=== PATIENT | male | born 1950 | race Caucasian/White ===

== ENCOUNTER 2020-08-18 10:09 | Outpatient (REF) | payer MEDICARE, SELFPAY ==
[2020-08-18 10:51] LABS: MANUAL DIFF FLAG NO
[2020-08-18 10:59] LABS: Basophils Absolute Auto 0.1 X10*3/uL (0.0-0.2); Basophils Percent Auto 0.7 % (0-2); Eosinophils Absolute Auto 0.1 X10*3/uL (0.0-0.4); Eosinophils Percent Auto 0.8 % (0-4); Hemoglobin 15.8 g/dl (14.0-18.0); Imm Gran Abs Auto 0.02 X10*3/uL (0.00-0.03); Imm Gran Pct Auto 0.3 % (0.0-0.4); Lymphocytes Absolute Auto 1.8 X10*3/uL (1.2-4.9); Lymphocytes Percent Auto 24.9 % (20-40); Mean Corpuscular HGB Conc 34.3 g/dl (31.0-36.0); Mean Corpuscular Hemoglobin 32.1 pg (27.0-33.0); Mean Corpuscular Volume 93.5 fL (80-98); Mean Platelet Volume 11.5 fL (9.4-12.4); Monocytes Absolute Auto 0.7 X10*3/uL (0.1-1.2); Monocytes Percent Auto 9.4 % (2-11); Neutrophils Absolute Auto 4.7 X10*3/uL (2.0-8.3); Neutrophils Percent Auto 63.9 % (45-73); Platelet Count 254 X10*3/uL (160-400); Red Blood Count 4.92 X10*6/uL (4.60-5.80); Red Cell Distribution Width 11.4 % (11.0-16.0); White Blood Count 7.3 X10*3/uL (4.8-10.8)
[2020-08-18 11:15] LABS: Glucose Urine UA >=1000 MG/DL (NEG); Leukocyte Esterase Urine NEG (NEG); Nitrite Urine NEG (NEG); PH 5.5 (5.0-8.0); Specific Gravity - Urine >= 1.030 (1.005-1.025); Urine Blood TRACE (NEG); Urine Ketones 5 MG/DL (NEG); Urine Protein TRACE MG/DL (NEG-TRACE)
[2020-08-18 11:17] LABS: Appearance Urine CLEAR; Color Urine YELLOW
[2020-08-18 11:25] LABS: Alanine Aminotransferase 49 U/L (0-40); Albumin Level 4.7 g/dL (3.5-5.0); Alkaline Phosphatase 60 U/L (39-117); Anion Gap 17 (12-20); Aspartate Amino Transferase 29 U/L (5-37); Bilirubin Total 0.7 mg/dL (0.0-1.0); Blood Urea Nitrogen 21 mg/dL (9-16); Calcium 9.4 mg/dL (8.4-10.2); Carbon Dioxide 23 mmol/L (22-29); Chloride 102 mmol/L (96-108); Cholesterol 248 mg/dL; Estimated Glomerular Filt Rate 56; Glucose Fasting 250 mg/dL (60-99); HDL Cholesterol 41 mg/dL; LDL Cholesterol Calculated 136 mg/dl; Potassium 4.5 mmol/L (3.3-5.1); Sodium 137 mmol/L (135-145); Total Protein 7.8 g/dL (6.5-8.0); Triglycerides 359 mg/dL
[2020-08-18 11:26] LABS: Estimated Average Glucose 235 mg/dL; Hemoglobin A1c % 9.8 %; RBC Urine 0-2 /HPF (0); WBC Urine 0-2 /HPF (0-4)
[2020-08-18 12:12] LABS: Creatinine Urine 141.75 mg/dL; Microalbum/Creatinine Ratio Ur 154.4 ug/mg cr
[2020-08-18 12:42] LABS: Prostate Specific Antigen Scr 2.51 ng/mL (<0.05-4.0)
== END 2020-08-18 10:10 | disposition home or self-care (01) ==
LOC: HO.10HDL 10:09
PROVIDERS: Visit Provider Internal Medicine
DX: E11.9 Type 2 diabetes mellitus without complications (principal); I10 Essential (primary) hypertension; N40.0 Benign prostatic hyperplasia without lower urinary tract symptoms; E78.00 Pure hypercholesterolemia, unspecified; Z12.5 Encounter for screening for malignant neoplasm of prostate
CPT/HCPCS: 36415; 80053; 80061; 81001; 82043; 83036; 84153; 85025

== ENCOUNTER 2021-02-22 07:56 | Outpatient (REF) | payer MEDICARE, SELFPAY ==
[2021-02-22 10:17] LABS: Estimated Average Glucose 157 mg/dL; Hemoglobin A1c % 7.1 %
[2021-02-22 10:36] LABS: Creatinine Urine 53.68 mg/dL; Microalbum/Creatinine Ratio Ur 24.2 ug/mg cr
[2021-02-22 10:40] LABS: Alanine Aminotransferase 65 U/L (0-40); Albumin Level 4.4 g/dL (3.5-5.0); Alkaline Phosphatase 56 U/L (39-117); Anion Gap 16 (12-20); Aspartate Amino Transferase 41 U/L (5-37); Bilirubin Total 0.4 mg/dL (0.0-1.0); Blood Urea Nitrogen 20 mg/dL (9-16); Calcium 9.6 mg/dL (8.4-10.2); Carbon Dioxide 24 mmol/L (22-29); Chloride 107 mmol/L (96-108); Cholesterol 202 mg/dL; Estimated Glomerular Filt Rate > 60; Glucose Fasting 122 mg/dL (60-99); HDL Cholesterol 35 mg/dL; LDL Cholesterol Calculated 98 mg/dl; Potassium 5.7 mmol/L (3.3-5.1); Sodium 141 mmol/L (135-145); Total Protein 7.5 g/dL (6.5-8.0); Triglycerides 348 mg/dL
== END 2021-02-22 07:57 | disposition home or self-care (01) ==
LOC: HO.10HDL 07:56
PROVIDERS: PCP Internal Medicine; Visit Provider Internal Medicine
DX: E11.9 Type 2 diabetes mellitus without complications (principal); I10 Essential (primary) hypertension; E78.5 Hyperlipidemia, unspecified
CPT/HCPCS: 36415; 80053; 80061; 82043; 83036

== ENCOUNTER 2021-03-28 07:46 | Outpatient (REF) | payer MEDICARE, SELFPAY ==
[2021-03-28 11:24] LABS: Cholesterol 179 mg/dL; HDL Cholesterol 36 mg/dL; LDL Cholesterol Calculated 109 mg/dl; Triglycerides 174 mg/dL
== END 2021-03-28 07:47 | disposition home or self-care (01) ==
LOC: HO.10HDL 07:46
PROVIDERS: Visit Provider Internal Medicine
DX: E78.1 Pure hyperglyceridemia (principal)
CPT/HCPCS: 36415; 80061

== ENCOUNTER 2021-03-30 10:11 | Outpatient (REF) | payer MEDICARE, SELFPAY ==
--- NOTE | ~2021-03-30 | XR_ITS ---
EXAMINATION: XR CALCANEUS, RIGHT CLINICAL INFORMATION: Question spurring. COMPARISON: None TECHNIQUE: Lateral and axial views of the right calcaneus were obtained. FINDINGS: Vascular calcifications are noted here. [id number] spurring at the insertion of the plantar aponeuroses in the Achilles. Mild degeneration at the tibiotalar articulation. XR/XR calcaneus RT min 2V IMPRESSION: Moderate calcaneal spurring. Vascular calcifications are noted.
== END 2021-03-30 10:12 | disposition home or self-care (01) ==
LOC: HO.XRAY 10:11
PROVIDERS: PCP Internal Medicine; Visit Provider Internal Medicine
DX: M79.671 Pain in right foot (principal)
CPT/HCPCS: 73650

== ENCOUNTER 2021-07-13 09:12 | Outpatient (REF) | payer MEDICARE, SELFPAY ==
[2021-07-13 10:19] LABS: MANUAL DIFF FLAG NO
[2021-07-13 10:37] LABS: Basophils Percent Auto 0.5 % (0-2); Eosinophils Absolute Auto 0.2 X10*3/uL (0.0-0.4); Hematocrit 43.5 % (42.0-52.0); Hemoglobin 14.3 g/dl (14.0-18.0); Imm Gran Abs Auto 0.03 X10*3/uL (0.00-0.03); Imm Gran Pct Auto 0.4 % (0.0-0.4); Lymphocytes Absolute Auto 2.2 X10*3/uL (1.2-4.9); Lymphocytes Percent Auto 29.2 % (20-40); Mean Corpuscular HGB Conc 32.9 g/dl (31.0-36.0); Mean Corpuscular Hemoglobin 31.4 pg (27.0-33.0); Mean Corpuscular Volume 95.4 fL (80.0-98.0); Mean Platelet Volume 11.7 fL (9.4-12.4); Monocytes Absolute Auto 0.9 X10*3/uL (0.1-1.2); Monocytes Percent Auto 11.1 % (2-11); Neutrophils Absolute Auto 4.3 x10*3/uL (2.0-8.3); Neutrophils Percent Auto 56.8 % (45-73); Platelet Count 283 X10*3/uL (160-400); Red Blood Count 4.56 X10*6/uL (4.60-5.80); Red Cell Distribution Width 11.7 % (11.0-16.0); White Blood Count 7.6 X10*3/uL (4.8-10.8)
[2021-07-13 11:01] LABS: Creatinine Urine 145.78 mg/dL
[2021-07-13 11:05] LABS: Alanine Aminotransferase 28 U/L (0-40); Albumin Level 4.3 g/dL (3.5-5.0); Alkaline Phosphatase 34 U/L (39-117); Anion Gap 13 (12-20); Aspartate Amino Transferase 21 U/L (5-37); Bilirubin Total 0.8 mg/dL (0.0-1.0); Blood Urea Nitrogen 20 mg/dL (9-16); Carbon Dioxide 25 mmol/L (22-29); Chloride 106 mmol/L (96-108); Estimated Glomerular Filt Rate 47; Glucose Fasting 153 mg/dL (60-99); Potassium 5.4 mmol/L (3.3-5.1); Sodium 139 mmol/L (135-145); Total Protein 7.5 g/dL (6.5-8.0)
[2021-07-13 11:37] LABS: Estimated Average Glucose 171 mg/dL; Hemoglobin A1c % 7.6 %
== END 2021-07-13 09:13 | disposition home or self-care (01) ==
LOC: HO.10HDL 09:12
PROVIDERS: Visit Provider Internal Medicine
DX: E11.9 Type 2 diabetes mellitus without complications (principal); E78.5 Hyperlipidemia, unspecified
CPT/HCPCS: 36415; 80053; 82043; 83036; 85025

== ENCOUNTER 2021-08-07 12:00 | Outpatient (REF) | payer MEDICARE, SELFPAY | END 2021-08-07 12:01 | disposition home or self-care (01) | LOC: HO.LNP 12:00 | PROVIDERS: Visit Provider Internal Medicine | DX: Z13.89 Encounter for screening for other disorder (principal) | CPT/HCPCS: 87635 ==

== ENCOUNTER 2021-12-26 08:50 | Outpatient (REF) | payer MEDICARE, SELFPAY ==
[2021-12-26 11:20] LABS: Estimated Average Glucose 200 mg/dL; Hemoglobin A1c % 8.6 %
[2021-12-26 11:24] LABS: Anion Gap 12 (12-20); Blood Urea Nitrogen 31 mg/dL (9-16); Calcium 9.5 mg/dL (8.4-10.2); Carbon Dioxide 23 mmol/L (22-29); Chloride 103 mmol/L (96-108); Estimated Glomerular Filt Rate 41; Glucose Fasting 185 mg/dL (60-99); Potassium 4.8 mmol/L (3.3-5.1); Sodium 133 mmol/L (135-145)
== END 2021-12-26 08:51 | disposition home or self-care (01) ==
LOC: HO.10HDL 08:50
PROVIDERS: Visit Provider Internal Medicine
DX: E11.9 Type 2 diabetes mellitus without complications (principal); I10 Essential (primary) hypertension
CPT/HCPCS: 36415; 80048; 83036

== ENCOUNTER 2022-02-25 07:51 | Inpatient (IN) | payer MEDICARE, SELFPAY ==
--- NOTE | ~2022-02-25 | CT_ITS ---
EXAMINATION: CT HEAD WITHOUT CONTRAST (STROKE PROTOCOL) CLINICAL INFORMATION: Stroke protocol. COMPARISON: March 25, 2019 TECHNIQUE: Contiguous axial imaging was performed from the skull base to vertex without intravenous administration of contrast. This CT examination was performed using dose optimization techniques as appropriate, variously including the following: *Automated exposure control *Adjustment of mA and/or kV according to patient size (this includes techniques or standardized protocols for targeted exams where dose is matched to indication/reason for exam; i.e. extremities or head) *Use of iterative reconstruction technique DLP: 822 mGy-cm FINDINGS: No intracranial hemorrhage. No significant mass effect or midline structure shift. No abnormal extra-axial fluid collection.. Ventricle sulci and cisterns unremarkable. Ritter-white matter interface maintained. Visualized paranasal sinuses and mastoid air cells unremarkable. CT/CT head for stroke IMPRESSION: No acute intracranial pathology. This critical result was discussed with Dr. Whiting at 8:31 AM hours on February 25, 2022. It was ascertained that the content and urgency of the report was understood at the time of direct communication.
--- NOTE | ~2022-02-25 | XR_ITS ---
EXAMINATION: XR CHEST CLINICAL INFORMATION: Stroke COMPARISON: None TECHNIQUE: Frontal view of the chest was obtained. FINDINGS: Cardiac silhouette is normal in size. The lungs are adequately aerated. There is no lobar consolidation. No pleural effusion or pneumothorax. Degenerative changes of the spine. XR/XR chest 1V IMPRESSION: No acute pulmonary pathology.
--- NOTE | ~2022-02-25 | CT_ITS ---
EXAMINATION: CT ANGIOGRAM HEAD CT ANGIOGRAM NECK CLINICAL INFORMATION: Right-sided leg weakness. COMPARISON: CT head from 02/25/2022. TECHNIQUE: Initial noncontrast client account representative imaging of the head and neck was performed. Comparison is made with noncontrast head CT from earlier today. Test bolus sequences followed by intravenous administration 70 mL of Omnipaque 350. Helical imaging was performed in the axial plane from the aortic arch to the skull vertex. Delayed postcontrast imaging of the head was also performed. The data was processed at the soil technologist's workstation for generation of MIP sequences. Angled MIPs and volume rendered reformatted images were also generated at an offline 3D workstation. Stenoses are assessed in accordance with NASCET criteria unless otherwise indicated. This CT examination was performed using dose optimization techniques as appropriate, variously including the following: *Automated exposure control. *Adjustment of mA and/or kV according to patient size (this includes techniques or standardized protocols for targeted exams where dose is matched to indication/reason for exam; i.e. extremities or head). *Use of iterative reconstruction technique. DLP: 1589 mGy-cm FINDINGS: CT Head: There is no evidence of acute intracranial hemorrhage or edematous territorial infarction. A few foci of hypoattenuation in the periventricular and deep white matter are consistent with mild microangiopathy. Ritter-white matter differentiation is preserved. The ventricles are normal in size and configuration. No evidence for obstructive hydrocephalus. No abnormal mass effect or midline shift. No extra-axial fluid collections. No pathologic intra-axial enhancement or regional oligemia. No acute soft tissue or osseous abnormalities. Mild mucosal thickening of the paranasal sinuses. The mastoid air cells and middle ear cavities are clear. CT Neck: The thyroid gland and remaining cervical soft tissues are within normal limits. No significant abnormalities of the cervical spine. CT Upper Chest: The visualized lung apices and upper mediastinum are within normal limits. Neck CTA: Aortic Arch: Normal contour and caliber with moderate calcific atherosclerotic disease. Classic 3 vessel branching pattern of the aortic arch. Great Vessel Origins: No significant stenosis of the branch origins. Right Common Carotid Artery: No focal stenosis or occlusion. Cervical Right Internal Carotid Artery: Calcific atherosclerotic disease of the carotid bulb and proximal internal carotid artery causing less than 50% stenosis. Left Common Carotid Artery: No focal stenosis or occlusion. Cervical Left Internal Carotid Artery: Calcific atherosclerotic disease of the carotid bulb and proximal internal carotid artery causing less than 50% stenosis. Cervical Right Vertebral Artery: No focal stenosis or occlusion. Cervical Left Vertebral Artery: Dominant. Atherosclerotic disease causes mild stenosis of the origin. No additional focal stenosis or occlusion. Brain CTA: Intracranial Internal Carotid Arteries: Calcific atherosclerotic disease of the intracranial internal carotid arteries without occlusion or flow-limiting stenosis. Right Anterior Cerebral Artery: Normal A1 segment. Normal opacification of the distal JUAN segments. Left Anterior Cerebral Artery: Normal A1 segment. Normal opacification of the distal JUAN segments. Anterior Communicating Artery: Normal. Right Middle Cerebral Artery: Normal M1 segment of the MCA without focal stenosis or occlusion. Normal arborization of the distal segments. Left Middle Cerebral Artery: Normal M1 segment of the MCA without focal stenosis or occlusion. Normal arborization of the distal segments. Right Vertebral Artery: Normal V4 segment. Normal opacification of the proximal segments of the posterior inferior cerebellar artery. Left Vertebral Artery: Normal V4 segment. Normal opacification of the proximal segments of the posterior inferior cerebellar artery. Basilar Artery: Normal without focal stenosis or occlusion. Normal appearance of the proximal superior cerebellar arteries. Right Posterior Cerebral Artery: Normal P1 segment. Normal opacification of the distal SYNTHETIC PLASTERER segments. Left Posterior Cerebral Artery: Normal P1 segment. Normal opacification of the distal SYNTHETIC PLASTERER segments. Normal opacification of the superior sagittal, straight, transverse, and sigmoid sinuses. CT/CT angio head neck stroke IMPRESSION: 1. No evidence of acute intracranial hemorrhage or edematous territorial infarction. 2. CTA of the head and neck without proximal occlusion or flow-limiting stenosis. This critical result was discussed with Dr. Whiting at 09:21 on 02/25/2022 and it was ascertained that the content and urgency of the report was understood at the time of direct communication.
[2022-02-25 07:55] VITALS: BP 176/80; PULSE 107; RESP 18; TEMP 36.6; O2SAT 97; BMI 27.9
--- NOTE | 2022-02-25 08:08 | ECG_ITS ---
Test Reason : STROKE Blood Pressure : / mmHG Vent. Rate : 103 BPM Atrial Rate : 103 BPM P-R Int : 170 ms QRS Dur : 076 ms QT Int : 334 ms P-R-T Axes : 058 -35 056 degrees QTc Int : 437 ms Sinus tachycardia Left axis deviation Possible Anterior infarct , age undetermined Abnormal ECG No previous ECGs available Referred By: Gilbert Whiting Electronically Signed By:THOM RYAN
--- NOTE | 2022-02-25 08:11 | ED.NEUROSD ---
HPI - Neuro Symptoms/Deficit General Chief Complaint: Stroke Stated Complaint: Stroke? Time Seen by Provider: 02/25/22 08:07 Source: patient Mode of arrival: ambulatory Limitations: no limitations History of Present Illness HPI Narrative: 71-year-old male came in for evaluation of a right leg weakness. This is a 71-year-old male with history of diabetes, previous stroke in 2019 left him with no neurological deficit patient woke up at 02:30 in the morning feeling right-sided numbness, patient went back to bed and fell asleep woke up in the morning notice improvement of all his symptoms, patient got of the bed trying to take shower noticed that his right leg still weak because of the patient tripped and almost fell hitting his head on the wall. Patient is still complaining of right leg weakness and unable to walk steady on his right leg. Patient has no speech problem, no upper extremities weakness. Complaining of left occipital headache/pain that has been going for many months. Related Data Allergies Allergy/AdvReac Type Severity Reaction Status Date / Time No Known Allergies Allergy Verified 02/25/22 08:07 Review of Systems Review of Systems: All other systems are reviewed and are negative Constitutional: Reports as per HPI and Reports no additional constitutional complaints Eyes: Reports as per HPI and Reports no additional eye complaints Reports system reviewed and no additional complaints, except as documented Cardiovascular: Reports as per HPI and Reports no additional cardiovascular complaints Respiratory: Reports as per HPI and Reports no additional respiratory complaints Gastrointestinal: Reports as per HPI and Reports no additional gastrointestinal complaints Genitourinary: Reports no additional female genitourinary complaints Musculoskeletal: Reports no additional musculoskeletal complaints Skin/Breast: Reports system reviewed and no additional complaints, except as docu Psychiatric: Reports no additional psychiatric complaints Endocrine: Reports no additional endocrine complaints Hematologic/Lymphatic: Reports no additional hematologic/lymphatic complaints Allergic/Immunologic: Reports no additional allergic/immunologic complaints Reports system reviewed and no additional complaints, except as documented and Reports Abnormal speech present [facility] Past Medical History Medical History (Updated 02/25/22 @ 10:46 by Gilbert Whiting MD) 23-polyvalent pneumococcal polysaccharide vaccine indication of diabetes in patient 6 to 64 years of age HTN (hypertension) TIA (transient ischemic attack) Social History Social History Advance Directives: Yes Advance Directives Information Provided: Yes Advance Directives on File: No Physical Exam Vital Signs: Vital Signs: Last Vital Signs Temp 98 F 02/25/22 07:55 Pulse 106 H 02/25/22 10:25 Resp 18 02/25/22 10:25 BP 166/90 H 02/25/22 10:25 Pulse Ox 97 02/25/22 07:55 O2 Del Method 02/25/22 08:47 BMI result Body Mass Index 27.9 Vital signs have been reviewed as appeared to be correct. Blood pressure normal. Heart rate normal. Respiration rate normal. Temperature normal. Oxygen saturation normal. Appearance: Alert. Oriented X3. No acute distress. Head: Normal external exam. Normocephalic. Atraumatic. No [place] signs noted. No raccoon eyes noted Eyes: PERRLA. EOMI. Conjunctiva and sclera normal. Eyelids normal. ENT: TM's Normal. Pharynx normal. Uvula midline. Moist mucous membranes. No trismus noted. No drooling noted. No muffled voice noted. Neck: Normal inspection. Neck supple. FROM. No adenopathy. Thyroid Normal. No meningeal signs. No neck mass noted. CVS: Normal heart rate and rhythm. Heart sound normal. No murmurs noted. Pulses normal throughout. Respiratory: No respiratory distress. Painless inspiration. Breath sounds normal. No wheezes/rales/rhonchi noted. Chest nontender. No accessory muscle usage noted or decreased air movement noted. Abdomen: Soft and nontender. Bowel sounds normal in all 4 quadrants. No distention noted. No organomegaly noted. No visible injury noted. Back: No CVA tenderness. Full range of motion noted. Skin: Skin warm and dry. Normal skin color. Normal skin turgor. No rashes/lesions/lacerations noted. Extremities: No lower extremity edema. Extremities exhibit normal range of motion. Extremities nontender. Neuro: Oriented X 3. Cranial nerve exam: II-XII are grossly intact No motor deficit. No sensory deficit. Reflexes normal. Course Course Course Narrative: 71-year-old male came in for right-sided weakness started at 02:30 in the morning patient presented to ED at 730 which make the patient out of the window of thrombolysis therapy, patient however claims that most of his symptoms has improved just complaining of right lower leg pain, on exam patient have NIH score of 0 felt that the abnormal gait of the patient is related to musculoskeletal. Patient has unremarkable CT and CTA patient is not candidate for thrombolysis or mechanical thrombectomy. Will admit for further neurological consultation and evaluation. MDM - Neuro Symptoms/Deficit Medical Records Attestation: I reviewed the patient's medical records. Lab Data Attestation: I reviewed the patient's lab results. Result diagrams: 02/25/22 08:10 02/25/22 08:10 Labs: Lab Results 02/25/22 02/25/22 02/25/22 Range/Units 08:10 08:10 08:10 WBC 10.3 (4.8-10.8) X10*3/uL RBC 5.03 (4.60-5.80) X10*6/uL Hgb 15.9 (14.0-18.0) g/dl Hct 46.5 (42.0-52.0) % MCV 92.4 (80.0-98.0) fL MCH 31.6 (27.0-33.0) pg MCHC 34.2 (31.0-36.0) g/dl RDW 11.5 (11.0-16.0) % Plt Count 262 (160-400) X10*3/uL MPV 11.2 (9.4-12.4) fL Immature Gran % (Auto) 0.4 (0.0-0.4) % Neut % (Auto) 50.6 (45-73) % Lymph % (Auto) 38.4 (20-40) % [place] % (Auto) 8.6 (2-11) % Eos % (Auto) 1.5 (0-4) % Baso % (Auto) 0.5 (0-2) % Lymph # (Auto) 4.0 (1.2-4.9) X10*3/uL [place] # (Auto) 0.9 (0.1-1.2) X10*3/uL Eos # (Auto) 0.2 (0.0-0.4) X10*3/uL Baso # (Auto) 0.1 (0.0-0.2) X10*3/uL Abs Immat Gran (auto) 0.04 H (0.00-0.03) X10*3/uL Absolute Neuts (auto) 5.2 (2.0-8.3) x10*3/uL Absolute Nucleated RBC 0.000 (0.0-0.012) X10*3/uL Nucleated RBC % (auto) 0.0 (0.0-0.2) /100WBC PT (10.0-13.1) SEC Whole Blood PT (11.1-13.5) sec INR (0.9-1.1) Whole Blood INR (0.9-1.1) APTT 27.0 (26.0-36.4) SEC Sodium 137 (135-145) mmol/L Potassium 4.7 (3.3-5.1) mmol/L Chloride 103 (96-108) mmol/L Carbon Dioxide 17 L (22-29) mmol/L Anion Gap 22 H (12-20) BUN 35 H (9-16) mg/dL Creatinine 1.90 H (0.5-1.4) mg/dL Estim Creat Clear Calc 39.3 Estimated GFR 35 POC Glucose (60-115) mg/dL Random Glucose 234 H (60-115) mg/dL Calcium 9.4 (8.4-10.2) mg/dL Total Bilirubin 0.6 (0.0-1.0) mg/dL Direct Bilirubin 0.2 (0.0-0.5) mg/dL AST 24 (5-37) U/L ALT 26 (0-40) U/L Alkaline Phosphatase 45 D (39-117) U/L Total Creatine Kinase 111 (38-174) U/L Troponin I High Sens (<3.5-35.0) ng/L Total Protein 8.1 H (6.5-8.0) g/dL Albumin 4.5 (3.5-5.0) g/dL Lipase 157 H (8-78) U/L 02/25/22 02/25/22 02/25/22 Range/Units 08:10 08:10 08:10 WBC (4.8-10.8) X10*3/uL RBC (4.60-5.80) X10*6/uL Hgb (14.0-18.0) g/dl Hct (42.0-52.0) % MCV (80.0-98.0) fL MCH (27.0-33.0) pg MCHC (31.0-36.0) g/dl RDW (11.0-16.0) % Plt Count (160-400) X10*3/uL MPV (9.4-12.4) fL Immature Gran % (Auto) (0.0-0.4) % Neut % (Auto) (45-73) % Lymph % (Auto) (20-40) % [place] % (Auto) (2-11) % Eos % (Auto) (0-4) % Baso % (Auto) (0-2) % Lymph # (Auto) (1.2-4.9) X10*3/uL [place] # (Auto) (0.1-1.2) X10*3/uL Eos # (Auto) (0.0-0.4) X10*3/uL Baso # (Auto) (0.0-0.2) X10*3/uL Abs Immat Gran (auto) (0.00-0.03) X10*3/uL Absolute Neuts (auto) (2.0-8.3) x10*3/uL Absolute Nucleated RBC (0.0-0.012) X10*3/uL Nucleated RBC % (auto) (0.0-0.2) /100WBC PT 10.7 (10.0-13.1) SEC Whole Blood PT 11.8 (11.1-13.5) sec INR 0.9 (0.9-1.1) Whole Blood INR 1.0 (0.9-1.1) APTT (26.0-36.4) SEC Sodium (135-145) mmol/L Potassium (3.3-5.1) mmol/L Chloride (96-108) mmol/L Carbon Dioxide (22-29) mmol/L Anion Gap (12-20) BUN (9-16) mg/dL Creatinine (0.5-1.4) mg/dL Estim Creat Clear Calc Estimated GFR POC Glucose (60-115) mg/dL Random Glucose (60-115) mg/dL Calcium (8.4-10.2) mg/dL Total Bilirubin (0.0-1.0) mg/dL Direct Bilirubin (0.0-0.5) mg/dL AST (5-37) U/L ALT (0-40) U/L Alkaline Phosphatase (39-117) U/L Total Creatine Kinase (38-174) U/L Troponin I High Sens 4.3 (<3.5-35.0) ng/L Total Protein (6.5-8.0) g/dL Albumin (3.5-5.0) g/dL Lipase (8-78) U/L 02/25/22 Range/Units 08:11 WBC (4.8-10.8) X10*3/uL RBC (4.60-5.80) X10*6/uL Hgb (14.0-18.0) g/dl Hct (42.0-52.0) % MCV (80.0-98.0) fL MCH (27.0-33.0) pg MCHC (31.0-36.0) g/dl RDW (11.0-16.0) % Plt Count (160-400) X10*3/uL MPV (9.4-12.4) fL Immature Gran % (Auto) (0.0-0.4) % Neut % (Auto) (45-73) % Lymph % (Auto) (20-40) % [place] % (Auto) (2-11) % Eos % (Auto) (0-4) % Baso % (Auto) (0-2) % Lymph # (Auto) (1.2-4.9) X10*3/uL [place] # (Auto) (0.1-1.2) X10*3/uL Eos # (Auto) (0.0-0.4) X10*3/uL Baso # (Auto) (0.0-0.2) X10*3/uL Abs Immat Gran (auto) (0.00-0.03) X10*3/uL Absolute Neuts (auto) (2.0-8.3) x10*3/uL Absolute Nucleated RBC (0.0-0.012) X10*3/uL Nucleated RBC % (auto) (0.0-0.2) /100WBC PT (10.0-13.1) SEC Whole Blood PT (11.1-13.5) sec INR (0.9-1.1) Whole Blood INR (0.9-1.1) APTT (26.0-36.4) SEC Sodium (135-145) mmol/L Potassium (3.3-5.1) mmol/L Chloride (96-108) mmol/L Carbon Dioxide (22-29) mmol/L Anion Gap (12-20) BUN (9-16) mg/dL Creatinine (0.5-1.4) mg/dL Estim Creat Clear Calc Estimated GFR POC Glucose 220 H (60-115) mg/dL Random Glucose (60-115) mg/dL Calcium (8.4-10.2) mg/dL Total Bilirubin (0.0-1.0) mg/dL Direct Bilirubin (0.0-0.5) mg/dL AST (5-37) U/L ALT (0-40) U/L Alkaline Phosphatase (39-117) U/L Total Creatine Kinase (38-174) U/L Troponin I High Sens (<3.5-35.0) ng/L Total Protein (6.5-8.0) g/dL Albumin (3.5-5.0) g/dL Lipase (8-78) U/L Imaging Data Chest x-ray: Attestation: I personally reviewed and interpreted this imaging study as follows: Radiologist's impression: No acute pulmonary pathology. CT angiogram of head and neck: Attestation: I personally reviewed and interpreted this imaging study as follows: Radiologist's impression: 1. No evidence of acute intracranial hemorrhage or edematous territorial infarction. 2. CTA of the head and neck without proximal occlusion or flow-limiting stenosis. ? CT scan - head: Attestation: I personally reviewed and interpreted this imaging study as follows: Radiologist's impression: No acute intracranial pathology. ECG Data Attestation: I personally reviewed and interpreted this ECG as follows: Interpretation: Sinus tachycardia at 01:03 BP am, normal intervals, left axis deviation, no ST-T changes. NIH Stroke Scale Time: 08:15 Level of Consciousness: Alert Level of Consciousness Questions: Answers both questions correctly Level of Consciousness Commands: Performs both tasks correctly Best Gaze: Normal Visual: No visual loss Facial Palsy: Normal Motor Arm (Right): No drift Motor Arm (Left): No drift Motor Leg (Right): No drift (Mild right leg weakness when he stand up) Motor Leg (Left): No drift Limb Ataxia: Absent Sensory: Normal Best Language: No aphasia Dysarthia: Normal Extinction and Inattention: No abnormality Score: 0 Discharge Plan Discharge Clinical Impression: Transient cerebral ischemia Patient Disposition: Admitted As Inpatient
[2022-02-25 08:15] LABS: MANUAL DIFF FLAG NO
[2022-02-25 08:17] LABS: Basophils Absolute Auto 0.1 X10*3/uL (0.0-0.2); Basophils Percent Auto 0.5 % (0-2); Eosinophils Absolute Auto 0.2 X10*3/uL (0.0-0.4); Eosinophils Percent Auto 1.5 % (0-4); Hematocrit 46.5 % (42.0-52.0); Hemoglobin 15.9 g/dl (14.0-18.0); Imm Gran Abs Auto 0.04 X10*3/uL (0.00-0.03); Imm Gran Pct Auto 0.4 % (0.0-0.4); Lymphocytes Percent Auto 38.4 % (20-40); Mean Corpuscular HGB Conc 34.2 g/dl (31.0-36.0); Mean Corpuscular Hemoglobin 31.6 pg (27.0-33.0); Mean Corpuscular Volume 92.4 fL (80.0-98.0); Mean Platelet Volume 11.2 fL (9.4-12.4); Monocytes Absolute Auto 0.9 X10*3/uL (0.1-1.2); Monocytes Percent Auto 8.6 % (2-11); Neutrophils Absolute Auto 5.2 x10*3/uL (2.0-8.3); Neutrophils Percent Auto 50.6 % (45-73); Platelet Count 262 X10*3/uL (160-400); Red Blood Count 5.03 X10*6/uL (4.60-5.80); Red Cell Distribution Width 11.5 % (11.0-16.0); White Blood Count 10.3 X10*3/uL (4.8-10.8)
[2022-02-25 08:20] LABS: Glucose, Whole Blood 220 mg/dL (60-115)
[2022-02-25 08:35] LABS: Troponin-I High Sensitivity 4.3 ng/L (<3.5-35.0)
[2022-02-25] MEDS: iohexoL 350 MG/ML 100 ML INFUS..BTL IV (08:36)
[2022-02-25 08:43] LABS: Prothrombin Time Whole Bld POC 11.8 sec (11.1-13.5)
[2022-02-25] MEDS: 0.9 % Sodium Chloride 1,000 ML 999 ML IV (08:44)
[2022-02-25 08:47] VITALS: BP 157/68; PULSE 101; RESP 18
--- NOTE | 2022-02-25 08:50 | PC.NURSE ---
pt alert and oriented, skin pwd, respirations even and unlabored, pt reports waking up at 0230 to use the bathroom and noticed tingling allover his left side but decided to go back to bed, woke up again at 0700 and reports having a difficulty time ambulating his right leg, reports having a hard time picking up the foot, no visible facial droop, hand grasp strong and equal, no visible drift, when pt stands up his having difficulty ambulating on the right sided, having a hard time lifting the foot
[2022-02-25 08:56] LABS: INTERNATIONAL NORM RATIO 0.9 (0.9-1.1); Prothrombin Time 10.7 SEC (10.0-13.1)
[2022-02-25 08:57] LABS: Stroke Lab Use COMPLETE
[2022-02-25 08:59] LABS: Alanine Aminotransferase 26 U/L (0-40); Albumin Level 4.5 g/dL (3.5-5.0); Alkaline Phosphatase 45 U/L (39-117); Anion Gap 22 (12-20); Aspartate Amino Transferase 24 U/L (5-37); Bilirubin Direct 0.2 mg/dL (0.0-0.5); Bilirubin Total 0.6 mg/dL (0.0-1.0); Blood Urea Nitrogen 35 mg/dL (9-16); Calcium 9.4 mg/dL (8.4-10.2); Carbon Dioxide 17 mmol/L (22-29); Chloride 103 mmol/L (96-108); Creatinine Clr Calc Pharmacy 39.3; Estimated Glomerular Filt Rate 35; Glucose Random 234 mg/dL (60-115); Lipase 157 U/L (8-78); Potassium 4.7 mmol/L (3.3-5.1); Sodium 137 mmol/L (135-145); Total Protein 8.1 g/dL (6.5-8.0)
[2022-02-25 10:25] VITALS: BP 166/90; PULSE 106; RESP 18
[2022-02-25 11:12] LABS: COVID-19 Test Negative (Negative)
--- NOTE | 2022-02-25 11:37 | P.HPHOSP_ITS ---
History of Present Illness Date of Service: 02/25/22 Chief Complaint: right leg weakness 71-year-old male with history of diabetes, previous stroke in 2019 left him with no neurological deficit patient woke up at 02:30 in the morning feeling right- sided numbness, patient went back to bed and fell asleep woke up in the morning notice improvement of all his symptoms, patient got of the bed trying to take shower noticed that his right leg still weak because of the patient tripped and almost fell hitting his head on the wall. Patient is still complaining of right leg weakness and unable to walk steady on his right leg. Patient has no speech problem, no upper extremities weakness.? Complaining of left occipital headache/pain that has been going for many months. ER Course symptoms essentially resolved in the ER. CTA head and neck and head CT failed to demonstrate acute pathology. Now with minimal residual right sided weakness Review of Systems Review of Systems: denies chest pain Denies shortness of breath Denies nausea vomiting diarrhea Denies fevers chills [facility] Medical History (Updated 02/25/22 @ 11:50 by Enrique Thakur DO) 23-polyvalent pneumococcal polysaccharide vaccine indication of diabetes in patient 6 to 64 years of age HTN (hypertension) TIA (transient ischemic attack) Social History Advance Directives: Yes Advance Directives Information Provided: Yes Advance Directives on File: No Meds Allergies Allergy/AdvReac Type Severity Reaction Status Date / Time No Known Allergies Allergy Verified 02/25/22 08:07 Active Medications: Current Medications Aspirin (Aspirin 81 Mg Tab.Chew) 81 mg PO DAILY ONE Stop: 02/25/22 11:34 Atorvastatin Calcium (Atorvastatin Calcium 80 Mg Tablet) 80 mg PO DAILY ONE Stop: 02/25/22 11:34 Enoxaparin Sodium (Enoxaparin Sodium 40 Mg/0.4 Ml Syringe) 40 mg SUBCUT Q24H [facility] Pharmacy Consult (Consult Rx Perform Med Rec) 1 each MISCELLANE ONCE PRN PRN Reason: Consult order Sodium Chloride (0.9 % Sodium Chloride Flush 3 Ml Syringe) 3 ml IVFLUSH QSHIFT [facility] Physical Exam Vital Signs and Narrative: Vital Signs: Last Vital Signs Temp 98 F 02/25/22 07:55 Pulse 106 H 08/28/22 10:25 Resp 18 02/25/22 10:25 BP 166/90 H 02/25/22 10:25 Pulse Ox 97 02/25/22 07:55 O2 Del Method 02/25/22 08:47 BMI result Body Mass Index 27.9 Const: Other: no acute distress resting comfortably Resp: Other: clear to auscultation bilaterally no rales rhonchi or wheezes Cardio: Other: no S4; positive S1-S2; no S3 murmurs rubs or gallops GI: Other: soft nontender nondistended with normoactive bowel sounds Neuro: Other: cranial nerves 2-12 grossly intact as tested. Motor 5/5 on left 4-5 on right. Sensation is intact. Cognition appropriate Extrem: Other: no edema bilaterally Results Labs CBC and Chem 7: 02/25/22 08:10 02/25/22 08:10 Labs: Laboratory Results - last 24 hr 02/25/22 02/25/22 02/25/22 08:10 08:10 08:10 MCV 92.4 MCH 31.6 MCHC 34.2 RDW 11.5 Plt Count 262 MPV 11.2 Immature Gran % (Auto) 0.4 Neut % (Auto) 50.6 Lymph % (Auto) 38.4 [place] % (Auto) 8.6 Eos % (Auto) 1.5 Baso % (Auto) 0.5 Lymph # (Auto) 4.0 [place] # (Auto) 0.9 Eos # (Auto) 0.2 Baso # (Auto) 0.1 Abs Immat Gran (auto) 0.04 H Absolute Neuts (auto) 5.2 Absolute Nucleated RBC 0.000 Nucleated RBC % (auto) 0.0 PT Whole Blood PT INR Whole Blood INR APTT 27.0 Anion Gap 22 H Estim Creat Clear Calc 39.3 Estimated GFR 35 POC Glucose Random Glucose 234 H Calcium 9.4 Total Bilirubin 0.6 Direct Bilirubin 0.2 AST 24 ALT 26 Alkaline Phosphatase 45 D Total Creatine Kinase 111 Total Protein 8.1 H Albumin 4.5 Lipase 157 H COVID-19 (JAY) COVID-19 Clin Com 02/25/22 02/25/22 02/25/22 08:10 08:10 08:11 MCV MCH MCHC RDW Plt Count MPV Immature Gran % (Auto) Neut % (Auto) Lymph % (Auto) [place] % (Auto) Eos % (Auto) Baso % (Auto) Lymph # (Auto) [place] # (Auto) Eos # (Auto) Baso # (Auto) Abs Immat Gran (auto) Absolute Neuts (auto) Absolute Nucleated RBC Nucleated RBC % (auto) PT 10.7 Whole Blood PT 11.8 INR 0.9 Whole Blood INR 1.0 APTT Anion Gap Estim Creat Clear Calc Estimated GFR POC Glucose 220 H Random Glucose Calcium Total Bilirubin Direct Bilirubin AST ALT Alkaline Phosphatase Total Creatine Kinase Total Protein Albumin Lipase COVID-19 (JAY) COVID-19 Clin Com 02/25/22 10:38 MCV MCH MCHC RDW Plt Count MPV Immature Gran % (Auto) Neut % (Auto) Lymph % (Auto) [place] % (Auto) Eos % (Auto) Baso % (Auto) Lymph # (Auto) [place] # (Auto) Eos # (Auto) Baso # (Auto) Abs Immat Gran (auto) Absolute Neuts (auto) Absolute Nucleated RBC Nucleated RBC % (auto) PT Whole Blood PT INR Whole Blood INR APTT Anion Gap Estim Creat Clear Calc Estimated GFR POC Glucose Random Glucose Calcium Total Bilirubin Direct Bilirubin AST ALT Alkaline Phosphatase Total Creatine Kinase Total Protein Albumin Lipase COVID-19 (JAY) Negative COVID-19 Clin Com See Note Imaging Radiologist's Impressions: Impressions Head CT 02/25/22 08:22 IMPRESSION: No acute intracranial pathology. This critical result was discussed with Dr. Whiting at 8:31 AM hours on February 25, 2022. It was ascertained that the content and urgency of the report was understood at the time of direct communication. Head/Neck CTA 02/25/22 08:26 IMPRESSION: 1. No evidence of acute intracranial hemorrhage or edematous territorial infarction. 2. CTA of the head and neck without proximal occlusion or flow-limiting stenosis. This critical result was discussed with Dr. Whiting at 09:21 on 02/25/2022 and it was ascertained that the content and urgency of the report was understood at the time of direct communication. Chest X-Ray 02/25/22 08:38 IMPRESSION: No acute pulmonary pathology. Assessment and Plan (1) Transient cerebral ischemia: Status: Acute Plan 71-year-old male awoke this a.m. with right-sided weakness and mild facial paresthesias. Assented to ER where workup including head neck CTA and head CT all failed to demonstrate an acute infarct. Symptoms essentially resolved safe mild weakness right lower extremity. States past CVA but denies residual complaints 1.TIA - admit to telemetry - high-dose statin - MRI/Echo/Lipids in a.m. - will discuss the need for dual antiplatelet therapy with Neurology.... consult to follow 2. Hypertension - will start low-dose SANJIV-inhibitor - titrate as indicated Full code Lovenox will require at least 2 midnights going forward to complete workup for TIA and start antiplatelet therapies. This cannot be achieved in a less acute setting Quality Stroke Does the patient have a stroke diagnosis?: No VTE Prior VTE?: No VTE Risk Level:: Medical - moderate - high VTE Device Contraindication: Treatment Not Indicated VTE Drug Contraindication: N/A - Med Ordered
[2022-02-25 12:04] VITALS: BP 148/76; PULSE 103; RESP 16; O2SAT 96
[2022-02-25] MEDS: Atorvastatin Calcium 80 MG TABLET PO (12:09)
[2022-02-25] MEDS: Aspirin 81 MG TAB.CHEW PO (12:10)
[2022-02-25 12:13] VITALS: BP 144/75; PULSE 105; RESP 18
--- NOTE | 2022-02-25 13:06 | PHA.MEDREC ---
Pharmacy Consult ? Medication Reconciliation Pharmacy has completed the medication reconciliation. Spoke with patient in the ED who knew his medications. [facility]
[2022-02-25] MEDS: Enoxaparin Sodium 40 MG/0.4 ML SYRINGE SUBCUT (14:15)
[2022-02-25] MEDS: Clopidogrel Bisulfate 75 MG TABLET PO (14:15)
[2022-02-25] MEDS: 0.9 % Sodium Chloride Flush 3 ML SYRINGE IVFLUSH (17:38)
[2022-02-25] MEDS: glipiZIDE 5 MG TABLET 2.5 MG PO (17:38)
[2022-02-25 20:09] VITALS: BP 152/72; PULSE 94; RESP 18; TEMP 36.9; O2SAT 97
--- NOTE | 2022-02-25 21:04 | PC.NURSE ---
Pt is asking to go home. Stating he has waited a very long time and does not want to wait here overnight. I explained why it is preferred that he stay but he does not want to. I spoke with Dr Sparks who then came to talk with the patient. Pt stated if he can get into a bed upstairs, he will be willing to stay. We are now searching for a bed and waiting for updates.
--- NOTE | 2022-02-25 21:28 | PC.NURSE ---
per hospitalist Dr. Robertson. pt wants to leave against medical advise, provider has talked with pt and explained the risks and abelino. pt still wants to leave.
--- NOTE | 2022-02-25 21:33 | PC.NURSE ---
this rn spoke with pt as well and explained the risks and abelino of leaving vs staying. pt states he will not stay unless he has a room. checked with [facility] and no beds available.
--- NOTE | 2022-02-26 10:12 | MHC.STROKE ---
02/25/22 [place] AT 0751, C/O RIGHT ARM WEAKNESS AND NUMBNESS, CABRAL. LKW 02/24/22 2100 WHEN HE WENT TO BED, WAOKE WITH SYMTPOMS 02/25/22 AT 0230, DID NOT SEEK MEDICAL ATTENTION UNTIL 075. EXAMINED BY PROVIDER, CTH AND CTA H/N DONE , NO BLEED, NO LVO. ADMITTED TO INPATIENT. PMH CVA/TIA, DM, HTN, HLD, OBESITY. PASSED SWALLOW SCREEN PRIOR TO PO. ALL STROKE MEASURES IN PLACE. AT 2151 HE REFUSED TO STAY AND LEFT AMA.
--- NOTE | 2023-07-22 14:15 | P.DS_ITS ---
DS: Providers Provider Date of Service: 07/22/23 Date of admission: 02/25/22 11:29 Date of discharge: 02/25/22 Primary care physician: Javy Gao MD DS: Diagnosis Discharge Diagnosis (1) Transient cerebral ischemia: Status: Acute DS: Summary Hospital Course Hospital Course: 71-year-old male with history of diabetes, previous stroke in 2019 left him with no neurological deficit patient woke up at 02:30 in the morning feeling right- sided numbness, patient went back to bed and fell asleep woke up in the morning notice improvement of all his symptoms, patient got of the bed trying to take shower noticed that his right leg still weak because of the patient tripped and almost fell hitting his head on the wall. Patient is still complaining of right leg weakness and unable to walk steady on his right leg. Patient has no speech problem, no upper extremities weakness.? Complaining of left occipital headache/pain that has been going for many months. ER Course symptoms essentially resolved in the ER. CTA head and neck and head CT failed to demonstrate acute pathology. Now with minimal residual right sided weakness Hospital course Patient was seen and admitted. While still boarding in ER patient signed out AMA. Primary care notify Time Attestation Discharge coordination time: Greater than 30 minutes Quality: Safe Use of Opioids Does Pt have an Active Cancer Diagnosis on the Problem List?: No Quality: Stroke Does the patient have a stroke diagnosis?: No Physical Exam Vital Signs: Vital Signs: Last Vital Signs Temp 98.4 F 02/25/22 20:09 Pulse 94 02/25/22 20:09 Resp 18 02/25/22 20:09 BP 152/72 H 02/25/22 20:09 Pulse Ox 97 02/25/22 20:09 O2 Del Method Room Air 02/25/22 20:09 BMI result Body Mass Index 27.9 Const: Other: no acute distress resting comfortably Resp: Other: clear to auscultation bilaterally no rales rhonchi or wheezes Cardio: Other: no S4; positive S1-S2; no S3 murmurs rubs or gallops GI: Other: soft nontender nondistended with normoactive bowel sounds Neuro: Other: cranial nerves 2-12 grossly intact as tested. Motor 5/5 on left 4-5 on right. Sensation is intact. Cognition appropriate Extrem: Other: no edema bilaterally Discharge Plan Discharge Anticipated Discharge Date/Time: 02/25/22 14:14 Patient Disposition: Left Against Medical Advice Discharge Diagnosis: tia Referrals: Javy Gao MD [Primary Care Provider] - 1 Week Discharge Medications: No Action multivitamin Tablet 1 tab PO DAILY coenzyme Q10 10 mg Capsule 10 mg PO DAILY aspirin 81 mg Tablet,Delayed Release (Dr/Ec) 81 mg PO DAILY ginkgo biloba 40 mg Tablet 40 mg PO BID Rx Instructions: give with meal/snack pravastatin 20 mg tablet 1 tab PO DAILY lisinopril 5 mg tablet 1 tab PO DAILY glipizide 5 mg Tablet 2.5 mg PO BIDAC fenofibrate nanocrystallized 145 mg Tablet 145 mg PO DAILY cholecalciferol (vitamin D3) 25 mcg (1,000 unit) Tablet 25 mcg PO DAILY empagliflozin 10 mg Tablet 10 mg PO DAILY@1200 Discharge Orders: Discharge Order (Routine); Ordered 07/22/23 Ordered By: Enrique Thakur Stand Alone Forms: Patient Portal Discharge page Care Plan Goals: AMA Health Concerns: AMA Plan of Treatment: AMA Assessment: AMA Discharge Date/Time: 02/25/22 21:52
== END 2022-02-25 21:52 | disposition left against medical advice (07) | DRG 69 ==
LOC: HO.ED 10:46 → HO.EDOVER 11:53 → HO.IMC 21:51
PROVIDERS: Admitting Provider Hospitalist; Emergency Provider Emergency Medicine; PCP Internal Medicine; Visit Provider Hospitalist
DX: G45.9 Transient cerebral ischemic attack, unspecified (principal); I10 Essential (primary) hypertension; Z20.822 Contact with and (suspected) exposure to COVID-19; R20.2 Paresthesia of skin; Z86.73 Personal history of transient ischemic attack (TIA), and cerebral infarction without residual deficits; Z79.82 Long term (current) use of aspirin; Z79.84 Long term (current) use of oral hypoglycemic drugs; Z79.899 Other long term (current) drug therapy
CPT/HCPCS: 36415; 70450; 70496; 70498; 71045; 80048; 80076; 82550; 82947; 83690; 84484; 85025; 85610; 85730; 87635; 93005; 96360; 99285; J1650; Q9967

== ENCOUNTER → 2022-02-25 11:29 | Outpatient (BNV) | payer MEDICARE, SELFPAY | PROVIDERS: Admitting Provider Hospitalist; Emergency Provider Emergency Medicine; PCP Internal Medicine; Visit Provider Hospitalist | DX: G45.9 Transient cerebral ischemic attack, unspecified (principal) | CPT/HCPCS: 99238 ==

== ENCOUNTER 2022-04-02 09:18 | Outpatient (REF) | payer MEDICARE, SELFPAY ==
[2022-04-02 10:57] LABS: Estimated Average Glucose 177 mg/dL; Hemoglobin A1c % 7.8 %
[2022-04-02 11:11] LABS: Anion Gap 20 (12-20); Blood Urea Nitrogen 30 mg/dL (9-16); Carbon Dioxide 20 mmol/L (22-29); Chloride 104 mmol/L (96-108); Estimated Glomerular Filt Rate 42; Glucose Fasting 142 mg/dL (60-99); Potassium 4.5 mmol/L (3.3-5.1); Sodium 139 mmol/L (135-145)
== END 2022-04-02 09:19 | disposition home or self-care (01) ==
LOC: HO.10HDL 09:18
PROVIDERS: Visit Provider Internal Medicine
DX: E11.9 Type 2 diabetes mellitus without complications (principal); N18.9 Chronic kidney disease, unspecified
CPT/HCPCS: 36415; 80048; 83036

== ENCOUNTER → 2022-05-09 08:11 | Outpatient (BNVA) | payer MEDICARE, SELFPAY | PROVIDERS: PCP Internal Medicine; Visit Provider Orthopaedic Surgery | DX: M65.331 Trigger finger, right middle finger (principal) | CPT/HCPCS: 20550; 99202; J1100 ==

== ENCOUNTER 2022-07-10 10:10 | Outpatient (REF) | payer MEDICARE, SELFPAY ==
[2022-07-10 10:50] LABS: Estimated Average Glucose 200 mg/dL; Hemoglobin A1c % 8.6 %
[2022-07-10 11:30] LABS: Anion Gap 15 (12-20); Blood Urea Nitrogen 31 mg/dL (9-16); Calcium 9.7 mg/dL (8.4-10.2); Carbon Dioxide 20 mmol/L (22-29); Chloride 108 mmol/L (96-108); Estimated Glomerular Filt Rate 45; Glucose Random 118 mg/dL (60-115); Potassium 4.6 mmol/L (3.3-5.1); Sodium 138 mmol/L (135-145)
[2022-07-10 14:31] LABS: Creatinine Urine 72.34 mg/dL; Microalbum/Creatinine Ratio Ur 17.9 ug/mg cr
== END 2022-07-10 10:11 | disposition home or self-care (01) ==
LOC: HO.10HDL 10:10
PROVIDERS: Visit Provider Internal Medicine
DX: I12.9 Hypertensive chronic kidney disease with stage 1 through stage 4 chronic kidney disease, or unspecified chronic kidney disease (principal); E11.22 Type 2 diabetes mellitus with diabetic chronic kidney disease; N18.9 Chronic kidney disease, unspecified
CPT/HCPCS: 36415; 80048; 82043; 83036

== ENCOUNTER → 2022-10-29 10:24 | Outpatient (REF) | payer MEDICARE, SELFPAY ==
--- NOTE | 2022-10-29 10:28 | HM_ITS ---
Conclusion: 1. Patient was monitored for total period of 2 days and 22 hours 2. Baseline was normal sinus rhythm with average heart of 78 beats per minute 3. No significant pauses or bradycardia noted 4. Rare PACs noted 5. No patient reported symptoms MTDD
== END ==
LOC: HO.CARD 10:24
PROVIDERS: PCP Internal Medicine; Visit Provider Internal Medicine
DX: R00.2 Palpitations (principal)
CPT/HCPCS: 93242

== ENCOUNTER 2023-02-19 08:37 | Outpatient (REF) | payer MEDICARE, SELFPAY ==
[2023-02-19 10:57] LABS: Estimated Average Glucose 154 mg/dL
[2023-02-19 11:04] LABS: Alanine Aminotransferase 21 U/L (0-40); Albumin Level 4.4 g/dL (3.5-5.0); Alkaline Phosphatase 37 U/L (39-117); Anion Gap 14 (12-20); Aspartate Amino Transferase 25 U/L (5-37); Bilirubin Total 0.5 mg/dL (0.0-1.0); Blood Urea Nitrogen 26 mg/dL (9-16); Calcium 9.8 mg/dL (8.4-10.2); Carbon Dioxide 21 mmol/L (22-29); Chloride 109 mmol/L (96-108); Estimated Glomerular Filt Rate 49; Glucose Random 105 mg/dL (60-115); Potassium 4.2 mmol/L (3.3-5.1); Sodium 140 mmol/L (135-145); Total Protein 7.7 g/dL (6.5-8.0)
[2023-02-19 12:11] LABS: Creatinine Urine 109.99 mg/dL; Microalbum/Creatinine Ratio Ur 16.3 ug/mg cr (<30)
== END 2023-02-19 08:38 | disposition home or self-care (01) ==
LOC: HO.10HDL 08:37
PROVIDERS: Visit Provider Internal Medicine
DX: E11.22 Type 2 diabetes mellitus with diabetic chronic kidney disease (principal); I12.9 Hypertensive chronic kidney disease with stage 1 through stage 4 chronic kidney disease, or unspecified chronic kidney disease; N18.9 Chronic kidney disease, unspecified
CPT/HCPCS: 36415; 80053; 82043; 83036

== ENCOUNTER 2023-09-03 10:31 | Outpatient (REF) | payer MEDICARE, SELFPAY ==
[2023-09-03 11:19] LABS: MANUAL DIFF FLAG NO
[2023-09-03 11:22] LABS: Basophils Absolute Auto 0.1 X10*3/uL (0.0-0.2); Basophils Percent Auto 0.7 % (0-2); Eosinophils Absolute Auto 0.1 X10*3/uL (0.0-0.4); Hematocrit 46.2 % (42.0-52.0); Hemoglobin 15.5 g/dl (14.0-18.0); Imm Gran Abs Auto 0.03 X10*3/uL (0.00-0.03); Imm Gran Pct Auto 0.4 % (0.0-0.4); Lymphocytes Absolute Auto 2.3 X10*3/uL (1.2-4.9); Lymphocytes Percent Auto 28.5 % (20-40); Mean Corpuscular HGB Conc 33.5 g/dl (31.0-36.0); Mean Corpuscular Hemoglobin 31.8 pg (27.0-33.0); Mean Corpuscular Volume 94.7 fL (80.0-98.0); Mean Platelet Volume 11.5 fL (9.4-12.4); Monocytes Absolute Auto 0.8 X10*3/uL (0.1-1.2); Monocytes Percent Auto 9.5 % (2-11); Neutrophils Absolute Auto 4.9 x10*3/uL (2.0-8.3); Neutrophils Percent Auto 59.9 % (45-73); Platelet Count 251 X10*3/uL (160-400); Red Blood Count 4.88 X10*6/uL (4.60-5.80); Red Cell Distribution Width 12.2 % (11.0-16.0); White Blood Count 8.2 X10*3/uL (4.8-10.8)
[2023-09-03 11:35] LABS: Estimated Average Glucose 171 mg/dL; Hemoglobin A1c % 7.6 % (<6.0)
[2023-09-03 12:26] LABS: Anion Gap 15 (12-20); Blood Urea Nitrogen 31 mg/dL (9-16); Calcium 9.8 mg/dL (8.4-10.2); Carbon Dioxide 23 mmol/L (22-29); Chloride 106 mmol/L (96-108); Estimated Glomerular Filt Rate 44; Glucose Random 95 mg/dL (60-115); Potassium 4.5 mmol/L (3.3-5.1); Sodium 139 mmol/L (135-145)
== END 2023-09-03 10:32 | disposition home or self-care (01) ==
LOC: HO.10HDL 10:31
PROVIDERS: Visit Provider Internal Medicine
DX: I12.9 Hypertensive chronic kidney disease with stage 1 through stage 4 chronic kidney disease, or unspecified chronic kidney disease (principal); E11.22 Type 2 diabetes mellitus with diabetic chronic kidney disease; N18.9 Chronic kidney disease, unspecified
CPT/HCPCS: 36415; 80048; 83036; 85025

== ENCOUNTER 2023-12-04 10:32 | Outpatient (REF) | payer MEDICARE, SELFPAY ==
[2023-12-04 13:08] LABS: MANUAL DIFF FLAG NO
[2023-12-04 13:11] LABS: Basophils Percent Auto 0.5 % (0-2); Eosinophils Absolute Auto 0.1 X10*3/uL (0.0-0.4); Eosinophils Percent Auto 0.8 % (0-4); Hematocrit 45.7 % (42.0-52.0); Hemoglobin 15.3 g/dl (14.0-18.0); Imm Gran Abs Auto 0.03 X10*3/uL (0.00-0.03); Imm Gran Pct Auto 0.4 % (0.0-0.4); Mean Corpuscular HGB Conc 33.5 g/dl (31.0-36.0); Mean Corpuscular Hemoglobin 31.7 pg (27.0-33.0); Mean Corpuscular Volume 94.8 fL (80.0-98.0); Mean Platelet Volume 11.2 fL (9.4-12.4); Monocytes Absolute Auto 0.7 X10*3/uL (0.1-1.2); Monocytes Percent Auto 9.2 % (2-11); Neutrophils Absolute Auto 4.8 x10*3/uL (2.0-8.3); Neutrophils Percent Auto 63.1 % (45-73); Platelet Count 274 X10*3/uL (160-400); Red Blood Count 4.82 X10*6/uL (4.60-5.80); Red Cell Distribution Width 12.1 % (11.0-16.0); White Blood Count 7.6 X10*3/uL (4.8-10.8)
[2023-12-04 13:31] LABS: Alanine Aminotransferase 24 U/L (0-40); Albumin Level 4.5 g/dL (3.5-5.0); Alkaline Phosphatase 38 U/L (39-117); Anion Gap 17 (12-20); Aspartate Amino Transferase 28 U/L (5-37); Bilirubin Total 0.5 mg/dL (0.0-1.0); Blood Urea Nitrogen 29 mg/dL (9-16); Calcium 9.7 mg/dL (8.4-10.2); Carbon Dioxide 20 mmol/L (22-29); Chloride 108 mmol/L (96-108); Cholesterol 163 mg/dL (<200); Estimated Glomerular Filt Rate 49; Glucose Fasting 77 mg/dL (60-99); HDL Cholesterol 46 mg/dL (>40); LDL Cholesterol Calculated 93 mg/dL (<100); Potassium 4.4 mmol/L (3.3-5.1); Sodium 141 mmol/L (135-145); Total Protein 7.8 g/dL (6.5-8.0); Triglycerides 120 mg/dL (<150)
[2023-12-04 13:32] LABS: Estimated Average Glucose 169 mg/dL; Hemoglobin A1c % 7.5 % (<6.0)
[2023-12-04 13:54] LABS: Creatinine Urine 86.66 mg/dL; Microalbum/Creatinine Ratio Ur 25.3 ug/mg cr (<30)
== END 2023-12-04 10:33 | disposition home or self-care (01) ==
LOC: HO.10HDL 10:32
PROVIDERS: Visit Provider Internal Medicine
DX: I12.9 Hypertensive chronic kidney disease with stage 1 through stage 4 chronic kidney disease, or unspecified chronic kidney disease (principal); N18.9 Chronic kidney disease, unspecified; E78.00 Pure hypercholesterolemia, unspecified; Z86.73 Personal history of transient ischemic attack (TIA), and cerebral infarction without residual deficits
CPT/HCPCS: 36415; 80053; 80061; 82043; 82570; 83036; 85025

== ENCOUNTER 2024-07-06 08:12 | Outpatient (REF) | payer MEDICARE, SELFPAY ==
[2024-07-06 10:19] LABS: MANUAL DIFF FLAG NO
[2024-07-06 10:31] LABS: Basophils Absolute Auto 0.1 X10*3/uL (0.0-0.2); Eosinophils Absolute Auto 0.1 X10*3/uL (0.0-0.4); Eosinophils Percent Auto 2.3 % (0-4); Hematocrit 46.7 % (42.0-52.0); Hemoglobin 15.2 g/dl (14.0-18.0); Imm Gran Abs Auto 0.02 X10*3/uL (0.00-0.03); Imm Gran Pct Auto 0.3 % (0.0-0.4); Lymphocytes Percent Auto 33.6 % (20-40); Mean Corpuscular HGB Conc 32.5 g/dl (31.0-36.0); Mean Corpuscular Hemoglobin 31.1 pg (27.0-33.0); Mean Corpuscular Volume 95.5 fL (80.0-98.0); Mean Platelet Volume 11.8 fL (9.4-12.4); Monocytes Absolute Auto 0.6 X10*3/uL (0.1-1.2); Monocytes Percent Auto 9.4 % (2-11); Neutrophils Absolute Auto 3.2 x10*3/uL (2.0-8.3); Neutrophils Percent Auto 53.4 % (45-73); Platelet Count 227 X10*3/uL (160-400); Red Blood Count 4.89 X10*6/uL (4.60-5.80); Red Cell Distribution Width 12.2 % (11.0-16.0); White Blood Count 6.1 X10*3/uL (4.8-10.8)
[2024-07-06 10:43] LABS: Estimated Average Glucose 177 mg/dL; Hemoglobin A1C 239.7847 umol/L; Hemoglobin A1c % 7.8 % (<6.0); Total Hemoglobin (HGBA1C) 3913.9825 umol/L
[2024-07-06 11:37] LABS: Alanine Aminotransferase 25 U/L (0-40); Albumin Level 4.2 g/dL (3.5-5.0); Alkaline Phosphatase 29 U/L (39-117); Anion Gap 12 (12-20); Aspartate Amino Transferase 32 U/L (5-37); Bilirubin Total 0.4 mg/dL (0.0-1.0); Blood Urea Nitrogen 29 mg/dL (9-16); Calcium 9.3 mg/dL (8.4-10.2); Carbon Dioxide 22 mmol/L (22-29); Chloride 111 mmol/L (96-108); Estimated Glomerular Filt Rate 45; Glucose Random 123 mg/dL (60-115); Potassium 4.8 mmol/L (3.3-5.1); Sodium 140 mmol/L (135-145); Total Protein 7.7 g/dL (6.5-8.0)
== END 2024-07-06 08:13 | disposition home or self-care (01) ==
LOC: HO.10HDL 08:12
PROVIDERS: Visit Provider Internal Medicine
DX: I12.9 Hypertensive chronic kidney disease with stage 1 through stage 4 chronic kidney disease, or unspecified chronic kidney disease (principal); E11.22 Type 2 diabetes mellitus with diabetic chronic kidney disease; N18.9 Chronic kidney disease, unspecified; E78.00 Pure hypercholesterolemia, unspecified
CPT/HCPCS: 36415; 80053; 83036; 85025

== ENCOUNTER 2024-07-08 13:56 | Outpatient (REF) | payer MEDICARE, SELFPAY ==
[2024-07-08 14:49] LABS: D Dimer High Sensitivity < 150 NG/ML
[2024-07-08 14:59] LABS: Troponin-I High Sensitivity 12.8 ng/L (<3.5-35.0)
== END 2024-07-08 13:57 | disposition home or self-care (01) ==
LOC: HO.LAB 13:56
PROVIDERS: PCP Internal Medicine; Visit Provider Internal Medicine
DX: I10 Essential (primary) hypertension (principal); E11.9 Type 2 diabetes mellitus without complications; R07.9 Chest pain, unspecified
CPT/HCPCS: 36415; 84484; 85379

== ENCOUNTER 2024-07-13 08:57 | Outpatient (AMB) | payer MEDICARE, SELFPAY ==
[2024-07-13 09:20] VITALS: BP 140/70; PULSE 83; BMI 27.2
--- NOTE | 2024-07-13 09:20 | A.OFFVIS_ITS ---
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, hx cabg/cpressure Intake Note: New patient per patient never had CABG c/o chest pressure Sheet Hanger Required: No Allergies Penicillins Allergy (Verified 05/09/22 08:26) hives Medication List - Last Reconciled 07/13/24 by Danny Fried MD aspirin 81 mg PO BID cholecalciferol (vitamin D3) 25 mcg PO DAILY coenzyme Q10 10 mg PO DAILY empagliflozin 25 mg PO DAILY@1200 fenofibrate nanocrystallized 145 mg PO DAILY ginkgo biloba 40 mg PO BID glipizide 2.5 mg PO BIDAC lisinopril 5 mg PO DAILY multivitamin 1 tab PO DAILY rosuvastatin 20 mg PO DAILY HPI Comments Details: Thank you for referring Gian in cardiology consultation today for lower ret rosternal/epigastric discomfort she describes as pressure. He is a vague historian. He said since March he will be walking a mi and at about 3/4 of a mi he will get lower retrosternal epigastric chest pressure which should make him stop and he would then laid around to the local sharp and symptoms would dissipate sometimes quickly and sometimes would last a whole day. Said about a month ago he had symptoms at rest when he woke up from sleep radiating right arm and to the left side of the neck. He got concerned about it and mentioned it to you. He was referred here for further evaluation. Since March he was stopped walking as much. He denies any other symptoms at rest. Although he remains a very vague historian. He says that he has had prior stroke. He also has family history of significant coronary disease in 2 of his older brothers. He was longstanding history of diabetes, hypertension, hyperlipidemia. His last LDL was 93 mg/dL. His hemoglobin A1c is in the mid sevens. His blood pressure is generally well control the today systolic blood pressure 140 range. He denies any heart failure symptoms of orthopnea, PND, leg edema. Occasionally at rest he does feel a strong heartbeat after skipped heartbeat which has been going on for few years. No prolonged palpitation irregular heartbeat. No syncopal episodes. Never had any prior cardiac workup to his knowledge. Said he is confused about symptoms as long time ago he had peptic ulcer disease and he had somewhat similar symptoms at that time noted by endoscopy. 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 Review of Systems Const Denies chills, Denies daytime sleepiness, Denies fatigue, Denies fever(s), Denies frequent falls, Denies poor appetite, Denies snoring, Denies stops breathing during sleep, Denies weakness, Denies weight gain and Denies weight loss Eyes Denies loss of vision ENT Denies dizziness and Denies hearing loss Card Denies chest pain, Denies claudication, Denies leg edema, Denies lightheadedness, Denies palpitations, Denies dyspnea, Denies dyspnea on exertion and Denies orthopnea Resp Denies cough, Denies excessive phlegm production, Denies dyspnea, Denies dyspnea on exertion, Denies snoring and Denies wheezing GI Denies abdominal pain, Denies hematochezia, Denies change in bowel habits, Denies nausea and Denies vomiting Denies dysuria and Denies urinary frequency Musc Denies arthralgias, Denies muscle weakness, Denies numbness and Denies other (frequent falls) Skin/Breast Denies nail changes and Denies rash Neuro Denies Abnormal speech present, Denies dizziness, Denies frequent falls, Denies loss of vision, Denies memory loss, Denies numbness and Denies weakness Psych Denies depression and Denies memory loss Endo Denies fatigue and Denies palpitations Doug/Lymph Reports easy bruising and Reports other (anemia) Aller/Immun Denies wheezing Physical Exam Vital Signs: Last Vital Signs Pulse 83 07/13/24 09:20 BP 140/70 H 07/13/24 09:20 BMI result Body Mass Index 27.2 Const General: cooperative, comfortable, no acute distress, alert, awake and Physically active Nutritional Appearance: overweight Orientation/consciousness: patient oriented x3 Limitations: no limitations HEENT Head: Yes normocephalic and Yes atraumatic Neck Neck: Yes trachea midline, Yes supple and Yes no JVD Carotids: no bruits Resp Effort & Inspection: normal respiratory effort Auscultation: clear to auscultation bilaterally Cardio Jugular venous distension: no JVD Palpation: normal PMI Rate: regular rate Rhythm: regular rhythm Heart sounds: S1 normal heart sound present, S2 normal heart sound present, no click, no gallops, no murmurs and no rubs GI Auscultation: normal bowel sounds Skin General skin exam: no rashes or lesions noted Neuro General: patient oriented x3 and no focal motor deficits Speech: No Abnormal speech present Extrem General: Yes no clubbing, cyanosis or edema Psych Appearance: grossly normal Affect: Anxious affect present Office Procedures EKG Details: EKG shows normal sinus rhythm with left axis deviation with Q-waves in inferior leads suggestive of inferior infarct with poor R-wave progression which could be lead placement or anterior ischemia with nonspecific ST T wave changes [id number], Complete Assessment & Plan Assessment & Plan (1) Angina pectoris: Code(s): I20.9 - Angina pectoris, unspecified Category: Medical Plan: Patient's symptoms are somewhat atypical but concerning. Some of his symptoms extremely concerning for myocardial ischemia with exertion although he also has same symptoms at rest which gets better with antacids. He is unclear whether his symptoms are cardiac in origin although his EKGs abnormal suggestive of inferior infarct. His symptoms about a month ago could represent a infarct situation. I would like to obtain an echocardiogram at rest prior to suggesting and other testing. I have suggested him to the do this very quickly. Meanwhile I have advised him to avoid any significant activity that puts effort. I would start him on Toprol-XL 50 mg daily for anti ischemic therapy and also to control his blood pressure. Continue other therapy. Also taken the liberty to increase his rosuvastatin 40 mg daily and add ezetimibe 10 mg to his regimen to target goal LDL closer to 60 mg/dL. I am highly concerned that he has significant un derlying coronary disease. If he has LV systolic dysfunction and/or regional wall motion abnormality I would suggest him to undergo cardiac catheterization. If not we can pursue with a treadmill stress test. Will follow with him closely. Thank you for allowing me to partake in his care Orders: Orders CA echo transthoracic complete Today I20.9 - Angina pectoris, unspecified Medications: New rosuvastatin (Crestor) 40 mg PO DAILY 30 tabs 5RF ezetimibe 10 mg PO DAILY 30 tabs 5RF metoprolol succinate ER (Toprol XL) 50 mg PO DAILY 30 tabs 2RF Coding Level of Care Code New Pt Level 4 (67085) Complex EM visit Add On G2211 Diagnoses Angina pectoris I20.9 CPT Codes EKG - CPT: 55280-[id number], Complete ([id number])
--- OUTSIDE RECORDS SUMMARY | 2024-07-13 09:28 | XMS_ITS | Encounter Summary ---
Author Name [facility] [place] [facility] [place] [facility] [place] Address [address] [place] [address] Care Team Providers Care Tank Farm Gauger Name Role Phone TIFFANY FREDERICK Primary Care Provider Unavailabl e Insurance Providers: All historical and current Section Date Range: From patient's date of to the date document was created. This section includes the names of all active insurance providers for the patient. Insurance Provider Type of Coverage Plan Name Start of Policy Coverage End of Policy Coverage Group Number Member ID Insurance Provider's Telephone Number Policy Richards's Name Patient's Relationship to Policy Richards [place] SUPP[place]MEN [place] MEDIC ARE SUPPL EMENT Mar 01, 2015 [id number] [phone] LARAMEE,R MAKAYLA PATIENT AN[place] MED[place] SUPPLEMEN [place] MEDIC ARE SUPPL EMENT Mar 01, 2015 [id number] [phone] LARAMEE,R MAKAYLA PATIENT [place] SUPPLEMEN [place] MEDIC ARE SUPPL EMENT Mar 01, 2015 [id number] [phone] LARAMEE,R MAKAYLA PATIENT [place] SUPPLEMEN [place] MEDIC ARE SUPPL EMENT Mar 01, 2015 [id number] [phone] LARAMEE,R MAKAYLA PATIENT [place] MEDEX 2 Mar 01, 2015 [id number] LARAMEE,R MAKAYLA PATIENT [place] 2 Mar 01, 2015 [id number] [phone] Sarah RAE PATIENT [facility] MEDICARE SUPPLEMEN [place] MEDEX 2 Mar 01, 2015 [id number] [phone] Sarah RAE PATIENT MEDICARE (WNR) MEDICARE (M) PART B Mar 01, 2015 PART B [id number] [phone] Sarah RAE PATIENT MEDICARE (WNR) MEDICARE (M) PART B Mar 01, 2015 PART B [id number] [phone] Sarah RAE PATIENT MEDICARE (WNR) MEDICARE (M) PART A Aug 01, 2014 PART A [id number] Sarah RAE PATIENT MEDICARE (WNR) MEDICARE (M) PART A Aug 01, 2014 PART A [id number] Sarah RAE PATIENT Selected Encounter This section includes the information on record at [place] for the Encounter. Date/Time Encounter Type Encounter Description Reason Pro vider Source Oct 15, 2023 12:00 AM Outpatient Encounter EVENT (HISTORICAL) IHE Encounter Template Text not used by [place] Plan of Treatment: Future Appointments (+ 6 months) and Future Tests (+/- 45 days) The Plan of Treatment section includes future care activities for the patient from all [place] treatmentfacilities. This section includes future appointments and future orders which are active, pending or scheduled. Future Appointments This section includes appointments that were scheduled to occur 6 months from the date of the Encounter, up to a maximum of 20 appointments. The data comes from all [place] treatment facilities. Appointment Date/Time Appointment Type Appointme nt Facility Name Mar 17, 2024 08:00 AM AM[place]ULATORY - [place]ICINE [place] [facility] [place] [facility] Lab Results: +/- 30 days of the encounter This section includes the Chemistry and Hematology Lab Results on record with [place] for the patient. Radiology Reports and Pathology Reports are provided separately, in subsequent sections. Lab Results This section contains the Chemistry/Hematology Results that were resulted 30 days before or 30 daysafter the date of the Encounter. Date/Time Source Result Type Result - Unit Interpretation Reference Range Comment Oct 16, 2023 10:30 AM [facility] OCCULT BLOOD FIT X1 SCREEN(IN-HOUSE) Specimen Type: FECES No comment entered. Ordering Provider: CHULA WILLETT Report Released Date/Time: Oct 15, 2023 02:39 PM Reporting Lab: [facility] [address] [address] Performing Lab: [address] [address] OCCULT BLOOD (FIT)#1 OF 1 Negative NEG Oct 15, 2023 12:38 PM [facility] BASIC METABOLIC PANEL (fasting) Specimen Type: SERUM No comment entered. Ordering Provider: CHULA WILLETT Report Released Date/Time: Sep 27, 2023 11:19 AM Reporting Lab: [address] [address] Performing Lab: [address] [address] UREA NITROGEN 28 mg/dL H 7-25 GLUCOSE 76 mg/dL 65-100 SODIUM 137 mmol/L 135-145 POTASSIUM 4.2 mmol/L 3.5-5.0 CHLORIDE 103 mmol/L 100-110 CO2 21 meq/L 20-30 CREATININE, Serum 1.50 mg/dL H 0.50-1.40 eGFR(CKD-EPI 2020) 49 mL/min L >60 Oct 15, 2023 12:38 PM [facility] LIVER FUNCTION Specimen Type: SERUM No comment entered. Ordering Provider: CHULA WILLETT Report Released Date/Time: Sep 27, 2023 11:19 AM Reporting Lab: [address] [address] Performing Lab: [address] [address] PROTEIN,TOTAL 7.4 g/dL 6.0-8.3 ALBUMIN 4.2 g/dL 3.5-5.0 ALKALINE PHOSPHATASE 37 U/L L 40-150 AST 26 U/L 5-34 ALT 24 U/L BILIRUBIN, TOTAL 0.4 mg/dL 0.2-1.2 Oct 15, 2023 12:38 PM [facility] LIPID PANEL FASTING Specimen Type: SERUM No comment entered. Ordering Provider: CHULA WILLETT Report Released Date/Time: Sep 27, 2023 11:19 AM Reporting Lab: [facility] [address] [address] Performing Lab: [facility] [address] [address] CHOLESTEROL 164 mg/dL TRIGLYCERIDE 138 mg/dL 0-150 LDL calculated 95 mg/dL 0-129 CHOL/HDL 4.0 HDL CHOLESTEROL 41 mg/dL 40-60 Oct 15, 2023 12:38 PM [facility] HEMOGLOBIN A1C PANEL Specimen Type: BLOOD Comment: Values obtained from A1C measurements can vary. For atypical A1C assays, a reported value of 7.0 could actually be between 6.72 and 7.28 if measured by a reference method. A reported value of 9.0 could actually be between 8.73 and 9.27. Ref: http://www.ngs p.org/CAPdata. asp Ordering Provider: CHULA WILLETT Report Released Date/Time: Sep 27, 2023 11:19 AM Reporting Lab: [facility] [address] [address] Performing Lab: [address] [address] HEMOGLOBIN A1C 7.6 H 4.0-5.6 Oct 15, 2023 12:38 PM [facility] CBC AND DIFF (AUTO) Specimen Type: BLOOD No comment entered. Ordering Provider: CHULA WILLETT Report Released Date/Time: Sep 27, 2023 11:19 AM Reporting Lab: [facility] [address] [address] Performing Lab: [address] [address] WBC 9.29 10*3/uL 4.50-11.00 RBC 4.75 10*6/uL 4.23-5.66 HGB 15.0 g/dL 12.8-17 HCT 44.6 39.2-50.4 MCV 93.9 fL 82-99 MCHC 33.6 g/dL 30.8-35.1 PLT 252 10*3/uL 140-360 RDW-CV 11.9 L 12.0-16.0 [place], Abs 0.79 10*3/uL 0.30-1.10 MCH 31.6 pg 26.2-32.6 Neut % 60.2 43.7-75.8 Lymph % 29.5 14.0-42.3 [place] % 8.5 5.1-13.7 Eos % 0.9 0.4-6.8 Baso % 0.5 0.1-2.0 Neut, Abs 5.59 10*3/uL 2.20-7.60 Lymph, Abs 2.74 10*3/uL 1.00-3.20 Eos, Abs 0.08 10*3/uL 0.03-0.44 Baso, Abs 0.05 10*3/uL 0.01-0.13 Immature Gran % 0.4 0.0-0.7 Immature Gran, Abs 0.04 10*3/uL 0.00-0.06 Vital Signs: All taken on the encounter date This section contains inpatient and outpatient Vital Signs collected on the date of the Encounter. Date/Time Temperature Pulse Blood Pressure Respiratory Rate SP02 Pain Height Weight Body Mass Index Source Oct 15, 2023 02:41 PM 97.9 70 137/68 16 97 0 187 28 [facility] Social History: Smoking Status (Most current) and Tobacco Use (All prior to encounter date) This section includes the most current, and the historical, smoking and tobacco- related health factors from the [place] facility where the Encounter took place. Current Smoking Status This section includes the most current smoking, or tobacco-related health factor, from the [place] facility where the Encounter took place. Date/Time Current Smoking Status Comment Facil ity Oct 15, 2023 02:30 PM VA-TOBACCO NEVER USED [facility] Tobacco Use History This section includes a history of the smoking, or tobacco-related health factors, that were collected on or before the date of the Encounter. The data comes from the [place] facility where the Encounter took place. Date/Time Smoking Status/Tobac co Use Comment Facility Oct 25, 2022 09:30 AM [facility]-TOBACCO [facility] USED [facility] [place] [facility] Oct 18, 2021 10:30 AM VA-TOBACCO NEVER USED [facility] [place] [facility] Oct 12, 2020 01:00 PM VA-TOBACCO NEVER USED [facility] [place] [facility] Oct 14, 2018 09:39 AM VA-TOBACCO NEVER USED [facility] [place] [facility] Apr 11, 2018 07:41 AM VA-TOBACCO NEVER USED [facility] [place] [facility] May 01, 2017 09:10 AM LIFETIME NON-TOBACCO USER [facility] [place] [facility] Apr 24, 2016 09:00 AM LIFETIME NON-TOBACCO USER [facility] [place] [facility] Jan 31, 2015 02:42 PM QUIT TOBACCO USE > 7 YEARS AGO occasional while in [facility] [place] [facility]
--- OUTSIDE RECORDS SUMMARY | 2024-07-13 09:28 | XMS_ITS ---
Author Name [facility] [place] Address [address] [place] [address] Care Team Providers Care Bible Reader Name Role Phone TIFFANY FREDERICK Primary Care [...] MEDIC ARE SUPPL EMENT Mar 01, 2015 [id number] [phone] LARAMEE,R MAKAYLA PATIENT [place] MED[place] SUPPLEMEN COLTEN MEDIC ARE SUPPL EMENT Mar 01, 2015 [id number] [phone] LARAMEE,R MAKAYLA PATIENT [place] SUPPLEMEN [place] MEDIC ARE SUPPL EMENT Mar 01, 2015 [id number] [phone] LARAMEE,R MAKAYLA PATIENT [place] MED[place] SUPPLEMEN [place] MEDIC ARE SUPPL EMENT Mar 01, 2015 [id number] [phone] LARAMEE,R MAKAYLA PATIENT [place] SUPPLEMEN [place] MEDEX 2 Mar 01, 2015 [id number] [phone] LARAMEE,R MAKAYLA [place] MEDEX 2 Mar 01, 2015 [id number] [phone] Sarah RAE PATIENT [facility] MEDICARE SUPPLEMEN COLTEN MEDEX 2 Mar 01, 2015 [id number] Sarah RAE PATIENT MEDICARE (WNR) MEDICARE (M) PART B Mar 01, 2015 PART B [id number] [phone] Sarah RAE PATIENT MEDICARE (WNR) MEDICARE (M) PART B Mar 01, 2015 PART B [id number] Sarah RAE PATIENT MEDICARE (WNR) MEDICARE (M) PART A Aug 01, 2014 PART A [id number] Sarah RAE PATIENT MEDICARE (WNR) MEDICARE (M) PART A Aug 01, 2014 PART A [id number] Sarah RAE PATIENT Selected Encounter This section includes the information on record at [place] for the Encounter. Date/Time Encounter Type Encounter Description Reason Pro vider Source Oct 04, 2023 01:41 PM Outpatient Encounter PRIMARY CARE/MEDICINE IHE Encounter Template Text not used by [place] Plan of Treatment: Future Appointments (+ 6 months) and Future Tests (+/- 45 days) The Plan of Treatment section includes future care activities for the patient from all [place] treatmentfacilities. This section includes future appointments and future orders which are active, pending or scheduled. Future Appointments This section includes appointments that were scheduled to occur 6 months from the date of the Encounter, up to a maximum of 20 appointments. The data comes from all [place] treatment facilities. Appointment Date/Time Appointment Type Appointme nt Facility Name Oct 15, 2023 02:30 PM [facility] Mar 17, 2024 08:00 AM AMBULATORY - MEDICINE [facility] Lab Results: +/- 30 days of the encounter This section includes the Chemistry and Hematology Lab Results on record with [place] for the patient. Radiology Reports and Pathology Reports are provided separately, in subsequent sections. Lab Results This section contains the Chemistry/Hematology Results that were resulted 30 days before or 30 daysafter the date of the Encounter. Date/Time Source Result Type Result - Unit Interpretation Reference Range Comment Oct 16, 2023 10:30 AM [facility] OCCULT BLOOD FIT X1 SCREEN(IN-HOUSE) Specimen Type: FECES No comment entered. Ordering Provider: CHULA WILLETT Report Released Date/Time: Oct 15, 2023 02:39 PM Reporting Lab: [address] [address] Performing Lab: [address] [address] OCCULT BLOOD (FIT)#1 OF 1 Negative NEG Oct 15, 2023 12:38 PM [facility] LIVER FUNCTION Specimen Type: SERUM No comment entered. Ordering Provider: CHULA WILLETT Report Released Date/Time: Sep 27, 2023 11:19 AM Reporting Lab: [address] [address] Performing Lab: [address] [address] PROTEIN,TOTAL 7.4 g/dL 6.0-8.3 ALBUMIN 4.2 g/dL 3.5-5.0 ALKALINE PHOSPHATASE 37 U/L L 40-150 AST 26 U/L 5-34 ALT 24 U/L BILIRUBIN, TOTAL 0.4 mg/dL 0.2-1.2 Oct 15, 2023 12:38 PM [facility] BASIC METABOLIC PANEL (fasting) Specimen Type: SERUM No comment entered. Ordering Provider: CHULA WILLETT Report Released Date/Time: Sep 27, 2023 11:19 AM Reporting Lab: [address] [address] Performing Lab: [address] [address] UREA NITROGEN 28 mg/dL H 7-25 GLUCOSE 76 mg/dL 65-100 SODIUM 137 mmol/L 135-145 POTASSIUM 4.2 mmol/L 3.5-5.0 CHLORIDE 103 mmol/L 100-110 CO2 21 meq/L 20-30 CREATININE, Serum 1.50 mg/dL H 0.50-1.40 eGFR(CKD-EPI 2020) 49 mL/min L >60 Oct 15, 2023 12:38 PM [facility] LIPID PANEL FASTING Specimen Type: SERUM No comment entered. Ordering Provider: CHULA WILLETT Report Released Date/Time: Sep 27, 2023 11:19 AM Reporting Lab: [facility] [address] [address] Performing Lab: [facility] [address] [address] CHOLESTEROL 164 mg/dL TRIGLYCERIDE 138 mg/dL 0-150 LDL calculated 95 mg/dL 0-129 CHOL/HDL 4.0 HDL CHOLESTEROL 41 mg/dL 40-60 Oct 15, 2023 12:38 PM [facility] HEMOGLOBIN A1C PANEL Specimen Type: BLOOD [...] Sep 27, 2023 11:19 AM Reporting Lab: [facility] [address] [address] Performing Lab: [facility] [address] HEMOGLOBIN A1C 7.6 H 4.0-5.6 Oct 15, 2023 12:38 PM [facility] CBC AND DIFF (AUTO) Specimen Type: BLOOD No comment entered. Ordering Provider: CHULA WILLETT Report Released Date/Time: Sep 27, 2023 11:19 AM Reporting Lab: [facility] [address] [address] Performing Lab: [facility] [address] WBC 9.29 10*3/uL 4.50-11.00 RBC 4.75 10*6/uL 4.23-5.66 HGB 15.0 g/dL 12.8-17 HCT 44.6 39.2-50.4 MCV 93.9 fL 82-99 MCHC 33.6 g/dL 30.8-35.1 PLT 252 10*3/uL 140-360 RDW-CV 11.9 L 12.0-16.0 [place], Abs 0.79 10*3/uL 0.30-1.10 MCH 31.6 pg 26.2-32.6 Neut % 60.2 43.7-75.8 Lymph % 29.5 14.0-42.3 [place] % 8.5 5.1-13.7 Eos % 0.9 0.4-6.8 Baso % 0.5 0.1-2.0 Neut, Abs 5.59 10*3/uL 2.20-7.60 Lymph, Abs 2.74 10*3/uL 1.00-3.20 Eos, Abs 0.08 10*3/uL 0.03-0.44 Baso, Abs 0.05 10*3/uL 0.01-0.13 Immature Gran % 0.4 0.0-0.7 Immature Gran, Abs 0.04 10*3/uL 0.00-0.06 Social History: Smoking Status (Most current) and Tobacco Use (All prior to encounter date) This section includes the most current, and the historical, smoking and tobacco- related health factors from the [place] facility where the Encounter took place. Current Smoking Status This section includes the most current smoking, or tobacco-related health factor, from the [place] facility where the Encounter took place. Date/Time Current Smoking Status Comment [facility] Oct 25, 2022 09:30 AM VA-TOBACCO NEVER USED [facility] Tobacco Use History This section includes a history of the smoking, or tobacco-related health factors, that were collected on or before the date of the Encounter. The data comes from the [place] facility where the Encounter took place. Date/Time Smoking Status/Tobac co Use Comment Facility Oct 18, 2021 10:30 AM [facility] Oct 12, 2020 01:00 PM VA-TOBACCO NEVER USED [facility] [place] [facility] Oct 14, 2018 09:39 AM VA-TOBACCO NEVER USED [facility] [place] [facility] Apr 11, 2018 07:41 AM VA-TOBACCO NEVER USED [facility] [place] [facility] May 01, 2017 09:10 AM LIFETIME NON-TOBACCO USER [facility] [place] [facility] Apr 24, 2016 09:00 AM LIFETIME NON-TOBACCO USER [facility] [place] [facility] Jan 31, 2015 02:42 PM QUIT TOBACCO USE > 7 YEARS AGO occasional while in [place] [facility] [place] [facility] Encounter Notes: All associated encounter notes This section contains the clinical notes associated to the Encounter. Date/Time Encounter Note(s) Provider Source Oct 04, 2023 01:41 PM ADMINISTRATIVE NOT E: LOCAL TITLE: ADMINISTRATIVE NOTE STANDARD TITLE: ADMINISTRATIVE NOTE DATE OF NOTE: OCT 04, 2023@13:41 ENTRY DATE: OCT 04, 2023@13:41:34 AUTHOR: TONYA CHAUDHRY EXP COSIGNER: URGENCY: STATUS: COMPLETED Reminder call for your upcoming Primary Care Appointment and the need for preparations prior to your upcoming appt. [X] Location in [facility] [X] Fasting labs [ ] Lab work within 30 days [ ] Urine [ ] No Preparation Action taken: [X] Called , left voice message Sep [ ] Called , unable to leave voice mail [ ] Spoke to /healthcare prof to remind them of upcoming appt/preparations Upcoming Appointments: 10/15/2023 14:30 CWM/NO/PACT 1 10/31/2023 09:00 CWM/NO/PODIATRY A /ilya/ TONYA CHAUDHRY ADVANCED TOE POUNDER Signed: 10/04/2023 13:41 TONYA CHAUDHRY [place] [facility] [place] [facility]
--- OUTSIDE RECORDS SUMMARY | 2024-07-13 09:28 | XMS_ITS ---
Author Name [facility] [place] Organization [facility] [place] Address [address] [place] [address] Care Team Providers Care Inspector Rough Castings Name Role Phone TIFFANY FREDERICK Primary Care Provider Unavailheather e Insurance Providers: All historical and current [...] MEDIC ARE SUPPL EMENT Mar 01, 2015 [id number] [phone] LARAMEE,R MAKAYLA PATIENT ANTHE[place] MEDICARE SUPPLEMEN [place] MEDIC ARE SUPPL EMENT Mar 01, 2015 [id number] [phone] LARAMEE,R MAKAYLA PATIENT AN[place] MEDICARE SUPPLEMEN [place] MEDIC ARE SUPPL EMENT Mar 01, 2015 [id number] [phone] LARAMEE,R MAKAYLA PATIENT [place] MEDICARE SUPPLEMEN [place] MEDIC ARE SUPPL EMENT Mar 01, 2015 [id number] [phone] LARAMEE,R MAKAYLA PATIENT [place] MEDICARE SUPPLEMEN [place] MEDEX 2 Mar 01, 2015 [id number] LARAMEE,R MAKAYLA PATIENT [facility] MEDICARE SUPPLEMEN [place] MEDEX 2 Mar 01, 2015 [id number] [phone] Sarah RAE PATIENT [facility] MEDICARE SUPPLEMEN [place] MEDEX 2 Mar 01, 2015 [id number] Sarah RAE PATIENT MEDICARE (WNR) MEDICARE (M) PART B Mar 01, 2015 PART B [id number] [phone] Sarah RAE PATIENT MEDICARE (WNR) MEDICARE (M) PART B Mar 01, 2015 PART B [id number] Sarah RAE PATIENT MEDICARE (WNR) MEDICARE (M) PART A Aug 01, 2014 PART A [id number] [phone] Sarah RAE PATIENT MEDICARE (WNR) MEDICARE (M) PART A Aug 01, 2014 PART A [id number] Sarah RAE PATIENT Selected Encounter This section includes the information on record at [place] for the Encounter. Date/Time Encounter Type Encounter Description Reason Provider Source Oct 15, 2023 02:30 PM OFFICE O/P EST MOD 30 MIN PRIMARY CARE/MEDICINE ICD-10-CM E11.9 Type 2 diabetes mellitus without complications ARELI WILLETT [facility] Encounter Template Text not used by [place] Assessments - Encounter Diagnoses This section includes the primary and secondary diagnoses documented for the Encounter. Date/Time Primary/Secondary Diagnosis Diagnosis Name Provider Source Oct 15, 2023 08:54 PM PRIMARY Type 2 diabetes mellitus without complications ARELI WILLETT [facility] [place] [facility] Oct 15, 2023 08:54 PM SECONDARY Essential (primary) hypertension ARELI WILLETT [facility] [place] [facility] Oct 15, 2023 08:54 PM SECONDARY Low back pain, unspecified ARELI WILLETT [facility] [place] [facility] Oct 15, 2023 08:54 PM SECONDARY Pure hypercholesterolem ia, unspecified ARELI WILLETT [facility] [place] [facility] Oct 15, 2023 08:54 PM SECONDARY Tinnitus, unspecified ear ARELI WILLETT [facility] Plan of Treatment: Future Appointments (+ 6 months) and Future Tests (+/- 45 days) The Plan of Treatment section includes future care activities for the patient from all [place] treatmentfacilities. This section includes future appointments and future orders which are active, pending or scheduled. Future Appointments This section includes appointments that were scheduled to occur 6 months from the date of the Encounter, up to a maximum of 20 appointments. The data comes from all [place] treatment facilities. Appointment Date/Time Appointment Type Appointme nt Facility Name Mar 17, 2024 08:00 AM AMBULATORY - MEDICINE [facility] Lab Results: +/- 30 days of the encounter This section includes the Chemistry and Hematology Lab Results on record with [place] for the patient. Radiology Reports and Pathology Reports are provided separately, in subsequent sections. Lab Results This section contains the Chemistry/Hematology Results that were resulted 30 days before or 30 daysafter the date of the Encounter. Date/Time Source Result Type Result - Unit Interpretation Reference Range Comment Oct 16, 2023 10:30 AM [facility] OCCULT BLOOD FIT X1 SCREEN(IN-HOUSE) Specimen Type: FECES No comment entered. Ordering Provider: CHULA WILLETT Report Released Date/Time: Oct 15, 2023 02:39 PM Reporting Lab: [facility] [address] [facility] [address] [address] Performing Lab: [address] [address] OCCULT BLOOD (FIT)#1 OF 1 Negative NEG Oct 15, 2023 12:38 PM [facility] BASIC METABOLIC PANEL (fasting) Specimen Type: SERUM No comment entered. Ordering Provider: CHULA WILLETT Report Released Date/Time: Sep 27, 2023 11:19 AM Reporting Lab: [address] [address] Performing Lab: [address] [address] UREA NITROGEN 28 mg/dL H 7-25 GLUCOSE 76 mg/dL 65-100 SODIUM 137 mmol/L 135-145 POTASSIUM 4.2 mmol/L 3.5-5.0 CHLORIDE 103 mmol/L 100-110 CO2 21 meq/L 20-30 CREATININE, Serum 1.50 mg/dL H 0.50-1.40 eGFR(CKD-EPI 2020) 49 mL/min L >60 Oct 15, 2023 12:38 PM [facility] LIPID PANEL FASTING Specimen Type: SERUM No comment entered. Ordering Provider: CHULA WILLETT Report Released Date/Time: Sep 27, 2023 11:19 AM Reporting Lab: [address] [address] Performing Lab: [address] [address] CHOLESTEROL 164 mg/dL TRIGLYCERIDE 138 mg/dL 0-150 LDL calculated 95 mg/dL 0-129 CHOL/HDL 4.0 HDL CHOLESTEROL 41 mg/dL 40-60 Oct 15, 2023 12:38 PM [facility] LIVER FUNCTION Specimen Type: SERUM No comment entered. Ordering Provider: CHULA WILLETT Report Released Date/Time: Sep 27, 2023 11:19 AM Reporting Lab: [facility] [address] [facility] [address] Performing Lab: [address] [address] PROTEIN,TOTAL 7.4 g/dL 6.0-8.3 ALBUMIN 4.2 g/dL 3.5-5.0 ALKALINE PHOSPHATASE 37 U/L L 40-150 AST 26 U/L 5-34 ALT 24 U/L BILIRUBIN, TOTAL 0.4 mg/dL 0.2-1.2 Oct 15, 2023 12:38 PM [facility] HEMOGLOBIN A1C PANEL Specimen Type: BLOOD Comment: [...] Sep 27, 2023 11:19 AM Reporting Lab: [facility] [address] [facility] [address] Performing Lab: [address] [address] HEMOGLOBIN A1C 7.6 H 4.0-5.6 Oct 15, 2023 12:38 PM [facility] CBC AND DIFF (AUTO) Specimen Type: BLOOD No comment entered. Ordering Provider: CHULA WILLETT Report Released Date/Time: Sep 27, 2023 11:19 AM Reporting Lab: [facility] [address] [facility] [address] Performing Lab: [address] [address] WBC 9.29 10*3/uL 4.50-11.00 RBC 4.75 10*6/uL 4.23-5.66 HGB 15.0 g/dL 12.8-17 HCT 44.6 39.2-50.4 MCV 93.9 fL 82-99 MCHC 33.6 g/dL 30.8-35.1 PLT 252 10*3/uL 140-360 RDW-CV 11.9 L 12.0-16.0 Grainger, Abs 0.79 10*3/uL 0.30-1.10 MCH 31.6 pg 26.2-32.6 Neut % 60.2 43.7-75.8 Lymph % 29.5 14.0-42.3 Grainger % 8.5 5.1-13.7 Eos % 0.9 0.4-6.8 [...] 70 137/68 16 97 0 187 28 [place] [facility] [place] [facility] Social History: Smoking Status (Most current) and Tobacco Use (All prior to encounter date) This section includes the most current, and the historical, smoking and tobacco- related health factors from the [place] facility where the Encounter took place. Current Smoking Status This section includes the most current smoking, or tobacco-related health factor, from the [place] facility where the Encounter took place. Date/Time Current Smoking Status Comment Facil it Oct 15, 2023 02:30 PM VA-TOBACCO NEVER USED [facility] [place] [facility] Tobacco Use History This section includes a history of the smoking, or tobacco-related health factors, that were collected on or before the date of the Encounter. The data comes from the [place] facility where the Encounter took place. Date/Time Smoking Status/Tobac co Use Comment Facility Oct 25, 2022 09:30 AM VA-TOBACCO NEVER USED [facility] [place] [facility] Oct 18, 2021 10:30 AM VA-TOBACCO NEVER USED [facility] [place] [facility] Oct 12, 2020 01:00 PM VA-TOBACCO NEVER USED [facility] [place] [facility] Oct 14, 2018 09:39 AM VA-TOBACCO NEVER USED [facility] [place] [facility] Apr 11, 2018 07:41 AM VA-TOBACCO NEVER USED [facility] [place] [facility] May 01, 2017 09:10 AM LIFETIME NON-TOBACCO USER [facility] [place] [facility] Apr 24, 2016 09:00 AM LIFETIME NON-TOBACCO USER [facility] [place] [facility] Jan 31, 2015 02:42 PM QUIT TOBACCO USE > 7 YEARS AGO occasional while in [place] [facility] [place] [facility] Encounter Notes: All associated encounter notes This section contains the clinical notes associated to the Encounter. Date/Time Encounter Note(s) Provider Source Oct 18, 2023 02:49 PM LETTERS: LOCAL TITLE: PATIENT LETTER (T) STANDARD TITLE: LETTERS DATE OF NOTE: OCT 18, 2023@14:49 ENTRY DATE: OCT 18, 2023@14:49:22 AUTHOR: CHULA WILLETT EXP COSIGNER: URGENCY: STATUS: COMPLETED [facility] Toll Free Number Primary Care Telephone Assistance can be reached at extension [phone] [facility] scheduling can be reached at extension [phone] [facility] scheduling can be reached at ext [phone] THOM RAE [address], [place], [address] Dear [place], Primary care team reviewed your recent tests. Stool test negative for any blood Observed lab work as we discussed during your appointment. This is a copy for your own information and also to share with any other provider involved in your care. Sincerely, Your Primary Care Team [facility] [address] [facility] [address] [address] [place] [address] [place] [address] [facility] [address] [place] [address] [place] [address] [facility] [address] [facility] [place] [address] [place] [address] CHULA WILLETT [facility] [place] [facility] Oct 15, 2023 08:52 PM PHYSICIAN NOTE: LOCAL TITLE: MD NOTE STANDARD TITLE: PHYSICIAN NOTE DATE OF NOTE: OCT 15, 2023@20:52 ENTRY DATE: OCT 15, 2023@20:53:01 AUTHOR: CHULA WILLETT EXP COSIGNER: URGENCY: STATUS: COMPLETED Patient Name: THOM RAE VITALS: Patient temperature: 97.9 F [36.6 C] (10/15/2023 14:41) Blood pressure: 137/68 (10/15/2023 14:41) Patient height: 69 in [175.3 cm] (01/31/2015 14:31) Patient weight: 187 lb [84.82 kg] (10/15/2023 14:41) Patient BMI: BMI: 27.7 Patient pulse: 70 (10/15/2023 14:41) Patient respiration: 16 (10/15/2023 14:41) Patient Pulse Oximetry: 97% (10/15/2023 14:41) Pain Ratin (10/15/2023 14:41) Active [facility] Medications: Active Outpatient Medications (including Supplies): Active Outpatient Medications Status 1) EMPAGLIFLOZIN 10MG TAB TAKE ONE TABLET BY MOUTH ONCE ACTIVE DAILY FOR DIABETES 2) FENOFIBRATE 145MG TAB TAKE ONE TABLET BY MOUTH ONCE ACTIVE DAILY TO LOWER CHOLESTEROL 3) GLIPIZIDE 5MG TAB TAKE ONE-HALF TABLET BY MOUTH TWICE ACTIVE DAILY 4) LISINOPRIL 5MG TAB TAKE ONE TABLET BY MOUTH ONCE ACTIVE DAILY TO CONTROL BLOOD PRESSURE 5) ROSUVASTATIN CA 20MG TAB TAKE ONE TABLET BY MOUTH ACTIVE ONCE DAILY FOR HIGH CHOLESTEROL (NOTE TABLET STRENGTH) Active Non-VA Medications Status 1) Non-VA ASPIRIN 81MG EC TAB 162MG BY MOUTH ONCE DAILY ACTIVE 2) Non-VA CHOLECALCIF 25MCG (D3-1,000UNIT) TAB 1000UNIT ACTIVE BY MOUTH EVERY DAY 3) Non-VA COENZYME Q10 CAP/TAB ONE BY MOUTH EVERY DAY ACTIVE 4) Non-VA FISH OIL 1000MG (500MG DHA/EPA) CAP 1000MG BY ACTIVE MOUTH TWICE DAILY 5) Non-VA MULTIVITAMIN CAP/TAB 1 TABLET BY MOUTH EVERY ACTIVE DAY 6) Non-VA OMEPRAZOLE 20MG EC CAP 20MG BY MOUTH EVERY ACTIVE MORNING 30 MINUTES BEFORE BREAKFAST 7) Non-VA TURMERIC CAP/TAB BY MOUTH ACTIVE 12 Total Medications Remote Medications: No Active Remote Medications for this patient HPI: 73-year-old he is also being followed by Dr. Gao in the community came today for his routine 6-month follow-up 1. Type 2 diabetes patient has been on Jardiance and glipizide his recent hemoglobin A1c was 7.6 patient admits that because of the winter weather he has not been doing much physical activity but he is planning to start traveling sometime next month. 2. Service-connected bilateral tinnitus remains the same. 3. 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 4. Chronic kidney disease his recent creatinine was 1.50 and EGFR of 49 last time his EGFR was 50 5. Essential hypertension blood pressure has been under good control with lisinopril. 6. Mixed hyperlipidemia patient has been on fenofibrate and rosuvastatin which she is tolerating well without any adverse effect his recent cholesterol was 164 and triglyceride 138 LDL 95 7. Chronic low back pain has been under reasonable control. On examination: patient is alert and oriented X3 vitals are stable, He is in no apparent distress. CVS: regular rate and rhythm Lungs: clear to auscultation ABD: Benign EXT: no edema. His recent lab work hemoglobin A1c 7.6 CBC within normal range creatinine 1.50 EGFR 49 normal electrolytes blood sugar 76 his total protein 7.4 his LFTs were normal cholesterol was 164 triglycerides 138 LDL 95 and HDL was 41 A/P: 1. Service-connected bilateral tinnitus has been stable 2. Type 2 diabetes under reasonable control our target is to keep A1c around 7 patient is going to do more physical activity. 3. Essential hypertension blood pressure under good control 4. Mixed hyperlipidemia he is tolerating medication and lipid profile is okay 5. Status post TIA/stroke involving left side and he has some pain which is intermittent has received some acupuncture Follow-up in 6 months with new PCP. Medication Reconciliation: Outpatient: Has the patient been taking medications as documented in the EMLR? YES: The patient has been taking medications as documented in the EMLR. Essential Medication List for Review used to complete this medication reconciliation. INCLUDED IN THIS LIST: Alphabetical list of active outpatient prescriptions dispensed from this [facility] (local) and dispensed from another [place] or DoD facility (remote) as well as inpatient orders (local, pending and active), local clinic medications, locally documented non-VA medications, and local prescriptions that have or been discontinued in the past 90 days. - All changes in medications, including all non-VA/Herbal/OTC medications were entered into CPRS. - If there were any medications the patient should no longer take, they were discontinued. - The patient/caregiver was instructed to update this list, discard old lists, and take this list to the next appointment, whether with a VA or non-VA provider. /ilya/ CHULA WILLETT MD STAFF PHYSICIAN Signed: 10/15/2023 20:54 CHULA WILLETT [facility] [place] [facility] Oct 15, 2023 02:38 PM PREVENTIVE MEDICINE NURSING NOTE: LOCAL TITLE: CLINICAL REMINDERS/NURSING STANDARD TITLE: PREVENTIVE MEDICINE NURSING NOTE DATE OF NOTE: OCT 15, 2023@14:38 ENTRY DATE: OCT 15, 2023@14:38:10 AUTHOR: FELIPA MONTGOMERY EXP COSIGNER: URGENCY: STATUS: COMPLETED CLINICAL REMINDERS/NURSING Has ADDENDA Avg Risk Colorectal Cancer Screen: AVERAGE RISK colorectal cancer screening is due based on information available to this clinical reminder FOBT/FIT (Fecal Immunochemical Testing) has been ordered. See order tab for details. /susan MONTGOMERY LPN License Practical Nurse Signed: 10/15/2023 14:39 10/15/2023 ADDENDUM STATUS: COMPLETED Suicide Screen: C-SSRS Screening [place] Suicide Severity Rating Scale (C-SSRS) screener 1. Over the past month, have you wished you were or wished you could go to sleep and not wake up? No 2. Over the past month, have you had any actual thoughts of killing yourself? No 3. Over the past month, have you been thinking about how you might do this? Response not required due to responses to other questions. 4. Over the past month, have you had these thoughts and had some intention of acting on them? Response not required due to responses to other questions. 5. Over the past month, have you started to work out or worked out the details of how to kill yourself? Response not required due to responses to other questions. 6. If yes, at any time in the past month did you intend to carry out this plan? Response not required due to responses to other questions. 7. In your lifetime, have you ever done anything, started to do anything, or prepared to do anything to end your life (for example, collected pills, obtained a gun, gave away valuables, went to the roof but didn't jump)? No 8. If YES, was this within the past 3 months? Response not required due to responses to other questions. Depression Screening: Perform PHQ-2 A PHQ-2 screen was performed. The score was 0 which is a negative screen for depression. Over the past two weeks, how often have you been bothered by the following problems? 1. Little interest or pleasure in doing things Not at all 2. Feeling down, depressed, or hopeless Not at all Tobacco Use Screening: The patient has never used tobacco. Alcohol Use Screen (AUDIT-C): Alcohol Screen: SCREEN FOR ALCOHOL (AUDIT-C) An alcohol screening test (AUDIT-C) was negative (score=0). 1. How often did you have a drink containing alcohol in the past year? Consider a drink to be a 12 ounce can or bottle of regular beer, 8 ounces of malt liquor, a 5 ounce glass of table wine, or a 1.5 ounce shot of liquor (like scotch, gin, or vodka). Never 2. How many drinks containing alcohol did you have on a typical day when you were drinking in the past year? Response not required due to responses to other questions. 3. How often did you have six or more drinks on one occasion in the past year? Response not required due to responses to other questions. /ilya/ FELIPA MONTGOMERY LPN License Practical Nurse Signed: 10/15/2023 15:10 [facility]
--- OUTSIDE RECORDS SUMMARY | 2024-07-13 09:28 | XMS_ITS | Encounter Summary ---
Author Name [facility] [place] [facility] [place] Address [address] [place] [id number] Care Team Providers Care Stack Yield Engineer Name Role Phone TIFFANY FREDERICK Primary Care [...] MEDIC ARE SUPPL EMENT Mar 01, 2015 [id number] [phone] LARAMEE,R MAKAYLA PATIENT ANTHE[place] BCBS [place] MEDICARE SUPPLEMEN [place] MEDIC ARE SUPPL EMENT Mar 01, 2015 [id number] [phone] LARAMEE,R MAKAYLA PATIENT ANTHEM [place] MED[place] SUPPLEMEN [place] MEDIC ARE SUPPL EMENT Mar 01, 2015 [id number] [phone] LARAMEE,R MAKAYLA PATIENT BCBS [place] MEDICARE SUPPLEMEN [place] MEDIC ARE SUPPL EMENT Mar 01, 2015 [id number] [phone] LARAMEE,R MAKAYLA PATIENT [place] SUPP[place] MEDEX 2 Mar 01, 2015 [id number] [phone] LARAMEE,R [place] 2 Mar 01, 2015 [id number] [facility]AE [facility] SUPPLEMEN [place] MEDEX 2 Mar 01, 2015 [id number] [phone] Sarah RAE PATIENT MEDICARE (WNR) MEDICARE (M) PART B Mar 01, 2015 PART B [id number] [phone] Sarah RAE PATIENT MEDICARE (WNR) MEDICARE (M) PART B Mar 01, 2015 PART B [id number] Sarah RAE PATIENT MEDICARE (WNR) MEDICARE (M) PART A Aug 01, 2014 PART A [id number] Sarah RAE PATIENT MEDICARE (WNR) MEDICARE (M) PART A Aug 01, 2014 PART A [id number] Sarah RAE PATIENT Selected Encounter This section includes the information on record at [place] for the Encounter. Date/Time Encounter Type Encounter Description Reason Pro vider Source October 31, 2023 09:00 AM Outpatient Encounter PODIATRY IHE Encounter Template Text not used by [place] Plan of Treatment: Future Appointments (+ 6 months) and Future Tests (+/- 45 days) The Plan of Treatment section includes future care activities for the patient from all [place] treatmentfacilities. This section includes future appointments and future orders which are active, pending or scheduled. Future Appointments This section includes appointments that were scheduled to occur 6 months from the date of the Encounter, up to a maximum of 20 appointments. The data comes from all [place] treatment facilities. Appointment Date/Time Appointment Type Appointme nt Facility Name Mar 17, 2024 08:00 AM AMBULATORY - MEDICINE [place] [facility] Lab Results: +/- 30 days of the encounter This section includes the Chemistry and Hematology Lab Results on record with [place] for the patient. Radiology Reports and Pathology Reports are provided separately, in subsequent sections. Lab Results This section contains the Chemistry/Hematology Results that were resulted 30 days before or 30 daysafter the date of the Encounter. Date/Time Source Result Type Result - Unit Interpretation Reference Range Comment Oct 16, 2023 10:30 AM [facility] OCCULT BLOOD FIT X1 SCREEN(IN-HOUSE) Specimen Type: FECES No comment entered. Ordering Provider: CHULA WILLETT Report Released Date/Time: Oct 15, 2023 02:39 PM Reporting Lab: [facility] [address] [address] Performing Lab: [address] [address] OCCULT BLOOD (FIT)#1 OF 1 Negative NEG Oct 15, 2023 12:38 PM [facility] LIVER FUNCTION Specimen Type: SERUM No comment entered. Ordering Provider: CHULA WILLETT Report Released Date/Time: Sep 27, 2023 11:19 AM Reporting Lab: [address] [address] Performing Lab: [address] [address] PROTEIN,TOTAL 7.4 g/dL 6.0-8.3 ALBUMIN 4.2 g/dL 3.5-5.0 ALKALINE PHOSPHATASE 37 U/L L 40-150 AST 26 U/L 5-34 ALT 24 U/L BILIRUBIN, TOTAL 0.4 mg/dL 0.2-1.2 Oct 15, 2023 12:38 PM [facility] BASIC METABOLIC PANEL (fasting) Specimen Type: SERUM No comment entered. Ordering Provider: CHULA WILLETT Report Released Date/Time: Sep 27, 2023 11:19 AM Reporting Lab: [address] [address] Performing Lab: [address] [address] UREA NITROGEN 28 mg/dL H 7-25 GLUCOSE 76 mg/dL 65-100 SODIUM 137 mmol/L 135-145 POTASSIUM 4.2 mmol/L 3.5-5.0 CHLORIDE 103 mmol/L 100-110 CO2 21 meq/L 20-30 CREATININE, Serum 1.50 mg/dL H 0.50-1.40 eGFR(CKD-EPI 2020) 49 mL/min L >60 Oct 15, 2023 12:38 PM [facility] LIPID PANEL FASTING Specimen Type: SERUM No comment entered. Ordering Provider: CHULA WILLETT Report Released Date/Time: Sep 27, 2023 11:19 AM Reporting Lab: [facility] [address] [facility] [address] Performing Lab: [facility] [address] [address] CHOLESTEROL 164 mg/dL TRIGLYCERIDE 138 mg/dL 0-150 LDL calculated 95 mg/dL 0-129 CHOL/HDL 4.0 HDL CHOLESTEROL 41 mg/dL 40-60 Oct 15, 2023 12:38 PM [facility] HEMOGLOBIN A1C PANEL Specimen Type: BLOOD [...] Sep 27, 2023 11:19 AM Reporting Lab: [facility] [address] [facility] [address] Performing Lab: [address] [address] HEMOGLOBIN A1C 7.6 H 4.0-5.6 Oct 15, 2023 12:38 PM [facility] CBC AND DIFF (AUTO) Specimen Type: BLOOD No comment entered. Ordering Provider: CHULA WILLETT Report Released Date/Time: Sep 27, 2023 11:19 AM Reporting Lab: [facility] [address] [facility] [address] Performing Lab: [address] [address] WBC 9.29 10*3/uL 4.50-11.00 RBC 4.75 10*6/uL 4.23-5.66 HGB 15.0 g/dL 12.8-17 HCT 44.6 39.2-50.4 MCV 93.9 fL 82-99 MCHC 33.6 g/dL 30.8-35.1 PLT 252 10*3/uL 140-360 RDW-CV 11.9 L 12.0-16.0 Parke, Abs 0.79 10*3/uL 0.30-1.10 MCH 31.6 pg 26.2-32.6 Neut % 60.2 43.7-75.8 Lymph % 29.5 14.0-42.3 Parke % 8.5 5.1-13.7 Eos % 0.9 0.4-6.8 [...] and tobacco- related health factors from the [place] facility where the Encounter took place. Current Smoking Status This section includes the most current smoking, or tobacco-related health factor, from the [place] facility where the Encounter took place. Date/Time Current Smoking Status Comment [facility] Oct 15, 2023 02:30 PM VA-TOBACCO NEVER USED [place] [facility] Tobacco Use History This section includes a history of the smoking, or tobacco-related health factors, that were collected on or before the date of the Encounter. The data comes from the [place] facility where the Encounter took place. Date/Time Smoking Status/Tobac co Use Comment Facility Oct 25, 2022 09:30 AM VA-TOBACCO NEVER USED [place] [facility] [place] [facility] Oct 18, 2021 10:30 AM VA-TOBACCO NEVER USED [place] [facility] [place] [facility] Oct 12, 2020 01:00 PM VA-TOBACCO NEVER USED [place] [facility] [place] [facility] Oct 14, 2018 09:39 AM VA-TOBACCO NEVER USED [place] [facility] [place] [facility] Apr 11, 2018 07:41 AM VA-TOBACCO NEVER USED [place] [facility] [place] [facility] May 01, 2017 09:10 AM LIFETIME NON-TOBACCO USER [place] [facility] [place] [facility] Apr 24, 2016 09:00 AM LIFETIME NON-TOBACCO USER [place] [facility] [place] [facility] Jan 31, 2015 02:42 PM QUIT TOBACCO USE > 7 YEARS AGO occasional [place] in [place] [facility] [place] [facility] Encounter Notes: All associated encounter notes This section contains the clinical notes associated to the Encounter. Date/Time Encounter Note(s) Provider Source Oct 15, 2023 12:50 PM ADMINISTRATIVE NOTE: LOCAL TITLE: ADMINISTRATIVE NOTE STANDARD TITLE: ADMINISTRATIVE NOTE DATE OF NOTE: OCT 15, 2023@12:50 ENTRY DATE: OCT 15, 2023@12:50:38 AUTHOR: MELINA MCLAUGHLIN EXP COSIGNER: URGENCY: STATUS: COMPLETED RTC dispositioned due to stating he no longer needs podiatry. He will call as needed. /ilya/ MELINA MCLAUGHLIN LEAD MACHINE ROOM OPERATOR Signed: 10/15/2023 12:51 Receipt Acknowledged By: 10/16/2023 15:27 /ilya/ PEREZ GRECO DPM PODIATRY ATTENDING 10/15/2023 13:00 /es/ ASHLEY NICHOLS Podiatry Health Branch Operation Evaluation Manager 10/15/2023 13:36 /es/ MAKSIM MOELLER LPN LICENSED PRACTICAL NURSE MELINA MCLAUGHLIN [place] [facility]
--- OUTSIDE RECORDS SUMMARY | 2024-07-13 09:28 | XMS_ITS | Encounter Summary ---
Author Name [facility] [place] [facility] [place] Address [address] [place] [address] Care Team Providers Care Water Systems Engineer Name Role Phone TIFAFNY FREDERICK Primary Care Provider Unavailabl e Insurance [...] MEDIC ARE SUPPL EMENT Mar 01, 2015 [id number] [phone] LARAMEE,R MAKAYLA PATIENT ANTHEM BC[place] MEDICARE SUPPLEMEN [place] MEDIC ARE SUPPL EMENT Mar 01, 2015 [id number] [phone] LARAMEE,R MAKAYLA PATIENT ANTHE[place] MED[place] SUPPLEMEN [place] MEDIC ARE SUPPL EMENT Mar 01, 2015 [id number] [phone] LARAMEE,R MAKAYLA PATIENT [place] MEDICARE SUPPLEMEN [place] MEDIC ARE SUPPL EMENT Mar 01, 2015 [id number] [phone] LARAMEE,R MAKAYLA PATIENT [place] MED[place] SUPPLEMEN [place] MEDEX 2 Mar 01, 2015 [id number] LARAMEE,R MAKAYLA PAT[place] MED[place] 2 Mar 01, 2015 [id number] Sarah RAE PATIENT [facility] MEDICARE SUPPLEMEN [place] MEDEX 2 Mar 01, 2015 [id number] [phone] Sarah RAE PATIENT MEDICARE (WNR) MEDICARE (M) PART B Mar 01, 2015 PART B [id number] Sarah RAE PATIENT MEDICARE (WNR) MEDICARE (M) PART B Mar 01, 2015 PART B [id number] Sarah RAE PATIENT MEDICARE (WNR) MEDICARE (M) PART A Aug 01, 2014 PART A [id number] [phone] Sarah RAE PATIENT MEDICARE (WNR) MEDICARE (M) PART A Aug 01, 2014 PART A [id number] Sarah RAE PATIENT Selected Encounter This section includes the information on record at [place] for the Encounter. Date/Time Encounter Type Encounter Description Reason Pro vider Source Jul 24, 2023 03:45 PM Outpatient Encounter PRIMARY CARE/MEDICINE IHE Encounter Template Text not used by [place] Plan of Treatment: Future Appointments (+ 6 months) and Future Tests (+/- 45 days) The Plan of Treatment section includes future care activities for the patient from all [place] treatmentfacilities. This section includes future appointments and future orders which are active, pending or scheduled. Future Appointments This section includes appointments that were scheduled to occur 6 months from the date of the Encounter, up to a maximum of 20 appointments. The data comes from all [place] treatment facilities. Appointment Date/Time Appointment Type Appointme nt Facility Name Oct 15, 2023 02:30 PM AM[place]ULATORY [facility] [place]ICINE [place] [facility] [place] [facility] Social History: Smoking Status (Most current) and Tobacco Use (All prior to encounter date) This section includes the most current, and the historical, smoking and tobacco- related health factors from the [facility] facility where the Encounter took place. Current Smoking Status This section includes the most current smoking, or tobacco-related health factor, from the [place] facility where the Encounter took place. Date/Time Current Smoking Status Comment Facil ity Oct 25, 2022 09:30 AM VA-TOBACCO NEVER USED [place] [facility] [place] [facility] Tobacco Use History This section includes a history of the smoking, or tobacco-related health factors, that were collected on or before the date of the Encounter. The data comes from the [place] facility where the Encounter took place. Date/Time Smoking Status/Tobac co Use Comment Facility Oct 18, 2021 10:30 AM VA-TOBACCO NEVER USED [place] [facility] [place] [facility] Oct 12, 2020 01:00 PM VA-TOBACCO NEVER USED [place] [facility] [place] [facility] Oct 14, 2018 09:39 AM VA-TOBACCO NEVER USED [place] [facility] [place] [facility] Apr 11, 2018 07:41 AM VA-TOBACCO NEVER USED [place] [facility] [place] [facility] May 01, 2017 09:10 AM LIFETIME NON-TOBACCO USER [place] [facility] [place] [facility] Apr 24, 2016 09:00 AM LIFETIME NON-TOBACCO USER [place] [facility] [place] [facility] Jan 31, 2015 02:42 PM QUIT TOBACCO USE > 7 YEARS AGO occasional while in [place] [facility] [place] [facility] Encounter Notes: All associated encounter notes This section contains the clinical notes associated to the Encounter. Date/Time Encounter Note(s) Provider Source Jul 24, 2023 03:45 PM PRIMARY CARE NOTE: LOCAL TITLE: WALK-IN NOTE PRIMARY CARE (T) STANDARD TITLE: PRIMARY CARE NOTE DATE OF NOTE: JUL 24, 2023@15:45 ENTRY DATE: JUL 24, 2023@15:45:54 AUTHOR: TONYA CHAUDHRY COSIGNER: URGENCY: STATUS: COMPLETED <====Click to Start Advanced Medical Support [place] presents to the Primary Care clinic with the following request: [ X ]Medication Renewal/Refill [ ]Consultation with Team RN [ ]Symptoms [ ]Other The [place] states they are: [ ]Waiting [ X ]Not Waiting No Walk in visit scheduled with PACT Nurse [ X ] At this encounter the 's demographics were verified. [ X ] At this encounter the 's Insurance information was verified. [ X ] At this encounter the below scheduled visits for the [place] were discussed and appointment reminder card was offered. Future appointments: 10/31/2023 09:00 CWM/NO/PODIATRY A 10/31/2023 10:00 CWM/NO/PACT 1 Please refill and mail, thank you. EMPAGLIFLOZIN TAB,ORAL 10MG Thank you. /ilya/ TONYA CHAUDHRY ADVANCED CONVEYOR MONITOR Signed: 07/24/2023 15:47 Receipt Acknowledged By: 07/24/2023 19:29 /ilya/ CHULA WILLETT MD STAFF PHYSICIAN 07/25/2023 08:10 /ilya/ FABY LUBIN REGISTERED NURSE [facility] [place] [facility]
--- OUTSIDE RECORDS SUMMARY | 2024-07-13 09:28 | XMS_ITS | Encounter Summary ---
Author Name [facility] [place] [facility] [place] [facility] [place] Address [address] [place] [address] Care Team Providers Care Formula Checker Name Role Phone TIFFANY FREDERICK Primary Care [...] MEDIC ARE SUPPL EMENT Mar 01, 2015 [id number] [phone] LARAMEE,R MAKAYLA PATIENT ANTHE[place] MED[place]ARE SUPPLEMEN [place] MEDIC ARE SUPPL EMENT Mar 01, 2015 [id number] [phone] LARAMEE,R MAKAYLA PATIENT [place] SUPPLEMEN [place] MEDIC ARE SUPPL EMENT Mar 01, 2015 [id number] [phone] LARAMEE,R MAKAYLA PATIENT [place] MEDICARE SUPPLEMEN [place] MEDIC ARE SUPPL EMENT Mar 01, 2015 [id number] [phone] LARAMEE,R MAKAYLA PATIENT BCBS [place] MEDICARE SUPPLEMEN [place] MEDEX 2 Mar 01, 2015 [id number] [phone] LARAMEE,R MAKAYLA PATIENT [facility] MEDICARE SUPPLEMEN COLT[place] MEDEX 2 Mar 01, 2015 [id number] Sarah RAE PATIENT [facility] MEDICARE SUPPLEMEN [place] MEDEX 2 Mar 01, 2015 [id number] [phone] Sarah RAE PATIENT MEDICARE (WNR) MEDICARE (M) PART B Mar 01, 2015 PART B [id number] Sarah RAE PATIENT MEDICARE (WNR) MEDICARE (M) PART B Mar 01, 2015 PART B [id number] Sarah RAE PATIENT MEDICARE (WNR) MEDICARE (M) PART A Aug 01, 2014 PART A [id number] [phone] Sarah RAE PATIENT MEDICARE (WNR) MEDICARE (M) PART A Aug 01, 2014 PART A [id number] Sarah RAE PATIENT Selected Encounter This section includes the information on record at [place] for the Encounter. Date/Time Encounter Type Encounter Description Reason Pro vider Source Jul 24, 2023 02:39 PM Outpatient Encounter ADMIN PAT ACTIVTIES (MASNONCT) IHE Encounter Template Text not used by [place] Plan of Treatment: Future Appointments (+ 6 months) and Future Tests (+/- 45 days) The Plan of Treatment section includes future care activities for the patient from all [place] treatmentfacilities. This section includes future appointments and future orders which are active, pending or scheduled. Future Appointments This section includes appointments that were scheduled to occur 6 months from the date of the Encounter, up to a maximum of 20 appointments. The data comes from all [place] treatment facilities. Appointment Date/Time Appointment Type Appointme nt Facility Name Oct 15, 2023 02:30 PM AMBULATORY - MEDICINE [place] [facility] Social History: [...] took place. Date/Time Current Smoking Status Comment Heydi cuello Oct 25, 2022 09:30 AM VA-TOBACCO NEVER USED [place] [facility] [place] [facility] Tobacco Use History This section includes a history of the smoking, or tobacco-related health factors, that were collected on or before the date of the Encounter. The data comes from the [place] facility where the Encounter took place. Date/Time Smoking Status/Tobac co Use Comment Facility Oct 18, 2021 10:30 AM VA-TOBACCO NEVER USED [place] [facility] [place] [facility] Oct 12, 2020 01:00 PM VA-TOBACCO NEVER USED [place] [facility] [place] [facility] Oct 14, 2018 09:39 AM VA-TOBACCO NEVER USED [place] [facility] [place] [facility] Apr 11, 2018 07:41 AM VA-TOBACCO NEVER USED [place] [facility] [place] [facility] May 01, 2017 09:10 AM LIFETIME NON-TOBACCO USER [place] [facility] [place] [facility] Apr 24, 2016 09:00 AM LIFETIME NON-TOBACCO USER [place] [facility] [place] [facility] Jan 31, 2015 02:42 PM QUIT TOBACCO USE > 7 YEARS AGO occasional while in [place] [facility] [place] [facility] Encounter Notes: All associated encounter notes This section contains the clinical notes associated to the Encounter. Date/Time Encounter Note(s) Provider Source Jul 24, 2023 03:26 PM ADDENDUM: LOCAL TITLE: Addendum STANDARD TITLE: ADDENDUM DATE OF NOTE: JUL 24, 2023@15:26:56 ENTRY DATE: JUL 24, 2023@15:26:57 AUTHOR: FABY LUBIN EXP COSIGNER: URGENCY: STATUS: COMPLETED adding FAITH /ilya/ FABY LUBIN REGISTERED NURSE Signed: 07/24/2023 15:27 Receipt Acknowledged By: 07/24/2023 15:45 /ilya/ TONYA CHAUDHRY ADVANCED PRODUCT MANAGER FINANCIAL SERVICES === --- Original Document --- 07/24/23 CCC: SCHEDULING ADMINISTRATION: Patient Demographics Patient Name: THOM RAE Patient Primary Phone: [phone] Patient Primary Address: [address] [place] [address] Patient : 1950 Patient Age: 72 Caller/Recipient Relation to Patient: Self Administrative Administrative Note Reason: Other Administrative Note Comments: Etters needs to r/s his 10/31/23 appt to a later time that day if available, designer writer unable to schedule due to special instructions. He needs a refill on empagliflozin. He can be reached [phone]. thank you /susan KRISHNAN Signed: 07/24/2023 14:39 Receipt Acknowledged By: * AWAITING SIGNATURE * CHULA WILLETT 07/24/2023 15:21 /ilya/ ESHA FUNES Registered Nurse 07/24/2023 15:27 /ilya/ FABY LUBIN REGISTERED NURSE 07/24/2023 ADDENDUM STATUS: COMPLETED DEFERRED RESCHEDULING TO TEAM AMSA. DEFER MEDICATION REFILL TO PCP /ilya/ ESHA FUNES Registered Nurse Signed: 07/24/2023 15:20 FABY LUBIN [place] [facility] [place] [facility] Jul 24, 2023 02:39 PM ADMINISTRATIVE NOTE: LOCAL TITLE: [facility]: SCHEDULING ADMINISTRATION STANDARD TITLE: ADMINISTRATIVE NOTE DATE OF NOTE: JUL 24, 2023@14:39:14 ENTRY DATE: JUL 24, 2023@14:39:14 AUTHOR: JOSE KRISHNAN COSIGNER: URGENCY: STATUS: COMPLETED CCC: SCHEDULING ADMINISTRATION Has ADDENDA Patient Demographics Patient Name: THOM RAE Patient Primary Phone: [phone] Patient Primary Address: [address] [place] [address] Patient : 1950 Patient Age: 72 Caller/Recipient Relation to Patient: Self Administrative Administrative Note Reason: Other Administrative Note Comments: needs to r/s his 10/31/23 appt to a later time that day if available, designer writer unable to schedule due to special instructions. He needs a refill on empagliflozin. He can be reached [phone]. thank you /ilya/ JOSE KRISHNAN Signed: 07/24/2023 14:39 Receipt Acknowledged By: 07/24/2023 19:53 /es/ CHULA WILLETT MD STAFF PHYSICIAN 07/24/2023 15:21 /ilya/ ESHA FUNES Registered Nurse 07/24/2023 15:27 /ilya/ FABY LUBIN REGISTERED NURSE 07/24/2023 ADDENDUM STATUS: COMPLETED DEFERRED RESCHEDULING TO TEAM AMSA. DEFER MEDICATION REFILL TO PCP /ilya/ ESHA FUNES Registered Nurse Signed: 07/24/2023 15:20 07/24/2023 ADDENDUM STATUS: COMPLETED adding AMSA /ilya/ FABY LUBIN REGISTERED NURSE Signed: 07/24/2023 15:27 Receipt Acknowledged By: 07/24/2023 15:45 /es/ TONYA CHAUDHRY ADVANCED PRODUCT MANAGER FINANCIAL SERVICES JOSE KRISHNAN [facility]
--- OUTSIDE RECORDS SUMMARY | 2024-07-13 09:28 | XMS_ITS | Encounter Summary ---
Author Name [facility] Address [address] [place] [address] Care Team Providers Care Farm Crew Leader Name Role Phone TIFFANY FREDERICK Primary Care [...] MEDIC ARE SUPPL EMENT Mar 01, 2015 [id number] [phone] LARAMEE,R MAKAYLA PATIENT AN[employer] [place] MEDICARE SUPPLEMEN COLT[place] MEDIC ARE SUPPL EMENT Mar 01, 2015 [id number] LARAMEE,R MAKAYLA PATIENT AN[employer] [employer] [place] MEDICARE SUPPLEMEN COLTEN MEDIC ARE SUPPL EMENT Mar 01, 2015 [id number] [phone] LARAMEE,R MAKAYLA PATIENT [employer] [place] MEDICARE SUPPLEMEN COLTEN MEDIC ARE SUPPL EMENT Mar 01, 2015 [id number] [phone] LARAMEE,R MAKAYLA PATIENT [employer] [place] MEDICARE SUPPLEMEN COLTEN MEDEX 2 Mar 01, 2015 [id number] [phone] LARAMEE,R MAKAYLA PATIENT [facility] MEDICARE SUPPLEMEN COLTEN MEDEX 2 Mar 01, 2015 [id number] [phone] Sarah RAE PATIENT [facility] MEDICARE SUPPLEMEN [place] MEDEX 2 Mar 01, 2015 [id number] Sarah RAE PATIENT MEDICARE (WNR) MEDICARE (M) PART B Mar 01, 2015 PART B [id number] Sarah RAE PATIENT MEDICARE (WNR) MEDICARE (M) PART B Mar 01, 2015 PART B [id number] Sarah RAE PATIENT MEDICARE (WNR) MEDICARE (M) PART A Aug 01, 2014 PART A [id number] Sarah RAE PATIENT MEDICARE (WNR) MEDICARE (M) PART A Aug 01, 2014 PART A [id number] Sarah RAE PATIENT Selected Encounter This section includes the information on record at [place] for the Encounter. Date/Time Encounter Type Encounter Description Reason Pro vider Source Dec 31, 2023 02:26 PM Outpatient Encounter ADMIN PAT ACTIVTIES (MASNONCT) [facility] Encounter Template Text not used by [place] Plan of Treatment: Future Appointments (+ 6 months) and Future Tests (+/- 45 days) The Plan of Treatment section includes future care activities for the patient from all [place] treatmentfacilities. This section includes future appointments and future orders which are active, pending or scheduled. Future Appointments This section includes appointments that were scheduled to occur 6 months from the date of the Encounter, up to a maximum of 20 appointments. The data comes from all [place] treatment facilities. Appointment Date/Time Appointment Type Appointme nt Facility Name Mar 17, 2024 08:00 AM AMBULATORY - MEDICINE [facility] Social History: [...] Current Smoking Status Comment Heydi cuello Oct 15, 2023 02:30 PM [facility] Tobacco Use History This section includes a history of the smoking, or tobacco-related health factors, that were collected on or before the date of the Encounter. The data comes from the [place] facility where the Encounter took place. Date/Time Smoking Status/Tobac co Use Comment Facility Oct 25, 2022 09:30 AM VA-TOBACCO NEVER USED [facility] [place] [facility] Oct 18, 2021 10:30 AM VA-TOBACCO NEVER USED [facility] [place] [facility] Oct 12, 2020 01:00 PM VA-TOBACCO NEVER USED [facility] [place] [facility] Oct 14, 2018 09:39 AM VA-TOBACCO NEVER USED [facility] [place] [facility] Apr 11, 2018 07:41 AM VA-TOBACCO NEVER USED [facility] [place] [facility] May 01, 2017 09:10 AM LIFETIME NON-TOBACCO USER [facility] [place] [facility] Apr 24, 2016 09:00 AM LIFETIME NON-TOBACCO USER [facility] [place] [facility] Jan 31, 2015 02:42 PM QUIT TOBACCO USE > 7 YEARS AGO occasional [place] in [place] [facility] [place] [facility] Encounter Notes: All associated encounter notes This section contains the clinical notes associated to the Encounter. Date/Time Encounter Note(s) Provider Source Dec 31, 2023 02:26 PM PHARMACY NOTE: LOCAL TITLE: V1 PHARMACY CUSTOMER CARE MEDICATION RENEWAL STANDARD TITLE: PHARMACY NOTE DATE OF NOTE: DEC 31, 2023@14:26 ENTRY DATE: DEC 31, 2023@14:26:23 AUTHOR: MYRTLE HALE COSIGNER: URGENCY: STATUS: COMPLETED V1 PHARMACY CUSTOMER CARE MEDICATION RENEWAL Has ADDENDA Date: Dec Division: [facility] referred by Pharmacy Call Center for medication renewal: Non-controlled/maintenanc e medication Medications requested: [id number] LISINOPRIL 5MG TAB Defer to primary care provider To be mailed . Please review and renew if appropriate. *This note was generated by [facility] [facility] Customer Care. If you have any questions or need assistance, do not contact this author. Please refer all questions to your local, on-site pharmacy departments. /ilya/ Myrtle Hale CPhT Health Nurse, MS/Pharmacy Customer Care Signed: 12/31/2023 14:26 Receipt Acknowledged By: 01/02/2024 17:06 /ilya/ TIFFANY FREDERICK D.O. PHYSICIAN 12/31/2023 15:03 /ilya/ GENEVIEVE HARLEY, RN REGISTERED NURSE 12/31/2023 ADDENDUM STATUS: COMPLETED ALERT TO PCP for consideration of requested medication renewal /ilya/ GENEVIEVE HARLEY, RN REGISTERED NURSE Signed: 12/31/2023 15:04 MYRTLE HALE I [facility]
--- OUTSIDE RECORDS SUMMARY | 2024-07-13 09:28 | XMS_ITS | Encounter Summary ---
Author Name [facility] Address [address] [place] [address] Care Team Providers Care Binder Cutter Name Role Phone TIFFANY FREDERICK Primary Care [...] MEDIC ARE SUPPL EMENT Mar 01, 2015 [id number] [phone] LARAMEE,R MAKAYLA PATIENT ANTHEM [place] MEDICARE SUPPLEMEN [place] MEDIC ARE SUPPL EMENT Mar 01, 2015 [id number] [phone] LARAMEE,R MAKAYLA PATIENT ANTHE[place] MEDICARE SUPPLEMEN [place] MEDIC ARE SUPPL EMENT Mar 01, 2015 [id number] [phone] LARAMEE,R MAKAYLA PATIENT [place] MEDICARE SUPPLEMEN [place] MEDIC ARE SUPPL EMENT Mar 01, 2015 [id number] [phone] LARAMEE,R MAKAYLA PATIENT [place]BS [place] MEDICARE SUPPLEMEN [place] MEDEX 2 Mar 01, 2015 [id number] LARAMEE,R MAKAYLA PATIENT [facility] MEDICARE SUPPLEMEN [place] MEDEX 2 Mar 01, 2015 [id number] Sarah RAE PATIENT [facility] MEDICARE SUPPLEMEN [place] MEDEX 2 Mar 01, 2015 [id number] [phone] Sarah RAE PATIENT MEDICARE (WNR) MEDICARE (M) PART B Mar 01, 2015 PART B [id number] [phone] Sarah RAE PATIENT MEDICARE (WNR) MEDICARE (M) PART B Mar 01, 2015 PART B [id number] Sarah RAE PATIENT MEDICARE (WNR) MEDICARE (M) PART A Aug 01, 2014 PART A [id number] Sarah RAE PATIENT MEDICARE (WNR) MEDICARE (M) PART A Aug 01, 2014 PART A [id number] Sarah RAE PATIENT Selected Encounter This section includes the information on record at NH for the Encounter. Date/Time Encounter Type Encounter Description Reason Provider Source Mar 17, 2024 08:00 AM OFFICE O/P EST MOD 30 MIN PRIMARY CARE/MEDICINE ICD-10-CM I10 Essential (primary) hypertension TIFFANY FREDERICK Encounter Template Text not used by NH Assessments - Encounter Diagnoses This section includes the primary and secondary diagnoses documented for the Encounter. Date/Time Primary/Secondary Diagnosis Diagnosis Name Provider Source Mar 31, 2024 05:02 PM PRIMARY Essential (primary) hypertension FRANKO BANERJEE [facility] [place] [facility] Mar 31, 2024 05:02 PM SECONDARY Contact with and exposure to other hazardous substances FRANKO BANERJEE [facility] [place] [facility] Mar 31, 2024 05:02 PM SECONDARY Encounter for immunization FRANKO BANERJEE [facility] [place] [facility] Mar 31, 2024 05:02 PM SECONDARY Low back pain, unspecified FRANKO BANERJEE [facility] [place] [facility] Mar 31, 2024 05:02 PM SECONDARY Pure hypercholesterolem ia, unspecified FRANKO BANERJEE [facility] [place] [facility] Mar 31, 2024 05:02 PM SECONDARY Tinnitus, unspecified ear FRANKO BANERJEE [facility] [place] [facility] Mar 31, 2024 05:02 PM SECONDARY Type 2 diabetes mellitus without complications [facility] Lab Results: +/- 30 days of the encounter This section includes the Chemistry and Hematology Lab Results on record with NH for the patient. Radiology Reports and Pathology Reports are provided separately, in subsequent sections. Lab Results This section contains the Chemistry/Hematology Results that were resulted 30 days before or 30 daysafter the date of the Encounter. Date/Time Source Result Type Result - Unit Interpretation Reference Range Comment Mar 17, 2024 09:01 AM [facility] MICROALBUMIN CREATININE RATIO PANEL Specimen Type: URINE No comment entered. Ordering Provider: TIFFANY FREDERICK Report Released Date/Time: Feb 26, 2024 08:45 AM Reporting Lab: [facility] [address] [address] Performing Lab: [facility] [address] [address] MICROALBUMIN/C REATININE RATIO 26.1 mg/g 0-29.9 MICROALBUMIN,Q UANTITATIVE 2.4 mg/dL RR UNAVAIL CREATININE URINE 92.05 mg/dL Mar 17, 2024 09:01 AM [facility] LIPID PANEL, NON FASTING Specimen Type: SERUM No comment entered. Ordering Provider: TIFFANY FREDERICK Report Released Date/Time: Feb 26, 2024 08:45 AM Reporting Lab: [facility] [address] [address] Performing Lab: [facility] [address] [address] CHOLESTEROL 175 mg/dL TRIGLYCERIDE 147 mg/dL 0-150 LDL calculated 104 mg/dL 0-129 CHOL/HDL 4.2 HDL CHOLESTEROL 42 mg/dL 40-60 Mar 17, 2024 09:01 AM [facility] BASIC METABOLIC PANEL (non-fasting) Specimen Type: SERUM No comment entered. Ordering Provider: TIFFANY FREDERICK Report Released Date/Time: Feb 26, 2024 08:45 AM Reporting Lab: [facility] [address] [address] Performing Lab: [address] [address] UREA NITROGEN 28 mg/dL H 7-25 GLUCOSE 100 mg/dL 65-100 SODIUM 139 mmol/L 135-145 POTASSIUM 4.8 mmol/L 3.5-5.0 CHLORIDE 108 mmol/L 100-110 CO2 19 meq/L L 20-30 CREATININE, Serum 1.56 mg/dL H 0.50-1.40 eGFR(CKD-EPI 2020) 46 mL/min L >60 Mar 17, 2024 09:01 AM [facility] HEMOGLOBIN A1C PANEL Specimen Type: BLOOD Comment: Values obtained from A1C measurements can vary. For atypical A1C assays, a reported value of 7.0 could actually be between 6.72 and 7.28 if measured by a reference method. A reported value of 9.0 could actually be between 8.73 and 9.27. Ref: http://www.ngs p.org/CAPdata. asp Ordering Provider: TIFFANY FREDERICK Report Released Date/Time: Feb 26, 2024 08:45 AM Reporting Lab: [facility] [address] [address] Performing Lab: [address] [address] HEMOGLOBIN A1C 7.2 H 4.0-5.6 Vital Signs: All taken on the encounter date This section contains inpatient and outpatient Vital Signs collected on the date of the Encounter. Date/Time Temperature Pulse Blood Pressure Respiratory Rate SP02 Pain Height Weight Body Mass Index Source Mar 17, 2024 08:00 AM 97.3 75 137/72 20 98 5 69 188 28 [facility] Immunizations: All administered on the encounter date This section contains immunizations associated to the Encounter. Immunization Series Date Issued Reaction Comments COVID-19 (MODERNA), MRNA, LN P-S, PF, 50 MCG/0.5 ML (AGES 12+ YEARS) Mar 17, 2024 INFLUENZA, HIGH-DOSE, TRIVALENT, PF Mar 17 Social History: Smoking Status (Most current) and Tobacco Use (All prior to encounter date) This section includes the most current, and the historical, smoking and tobacco- related health factors from the NH facility where the Encounter took place. Current Smoking Status This section includes the most current smoking, or tobacco-related health factor, from the NH facility where the Encounter took place. Date/Time Current Smoking Status Comment [facility]on Oct 15, 2023 02:30 PM VA-TOBACCO NEVER USED [facility] [place] [facility] Tobacco Use History This section includes a history of the smoking, or tobacco-related health factors, that were collected on or before the date of the Encounter. The data comes from the NH facility where the Encounter took place. Date/Time Smoking Status/Tobac co Use Comment Facility Oct 25, 2022 09:30 AM VA-TOBACCO NEVER USED [facility] [place] [facility] Oct 18, 2021 10:30 AM VA-TOBACCO NEVER USED [facility] [place] [facility] Oct 12, 2020 01:00 PM VA-TOBACCO NEVER USED [facility] [place] [facility] Oct 14, 2018 09:39 AM VA-TOBACCO NEVER USED [facility] [place] [facility] Apr 11, 2018 07:41 AM VA-TOBACCO NEVER USED [facility] [place] [facility] May 01, 2017 09:10 AM LIFETIME NON-TOBACCO USER [facility] [place] [facility] Apr 24, 2016 09:00 AM LIFETIME NON-TOBACCO USER [facility] [place] [facility] Jan 31, 2015 02:42 PM QUIT TOBACCO USE > 7 YEARS AGO occasional while in [place] [facility] [place] [facility] Encounter Notes: All associated encounter notes This section contains the clinical notes associated to the Encounter. Date/Time Encounter Note(s) Provider Source Mar 17, 2024 12:28 PM LETTERS: LOCAL TITLE: PATIENT LETTER (T) STANDARD TITLE: LETTERS DATE OF NOTE: MAR 17, 2024@12:28 ENTRY DATE: MAR 17, 2024@12:28:08 AUTHOR: TIFFANY FREDERICK COSIGNER: URGENCY: STATUS: COMPLETED DEPARTMENT OF [facility] Toll Free Number Primary Care Telephone Assistance can be reached at extension [phone] [facility] scheduling can be reached at extension [phone] [facility] scheduling can be reached at ext [phone] THOM Agusto RAE [address], [place], [address] Dear Blaine, Your recent test results are as follows: overall stable labs- slightly improved diabetic control. LAB CHEMISTRY & HEMATOLOGY Collection DT Specimen Test Name Result Units Ref Range 03/17/2024 09:01 BLOOD !! HEMOGLOBIN A1C 7.2 H % 4.0 - 5.6 03/17/2024 09:01 SERUM CREATININE, Serum 1.56 H mg/dL 0.50 - 1.40 eGFR(CKD-EPI 2020 46 L mL/min Ref: >=60 SODIUM 139 mmol/L 135 - 145 POTASSIUM 4.8 mmol/L 3.5 - 5.0 CHLORIDE 108 mmol/L 100 - 110 CO2 19 L mEq/L 20 - 30 UREA NITROGEN 28 H mg/dL 7 - 25 GLUCOSE 100 mg/dL 65 - 100 CHOLESTEROL 175 mg/dL <7 - 199 TRIGLYCERIDE 147 mg/dL 0 - 150 LDL calculated 104 mg/dL 0 - 129 CHOL/HDL 4.2 HDL CHOLESTEROL 42 mg/dL 40 - 60 03/17/2024 09:01 URINE mALB/Cr 26.1 mg/G 0 - 29.9 MicroAl 2.4 mg/dL Ref: RR UNAVAIL CREATININE URINE 92.05 mg/dL Please call if you have any questions or concerns. Upcoming Appointments: 09/15/2024 09:00 CWM/NO/PACT EIGHT Sincerely, Your Primary Care Team [facility] [address] [place] [address] [place] [address] [phone] [facility] [address] [place] [address] [place] [address] [phone] [facility] [address] [facility] [place] [address] [place] [address] [phone] TIFFANY FREDERICK [facility] [place] [facility] Mar 17, 2024 08:05 AM PHYSICIAN NOTE: LOCAL TITLE: MD NOTE STANDARD TITLE: PHYSICIAN NOTE DATE OF NOTE: MAR 17, 2024@08:05 ENTRY DATE: MAR 17, 2024@08:05:24 AUTHOR: TIFFANY FREDERICK COSIGNER: URGENCY: STATUS: COMPLETED THOM RAE is a 73 year old WHITE MALE who is being seen today in primary care for routine follow up. CARE TEAM Community Primary Care Provider: Roge Helms [place] Specialists: Community Specialists: HISTORY PERIOD OF SERVICE - SERVICE CONNECTED % - 30 SC Percent: 30% Rated Disabilities: DIABETES MELLITUS (20%-SC) DIABETIC RETINOPATHY (0%-SC) TINNITUS (10%-SC) [facility], [facility], +AO HISTORY OF PRESENT ILLNESS Patient presents today for routine follow-up -no recent setbacks, feels well -may consider doing acupuncture for his chronic back pain in the future RELEVANT PAST MEDICAL HISTORY Active problems - Computerized Problem List is the source for the followin. Exposure to potentially hazardous substance GISSEL screening Snomed code connected 10/25/22 2. Essential hypertension 3. Tinnitus 4. Diabetes mellitus 5. Hypercholesterolemia 6. Chronic low back pain 7. 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 travels extensively across the world ALLERGIES PENICILLIN MEDICATIONS VA and Non VA meds were reconciled with the patient who left with a corrected copy. Active and Recently Outpatient Medications (excluding Supplies): Active Outpatient Medications Status 1) EMPAGLIFLOZIN [...] CAP/TAB BY MOUTH ACTIVE 12 Total Medications REVIEW OF SYMPTOMS NEGATIVE FOR: CONSTITUTION: no weight loss/gain, fatigue, fevers, night sweats HEENT: no vision problems, hearing loss,swallowing difficulties, sinus pain CV: no chest pain, palpitations, dyspnea on exertion, orthopnea RESP: no cough, shortness of breath, wheezing GI: no abdominal pain, N/V/D, constipation, blood in stool, normal appetite : no urinary frequency, nocturia, hematuria MUSC: no joint pain, joint swelling, muscle aches NEURO: no headaches, dizziness, memory loss, tremor, weakness PSYCH: no depression, anxiety, suicidal or homicidal thoughts SKIN: no rash, new skin lesions PHYSICAL EXAM Vitals: - - - - - - - B/P: 137/72 (03/17/2024 08:00) pulse: 75 (03/17/2024 08:00) resp: 20 (03/17/2024 08:00) temp: 97.3 F [36.3 C] (03/17/2024 08:00) Ht: 69 in [175.3 cm] (03/17/2024 08:00) Wgt: 188 lb [85.28 kg] (03/17/2024 08:00) BMI: BMI: 27.8 Exam: - - - - - - - General: A&O x 3, no acute distress, normal affect and mood Neck: normal thyroid, normal carotids- no bruits CV: RRR S1S2, no murmur Resp: LCTA bilat, no wheezing, rales or rhonchi Neuro: grossly intact, no visible tremor, normal memory and speech Extremities: normal movement of extremities, normal gait, normal strength no LE edema RECENT LABS BMP (FASTING) Collection DT Specimen Test Name Result Units Ref Range 10/15/2023 12:38 SERUM UREA NITROGEN 28 H mg/dL 7 - 25 10/15/2023 12:38 SERUM GLUCOSE 76 mg/dL 65 - 100 10/15/2023 12:38 SERUM SODIUM 137 mmol/L 135 - 145 10/15/2023 12:38 SERUM POTASSIUM 4.2 mmol/L 3.5 - 5.0 10/15/2023 12:38 SERUM CHLORIDE 103 mmol/L 100 - 110 10/15/2023 12:38 SERUM CO2 21 mEq/L 20 - 30 10/15/2023 12:38 SERUM CREATININE, Serum 1.50 H mg/dL 0.50 - 1.40 10/11/2020 09:51 SERUM eGFR (IDMS) >60 Ref: >=60 LIVER PANEL TREND Collection DT Spec AST ALT T BILI ALK DEENA T. PROT ALBUMIN 10/15/2023 12:38 SERUM 26 24 0.4 37 L 7.4 4.2 05/01/2023 09:31 SERUM 30 25 0.5 39 L 7.7 4.4 10/25/2022 09:21 SERUM 23 23 0.3 41 7.7 4.3 04/19/2022 09:14 SERUM 22 21 0.5 40 8.0 4.3 10/18/2021 09:51 SERUM 22 32 0.5 36 L 7.9 4.4 LIPID PANEL TREND Collection DT Spec CHOL HDL CHO/HDL LDL-d LDL-c TRIG 10/15/2023 12:38 SERUM 164 41 4.0 95 138 10/25/2022 09:21 SERUM 208 H 40 5.2 143 H 124 04/19/2022 09:14 SERUM 216 H 36 L 6.0 148 H 162 H 10/18/2021 09:51 SERUM 236 H 38 L 6.2 155 H 214 H 10/11/2020 09:51 SERUM 204 H 34 L 6.0 111 295 H CBC TREND Collection DT Spec WBC RBC HGB HCT MCV MCH PLT 10/15/2023 12:38 BLOOD 9.29 4.75 15.0 44.6 93.9 31.6 252 05/01/2023 09:31 BLOOD 6.10 4.89 15.2 46.7 95.5 31.1 264 10/25/2022 09:21 BLOOD 6.08 4.80 15.1 45.5 94.8 31.5 257 10/18/2021 09:51 BLOOD 10.28 4.70 15.0 44.1 93.8 31.9 295 10/11/2020 09:51 BLOOD 8.08 4.85 15.6 46.3 95.5 32.2 229 HEMOGLOBIN A1C TREND Collection DT Spec HGBA1c 10/15/2023 12:38 BLOOD 7.6 H 05/01/2023 09:31 BLOOD 7.1 H 10/25/2022 09:21 BLOOD 7.1 H 04/19/2022 09:14 BLOOD 7.4 H 10/18/2021 09:51 BLOOD 7.5 H ASSESSMENT AND PLAN Active problems - Computerized Problem List is the source for the followin. Exposure to potentially hazardous substance GISSEL screening Snomed code connected 10/25/22 2. Essential hypertension- at goal as <140/90 3. Tinnitus 4. Diabetes mellitus- due for repeat. will increase empagliflozin to 25 mg. takes glipizide 5 mg once a day in am, no low blood sugars 5. Hypercholesterolemia 6. Chronic low back pain- walks 1 mile a day HEALTH MAINTENANCE Colonoscopy - does cologuard through PCP- 2023 Abdominal Aortic Aneurysm Screening- n/a Prostate screening - Tetanus: due every 10 years Pneumonia Vacccine: Flu Vaccine: given today 03/17/24 Covid Vaccine: given today 03/17/24 FOLLOW UP f/u in 6 mo VISIT TYPE: a MODERATE complexity visit where 30 minutes was spent in direct patient care, review of records and documentation. /ilya/ TIFFANY FREDERICK D.O. PHYSICIAN Signed: 03/17/2024 08:37 TIFFANY FREDERICK [facility] [place] [facility] Mar 17, 2024 08:04 AM PREVENTIVE MEDICINE NURSING NOTE: LOCAL TITLE: CLINICAL REMINDERS/NURSING STANDARD TITLE: PREVENTIVE MEDICINE NURSING NOTE DATE OF NOTE: MAR 17, 2024@08:04 ENTRY DATE: MAR 17, 2024@08:04:58 AUTHOR: DAVE BASSETT COSIGNER: URGENCY: STATUS: COMPLETED CLINICAL REMINDERS/NURSING Has ADDENDA Advance Directive Screen MH AD: Patient does not have an Advance Directive completed and is requesting more information. A consult was sent to Social Work Services at this visit so that an appointment can be made with the patient to review the advance directive. The patient received education about Advance Directives and written notification of his/her rights. Homelessness/Food Insecurity Screen: In the past 2 months, have you been living in stable housing that you own, rent, or stay in as part of a household? Yes - Living in stable housing. Are you worried or concerned that in the next 2 months you may NOT have stable housing that you own, rent, or stay in as part of a household? No - Not worried about housing near future The Blaine reports the following: Within the past 12 months, you worried whether your food would run out before you got money to buy more. Never true Within the past 12 months, the food you bought just didn't last and you didn't have money to get more. Never true /es/ Dave Bassett, Health Boiler Testing Technician INVESTIGATOR WELFARE,PRIMARY CARE Signed: 03/17/2024 08:25 03/17/2024 ADDENDUM STATUS: COMPLETED COVID-19 Immunization: Moderna Monovalent (Spikevax) Administered: COVID-19 (MODERNA), MRNA, LNP-S, PF, 50 MCG/0.5 ML (AGES 12+ YEARS) Date Administered: Mar 17, 2024 08:00 Shale Planer Operator: MODERNA [employer] Lot: [id number] Exp Date: November 21, 2024 NDC: [id number] Admin Route/Site: INTRAMUSCULAR/RIGHT DELTOID Dosage: 0.5mL Vaccine Information Statement(s): COVID-19 MRNA VACCINE (12+ YRS) VACCINE VIS Apr 18, 2023 (POL[place]) Order By: Policy Administered By: Faby Banerjee Vaccine administered without complications. Influenza Immunization: Influenza, High-Dose, Trivalent, Preservative Free (Fluzone-Syringe) Administered: INFLUENZA, HIGH-DOSE, TRIVALENT, PF Date Administered: Mar 17, 2024 08:00 Shale Planer Operator: SANOFI PASTEUR Lot: [id number] Exp Date: Dec 28, 2024 NDC: [id number] Admin Route/Site: INTRAMUSCULAR/LEFT DELTOID Dosage: 0.5mL Vaccine Information Statement(s): INFLUENZA(FLU) VACC(INACTIVATED OR RECOMBINANT)VIS Feb 03, 2021 (POLISH) Order By: Policy Administered By: Faby Banerjee The Influenza Vaccine Information Statement (VIS) was reviewed with the patient/caregiver which lists the benefits and risks of the vaccine and the risks of not receiving the Influenza vaccine. The patient/caregiver denied any prior severe reaction to this vaccine or its components or a severe allergic reaction, such as anaphylaxis, to any vaccine or any injectable therapy. The patient/caregiver gave verbal consent to receive the vaccine. /es/ FABY BANERJEE REGISTERED NURSE Signed: 03/17/2024 08:40 [facility]T [facility]
--- OUTSIDE RECORDS SUMMARY | 2024-07-13 09:28 | XMS_ITS | Encounter Summary ---
Author Name [facility] Organization [facility] [place] Address [address] [place] [address] Care Team Providers Care Personal Health Coach Name Role Phone TIFFANY FREDERICK Primary Care [...] MEDIC ARE SUPPL EMENT Mar 01, 2015 [id number] [phone] LARAMEE,R MAKAYLA PATIENT ANTHEM [place] MEDICARE SUPPLEMEN [place] MEDIC ARE SUPPL EMENT Mar 01, 2015 [id number] [phone] LARAMEE,R MAKAYLA PATIENT ANTHE[place] MEDICARE SUPPLEMEN [place] MEDIC ARE SUPPL EMENT Mar 01, 2015 [id number] [phone] LARAMEE,R MAKAYLA PATIENT [place] MEDICARE SUPPLEMEN [place] MEDIC ARE SUPPL EMENT Mar 01, 2015 [id number] [phone] LARAMEE,R MAKAYLA PATIENT BCBS [place] MEDICARE SUPPLEMEN [place] MEDEX 2 Mar 01, 2015 [id number] LARAMEE,R MAKAYLA PATIENT [facility] MEDICARE SUPPLEMEN [place] MEDEX 2 Mar 01, 2015 [id number] Sarah RAE PATIENT [facility] MEDICARE SUPPLEMEN [place] MEDEX 2 Mar 01, 2015 [id number] [phone] Sarah RAE PATIENT MEDICARE (WNR) MEDICARE (M) PART B Mar 01, 2015 PART B [id number] Sarah RAE PATIENT MEDICARE (WNR) MEDICARE (M) PART B Mar 01, 2015 PART B [id number] Sarah RAE PATIENT MEDICARE (WNR) MEDICARE (M) PART A Aug 01, 2014 PART A [id number] Sarah RAE PATIENT MEDICARE (WNR) MEDICARE (M) PART A Aug 01, 2014 PART A [id number] Sarah RAE PATIENT Selected Encounter This section includes the information on record at MD for the Encounter. Date/Time Encounter Type Encounter Description Reason Pro vider Source Jun 29, 2024 10:04 AM Outpatient Encounter ADMIN PAT ACTIVTIES (MASNONCT) IHE Encounter Template Text not used by MD Plan of Treatment: Future Appointments (+ 6 months) and Future Tests (+/- 45 days) The Plan of Treatment section includes future care activities for the patient from all MD treatmentfacilities. This section includes future appointments and future orders which are active, pending or scheduled. Future Appointments This section includes appointments that were scheduled to occur 6 months from the date of the Encounter, up to a maximum of 20 appointments. The data comes from all MD treatment facilities. Appointment Date/Time Appointment Type Appointme nt Facility Name Sep 15, 2024 09:00 AM AMBULATORY - MEDICINE [place] [facility] Social History: [...] place. Date/Time Current Smoking Status Comment Heydi taylor Oct 15, 2023 02:30 PM VA-TOBACCO NEVER USED [place] [facility] [place] [facility] Tobacco Use History This section includes a history of the smoking, or tobacco-related health factors, that were collected on or before the date of the Encounter. The data comes from the MD facility where the Encounter took place. Date/Time Smoking Status/Tobac co Use Comment Facility Oct 25, 2022 09:30 AM VA-TOBACCO NEVER USED [place] [facility] [place] [facility] Oct 18, 2021 10:30 AM VA-TOBACCO NEVER USED [place] [facility] [place] [facility] Oct 12, 2020 01:00 PM VA-TOBACCO NEVER USED MD [facility] [place] [facility] Oct 14, 2018 09:39 AM VA-TOBACCO NEVER USED MD [facility] [place] [facility] Apr 11, 2018 07:41 AM VA-TOBACCO NEVER USED MD [facility] [place] [facility] May 01, 2017 09:10 AM LIFETIME NON-TOBACCO USER [place] [facility] [place] [facility] Apr 24, 2016 09:00 AM LIFETIME NON-TOBACCO USER [place] [facility] [place] [facility] Jan 31, 2015 02:42 PM QUIT TOBACCO USE > 7 YEARS AGO occasional while in [place] [facility] [place] [facility] Encounter Notes: All associated encounter notes This section contains the clinical notes associated to the Encounter. Date/Time Encounter Note(s) Provider Source Jun 29, 2024 10:04 AM ADMINISTRATIVE NOT E: LOCAL TITLE: CCC: SCHEDULING ADMINISTRATION STANDARD TITLE: ADMINISTRATIVE NOTE DATE OF NOTE: JUN 29, 2024@10:04:25 ENTRY DATE: JUN 29, 2024@10:04:26 AUTHOR: CHLOE GOETZ COSIGNER: URGENCY: STATUS: COMPLETED Patient Demographics Patient Name: THOM RAE Patient Primary Phone: [phone] Patient Primary Address: [address] [place] [id number] Patient : 1950 Patient Age: 73 Caller/Recipient Relation to Patient: Self Caller Name: THOM RAE Administrative Administrative Note Reason: Medication Renewal MD Medications Refill/Renewal Request: Rx # - Medication Name - Dosage - SIG - Number of Refills - Facility - Status [id number] - ROSUVASTATIN [place] 20MG TAB - 1 TABLET - TAKE ONE TABLET BY MOUTH ONCE DAILY FOR HIGH CHOLESTEROL (NOTE TABLET STRENGTH) - 0 - [facility] - 631 - ACTIVE IMPORTANT: This note was created by [facility] Clinical Contact Center staff. Please do not alert the staff member by adding them as a signer for future communications. Alerts are not monitored by this user. /es/ FAITH LINDSAY [facility] Signed: 06/29/2024 10:04 Receipt Acknowledged By: 06/29/2024 16:17 /es/ TIFFANY FREDERICK D.O. PHYSICIAN 06/29/2024 10:30 /es/ ISABELLA CHILDRESS, MSN, RN, CNL PRIMARY CARE TEAM NURSE CHLOE GOETZ [facility]
--- OUTSIDE RECORDS SUMMARY | 2024-07-13 09:28 | XMS_ITS | Encounter Summary ---
Author Name [facility] [place] Organization [facility] [place] [facility] [place] Address [address] [place] [address] Care Team Providers Care Records Management Assistant Name Role Phone TIFFANY FREDERICK Primary Care [...] MEDIC ARE SUPPL EMENT Mar 01, 2015 [id number] [phone] LARAMEE,R MAKAYLA PATIENT AN[place] MEDICARE SUPPLEMEN [place] MEDIC ARE SUPPL EMENT Mar 01, 2015 [id number] [phone] LARAMEE,R MAKAYLA PATIENT [place]PP[place] MEDIC ARE SUPPL EMENT Mar 01, 2015 [id number] [phone] LARAMEE,R MAKAYLA PATIENT [place] MEDICARE SUPPLEMEN [place] MEDIC ARE SUPPL EMENT Mar 01, 2015 [id number] [phone] LARAMEE,R [place] MEDEX 2 Mar 01, 2015 [id number] [phone] LARAMEE,R [place]KAY[place] MED[place] 2 Mar 01, 2015 [id number] Sarah RAE PATIENT [facility] MEDICARE SUPPLEMEN [place] MEDEX 2 Mar 01, 2015 [id number] Sarah RAE PATIENT MEDICARE (WNR) MEDICARE (M) PART B Mar 01, 2015 PART B [id number] [phone] Sarah RAE PATIENT MEDICARE (WNR) MEDICARE (M) PART B Mar 01, 2015 PART B [id number] Sarah RAE PATIENT MEDICARE (WNR) MEDICARE (M) PART A Aug 01, 2014 PART A [id number] Sarah RAE PATIENT MEDICARE (WNR) MEDICARE (M) PART A Aug 01, 2014 PART A [id number] [phone] Sarah RAE PATIENT Selected Encounter This section includes the information on record at [place] for the Encounter. Date/Time Encounter Type Encounter Description Reason Pro vider Source Mar 06, 2024 10:34 AM Outpatient Encounter PRIMARY CARE/MEDICINE IHE Encounter Template Text not used by [place] Plan of Treatment: Future Appointments (+ 6 months) and Future Tests (+/- 45 days) The Plan of Treatment section includes future care activities for the patient from all [place] treatmentfacilities. This section includes future appointments and future orders which are active, pending or scheduled. Future Appointments This section includes appointments that were scheduled to occur 6 months from the date of the Encounter, up to a maximum of 20 appointments. The data comes from all [place] treatment facilities. Appointment Date/Time Appointment Type Appointme nt Facility Name Mar 17, 2024 08:00 AM AMBULATORY - MEDICINE [place] [facility] Lab Results: +/- 30 days of the encounter This section includes the Chemistry and Hematology Lab Results on record with [place] for the patient. Radiology Reports and Pathology Reports are provided separately, in subsequent sections. Lab Results This section contains the Chemistry/Hematology Results that were resulted 30 days before or 30 daysafter the date of the Encounter. Date/Time Source Result Type Result - Unit Interpretation Reference Range Comment Mar 17, 2024 09:01 AM [facility] MICROALBUMIN CREATININE RATIO PANEL Specimen Type: URINE No comment entered. Ordering Provider: TIFFANY FREDERICK Report Released Date/Time: Feb 26, 2024 08:45 AM Reporting Lab: [facility] [address] [facility] [address] Performing Lab: [facility] [address] [facility] [address] MICROALBUMIN/C REATININE RATIO 26.1 mg/g 0-29.9 MICROALBUMIN,Q UANTITATIVE 2.4 mg/dL RR UNAVAIL CREATININE URINE 92.05 mg/dL Mar 17, 2024 09:01 AM [facility] LIPID PANEL, NON FASTING Specimen Type: SERUM No comment entered. Ordering Provider: TIFFANY FREDERICK Report Released Date/Time: Feb 26, 2024 08:45 AM Reporting Lab: [facility] [address] [facility] [address] Performing Lab: [facility] [address] [facility] [address] CHOLESTEROL 175 mg/dL TRIGLYCERIDE 147 mg/dL 0-150 LDL calculated 104 mg/dL 0-129 CHOL/HDL 4.2 HDL CHOLESTEROL 42 mg/dL 40-60 Mar 17, 2024 09:01 AM [facility] BASIC METABOLIC PANEL (non-fasting) Specimen Type: SERUM No comment entered. Ordering Provider: TIFFANY FREDERICK Report Released Date/Time: Feb 26, 2024 08:45 AM Reporting Lab: [facility] [address] [facility] [address] Performing Lab: [address] [address] UREA NITROGEN 28 mg/dL H 7-25 GLUCOSE 100 mg/dL 65-100 SODIUM 139 mmol/L 135-145 POTASSIUM 4.8 mmol/L 3.5-5.0 CHLORIDE 108 mmol/L 100-110 CO2 19 meq/L L 20-30 CREATININE, Serum 1.56 mg/dL H 0.50-1.40 eGFR(CKD-EPI 2020) 46 mL/min L >60 Mar 17, 2024 09:01 AM [place] [facility] [place] [facility] HEMOGLOBIN A1C PANEL Specimen Type: BLOOD [...] Feb 26, 2024 08:45 AM Reporting [facility] [address] [facility] [address] Performing Lab: [place] [facility] [address] [address] HEMOGLOBIN A1C 7.2 H 4.0-5.6 Social History: Smoking Status (Most current) and Tobacco Use (All prior to encounter date) This section includes the most current, and the historical, smoking and tobacco- related health factors from the [place] facility where the Encounter took place. Current Smoking Status This section includes the most current smoking, or tobacco-related health factor, from the [place] facility where the Encounter took place. Date/Time Current Smoking Status Comment [facility] Oct 15, 2023 02:30 PM [facility]TOBACCO [facility] Tobacco Use History This section includes a history of the smoking, or tobacco-related health factors, that were collected on or before the date of the Encounter. The data comes from the [place] facility where the Encounter took place. Date/Time Smoking Status/Tobac co Use Comment Facility Oct 25, 2022 09:30 AM VA-TOBACCO NEVER USED [place] [facility] [place] [facility] Oct 18, 2021 10:30 AM VA-TOBACCO NEVER USED [place] [facility] [place] [facility] Oct 12, 2020 01:00 PM VA-TOBACCO NEVER USED [facility] [place] [facility] Oct 14, 2018 09:39 AM VA-TOBACCO NEVER USED [place] [facility] [place] [facility] Apr 11, 2018 07:41 AM VA-TOBACCO NEVER USED [place] [facility] [place] [facility] May 01, 2017 09:10 AM LIFETIME NON-TOBACCO USER [facility] Apr 24, 2016 09:00 AM LIFETIME NON-TOBACCO USER [facility] Jan 31, 2015 02:42 PM QUIT TOBACCO USE > 7 YEARS AGO occasional while in [place] [facility] Encounter Notes: All associated encounter notes This section contains the clinical notes associated to the Encounter. Date/Time Encounter Note(s) Provider Source Mar 06, 2024 10:34 AM ADMINISTRATIVE NOTE: LOCAL TITLE: ADMINISTRATIVE NOTE STANDARD TITLE: ADMINISTRATIVE NOTE DATE OF NOTE: MAR 06, 2024@10:34 ENTRY DATE: MAR 06, 2024@10:34:54 AUTHOR: DES DUGAN EXP COSIGNER: URGENCY: STATUS: COMPLETED AMSA CALLED ON THE TELEPHONE TO INFORM OF UPCOMING APPT AND THAT LABWORK IS NEEDED,HOWEVER THE CALL THE CALL WAS PICKED UP BUT NOBODY ANSWERED THE PHONE,A LETTER IS BEING SENT FOR REMINDER. /ilya/ DES CUEVAS Signed: 03/06/2024 10:39 DES DUGAN [facility]
== END 2024-07-13 09:50 | disposition home or self-care (01) ==
PROVIDERS: PCP Internal Medicine; Visit Provider Internal Medicine Cardiovascular Disease
DX: I25.119 Atherosclerotic heart disease of native coronary artery with unspecified angina pectoris (principal); R94.31 Abnormal electrocardiogram [ECG] [EKG]
CPT/HCPCS: 93010; 99214; G2211

== ENCOUNTER → 2024-07-13 08:57 | Outpatient (BNVA) | payer MEDICARE, SELFPAY | PROVIDERS: PCP Internal Medicine; Visit Provider Internal Medicine Cardiovascular Disease | DX: I20.9 Angina pectoris, unspecified (principal); R94.31 Abnormal electrocardiogram [ECG] [EKG] | CPT/HCPCS: 93005; 99212 ==

== ENCOUNTER → 2024-07-16 08:44 | Outpatient (REF) | payer MEDICARE, SELFPAY ==
--- NOTE | 2024-07-16 08:46 | [place]_ITS ---
Transthoracic Echocardiogram Patient (Last, First, Middle): Gian Ledezma L Gender: Male Date of : 1950 Age: 73 Procedure Date: 07/16/2024 Procedure Type: Transthoracic Echocardiogram Location: OP Height: 175.26 cm Weight: 81.65 kg BSA: 1.98 m2 Heart Rate: 94 bpm BP: 125 / 60 mmHg Set Off Press Operator: SHITAL Referring MD: Danny Fried MD Straightening Machine Operator: Danny Fried MD Symptoms: I20.9 - Angina pectoris, unspecified Study Quality: Fair ECG Rhythm: Arrhythmia Conclusions: - 1. Normal LV ejection fraction of 60 65% with impaired relaxation filling pattern 2. Normal cardiac valvular Dopplers 3. No pericardial effusion Findings Left Ventricle Normal left ventricular size, thickness, and systolic function. The visually estimated ejection fraction is between 60-65%. Spectral Doppler is indicative of an impaired relaxation filling pattern. E/E prime ratio is between 8 and 15 consistent with indeterminate filling pressures. Right Ventricle Normal right ventricular cavity size and systolic function. Atria The left atrium is likely dilated. There is no evidence of interatrial shunt. The right atrium is normal in size. Aortic Valve The aortic valve structure and function is likely normal. There is no aortic valve stenosis. There is no aortic valve regurgitation. Mitral Valve There is mild anterior and posterior mitral leaflet thickening. There is trace mitral valve regurgitation. There is no mitral valve stenosis. Pulmonic Valve The pulmonic valve was not well visualized. Tricuspid Valve Likely normal tricuspid valve structure and function. Tricuspid regurgitation envelope is inadequate for calculation of right ventricular systolic pressure. Normal right atrial pressure. Great Vessels All visible segments of the aorta are normal in size. The pulmonary artery was not well visualized. There is no dilatation of the ascending aorta measuring 3.20 cm. Venous The inferior vena cava is normal in size and collapses greater than 50% with inspiration. Pericardium/Pleural There is no evidence of pericardial effusion. Prior Study Comparison No prior study available for comparison. Measurements 2D Linear Measurements IVSd: 1.06 0.6-0.9/0.6-1.0 cm LVIDd: 4.57 3.9-5.3/4.2-5.9 cm LVIDd Index: 2.31 2.4-3.2/2.2-3.1 cm/m2 LVIDs: 3.51 2.0-3.6 cm LVPWd: 0.91 0.7-1.1 cm LA Diam: 3.60 2.7-3.8/3.0-4.0 cm LAIDs Index: 1.82 1.5-2.3 cm/m2 LV Mass: 191.65 67-162/88-224 g LV Mass Index: 96.79 43-95/49-115 g/m2 LVOT Diam: 2.20 3.0+(-)1.3 cm 2D Systolic Function EF 4C: 63.70 >55% EF 2C: 60.60 >55% EF BiP: 62.10 >55% Mitral Valve MV Pk E: 0.71 MV PK A: 1.28 MV Decel Time: 226.00 E/A: 0.60 E'Lateral: 6.09 E'Medial: 5.98 E/E' Med: 11.90 E/E' Lat: 11.70 PHT: 66.00 MVA PHT: 3.33 Decel [place]: 3.15 Aortic Valve AoV Pk Praneeth: 1.00 AoV Mn Praneeth: 0.78 AoV VTI: 0.21 AoV Pk Grad: 4.00 Aov Mn Grad: 3.00 ALIN Cont.VTI: 2.56 LVOT LVOT Pk Praneeth: 0.64 LVOT Mn Praneeth: 0.53 LVOT VTI: 0.14 LVOT Pk Grad: 2.00 LVOT Mn Grad: 1.00 LVOT Diam: 2.20 LVOT Area: 3.80 Diastolic Function MV Pk E: 0.71 MV Pk A: 1.28 E/A: 0.60 E'Medial: 5.98 E/E' Med: 11.90 E' Laterial: 6.09 E/E' Lat: 11.70 Right Ventricle TAPSE (mm): 18.40 TVS' Praneeth: 13.70 Tricuspid Valve RA Press: 3.00 Great Vessels Aorta Sinus of Valsalva: 3.40 2.0-3.5 cm Ao Asc: 3.20 2.1-3.4 cm Pulmonary Valve PV Pk Praneeth: 1.29 Peak PV Grad: 7.00 Updated in Other Vendor System with Status of Final Danny Fried MD electronically signed on 07/17/2024 2:54:38 PM with status of Final
--- OUTSIDE RECORDS SUMMARY | 2024-07-16 09:08 | XMS_ITS | Continuity of Care Document ---
Author Name [facility] Organization [facility] Care Team Providers Care Demonstrator Sales Name Role Phone [facility] Unavailable Unavailable Problems Combined list of problems from Department of Defense and Veterans Affairs facilities. It does not include entries that were removed or entered in error. Problem Status Onset Date Problem Type Date of Resolution Comments Source Chronic low back pain Active Condition [facility] Diabetes mellitus Active Condition [facility] Essential hypertension Active Condition [facility] Exposure to potentially hazardous substance Active Condition Sep 19, 2023 Entered By: MICHAEL ORTEGA Comment: GISSEL screening Snomed code connected 10/25/22 [facility] Hypercholesterolemia Active Condition [facility] Shoulder pain Active Condition [facility] Tinnitus Active Condition [facility] Diagnosis: ICD-10-CM I10 Essential (primary) hypertension Active Diagnosis [facility] Diagnosis: ICD-10-CM E11.9 Type 2 diabetes mellitus without complications Active Diagnosis [facility] Diagnosis: ICD-10-CM S90.822D Blister (nonthermal), left foot, subsequent encounter Active Diagnosis [facility] Diagnosis: ICD-10-CM E11.621 Type 2 diabetes mellitus with foot ulcer Active Diagnosis [facility] Diagnosis: ICD-10-CM H93.19 Tinnitus, unspecified ear Active Diagnosis [facility] Diagnosis: ICD-10-CM Z23 Encounter for immunization Active Diagnosis [facility] Medications Combined list of outpatient medications from Department of Defense and Veterans Affairs facilities.Medications provided include 1) outpatient medications from the last 15 months, and 2) patient-reported medications. Medication Details Route Status Patient Instructions Prescription Expires Prescription Number Last Dispense Date Ordering Provider Order Date Order Qty Source ASPIRIN 81MG TAB,EC TAKE TWO TABLETS BY MOUTH ONCE DAILY [facility] CHOLECALCIF VESNA 25MCG (1,000UNIT) TAB TAKE ONE TABLET BY MOUTH EVERY DAY [facility] 2014 [facility] COENZYME Q10 CAP/TAB TAKE ONE BY MOUTH EVERY DAY [facility] 2014 [facility] EMPAGLIFLOZ IN 10MG TAB TAKE ONE TABLET BY MOUTH ONCE DAILY FOR DIABETES ORAL ACTIVE 02/05/2024 [id number] [facility] 2022 90 [facility] EMPAGLIFLOZ IN 10MG TAB TAKE ONE TABLET BY MOUTH ONCE DAILY FOR DIABETES ORAL DISCONT INUED (EDIT) 10/15/2024 [id number] 4 [facility] EMPAGLIFLOZ IN 10MG TAB TAKE ONE TABLET BY MOUTH ONCE DAILY FOR DIABETES ORAL DISCONT INUED 07/24/2024 [id number] 4 [facility] 2023 90 [facility] EMPAGLIFLOZ IN 25MG TAB TAKE ONE TABLET BY MOUTH ONCE DAILY FOR DIABETES DOSE INCREASE ORAL ACTIVE 03/18/2025 [id number] FURCOLO,T LISS 2023 90 [facility] EZETIMIBE 10MG TAB TAKE ONE TABLET BY MOUTH ONCE DAILY TO LOWER CHOLESTE ROL ORAL ACTIVE 07/14/2025 [id number] FURCOLO,T LISS 2024 30 [facility] FENOFIBRATE 145MG TAB TAKE ONE TABLET BY MOUTH ONCE DAILY TO LOWER CHOLESTE ROL ORAL ACTIVE 01/02/2025 [id number] FURCOLO,T LISS 2023 90 [facility] FENOFIBRATE 145MG TAB TAKE ONE TABLET BY MOUTH ONCE DAILY TO LOWER CHOLESTE ROL ORAL DISCONT INUED 05/27/2024 [id number] [facility] JAWED 2022 90 [facility] FISH OIL 1000MG (500MG DHA/EPA) CAP,ORAL TAKE 1 CAPSULE BY MOUTH TWICE DAILY [facility] 2014 [facility] GLIPIZIDE 5MG TAB TAKE ONE TABLET BY MOUTH ONCE DAILY FOR TYPE 2 DIABETES MELLITUS ORAL ACTIVE 03/18/2025 [id number] FURDEANDRE,T LISS 2023 90 [facility] GLIPIZIDE 5MG TAB TAKE ONE-HALF TABLET BY MOUTH TWICE DAILY ORAL DISCONT INUED (EDIT) 10/15/2024 [id number] [facility] JAWED 2023 90 [facility] GLIPIZIDE 5MG TAB TAKE ONE-HALF TABLET BY MOUTH TWICE DAILY ORAL DISCONT INUED 02/05/2024 [id number] [facility] JAWED 2022 90 [facility] LISINOPRIL 5MG TAB TAKE ONE TABLET BY MOUTH ONCE DAILY TO CONTROL BLOOD PRESSURE ORAL ACTIVE 01/02/2025 [id number] FURCOLO,T LISS 2023 90 [facility] LISINOPRIL 5MG TAB TAKE ONE TABLET BY MOUTH ONCE DAILY TO CONTROL BLOOD PRESSURE ORAL DISCONT INUED 03/29/2024 [id number] [facility] JAWED 2022 90 [facility] METOPROLOL SUCCINATE 50MG TAB,SA TAKE ONE TABLET BY MOUTH ONCE DAILY FOR BLOOD PRESSURE /HEART ORAL ACTIVE 07/14/2025 [id number] FURCOLO,T LISS 2024 90 [facility] MULTIVITAMI NS CAP/TAB TAKE ONE TABLET BY MOUTH EVERY DAY ORAL ACTIVE PRASHANT WILLETT AMDAGOBERTO [facility]AWED 2014 [facility] OMEPRAZOLE 20MG CAP,EC TAKE 1 CAPSULE BY MOUTH EVERY MORNING 30 MINUTES BEFORE BREAKFAS T ORAL ACTIVE PRASHANT WILLETT AMDAGOBERTO JAWED [facility] ROSUVASTATI N CA 20MG TAB TAKE ONE TABLET BY MOUTH ONCE DAILY FOR HIGH CHOLESTE ROL (NOTE TABLET STRENGTH ) ORAL DISCONT INUED (EDIT) 06/30/2025 [id number] FURCOLO,T LISS 2023 90 [facility] ROSUVASTATI N CA 20MG TAB TAKE ONE TABLET BY MOUTH ONCE DAILY FOR HIGH CHOLESTE ROL (NOTE TABLET STRENGTH ) ORAL DISCONT INUED 07/01/2024 [id number] PRASHANT WILLETT AMDAGOBERTO JAWED 2023 90 [facility] ROSUVASTATI N CA 40MG TAB TAKE ONE TABLET BY MOUTH ONCE DAILY FOR HIGH CHOLESTE ROL (NOTE TABLET STRENGTH ) ORAL ACTIVE 07/14/2025 [id number] FURCOLO,T LISS 2024 90 [facility] TURMERIC CAP/TAB TAKE BY MOUTH ORAL ACTIVE PRASHANT WILLETT AMDAGOBERTO JAWED 2014 [facility] Allergies, Adverse Reactions, Alerts Combined list of allergies from Department of Defense and Veterans Affairs facilities. It does not include entries that were removed or entered in error. Substance Category Reaction Severity Reaction type Status Date Reported Comments Source PENICILLIN Propensity to adverse reactions to drug (finding) Eruption active 5 [facility] [place] [facility] Immunizations Combined list of available immunizations from the Department of Defense and Veterans Affairs facilities. Immunization Series Date Given Administered By Site Reaction Lot Number CVX Code Drug Design Intern Status Comments Source COVID-19 (MODERNA), MRNA, LNP-S, PF, 50 MCG/0.5 ML (AGES 12+ YEARS) 09/17/ 2024 FRANKO LUBIN SSA H RIGHT DELTO ID [id number] 312 complet ed [facility] INFLUENZA, HIGH-DOSE, TRIVALENT, PF 2023 FRANKO LUBIN SSA H LEFT DELTO ID [id number] 135 complet ed [facility] INFLUENZA, HIGH-DOSE, QUADRIVALENT 2022 EMELY DYER LEFT DELTO ID [id number] 197 complet ed [facility] COVID-19 (MODERNA), MRNA, LNP-S, PF, 50 MCG/0.5 ML (AGES 12+ YEARS) 1 2022 GIOVANNA FARLEY RIGHT DELTO ID [id number] 312 complet ed [facility] COVID-19 (MODERNA), MRNA, LNP-S, BIVALENT BOOSTER, PF, 50 MCG/0.5 ML OR 25MCG/0.25 ML DOSE 4 2022 MECHE NUNEZ RIGHT DELTO ID [id number] 229 complet ed [facility] INFLUENZA, UNSPECIFIED FORMULATION 2021 88 complet ed [facility] COVID-19 (MODERNA), MRNA, LNP-S, PF, 100 MCG/0.5ML DOSE OR 50 MCG/0.25ML DOSE 2 2021 207 complet ed MOD; [id number]; 2 [facility] COVID-19 (MODERNA), MRNA, LNP-S, PF, 100 MCG OR 50 MCG DOSE 2 2020 207 complet ed MOD; [id number]; 2 [facility] IELD COVID-19 (YRIS), VECTOR-NR, [id number], PF, 0.5 ML 1 2020 212 complet ed JSN; [id number]; 1 [facility] INFLUENZA, INJECTABLE, QUADRIVALENT, PRESERVATIVE FREE 2018 150 complet ed Site: Left Deltoid [facility] TDAP 2018 115 complet ed [facility] INFLUENZA, INJECTABLE, QUADRIVALENT 2017 158 complet ed Site: Right Deltoid [facility] PNEUMOCOCCAL POLYSACCHARID E PPV23 2017 33 complet ed [facility] PNEUMOCOCCAL CONJUGATE PCV 13 2016 133 complet ed [facility] Results Combined list of recent chemistry, hematology and other laboratory results from Department of Defense and Veterans Affairs, ranging from 15 months to all on record, depending upon the facility. Order Name Results Value Reference Range Date Interpretation Specimen Comments Source MICROALB UMIN CREATINI NE RATIO PANEL MICROALBUM IN/CREATIN INE [MASS RATIO] IN URINE 26.1 mg/g 0 - 29.9 03/17 Specimen Type: URINE No comment entered. Ordering Provider: MARIAJOSE FREDERICK Report Released Date/Time: Feb 26, 2024 08:45 AM Reporting Lab: [facility] [place] [facility] [address] [facility] [address] Performing Lab: [facility] [place] [facility] [address] [facility] [address] [facility] [place] [facility] MICROALB UMIN CREATINI NE RATIO PANEL MICROALBUM IN [MASS/VOLU ME] IN URINE 2.4 mg/dL 03/17 Specimen Type: URINE No comment entered. Ordering Provider: MARIAJOSE FREDERICK Report Released Date/Time: Feb 26, 2024 08:45 AM Reporting Lab: [facility] [place] [facility] [address] [facility] [address] Performing Lab: [facility] [place] [facility] [address] [facility] [address] [facility] [place] [facility] MICROALB UMIN CREATINI NE RATIO PANEL CREATININE [MASS/VOLU ME] IN URINE 92.05 mg/dL 03/17 Specimen Type: URINE No comment entered. Ordering Provider: MARIAJOSE FREDERICK Report Released Date/Time: Feb 26, 2024 08:45 AM Reporting Lab: [facility] [place] [facility] [address] [facility] [address] Performing Lab: [facility] [place] [facility] [address] [facility] [address] [facility] LIPID PANEL, NON FASTING CHOLESTERO L [MASS/VOLU ME] IN SERUM OR PLASMA 175 mg/dL 03/17 Specimen Type: SERUM No comment entered. Ordering Provider: MARIAJOSE FREDERICK Report Released Date/Time: Feb 26, 2024 08:45 AM Reporting Lab: [facility] [address] [facility] [address] Performing Lab: [facility]ITALRL TRN [facility]ITAL[facility] [address] [facility]N [facility] LIPID PANEL, NON FASTING TRIGLYCERI DE [MASS/VOLU ME] IN SERUM OR PLASMA 147 mg/dL 0 - 150 03/17 Specimen Type: SERUM No comment entered. Ordering Provider: MARIAJOSE FREDERICK Report Released Date/Time: Feb 26, 2024 08:45 AM Reporting Lab: [facility]ITALRL TRN [facility] [address] [facility] [address] Performing Lab: [facility] W[facility] [address] [facility] [address] [facility]RL [facility] LIPID PANEL, NON FASTING CHOLESTERO L IN LDL [MASS/VOLU ME] IN SERUM OR PLASMA BY SHANTE N 104 mg/dL 0 - 129 03/17 Specimen Type: SERUM No comment entered. Ordering Provider: MARIAJOSE FREDERICK Report Released Date/Time: Feb 26, 2024 08:45 AM Reporting Lab: [facility] [place] [facility] [address] [facility] [address] Performing Lab: [facility]ITALRL TRN [facility] [address] [facility] HOSPITALRW. D. [facility]MENTAL CENTERN [facility]PITALUSE [facility] LIPID PANEL, NON FASTING CHOLESTERO L.TOTAL/CH OLESTEROL IN HDL [MASS RATIO] IN SERUM OR PLASMA 4.2 03/17 Specimen Type: SERUM No comment entered. Ordering Provider: MARIAJOSE FREDERICK Report Released Date/Time: Feb 26, 2024 08:45 AM Reporting Lab: [address] [address] Performing Lab: [address] [address] [facility] LIPID PANEL, NON FASTING CHOLESTERO L IN HDL [MASS/VOLU ME] IN SERUM OR PLASMA 42 mg/dL 40 - 60 03/17 Specimen Type: SERUM No comment entered. Ordering Provider: MARIAJOSE FREDERICK Report Released Date/Time: Feb 26, 2024 08:45 AM Reporting Lab: [address] [address] Performing Lab: [address] [address] [facility] HEMOGLOB IN A1C PANEL HEMOGLOBIN A1C/HEMOGL OBIN.TOTAL IN BLOOD BY HPLC 7.2 4.0 - 5.6 03/17 H Specimen Type: BLOOD Comment: Values obtained from A1C measurement s can vary. For atypical A1C assays, a reported value of 7.0 could actually be between 6.72 and 7.28 if measured by a reference method. A reported value of 9.0 could actually be between 8.73 and 9.27. Ref: http://www. ngsp.org/CA Pdata.asp Ordering Provider: MARIAJOSE FREDERICK Report Released Date/Time: Feb 26, 2024 08:45 AM Reporting Lab: [address] [address] Performing Lab: [address] [address] [facility] BASIC METABOLI C PANEL (non-fas ting) UREA NITROGEN [MASS/VOLU ME] IN SERUM OR PLASMA 28 mg/dL 7 - 25 03/17 H Specimen Type: SERUM No comment entered. Ordering Provider: MARIAJOSE FREDERICK Report Released Date/Time: Feb 26, 2024 08:45 AM Reporting Lab: [facility] [place] [facility] [address] [facility] [address] Performing Lab: [facility] [place] [facility] [address] [facility] [address] [facility] BASIC METABOLI C PANEL (non-fas ting) GLUCOSE [MASS/VOLU ME] IN SERUM OR PLASMA 100 mg/dL 65 - 100 03/17 Specimen Type: SERUM No comment entered. Ordering Provider: MARIAJOSE FREDERICK Report Released Date/Time: Feb 26, 2024 08:45 AM Reporting Lab: [facility]ITALRL W[facility]N [facility] [address] [address] Performing Lab: [facility] [address] [facility] HOSPITALRGREENE COUNTY HOSPITALTRN [facility] BASIC METABOLI C PANEL (non-fas ting) SODIUM [MOLES/VOL UME] IN SERUM OR PLASMA 139 mmol/L 135 - 145 03/17 Specimen Type: SERUM No comment entered. Ordering Provider: MARIAJOSE FREDERICK Report Released Date/Time: Feb 26, 2024 08:45 AM Reporting Lab: [facility]OSPITALRL TRN [facility] [address] Performing Lab: [facility]ITAL[facility] [address] [address] [facility]OS[facility]ITALRL TRN [facility]ITALUSE [facility] BASIC METABOLI C PANEL (non-fas ting) POTASSIUM [MOLES/VOL UME] IN SERUM OR PLASMA 4.8 mmol/L 3.5 - 5.0 03/17 Specimen Type: SERUM No comment entered. Ordering Provider: MARIAJOSE FREDERICK Report Released Date/Time: Feb 26, 2024 08:45 AM Reporting Lab: [facility] [place] [address] [address] Performing Lab: [facility]ITAL[facility] [address] [address] [facility]OS[facility]ITALRL WSTRN MASSUSE [facility] BASIC METABOLI C PANEL (non-fas ting) CHLORIDE [MOLES/VOL UME] IN SERUM OR PLASMA 108 mmol/L 100 - 110 03/17 Specimen Type: SERUM No comment entered. Ordering Provider: MARIAJOSE FREDERICK Report Released Date/Time: Feb 26, 2024 08:45 AM Reporting Lab: [address] [address] Performing Lab: [address] [address] [facility] BASIC METABOLI C PANEL (non-fas ting) CARBON DIOXIDE, TOTAL [MOLES/VOL UME] IN SERUM OR PLASMA 19 meq/L 20 - 30 03/17 L Specimen Type: SERUM No comment entered. Ordering Provider: MARIAJOSE FREDERICK Report Released Date/Time: Feb 26, 2024 08:45 AM Reporting Lab: [address] [address] Performing Lab: [address] [address] [facility] BASIC METABOLI C PANEL (non-fas ting) CREATININE [MASS/VOLU ME] IN SERUM OR PLASMA 1.56 mg/dL 0.50 - 1.40 03/17 H Specimen Type: SERUM No comment entered. Ordering Provider: MARIAJOSE FREDERICK Report Released Date/Time: Feb 26, 2024 08:45 AM Reporting Lab: [address] [address] Performing Lab: [address] [address] [facility] BASIC METABOLI C PANEL (non-fas ting) GLOMERULAR FILTRATION RATE/1.73 SQ M.PREDICTE D [VOLUME RATE/AREA] IN SERUM, PLASMA OR BLOOD BY CREATININE -BASED FORMULA (CKD-EPI 2020) 46 mL/min 60 03/17 L Specimen Type: SERUM No comment entered. Ordering Provider: MARIAJOSE FREDERICK Report Released Date/Time: Feb 26, 2024 08:45 AM Reporting Lab: [address] [place] [address] Performing Lab: [facility] [place] [facility] [address] [facility] [address] [facility]RL [facility] [place] [facility] OCCULT BLOOD FIT X1 SCREEN(I N-HOUSE) HEMOGLOBIN .GASTROINT ESTINAL.LO WER [PRESENCE] IN STOOL BY IMMUNOASSA Y Negative 10/15 Specimen Type: FECES No comment entered. Ordering Provider: TAHIRA WILLETT Report Released Date/Time: Oct 15, 2023 02:39 PM Reporting Lab: [facility] [place] [facility] [address] [facility] [address] Performing Lab: [facility]ITALRL WSTRN [facility] [address] [address] [facility]N [facility] BASIC METABOLI C PANEL (fasting ) UREA NITROGEN [MASS/VOLU ME] IN SERUM OR PLASMA 28 mg/dL 7 - 25 10/14 H Specimen Type: SERUM No comment entered. Ordering Provider: TAHIRA WILLETT Report Released Date/Time: Sep 27, 2023 11:19 AM Reporting Lab: [facility]ITALRL TRN [place] [facility] [address] [facility] [address] Performing Lab: [facility]ITALRL WSTRN [facility] [address] [address] [facility]ITALRL TRN [facility] BASIC METABOLI C PANEL (fasting ) GLUCOSE [MASS/VOLU ME] IN SERUM OR PLASMA 76 mg/dL 65 - 100 10/14 Specimen Type: SERUM No comment entered. Ordering Provider: TAHIRA WILLETT Report Released Date/Time: Sep 27, 2023 11:19 AM Reporting Lab: [facility] [place] [facility] [address] [facility] [address] Performing Lab: [facility]ITALRL WSTRN [facility] [address] [address] [facility] HOSPITALRW. [facility]. [facility]ERN [facility] BASIC METABOLI C PANEL (fasting ) SODIUM [MOLES/VOL UME] IN SERUM OR PLASMA 137 mmol/L 135 - 145 10/14 Specimen Type: SERUM No comment entered. Ordering Provider: TAHIRA WILLETT Report Released Date/Time: Sep 27, 2023 11:19 AM Reporting Lab: [facility] [place] [facility] [address] [facility] [address] Performing Lab: [facility] [place] [facility] [address] [facility] [address] [facility] [place] [facility] BASIC METABOLI C PANEL (fasting ) POTASSIUM [MOLES/VOL UME] IN SERUM OR PLASMA 4.2 mmol/L 3.5 - 5.0 10/14 Specimen Type: SERUM No comment entered. Ordering Provider: TAHIRA WILLETT Report Released Date/Time: Sep 27, 2023 11:19 AM Reporting Lab: [facility] [place] [facility] [address] [facility] [address] Performing Lab: [facility] [place] [facility] [address] [facility] [address] [facility] [place] [facility] BASIC METABOLI C PANEL (fasting ) CHLORIDE [MOLES/VOL UME] IN SERUM OR PLASMA 103 mmol/L 100 - 110 10/14 Specimen Type: SERUM No comment entered. Ordering Provider: TAHIRA WILLETT Report Released Date/Time: Sep 27, 2023 11:19 AM Reporting Lab: [facility] [place] [facility] [address] [facility] [address] Performing Lab: [facility] [place] [facility] [address] [facility] [address] [facility] [place] [facility] BASIC METABOLI C PANEL (fasting ) CARBON DIOXIDE, TOTAL [MOLES/VOL UME] IN SERUM OR PLASMA 21 meq/L 20 - 30 10/14 Specimen Type: SERUM No comment entered. Ordering Provider: TAHIRA WILLETT Report Released Date/Time: Sep 27, 2023 11:19 AM Reporting Lab: [facility] [place] [facility] [address] [facility] [address] Performing Lab: [facility] [place] [facility] [address] [facility] [address] [facility] [place] [facility] BASIC METABOLI C PANEL (fasting ) CREATININE [MASS/VOLU ME] IN SERUM OR PLASMA 1.50 mg/dL 0.50 - 1.40 10/14 H Specimen Type: SERUM No comment entered. Ordering Provider: TAHIRA WILLETT Report Released Date/Time: Sep 27, 2023 11:19 AM Reporting Lab: [facility] [place] [facility] [address] [facility] [address] Performing Lab: [facility] [place] [facility] [address] [facility] [address] [facility] [place] [facility] BASIC METABOLI C PANEL (fasting ) GLOMERULAR FILTRATION RATE/1.73 SQ M.PREDICTE D [VOLUME RATE/AREA] IN SERUM, PLASMA OR BLOOD BY CREATININE -BASED FORMULA (CKD-EPI 2020) 49 mL/min 60 10/14 L Specimen Type: SERUM No comment entered. Ordering Provider: TAHIRA WILLETT Report Released Date/Time: Sep 27, 2023 11:19 AM Reporting Lab: [facility] [place] [facility] [address] [facility] [address] Performing Lab: [facility] [place] [facility] [address] [facility] [address] [facility] [place] [facility] LIVER FUNCTION PROTEIN [MASS/VOLU ME] IN SERUM OR PLASMA 7.4 g/dL 6.0 - 8.3 10/14 Specimen Type: SERUM No comment entered. Ordering Provider: TAHIRA WILLETT Report Released Date/Time: Sep 27, 2023 11:19 AM Reporting Lab: [facility] [place] [facility] [address] [facility] [address] Performing Lab: [facility] [place] [facility] [address] [facility] [address] [facility] [place] [facility] LIVER FUNCTION ALBUMIN [MASS/VOLU ME] IN SERUM OR PLASMA 4.2 g/dL 3.5 - 5.0 10/14 Specimen Type: SERUM No comment entered. Ordering Provider: TAHIRA WILLETT Report Released Date/Time: Sep 27, 2023 11:19 AM Reporting Lab: [facility] [place] [facility] [address] [facility] [address] Performing Lab: [facility] [place] [facility] [address] [facility] [address] [facility] [place] [facility] LIVER FUNCTION ALKALINE PHOSPHATAS E [ENZYMATIC ACTIVITY/V OLUME] IN SERUM OR PLASMA 37 U/L 40 - 150 10/14 L Specimen Type: SERUM No comment entered. Ordering Provider: TAHIRA WILLETT Report Released Date/Time: Sep 27, 2023 11:19 AM Reporting Lab: [facility] [place] [facility] [address] [facility] [address] Performing Lab: [facility] [place] [facility] [address] [facility] [address] [facility] [place] [facility] LIVER FUNCTION ASPARTATE AMINOTRANS FERASE [ENZYMATIC ACTIVITY/V OLUME] IN SERUM OR PLASMA 26 U/L 5 - 34 10/14 Specimen Type: SERUM No comment entered. Ordering Provider: TAHIRA WILLETT Report Released Date/Time: Sep 27, 2023 11:19 AM Reporting Lab: [facility] [place] [facility] [address] [facility] [address] Performing Lab: [facility] [place] [facility] [address] [facility] [address] [facility] [place] [facility] LIVER FUNCTION ALANINE AMINOTRANS FERASE [ENZYMATIC ACTIVITY/V OLUME] IN SERUM OR PLASMA 24 U/L 10/14 Specimen Type: SERUM No comment entered. Ordering Provider: TAHIRA WILLETT Report Released Date/Time: Sep 27, 2023 11:19 AM Reporting Lab: [facility] [place] [facility] [address] [facility] [address] Performing Lab: [facility] [place] [facility] [address] [facility] [address] [facility] [place] [facility] LIVER FUNCTION BILIRUBIN. TOTAL [MASS/VOLU ME] IN SERUM OR PLASMA 0.4 mg/dL 0.2 - 1.2 10/14 Specimen Type: SERUM No comment entered. Ordering Provider: TAHIRA WILLETT Report Released Date/Time: Sep 27, 2023 11:19 AM Reporting Lab: [facility] [place] [facility] [address] [facility] [address] Per[facility] Lab: [facility] [address] [facility] [address] [facility] [place] HEMOGLOB IN A1C PANEL HEMOGLOBIN A1C/HEMOGL OBIN.TOTAL IN BLOOD BY HPLC 7.6 4.0 - 5.6 10/14 H Specimen Type: BLOOD Comment: Values obtained from A1C measurement s can vary. For atypical A1C assays, a reported value of 7.0 could actually be between 6.72 and 7.28 if measured by a reference method. A reported value of 9.0 could actually be between 8.73 and 9.27. Ref: http://www. ngsp.org/[place] Pdata.asp Ordering Provider: TAHIRA WILLETT Report Released Date/Time: Sep 27, 2023 11:19 AM Reporting Lab: [facility] [place] [facility] [address] [facility] [address] Performing Lab: [facility] [place] [facility] [address] [facility] [address] [facility] [place] [facility] LIPID PANEL FASTING CHOLESTERO L [MASS/VOLU ME] IN SERUM OR PLASMA 164 mg/dL 10/14 Specimen Type: SERUM No comment entered. Ordering Provider: TAHIRA WILLETT Report Released Date/Time: Sep 27, 2023 11:19 AM Reporting Lab: [facility] [place] [facility] [address] [facility] [address] [facility]: [facility] [address] [facility] [address] [facility] LIPID PANEL FASTING TRIGLYCERI DE [MASS/VOLU ME] IN SERUM OR PLASMA 138 mg/dL 0 - 150 10/14 Specimen Type: SERUM No comment entered. Ordering Provider: TAHIRA WILLETT Report Released Date/Time: Sep 27, 2023 11:19 AM Reporting Lab: [facility] [place] [facility] [address] [facility] [address] Performing Lab: [facility] [place] [facility] [address] [facility] [address] [facility] [place] [facility] LIPID PANEL FASTING CHOLESTERO L IN LDL [MASS/VOLU ME] IN SERUM OR PLASMA BY CALCULATIO N 95 mg/dL 0 - 129 10/14 Specimen Type: SERUM No comment entered. Ordering Provider: TAHIRA WILLETT Report Released Date/Time: Sep 27, 2023 11:19 AM Reporting Lab: [facility] [place] [facility] [address] [facility] [address] Performing Lab: [facility] [place] [facility] [address] [facility] [address] [facility] [place] [facility] LIPID PANEL FASTING CHOLESTERO L.TOTAL/CH OLESTEROL IN HDL [MASS RATIO] IN SERUM OR PLASMA 4.0 10/14 Specimen Type: SERUM No comment entered. Ordering Provider: TAHIRA WILLETT Report Released Date/Time: Sep 27, 2023 11:19 AM Reporting Lab: [facility] [place] [facility] [address] [facility] [address] Performing Lab: [facility] [place] [facility] [address] [facility] [address] [facility] [place] [facility] LIPID PANEL FASTING CHOLESTERO L IN HDL [MASS/VOLU ME] IN SERUM OR PLASMA 41 mg/dL 40 - 60 10/14 Specimen Type: SERUM No comment entered. Ordering Provider: TAHIRA WILLETT Report Released Date/Time: Sep 27, 2023 11:19 AM Reporting Lab: [facility] [place] [facility] [address] [facility] [address] Performing Lab: [facility] [place] [facility] [address] [facility] [address] [facility] [place] [facility] CBC AND DIFF (AUTO) LEUKOCYTES [#/VOLUME] IN BLOOD BY AUTOMATED COUNT 9.29 10*3/uL 4.50 - 11.00 10/14 Specimen Type: BLOOD No comment entered. Ordering Provider: TAHIRA WILLETT Report Released Date/Time: Sep 27, 2023 11:19 AM Reporting Lab: [facility] [place] [facility] [address] [facility] [address] Performing Lab: [facility] [place] [facility] [address] [facility] [address] [facility] CBC AND DIFF (AUTO) ERYTHROCYT ES [#/VOLUME] IN BLOOD BY AUTOMATED COUNT 4.75 10*6/uL 4.23 - 5.66 10/14 Specimen Type: BLOOD No comment entered. Ordering Provider: TAHIRA WILLETT Report Released Date/Time: Sep 27, 2023 11:19 AM Reporting Lab: [facility] [place] [facility] [address] [facility] [address] Performing Lab: [facility] [place] [facility] [address] [facility] [address] [facility] [place] CBC AND DIFF (AUTO) HEMOGLOBIN [MASS/VOLU ME] IN BLOOD 15.0 g/dL 12.8 - 17 10/14 Specimen Type: BLOOD No comment entered. Ordering Provider: TAHIRA WILLETT Report Released Date/Time: Sep 27, 2023 11:19 AM Reporting Lab: [facility] [place] [facility] [address] [facility] [address] Performing Lab: [facility] [place] [facility] [address] [facility] [address] [facility] [place] CBC AND DIFF (AUTO) HEMATOCRIT [VOLUME FRACTION] OF BLOOD BY AUTOMATED COUNT 44.6 39.2 - 50.4 10/14 Specimen Type: BLOOD No comment entered. Ordering Provider: TAHIRA WILLETT Report Released Date/Time: Sep 27, 2023 11:19 AM Reporting Lab: [facility] [place] [facility] [address] [facility] [address] Performing Lab: [facility] [place] [facility] [address] [facility] [address] [facility] [place] [facility] CBC AND DIFF (AUTO) MCV [ENTITIC VOLUME] BY AUTOMATED COUNT 93.9 fL 82 - 99 10/14 Specimen Type: BLOOD No comment entered. Ordering Provider: TAHIRA WILLETT Report Released Date/Time: Sep 27, 2023 11:19 AM Reporting Lab: [facility] [place] [facility] [address] [facility] [address] Performing Lab: [facility] [place] [facility] [address] [facility] [address] [facility] [place] [facility] CBC AND DIFF (AUTO) MCHC [MASS/VOLU ME] BY AUTOMATED COUNT 33.6 g/dL 30.8 - 35.1 10/14 Specimen Type: BLOOD No comment entered. Ordering Provider: TAHIRA WILLETT Report Released Date/Time: Sep 27, 2023 11:19 AM Reporting Lab: [facility] [place] [address] [address] Performing Lab: [facility] [place] [facility] [address] [facility] [address] [facility] [place] [facility] CBC AND DIFF (AUTO) PLATELETS [#/VOLUME] IN BLOOD BY AUTOMATED COUNT 252 10*3/uL 140 - 360 10/14 Specimen Type: BLOOD No comment entered. Ordering Provider: TAHIRA WILLETT Report Released Date/Time: Sep 27, 2023 11:19 AM Reporting Lab: [facility] [place] [facility] [address] [facility] [address] Performing Lab: [facility] [place] [facility] [address] [facility] [address] [facility] [place] [facility] CBC AND DIFF (AUTO) ERYTHROCYT E DISTRIBUTI ON WIDTH [RATIO] BY AUTOMATED COUNT 11.9 12.0 - 16.0 10/14 L Specimen Type: BLOOD No comment entered. Ordering Provider: TAHIRA WILLETT Report Released Date/Time: Sep 27, 2023 11:19 AM Reporting Lab: [facility] [place] [facility] [address] [facility] [address] Performing Lab: [facility] [place] [facility] [address] [facility] [address] [facility] [place] CBC AND DIFF (AUTO) MONOCYTES [#/VOLUME] IN BLOOD BY AUTOMATED COUNT 0.79 10*3/uL 0.30 - 1.10 10/14 Specimen Type: BLOOD No comment entered. Ordering Provider: TAHIRA WILLETT Report Released Date/Time: Sep 27, 2023 11:19 AM Reporting Lab: [facility] [place] [facility] [address] [facility] [address] Performing Lab: [facility] [place] [facility] [address] [facility] [address] [facility] [place] CBC AND DIFF (AUTO) MCH [ENTITIC MASS] BY AUTOMATED COUNT 31.6 pg 26.2 - 32.6 10/14 Specimen Type: BLOOD No comment entered. Ordering Provider: TAHIRA WILLETT Report Released Date/Time: Sep 27, 2023 11:19 AM Reporting Lab: [facility] [place] [facility] [address] [facility] [address] Performing Lab: [facility] [place] [facility] [address] [facility] [address] [facility] [place] CBC AND DIFF (AUTO) NEUTROPHIL S/100 LEUKOCYTES IN BLOOD BY AUTOMATED COUNT 60.2 43.7 - 75.8 10/14 Specimen Type: BLOOD No comment entered. Ordering Provider: TAHIRA WILLETT Report Released Date/Time: Sep 27, 2023 11:19 AM Reporting Lab: [facility] [place] [facility] [address] [facility] [address] Performing Lab: [facility] [place] [facility] [address] [facility] [address] [facility] [place] CBC AND DIFF (AUTO) LYMPHOCYTE S/100 LEUKOCYTES IN BLOOD BY AUTOMATED COUNT 29.5 14.0 - 42.3 10/14 Specimen Type: BLOOD No comment entered. Ordering Provider: TAHIRA WILLETT Report Released Date/Time: Sep 27, 2023 11:19 AM Reporting Lab: [facility] [place] [facility] [address] [facility] [address] Performing Lab: [facility] [place] [facility] [address] [facility] [address] [facility] [place] CBC AND DIFF (AUTO) MONOCYTES/ 100 LEUKOCYTES IN BLOOD BY AUTOMATED COUNT 8.5 5.1 - 13.7 10/14 Specimen Type: BLOOD No comment entered. Ordering Provider: TAHIRA WILLETT Report Released Date/Time: Sep 27, 2023 11:19 AM Reporting Lab: [facility] [place] [facility] [address] [facility] [address] Performing Lab: [facility] [place] [facility] [address] [facility] [address] [facility] [place] CBC AND DIFF (AUTO) EOSINOPHIL S/100 LEUKOCYTES IN BLOOD BY AUTOMATED COUNT 0.9 0.4 - 6.8 10/14 Specimen Type: BLOOD No comment entered. Ordering Provider: TAHIRA WILLETT Report Released Date/Time: Sep 27, 2023 11:19 AM Reporting Lab: [facility] [place] [facility] [address] [facility] [address] Performing Lab: [facility] [place] [facility] [address] [facility] [address] [facility] [place] CBC AND DIFF (AUTO) BASOPHILS/ 100 LEUKOCYTES IN BLOOD BY AUTOMATED COUNT 0.5 0.1 - 2.0 10/14 Specimen Type: BLOOD No comment entered. Ordering Provider: TAHIRA WILLETT Report Released Date/Time: Sep 27, 2023 11:19 AM Reporting Lab: [facility] [place] [facility] [address] [facility] [address] Performing Lab: [facility] [place] [facility] [address] [facility] [address] [facility] [place] CBC AND DIFF (AUTO) NEUTROPHIL S [#/VOLUME] IN BLOOD BY AUTOMATED COUNT 5.59 10*3/uL 2.20 - 7.60 10/14 Specimen Type: BLOOD No comment entered. Ordering Provider: TAHIRA WILLETT Report Released Date/Time: Sep 27, 2023 11:19 AM Reporting Lab: [facility] [place] [facility] [address] [facility] [address] Performing Lab: [facility] [place] [address] [address] [facility] [place] CBC AND DIFF (AUTO) LYMPHOCYTE S [#/VOLUME] IN BLOOD BY AUTOMATED COUNT 2.74 10*3/uL 1.00 - 3.20 10/14 Specimen Type: BLOOD No comment entered. Ordering Provider: TAHIRA WILLETT Report Released Date/Time: Sep 27, 2023 11:19 AM Reporting Lab: [facility] [place] [address] [address] Performing Lab: [facility] [place] [facility] [address] [place] [address] [facility] [place] CBC AND DIFF (AUTO) EOSINOPHIL S [#/VOLUME] IN BLOOD BY AUTOMATED COUNT 0.08 10*3/uL 0.03 - 0.44 10/14 Specimen Type: BLOOD No comment entered. Ordering Provider: TAHIRA WILLETT Report Released Date/Time: Sep 27, 2023 11:19 AM Reporting Lab: [facility] [place] [address] [address] Performing Lab: [facility] [place] [facility] [address] [place] [address] [facility] [place] CBC AND DIFF (AUTO) BASOPHILS [#/VOLUME] IN BLOOD BY AUTOMATED COUNT 0.05 10*3/uL 0.01 - 0.13 10/14 Specimen Type: BLOOD No comment entered. Ordering Provider: TAHIRA WILLETT Report Released Date/Time: Sep 27, 2023 11:19 AM Reporting Lab: [facility] [place] [facility] [address] [place] [address] Performing Lab: [facility] [place] [facility] [address] [place] [address] [place] [address] [facility] [place] [facility] CBC AND DIFF (AUTO) IMMATURE GRANULOCYT ES/100 LEUKOCYTES IN BLOOD BY AUTOMATED COUNT 0.4 0.0 - 0.7 10/14 Specimen Type: BLOOD No comment entered. Ordering Provider: TAHIRA WILLETT Report Released Date/Time: Sep 27, 2023 11:19 AM Reporting Lab: [facility] [place] [facility] [address] [facility] [address] Performing Lab: [facility] [place] [facility] [address] [facility] [address] [facility] [place] [facility] CBC AND DIFF (AUTO) IMMATURE GRANULOCYT ES [#/VOLUME] IN BLOOD 0.04 10*3/uL 0.00 - 0.06 10/14 Specimen Type: BLOOD No comment entered. Ordering Provider: TAHIRA WILLETT Report Released Date/Time: Sep 27, 2023 11:19 AM Reporting Lab: [facility] [place] [facility] [address] [facility] [address] Performing Lab: [facility] [place] [facility] [address] [facility] [address] [facility] [place] [facility] Vital Signs Combined list of inpatient and outpatient Vital Signs from Department of Defense and Veterans Affairs, ranging from 12 months to all on record, depending upon the facility. Vital Sign Value Date Comments Source SYSTOLIC BLOOD PRESSURE 137 03/17/20 24 08:00:59 [facility] [place] [facility] DIASTOLIC BLOOD PRESSURE 72 024 08:00:59 [facility] [place] [facility] PULSE OXIMETRY 98 03/17/2024 08:00:59 [facility] [place] [facility] WEIGHT 188 03/17/2024 08:00:59 [facility] [place] [facility] BMI 28kg/m2 03/17/2024 08:00:59 [facility] [place] [facility] PAIN 5 03/17/2024 08:00:59 [facility] [place] [facility] HEIGHT 69 03/17/2024 08:00:59 [facility] TEMPERATURE 97.3 03/17/2024 08:00:59 [facility] PULSE 75 03/17/2024 08:00:59 [facility] [place] RESPIRATION 20 03/17/2024 08:00:59 [facility] [place] [facility] SYSTOLIC BLOOD PRESSURE 137 10/15/19 24 14:41:01 [facility] DIASTOLIC BLOOD PRESSURE 68 024 14:41:01 [facility] [place] [facility] PULSE OXIMETRY 97 10/15/2023 14:41:01 [facility] WEIGHT 187 10/15/2023 14:41:01 [facility] BMI 28kg/m2 10/15/2023 14:41:01 [facility] PAIN 0 10/15/2023 14:41:01 [facility] TEMPERATURE 97.9 10/15/2023 14:41:01 [facility] PULSE 70 10/15/2023 14:41:01 [facility] RESPIRATION 16 10/15/2023 14:41:01 [facility] Encounters Combined list of: 1) Encounters from Department of Veterans Affairs facilities going back up to thelast 18 months. 2) Encounters from the Department of Defense facilities going back up to 280 months. Location Location Details Encounter Type Encounter Number Reason For Visit Attending Provider ADM Date DC Date Status Disposition Source [facility] Encounter [id number] 02/02 [facility]counter [id number] 03/29 [facility]counter [id number] 04/16 [facility] [place] [facility] [place] [facility] OFF/OP EST MAY X REQ PHY/QHP [id number] Diagnos is: ICD-10- CM Z23 Encount er for immuniz ation<b r/> FARLEY,SHAN NON P 04/19 [facility] OFFICE O/P EST MOD 30-39 MIN [id number] Diagnos is: ICD-10- CM H93.19 Tinnitu s, unspeci fied ear<br/ > ANA WILLETT MMED JAWED 05/01 [facility] [place] [facility] [place] Outpatient [facility]counter [id number] 05/01 [facility] [place] [facility] [place] OFFICE O/P NEW MOD 45-59 MIN [id number] Diagnos is: ICD-10- CM 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<b r/> TERRELL GRECO RLES D 05/16 [facility] [place] [place] Outpatient [facility]counter [id number] 05/27 [facility] [place] [place] Outpatient [facility]counter [id number] 06/14 [facility] [place] [place] OFFICE O/P EST LOW 20-29 MIN [id number] Diagnos is: ICD-10- CM S90.822 D Blister (nonthe rmal), left foot, subsequ ent encount er
TERRELL GRECO RLES D 12/18 /2023 [facility] En[facility] [id number] 06/29 [facility] En[facility] [id number] 07/24 [facility] En[facility] [id number] 07/24 [facility] En[facility] [id number] 10/03 [facility] Encounter [id number] 10/14 [facility] OFFICE O/P EST MOD 30 MIN [id number] Diagnos is: ICD-10- CM E11.9 Type 2 diabete s mellitu s without complic ations< br/> ANA WILLETT MMED JAWED 10/14 [facility] En[facility] [id number] 10/30 [facility] Encounter [id number] 12/30 [facility] Encounter [id number] 03/06 [facility] OFFICE O/P EST MOD 30 MIN [id number] Diagnos is: ICD-10- CM I10 Essenti al (primar y) hyperte nsion<b r/> FURCOLO,TI NA 03/17 [facility] [place] Outpatient [facility]counter [id number] [facility] [place] [place] [facility] NQHP OL DIG ASSMT&MGMT 5-10 [id number] Diagnos is: ICD-10- CM I10 Essenti al (primar y) hyperte nsion<b r/> SOVEROW,CH RISTY A 07/13 [place] [facility] [place] [facility] Social History Combined list of available smoking, tobacco, and other social history from Department of Defense and Veterans Affairs facilities. Social History Type Response Date Comment Source Tobacco smoking status [facility] NEVER USED 10/15/2023 [place] [facility] [place] [facility] History of tobacco use [facility] 10/25/2022 [facility] [facility] History of tobacco use [facility] NEVER USED 10/18/2021 [place] [facility] [facility] History of tobacco use [facility] NEVER USED 10/12/2020 [place] [facility] [facility] History of tobacco use [facility] NEVER USED 10/14/2018 [facility] [place] [facility] History of tobacco use [facility]-TO[facility]ACCO NEVER USED 04/11/2018 [facility] [place] [facility] History of tobacco use LIFETIME NON-TOBACCO USER 05/01/2017 [facility] [place] [facility] History of tobacco use LIFETIME NON-TOBACCO USER 04/24/2016 [place] [facility] [place] [facility] History of tobacco use QUIT TOBACCO USE > 7 YEARS AGO 01/31/2015 occasional [place] [facility] Plan of Care List of future care activities from Department of Veterans Affairs facilities. Additional future care activities may be listed in the Assessment and Plan section. Date/Time Care Activity Care Activity Detail Facili ty 09/15/2024 AMBULATORY - MEDICINE AMBULATORY - MEDICI [place] [facility] [place] [facility]
--- OUTSIDE RECORDS SUMMARY | 2024-07-16 09:08 | XMS_ITS ---
Author Name [facility] [place] [facility] [place] Address [address] [place] [address] Care Team Providers Care Roll Contour Grinder Name Role Phone TIFFANY FREDERICK Primary Care [...] MEDIC ARE SUPPL EMENT Mar 01, 2015 [id number] [phone] LARAMEE,R MAKAYLA PATIENT ANTHE[place] MEDICARE SUPPLEMEN [place] MEDIC ARE SUPPL EMENT Mar 01, 2015 [id number] [phone] LARAMEE,R MAKAYLA PATIENT [place] SUPPLEMEN [place] MEDIC ARE SUPPL EMENT Mar 01, 2015 [id number] [phone] LARAMEE,R MAKAYLA PATIENT BCBS [place] MEDICARE SUPPLEMEN [place] MEDIC ARE SUPPL EMENT Mar 01, 2015 [id number] [phone] LARAMEE,R MAKAYLA PATIENT BCBS [place] MEDICARE SUPPLEMEN [place] MEDEX 2 Mar 01, 2015 [id number] [phone] LARAMEE,R MAKAYLA PATIENT [facility] MEDICARE SUPPLEMEN COLT[place] MEDEX 2 Mar 01, 2015 [id number] [phone] Sarah RAE PATIENT [facility] MEDICARE SUPPLEMEN [place] MEDEX 2 Mar 01, 2015 [id number] Sarah RAE PATIENT MEDICARE (WNR) MEDICARE (M) PART B Mar 01, 2015 PART B [id number] Sarah RAE PATIENT MEDICARE (WNR) MEDICARE (M) PART B Mar 01, 2015 PART B [id number] Sarah RAE PATIENT MEDICARE (WNR) MEDICARE (M) PART A Aug 01, 2014 PART A [id number] Sarah RAE PATIENT MEDICARE (WNR) MEDICARE (M) PART A Aug 01, 2014 PART A [id number] Sarah RAE PATIENT Selected Encounter This section includes the information on record at [place] for the Encounter. Date/Time Encounter Type Encounter Description Reason Provider Source Mar 17, 2024 08:00 AM OFFICE O/P EST MOD 30 MIN PRIMARY CARE/MEDICINE ICD-10-CM I10 Essential (primary) hypertension TIFFANY FREDERICK Encounter Template Text not used by [place] Assessments - Encounter Diagnoses This section includes the primary and secondary diagnoses documented for the Encounter. Date/Time Primary/Secondary Diagnosis Diagnosis Name Provider Source Mar 31, 2024 05:02 PM PRIMARY Essential (primary) hypertension FRANKO BANERJEE [facility] [place] [facility] Mar 31, 2024 05:02 PM SECONDARY Contact with and exposure to other hazardous substances FRANKO BANERJEE [facility] [place] [facility] Mar 31, 2024 05:02 PM SECONDARY Encounter for immunization FRANKO BANERJEE [facility] [place] [facility] Mar 31, 2024 05:02 PM SECONDARY Low back pain, unspecified FRANKO BANERJEE [facility] [place] [facility] Mar 31, 2024 05:02 PM SECONDARY Pure hypercholesterolem ia, unspecified FRANKO BANERJEE [facility] [place] [facility] Mar 31, 2024 05:02 PM SECONDARY Tinnitus, unspecified ear FRANKO BANERJEE [facility] [place] [facility] [place] [facility] Mar 31, 2024 05:02 PM SECONDARY Type 2 diabetes mellitus without complications FRANKO BANERJEE [facility] Lab Results: +/- 30 days of the encounter This section includes the Chemistry and Hematology Lab Results on record with [place] for the patient. Radiology Reports and Pathology Reports are provided separately, in subsequent sections. Lab Results This section contains the Chemistry/Hematology Results that were resulted 30 days before or 30 daysafter the date of the Encounter. Date/Time Source Result Type Result - Unit Interpretation Reference Range Comment Mar 17, 2024 09:01 AM [facility] MICROALBUMIN CREATININE RATIO PANEL Specimen Type: URINE No comment entered. Ordering Provider: TIFFANY FREDERICK Report Released Date/Time: Feb 26, 2024 08:45 AM Reporting [facility] [address] [address] Performing Lab: [facility] [address] [facility] [address] MICROALBUMIN/C REATININE RATIO 26.1 mg/g 0-29.9 MICROALBUMIN,Q UANTITATIVE 2.4 mg/dL RR UNAVAIL CREATININE URINE 92.05 mg/dL Mar 17, 2024 09:01 AM [facility] LIPID PANEL, NON FASTING Specimen Type: SERUM No comment entered. Ordering Provider: TIFFANY FREDERICK Report Released Date/Time: Feb 26, 2024 08:45 AM Reporting [facility]: [facility] [address] [facility] [address] Performing Lab: [facility] [address] [address] CHOLESTEROL 175 mg/dL TRIGLYCERIDE 147 mg/dL 0-150 LDL calculated 104 mg/dL 0-129 CHOL/HDL 4.2 HDL CHOLESTEROL 42 mg/dL 40-60 Mar 17, 2024 09:01 AM [facility] HEMOGLOBIN A1C PANEL Specimen Type: [...] Feb 26, 2024 08:45 AM Reporting Lab: [place] [employer] [facility] [email or web address] [address] [address] Performing Lab: [address] [address] HEMOGLOBIN A1C 7.2 H 4.0-5.6 Mar 17, 2024 09:01 AM [facility] BASIC METABOLIC PANEL (non-fasting) Specimen Type: SERUM No comment entered. Ordering Provider: TIFFANY FREDERICK Report Released Date/Time: Feb 26, 2024 08:45 AM Reporting Lab: [facility] [employer] [address] Performing Lab: [address] [address] UREA NITROGEN 28 mg/dL H 7-25 GLUCOSE 100 mg/dL 65-100 SODIUM 139 mmol/L 135-145 POTASSIUM 4.8 mmol/L 3.5-5.0 CHLORIDE 108 mmol/L 100-110 CO2 19 meq/L L 20-30 CREATININE, Serum 1.56 mg/dL H 0.50-1.40 eGFR(CKD-EPI 2020) 46 mL/min L >60 Vital Signs: All taken on the encounter date This section contains inpatient and outpatient Vital Signs collected on the date of the Encounter. Date/Time Temperature Pulse Blood Pressure Respiratory Rate SP02 Pain Height Weight Body Mass Index Source Mar 17, 2024 08:00 AM 97.3 75 137/72 20 98 5 69 188 28 [facility] Immunizations: All administered on the encounter date [...] and tobacco- related health factors from the [place] facility where the Encounter took place. Current Smoking Status This section includes the most current smoking, or tobacco-related health factor, from the [place] facility where the Encounter took place. Date/Time Current Smoking Status Comment [facility] Oct 15, 2023 02:30 PM VA-TOBACCO NEVER USED [place] [facility] [place] [facility] Tobacco Use History This section includes a history of the smoking, or tobacco-related health factors, that were collected on or before the date of the Encounter. The data comes from the [place] facility where the Encounter took place. Date/Time Smoking Status/Tobac co Use Comment Facility Oct 25, 2022 09:30 AM VA-TOBACCO NEVER USED [place] [facility] [place] [facility] Oct 18, 2021 10:30 AM VA-TOBACCO NEVER USED [place] [facility] [place] [facility] Oct 12, 2020 01:00 PM VA-TOBACCO NEVER USED [place] [facility] [place] [facility] Oct 14, 2018 09:39 AM VA-TOBACCO NEVER USED [place] [facility] [place] [facility] Apr 11, 2018 07:41 AM VA-TOBACCO NEVER USED [place] [facility] [place] [facility] May 01, 2017 09:10 AM LIFETIME NON-TOBACCO USER [facility] [place] [facility] Apr 24, 2016 09:00 AM LIFETIME NON-TOBACCO USER [place] [facility] [place] [facility] Jan 31, 2015 02:42 PM QUIT TOBACCO USE > 7 YEARS AGO occasional while in [place] [facility] [place] [facility] Encounter Notes: All associated encounter notes This section contains the clinical notes associated to the Encounter. Date/Time Encounter Note(s) Provider Source Mar 17, 2024 12:28 PM LETTERS: LOCAL TITLE: PATIENT LETTER (T) STANDARD TITLE: LETTERS DATE OF NOTE: MAR 17, 2024@12:28 ENTRY DATE: MAR 17, 2024@12:28:08 AUTHOR: TIFFANY FREDERICK COSIGNER: URGENCY: STATUS: COMPLETED DEPARTMENT OF [facility] Toll Free Number Primary Care Telephone Assistance can be reached at extension [phone] [facility] scheduling can be reached at extension [phone] [facility] scheduling can be reached at ext [phone] THOM Agusto RAE [address], [place], [address] [place], Your recent test results are as follows: [...] CWM/NO/PACT EIGHT Sincerely, Your Primary Care Team [facility] [address] [place] [address] [place] [address] [phone] [facility] [address] [place] [address] [place] [address] [phone] [facility] [address] [facility] [place] [address] [place] [address] [phone] TIFFANY FREDERICK [place] [facility] [place] [facility] Mar 17, 2024 08:05 AM PHYSICIAN NOTE: LOCAL TITLE: MD NOTE STANDARD TITLE: PHYSICIAN NOTE DATE OF NOTE: MAR 17, 2024@08:05 ENTRY DATE: MAR 17, 2024@08:05:24 AUTHOR: TIFFANY FREDERICK COSIGNER: URGENCY: STATUS: COMPLETED NOTE Has ADDENDA THOM RAE is a 73 year old WHITE MALE who is being seen today in primary care for routine follow up. CARE TEAM Community Primary Care Provider: Roge Helms [place] Specialists: Community Specialists: HISTORY PERIOD OF SERVICE - SERVICE CONNECTED % - 30 SC Percent: 30% Rated Disabilities: DIABETES MELLITUS (20%-SC) DIABETIC RETINOPATHY (0%-SC) TINNITUS (10%-SC) [facility], 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 PHYSICIAN Signed: 03/17/2024 08:37 07/13/2024 ADDENDUM STATUS: COMPLETED RX from cardiology Dr. Danny Fried: metoprolol ER 50 mg daily rosuvastatin 40 mg daily zetia 10 mg daily no consult- i entered /ilya/ TIFFANY FREDERICK D.O. PHYSICIAN Signed: 07/13/2024 11:08 TIFFANY FREDERICK [facility] [place] [facility] Mar 17, 2024 08:04 AM PREVENTIVE MEDICINE NURSING NOTE: LOCAL TITLE: CLINICAL REMINDERS/NURSING STANDARD TITLE: PREVENTIVE MEDICINE NURSING NOTE DATE OF NOTE: MAR 17, 2024@08:04 ENTRY DATE: MAR 17, 2024@08:04:58 AUTHOR: DAVE BASSETT EXP COSIGNER: URGENCY: STATUS: COMPLETED CLINICAL REMINDERS/NURSING [...] Not worried about housing near future The reports the following: Within the past 12 months, you worried whether your food would run out before you got money to buy more. Never true Within the past 12 months, the food you bought just didn't last and you didn't have money to get more. Never true /es/ Dave Bassett, Health Instructor Business Education GRANITE POLISHER,PRIMARY CARE Signed: 03/17/2024 08:25 03/17/2024 ADDENDUM STATUS: COMPLETED COVID-19 Immunization: Moderna Monovalent (Spikevax) Administered: COVID-19 (MODERNA), MRNA, LNP-S, PF, 50 MCG/0.5 ML (AGES 12+ YEARS) Date Administered: Mar 17, 2024 08:00 Reprographics Technician: [employer] Lot: [id number] Exp Date: November 21, 2024 [facility]: [phone] Admin Route/Site: INTRAMUSCULAR/RIGHT DELTOID Dosage: 0.5mL Vaccine Information Statement(s): COVID-19 MRNA VACCINE (12+ YRS) VACCINE VIS Apr 18, 2023 (NIGERIAN) Order By: Policy Administered By: Faby Banerjee Vaccine administered without complications. Influenza Immunization: Influenza, High-Dose, Trivalent, Preservative Free (Fluzone-Syringe) Administered: INFLUENZA, HIGH-DOSE, TRIVALENT, PF Date Administered: Mar 17, 2024 08:00 Reprographics Technician: SANOFI PASTEUR Lot: [id number] Exp Date: Dec 28, 2024 [facility]: [phone] Admin Route/Site: INTRAMUSCULAR/LEFT DELTOID Dosage: 0.5mL Vaccine Information Statement(s): INFLUENZA(FLU) VACC(INACTIVATED OR RECOMBINANT)VIS Feb 03, 2021 (NIGERIAN) Order By: Policy Administered By: Faby Banerjee [...] BANERJEE REGISTERED NURSE Signed: 03/17/2024 08:40 DAVE BASSETT [facility]
--- OUTSIDE RECORDS SUMMARY | 2024-07-16 09:09 | XMS_ITS | Encounter Summary ---
Author Name [facility] [place] [facility] [place] Address [address] [place] [id number] Care Team Providers Care Custom Grinder Name Role Phone TIFFANY FREDERICK Primary [...] MEDIC ARE SUPPL EMENT Mar 01, 2015 [id number] [phone] LARAMEE,R MAKAYLA PATIENT [place] MED[place] SUPPLEMEN [place] MEDIC ARE SUPPL EMENT Mar 01, 2015 [id number] [phone] LARAMEE,R MAKAYLA PATIENT [place]PP[place] MEDIC ARE SUPPL EMENT Mar 01, 2015 [id number] [phone] LARAMEE,R MAKAYLA PATIENT [place] MED[place]ARE SUPPLEMEN [place] MEDIC ARE SUPPL EMENT Mar 01, 2015 [id number] [phone] LARAMEE,R MAKAYLA PATIENT BCBS [place] MEDICARE SUPPLEMEN [place] MEDEX 2 Mar 01, 2015 [id number] Sarah RAE PATIENT BCBS [place] MEDICARE SUPPLEMEN [place] MEDEX 2 Mar 01, 2015 [id number] Sarah RAE PATIENT BC[place] MED[place]ARE SUPPLEMEN [place] MEDEX 2 Mar 01, 2015 [id number] [phone] Sarah RAE PATIENT MEDICARE (WNR) MEDICARE (M) PART B Mar 01, 2015 PART B [id number] Sarah RAE MAKAYLA PATIENT MEDICARE (WNR) MEDICARE (M) PART B Mar 01, 2015 PART B [id number] Sarah RAE MAKAYLA PATIENT MEDICARE (WNR) MEDICARE (M) PART A Aug 01, 2014 PART A [id number] [phone] Sarah RAE MAKAYLA PATIENT MEDICARE (WNR) MEDICARE (M) PART A Aug 01, 2014 PART A [id number] Sarah RAE PATIENT Selected Encounter This section includes the information on record at [place] for the Encounter. Date/Time Encounter Type Encounter Description Reason Provider Source Jul 13, 2024 10:24 AM NQHP OL DIG ASSMT&MGMT 5-10 CLINICAL PHARMACY ICD-10-CM I10 Essential (primary) hypertension STEFFI HIGH E Encounter Template Text not used by [place] Assessments - Encounter Diagnoses This section includes the primary and secondary diagnoses documented for the Encounter. Date/Time Primary/Secondary Diagnosis Diagnosis Name Provider Source Jul 13, 2024 10:24 AM PRIMARY Essential (primary) hypertension KRYSTINA KEMP [facility] Plan of Treatment: Future Appointments (+ 6 months) and Future Tests (+/- 45 days) The Plan of Treatment section includes future care activities for the patient from all [place] treatmentfacilities. This section includes future appointments and future orders which are active, pending or scheduled. Future Appointments This section includes appointments that were scheduled to occur 6 months from the date of the Encounter, up to a maximum of 20 appointments. The data comes from all [place] treatment facilities. Appointment Date/Time Appointment Type Appointme nt Facility Name Sep 15, 2024 09:00 AM AMBULATORY - MEDICINE [facility] Social History: Smoking Status (Most current) and Tobacco Use (All prior to encounter date) This section includes the most current, and the historical, smoking and tobacco- related health factors from the [place] facility where the Encounter took place. Current Smoking Status This section includes the most current smoking, or tobacco-related health factor, from the [place] facility where the Encounter took place. Date/Time Current Smoking Status Comment [facility] Oct 15, 2023 02:30 PM VA-TOBACCO NEVER USED [place] [facility] Tobacco Use History This section includes a history of the smoking, or tobacco-related health factors, that were collected on or before the date of the Encounter. The data comes from the [place] facility where the Encounter took place. Date/Time Smoking Status/Tobac co Use Comment Facility Oct 25, 2022 09:30 AM VA-TOBACCO NEVER USED [place] [facility] [place] [facility] Oct 18, 2021 10:30 AM VA-TOBACCO NEVER USED [place] [facility] [place] [facility] Oct 12, 2020 01:00 PM VA-TOBACCO NEVER USED [place] [facility] [place] [facility] Oct 14, 2018 09:39 AM VA-TOBACCO NEVER USED [place] [facility] [place] [facility] Apr 11, 2018 07:41 AM VA-TOBACCO NEVER USED [place] [facility] [place] [facility] May 01, 2017 09:10 AM LIFETIME NON-TOBACCO USER [place] [facility] [place] [facility] Apr 24, 2016 09:00 AM LIFETIME NON-TOBACCO USER [place] [facility] [place] [facility] Jan 31, 2015 02:42 PM QUIT TOBACCO USE > 7 YEARS AGO occasional while in [facility] [place] [facility] Encounter Notes: All associated encounter notes This section contains the clinical notes associated to the Encounter. Date/Time Encounter Note(s) Provider Source Jul 13, 2024 10:24 AM PHARMACY OUTPATIEN T MEDICATION MGT NOTE: LOCAL TITLE: [facility] PRESCRIPTION NOTE STANDARD TITLE: PHARMACY OUTPATIENT MEDICATION MGT NOTE DATE OF NOTE: JUL 13, 2024@10:24 ENTRY DATE: JUL 13, 2024@10:24:43 AUTHOR: KRYSTINA KEMP COSIGNER: URGENCY: STATUS: COMPLETED Pharmacy has received a [facility] prescription. The prescription below CANNOT BE FILLED due to the absence of an active consult. Clinic: [facility] Provider: Danny Corky [address] [place] [address] Drive [address]: [phone] eRx Drug : metoprolol succinate ER 50 mg tablet,extended release 24 hr (Toprol XL) eRx SIG : 50 mg orally daily qty: 30 refills: 2 eRx Drug : rosuvastatin 40 mg tablet (Crestor) eRx SIG : 40 mg orally daily qty: 30 refills: 5 eRx Drug : ezetimibe 10 mg tablet eRx SIG : 10 mg orally daily qty:30 refills: 5 Please re-write the above prescription for the [place] OR input a new consult. IF A NEW CONSULT IS PLACED PLEASE: 1. Reach out to the [place] to have them get a new prescription, OR 2. Call the community care provider's office directly for them to resend Thank you /ilya/ KRYSTINA KEMP [employer] Signed: 07/13/2024 10:27 Receipt Acknowledged By: 07/13/2024 11:07 /ilya/ TIFFANY FREDERICK D.O. PHYSICIAN 07/13/2024 11:14 /ilya/ ISABELLA CHILDRESS, MSN, RN, CNL PRIMARY CARE TEAM NURSE KRYSTINA KEMP [facility]
== END ==
LOC: HO.CARD 08:44
PROVIDERS: PCP Internal Medicine; Visit Provider Internal Medicine Cardiovascular Disease
DX: I20.9 Angina pectoris, unspecified (principal)
CPT/HCPCS: 93306

== ENCOUNTER → 2024-07-16 08:46 | Outpatient (BNV) | payer MEDICARE, SELFPAY | PROVIDERS: PCP Internal Medicine; Visit Provider Internal Medicine Cardiovascular Disease | DX: I51.89 Other ill-defined heart diseases (principal); I20.9 Angina pectoris, unspecified | CPT/HCPCS: 93306 ==

== ENCOUNTER → 2024-08-25 11:13 | Outpatient (REF) | payer MEDICARE, SELFPAY ==
--- OUTSIDE RECORDS SUMMARY | 2024-08-25 13:43 | XMS_ITS | Continuity of Care Document ---
Author Name [facility] Organization [facility] Care Team Providers Care Driver Merchandiser Name Role Phone [facility] Unavailable Unavailable Problems Combined list of problems [...] TABLETS BY MOUTH ONCE DAILY ORAL ACTIVE PRASHANT WILLETT JAWED 2018 [facility] CHOLECALCIF VESNA 25MCG (1,000UNIT) TAB TAKE ONE TABLET BY MOUTH EVERY DAY ORAL ACTIVE [facility] 2014 [facility] COENZYME Q10 CAP/TAB TAKE ONE BY MOUTH EVERY DAY ORAL ACTIVE [facility] 2014 [facility] EMPAGLIFLOZ IN 10MG TAB TAKE ONE TABLET BY MOUTH ONCE DAILY FOR DIABETES ORAL DISCONT INUED (EDIT) 10/15/2024 [id number] [facility] 2023 90 [facility] EMPAGLIFLOZ IN 10MG TAB TAKE ONE TABLET BY MOUTH ONCE DAILY FOR DIABETES ORAL DISCONT INUED 07/24/2024 [id number] 4 [facility] 2023 90 [facility] EMPAGLIFLOZ IN 25MG TAB TAKE ONE TABLET BY MOUTH ONCE DAILY FOR DIABETES DOSE INCREASE ORAL ACTIVE 03/18/2025 [id number] FURCOLO,T LISS 2023 90 [facility] EZETIMIBE 10MG TAB TAKE ONE TABLET BY MOUTH ONCE DAILY TO LOWER CHOLESTE ROL ORAL ACTIVE 07/14/2025 [id number] FURCOLO,T LISS 2024 30 [facility] FENOFIBRATE 145MG TAB TAKE ONE TABLET BY MOUTH ONCE DAILY TO LOWER CHOLESTE ROL ORAL ACTIVE 01/02/2025 [id number] FURCOLO,T LISS 2023 90 [facility] FENOFIBRATE 145MG TAB TAKE ONE TABLET BY MOUTH ONCE DAILY TO LOWER CHOLESTE ROL ORAL DISCONT INUED 05/27/2024 [id number] 4 [facility] 20[facility] 90 [facility] FISH OIL 1000MG (500MG DHA/EPA) CAP,ORAL TAKE 1 CAPSULE BY MOUTH TWICE DAILY ORAL ACTIVE [facility] 2014 [facility] GLIPIZIDE 5MG TAB TAKE ONE TABLET BY MOUTH ONCE DAILY FOR TYPE 2 DIABETES MELLITUS ORAL ACTIVE 03/18/2025 [id number] FURCOLO,T LISS 2023 90 [facility] GLIPIZIDE 5MG TAB TAKE ONE-HALF TABLET BY MOUTH TWICE DAILY ORAL DISCONT INUED (EDIT) 10/15/2024 [id number] 4 [facility] 2023 90 [facility] GLIPIZIDE 5MG TAB TAKE ONE-HALF TABLET BY MOUTH TWICE DAILY ORAL DISCONT INUED 02/05/2024 [id number] 4 [facility] 2022 90 [facility] LISINOPRIL 5MG TAB TAKE ONE TABLET BY MOUTH ONCE DAILY TO CONTROL BLOOD PRESSURE ORAL ACTIVE 01/02/2025 [id number] FURCOLO,T LISS 2023 90 [facility] LISINOPRIL 5MG TAB TAKE ONE TABLET BY MOUTH ONCE DAILY TO CONTROL BLOOD PRESSURE ORAL DISCONT INUED 03/29/2024 [id number] 4 [facility] 2022 90 [facility] METOPROLOL SUCCINATE 50MG TAB,SA TAKE ONE TABLET BY MOUTH ONCE DAILY FOR BLOOD PRESSURE /HEART ORAL ACTIVE 07/14/2025 [id number] FURCOLO,T LISS 2024 90 [facility] MULTIVITAMI NS CAP/TAB TAKE ONE TABLET BY MOUTH EVERY DAY ORAL ACTIVE [facility] OMEPRAZOLE 20MG CAP,EC TAKE 1 CAPSULE BY MOUTH EVERY MORNING 30 MINUTES BEFORE BREAKFAS T ORAL ACTIVE [facility] ROSUVASTATI N CA 20MG TAB TAKE ONE TABLET BY MOUTH ONCE DAILY FOR HIGH CHOLESTE ROL (NOTE TABLET STRENGTH ) ORAL DISCONT INUED (EDIT) 06/30/2025 [id number] FURCOLO,T LISS 2023 90 [facility] ROSUVASTATI N CA 20MG TAB TAKE ONE TABLET BY MOUTH ONCE DAILY FOR HIGH CHOLESTE ROL (NOTE TABLET STRENGTH ) ORAL DISCONT INUED 07/01/2024 [id number] PRASHANT WILLETT AMDAGOBERTO JAWED 2023 90 [facility] ROSUVASTATI N CA 40MG TAB TAKE ONE TABLET BY MOUTH ONCE DAILY FOR HIGH CHOLESTE ROL (NOTE TABLET STRENGTH ) ORAL ACTIVE 07/14/2025 [id number] FURCOLO,T LISS 2024 90 [facility] TURMERIC CAP/TAB TAKE BY MOUTH ORAL ACTIVE PRASHANT WILLETT JAWED 2014 [facility] Allergies, Adverse Reactions, Alerts Combined list of allergies from Department of Defense and Veterans Affairs facilities. It does not include entries that were removed or entered in error. Substance Category Reaction Severity Reaction type Status Date Reported Comments Source PENICILLIN Propensity to adverse reactions to drug (finding) Eruption active 5 [facility] Immunizations Combined list of available immunizations from the Department of Defense and Veterans Affairs facilities. Immunization Series Date Given Administered By Site Reaction Lot Number CVX Code Drug Media Services Specialist Status Comments Source COVID-19 (MODERNA), MRNA, LNP-S, PF, 50 MCG/0.5 ML (AGES 12+ YEARS) 2023 FRANKO LUBIN SSA H RIGHT DELTO ID [id number] 312 complet ed [facility] INFLUENZA, HIGH-DOSE, TRIVALENT, PF 2023 FRANKO LUBIN H LEFT DELTO ID [id number] 135 complet ed [facility] INFLUENZA, HIGH-DOSE, QUADRIVALENT 2022 EMELY DYER M LEFT DELTO ID [id number] 197 complet ed [facility] COVID-19 (MODERNA), MRNA, LNP-S, PF, 50 MCG/0.5 ML (AGES 12+ YEARS) 1 2022 GIOVANNA FARLEY RIGHT DELTO ID [id number] 312 complet ed [facility] COVID-19 (MODERNA), MRNA, LNP-S, BIVALENT BOOSTER, PF, 50 MCG/0.5 ML OR 25MCG/0.25 ML DOSE 4 2022 MECHE NUNEZ RIGHT DELTO ID [id number] 229 complet ed [facility] INFLUENZA, UNSPECIFIED FORMULATION 2021 88 complet ed [facility] COVID-19 (MODERNA), MRNA, LNP-S, PF, 100 MCG/0.5ML DOSE OR 50 MCG/0.25ML DOSE 2 2021 207 complet ed MOD; [id number]; 2 [facility] COVID-19 (MODERNA), MRNA, LNP-S, PF, 100 MCG OR 50 MCG DOSE 2 2020 207 complet ed MOD; [id number]; 2 [facility] IELD COVID-19 (YRIS), VECTOR-NR, [id number], PF, 0.5 ML 1 2020 212 complet ed JSN; [id number]; 1 [facility] [...] complet ed [facility] [place] [facility] [facility] PNEUMOCOCCAL CONJUGATE PCV 13 2016 133 complet ed [facility] [place] [facility] Results Combined list of recent chemistry, hematology [...] Feb 26, 2024 08:45 AM Reporting Lab: [facility] [place] [address] [address] Performing Lab: [facility]ENTER[facility] [address] [facility] [place] [facility] MICROALB UMIN CREATINI NE RATIO PANEL MICROALBUM IN [MASS/VOLU ME] IN URINE 2.4 mg/dL 03/17 Specimen Type: URINE No comment entered. Ordering Provider: MARIAJOSE FREDERICK Report Released Date/Time: Feb 26, 2024 08:45 AM Reporting Lab: [facility] [place] [facility] [address] [facility] [address] Performing Lab: [place] [facility] [place] [address] [address] [facility] [place] [facility] MICROALB UMIN CREATINI NE RATIO PANEL CREATININE [MASS/VOLU ME] IN URINE 92.05 mg/dL 03/17 Specimen Type: URINE No comment entered. Ordering Provider: MARIAJOSE FREDERICK Report Released Date/Time: Feb 26, 2024 08:45 AM Reporting Lab: [facility] [place] [place] [facility] [address] [facility] [address] Performing Lab: [place] [facility] [address] [address] [facility] [place] [facility] LIPID PANEL, NON FASTING CHOLESTERO L [MASS/VOLU ME] IN SERUM OR PLASMA 175 mg/dL 03/17 Specimen Type: SERUM No comment entered. Ordering Provider: MARIAJOSE FREDERICK Report Released Date/Time: Feb 26, 2024 08:45 AM Reporting Lab: [facility] [place] [facility] [address] [facility] [address] Performing Lab: [place] [facility] [place] [facility] [address] [facility] [address] [facility] W[facility]N [facility] CENTERUSE [facility] LIPID PANEL, NON FASTING TRIGLYCERI DE [MASS/VOLU ME] IN SERUM OR PLASMA 147 mg/dL 0 - 150 03/17 Specimen Type: SERUM No comment entered. Ordering Provider: MARIAJOSE FREDERICK Report Released Date/Time: Feb 26, 2024 08:45 AM Reporting Lab: [facility] TRN [facility] CENTER[facility] [address] Performing Lab: [facility] W[facility]N [facility]ENTER[facility] [address] [facility] TRN [facility]ENTER[facility] LIPID PANEL, NON FASTING CHOLESTERO L IN LDL [MASS/VOLU ME] IN SERUM OR PLASMA BY SHNATE Roe 104 mg/dL 0 - 129 03/17 Specimen Type: SERUM No comment entered. Ordering Provider: MARIAJOSE FREDERICK Report Released Date/Time: Feb 26, 2024 08:45 AM Reporting Lab: [facility] [place] [address] [address] Performing Lab: [place] [facility] [place] [address] [address] [facility] [place] [facility] LIPID PANEL, NON FASTING CHOLESTERO L.TOTAL/CH OLESTEROL IN HDL [MASS RATIO] IN SERUM OR PLASMA 4.2 03/17 Specimen Type: SERUM No comment entered. Ordering Provider: MARIAJOSE FREDERICK Report Released Date/Time: Feb 26, 2024 08:45 AM Reporting Lab: [facility]N [place] [address] Performing Lab: [facility] [place] [facility] [address] [facility] [address] [facility] LIPID PANEL, NON FASTING CHOLESTERO L IN HDL [MASS/VOLU ME] IN SERUM OR PLASMA 42 mg/dL 40 - 60 03/17 Specimen Type: SERUM No comment entered. Ordering Provider: MARIAJOSE FREDERICK Report Released Date/Time: Feb 26, 2024 08:45 AM Reporting Lab: [facility] [address] [address] Performing Lab: [facility]ITALN [address] [address] [facility] BASIC METABOLI C PANEL (non-fas ting) UREA NITROGEN [MASS/VOLU ME] IN SERUM OR PLASMA 28 mg/dL 7 - 25 03/17 H Specimen Type: SERUM No comment entered. Ordering Provider: MARIAJOSE FREDERICK Report Released Date/Time: Feb 26, 2024 08:45 AM Reporting Lab: [facility]N [address] [address] Performing Lab: [facility] [address] [address] [facility] BASIC METABOLI C PANEL (non-fas ting) GLUCOSE [MASS/VOLU ME] IN SERUM OR PLASMA 100 mg/dL 65 - 100 03/17 Specimen Type: SERUM No comment entered. Ordering Provider: MARIAJOSE FREDERICK Report Released Date/Time: Feb 26, 2024 08:45 AM Reporting Lab: [facility]ENTERTRN [address] [address] Performing Lab: [facility] [address] [address] [facility] BASIC METABOLI C PANEL (non-fas ting) SODIUM [MOLES/VOL UME] IN SERUM OR PLASMA 139 mmol/L 135 - 145 03/17 Specimen Type: SERUM No comment entered. Ordering Provider: MARIAJOSE FREDERICK Report Released Date/Time: Feb 26, 2024 08:45 AM Reporting Lab: [facility] [place] [facility] [address] [facility] [address] Performing Lab: [facility] [place] [facility] [address] [facility] [address] [facility] [place] [facility] BASIC METABOLI C PANEL (non-fas ting) POTASSIUM [MOLES/VOL UME] IN SERUM OR PLASMA 4.8 mmol/L 3.5 - 5.0 03/17 Specimen Type: SERUM No comment entered. Ordering Provider: MARIAJOSE FREDERICK Report Released Date/Time: Feb 26, 2024 08:45 AM Reporting Lab: [place] [facility] [place] [address] [address] Performing Lab: [facility] CENTER[facility]ETS [address] [address] [facility] W[facility]N [place] [facility] BASIC METABOLI C PANEL (non-fas ting) CHLORIDE [MOLES/VOL UME] IN SERUM OR PLASMA 108 mmol/L 100 - 110 03/17 Specimen Type: SERUM No comment entered. Ordering Provider: MARIAJOSE FREDERICK Report Released Date/Time: Feb 26, 2024 08:45 AM Reporting Lab: [place] [facility] [place] [address] [address] Performing Lab: [place] [facility] [place] [address] [address] [facility] [place] [facility] BASIC METABOLI C PANEL (non-fas ting) CARBON DIOXIDE, TOTAL [MOLES/VOL UME] IN SERUM OR PLASMA 19 meq/L 20 - 30 03/17 L Specimen Type: SERUM No comment entered. Ordering Provider: MARIAJOSE FREDERICK Report Released Date/Time: Feb 26, 2024 08:45 AM Reporting Lab: [place] [facility] [place] [address] [address] Performing Lab: [place] [facility] [place] [address] [address] [place] [facility] [place] [facility] BASIC METABOLI C PANEL (non-fas ting) CREATININE [MASS/VOLU ME] IN SERUM OR PLASMA 1.56 mg/dL 0.50 - 1.40 03/17 H Specimen Type: SERUM No comment entered. Ordering Provider: MARIAJOSE FREDERICK Report Released Date/Time: Feb 26, 2024 08:45 AM Reporting Lab: [facility] [address] [facility] [address] Performing Lab: [address] [address] [facility] BASIC METABOLI C PANEL (non-fas ting) GLOMERULAR FILTRATION RATE/1.73 SQ M.PREDICTE D [VOLUME RATE/AREA] IN SERUM, PLASMA OR BLOOD BY CREATININE -BASED FORMULA (CKD-EPI 2020) 46 mL/min 60 03/17 L Specimen Type: SERUM No comment entered. Ordering Provider: MARIAJOSE FREDERICK Report Released Date/Time: Feb 26, 2024 08:45 AM Reporting Lab: [address] [address] Performing Lab: [address] [address] [facility] HEMOGLOB IN A1C PANEL HEMOGLOBIN A1C/HEMOGL [...] Feb 26, 2024 08:45 AM Reporting Lab: [address] [address] Performing Lab: [address] [address] [facility] OCCULT BLOOD FIT X1 SCREEN(I N-HOUSE) HEMOGLOBIN .GASTROINT ESTINAL.LO WER [PRESENCE] IN STOOL BY IMMUNOASSA Y Negative 10/15 Specimen Type: FECES No comment entered. Ordering Provider: TAHIRA WILLETT Report Released Date/Time: Oct 15, 2023 02:39 PM Reporting Lab: [place] [facility] [place] [address] [address] Performing Lab: [place] [facility] [address] [address] [facility] [place] [facility] LIVER FUNCTION PROTEIN [MASS/VOLU ME] IN SERUM OR PLASMA 7.4 g/dL 6.0 - 8.3 10/14 Specimen Type: SERUM No comment entered. Ordering Provider: TAHIRA WILLETT Report Released Date/Time: Sep 27, 2023 11:19 AM Reporting Lab: [facility]ENTER[facility] [address] [address] Performing Lab: [place] [facility] [place] [address] [address] [facility] W[facility]N [facility] [place] [facility] LIVER FUNCTION ALBUMIN [MASS/VOLU ME] IN SERUM OR PLASMA 4.2 g/dL 3.5 - 5.0 10/14 Specimen Type: SERUM No comment entered. Ordering Provider: TAHIRA WILLETT Report Released Date/Time: Sep 27, 2023 11:19 AM Reporting Lab: [facility] [place] [address] [address] Performing Lab: [place] [facility] [place] [address] [address] [facility] [place] [facility] LIVER FUNCTION ALKALINE PHOSPHATAS E [ENZYMATIC ACTIVITY/V OLUME] IN SERUM OR PLASMA 37 U/L 40 - 150 10/14 L Specimen Type: SERUM No comment entered. Ordering Provider: TAHIRA WILLETT Report Released Date/Time: Sep 27, 2023 11:19 AM Reporting Lab: [facility] [place] [address] [address] Performing Lab: [facility] [place] [facility] [address] [facility] [address] [facility] [place] [facility] LIVER FUNCTION ASPARTATE AMINOTRANS FERASE [ENZYMATIC ACTIVITY/V OLUME] IN SERUM OR PLASMA 26 U/L 5 - 34 10/14 Specimen Type: SERUM No comment entered. Ordering Provider: TAHIRA WILLETT Report Released Date/Time: Sep 27, 2023 11:19 AM Reporting Lab: [facility] [place] [facility] [address] [facility] [address] Performing Lab: [facility] [place] [facility] [address] [facility] [address] [facility] [place] [facility] LIVER FUNCTION ALANINE AMINOTRANS FERASE [ENZYMATIC ACTIVITY/V OLUME] IN SERUM OR PLASMA 24 U/L 10/14 Specimen Type: SERUM No comment entered. Ordering Provider: TAHIRA WILLETT Report Released Date/Time: Sep 27, 2023 11:19 AM Reporting Lab: [facility] [place] [facility] [address] [facility] [address] Performing Lab: [facility] [place] [facility] [address] [facility] [address] [place] [facility] [place] [facility] LIVER FUNCTION BILIRUBIN. TOTAL [MASS/VOLU ME] IN SERUM OR PLASMA 0.4 mg/dL 0.2 - 1.2 10/14 Specimen Type: SERUM No comment entered. Ordering Provider: TAHIRA WILLETT Report Released Date/Time: Sep 27, 2023 11:19 AM Reporting Lab: [facility] [place] [facility] [address] [facility] [address] Performing Lab: [facility] [place] [facility] [address] [facility] [address] [facility] [place] [facility] BASIC METABOLI C PANEL (fasting ) UREA NITROGEN [MASS/VOLU ME] IN SERUM OR PLASMA 28 mg/dL 7 - 25 10/14 H Specimen Type: SERUM No comment entered. Ordering Provider: TAHIRA WILLETT Report Released Date/Time: Sep 27, 2023 11:19 AM Reporting Lab: [facility] [place] [facility] [address] [facility] [address] Performing Lab: [facility] [facility] [address] [facility] [address] [facility] [place] [facility] BASIC METABOLI C PANEL (fasting ) GLUCOSE [MASS/VOLU ME] IN SERUM OR PLASMA 76 mg/dL 65 - 100 10/14 Specimen Type: SERUM No comment entered. Ordering Provider: TAHIRA WILLETT Report Released Date/Time: Sep 27, 2023 11:19 AM Reporting Lab: [facility] [place] [facility] [address] [facility] [address] Performing Lab: [place] [facility] [place] [facility] [address] [facility] [address] [facility] [place] [facility] BASIC METABOLI C PANEL (fasting ) SODIUM [MOLES/VOL UME] IN SERUM OR PLASMA 137 mmol/L 135 - 145 10/14 Specimen Type: SERUM No comment entered. Ordering Provider: TAHIRA WILLETT Report Released Date/Time: Sep 27, 2023 11:19 AM Reporting Lab: [place] [facility] [place] [facility] [address] [facility] [address] Performing Lab: [place] [facility] [place] [facility] [address] [facility] [address] [facility] [place] [facility] BASIC METABOLI C PANEL (fasting ) POTASSIUM [MOLES/VOL UME] IN SERUM OR PLASMA 4.2 mmol/L 3.5 - 5.0 10/14 Specimen Type: SERUM No comment entered. Ordering Provider: TAHIRA WILLETT Report Released Date/Time: Sep 27, 2023 11:19 AM Reporting Lab: [facility] [place] [place] [facility] [address] [facility] [address] Performing Lab: [facility] [place] [facility] [address] [facility] [address] [facility] [place] [facility] BASIC METABOLI C PANEL (fasting ) CHLORIDE [MOLES/VOL UME] IN SERUM OR PLASMA 103 mmol/L 100 - 110 10/14 Specimen Type: SERUM No comment entered. Ordering Provider: TAHIRA WILLETT Report Released Date/Time: Sep 27, 2023 11:19 AM Reporting Lab: [facility] [place] [address] [address] Performing Lab: [facility] [place] [place] [address] [address] [facility] [place] [facility] BASIC METABOLI C PANEL (fasting ) CARBON DIOXIDE, TOTAL [MOLES/VOL UME] IN SERUM OR PLASMA 21 meq/L 20 - 30 10/14 Specimen Type: SERUM No comment entered. Ordering Provider: TAHIRA WILLETT Report Released Date/Time: Sep 27, 2023 11:19 AM Reporting Lab: [facility] [place] [address] [address] Performing Lab: [place] [facility] [place] [address] [address] [facility] [place] [facility] BASIC METABOLI C PANEL (fasting ) CREATININE [MASS/VOLU ME] IN SERUM OR PLASMA 1.50 mg/dL 0.50 - 1.40 10/14 H Specimen Type: SERUM No comment entered. Ordering Provider: TAHIRA WILLETT Report Released Date/Time: Sep 27, 2023 11:19 AM Reporting Lab: [facility] [place] [address] [address] Performing Lab: [facility] [place] [address] [address] [place] [facility] [place] [facility] BASIC METABOLI C PANEL (fasting ) GLOMERULAR FILTRATION RATE/1.73 SQ M.PREDICTE D [VOLUME RATE/AREA] IN SERUM, PLASMA OR BLOOD BY CREATININE -BASED FORMULA (CKD-EPI 2020) 49 mL/min 60 10/14 L Specimen Type: SERUM No comment entered. Ordering Provider: TAHIRA WILLETT Report Released Date/Time: Sep 27, 2023 11:19 AM Reporting Lab: [place] [facility] [place] [address] [address] Performing Lab: [facility] [place] [facility] [address] [facility] [address] [facility] [place] [facility] LIPID PANEL FASTING CHOLESTERO L [MASS/VOLU ME] IN SERUM OR PLASMA 164 mg/dL 10/14 Specimen Type: SERUM No comment entered. Ordering Provider: TAHIRA WILLETT Report Released Date/Time: Sep 27, 2023 11:19 AM Reporting Lab: [facility] [place] [facility] [address] [facility] [address] Performing Lab: [facility] [place] [facility] [address] [facility] [address] [facility] [place] [facility] LIPID PANEL FASTING TRIGLYCERI DE [MASS/VOLU ME] IN SERUM OR PLASMA 138 mg/dL 0 - 150 10/14 Specimen Type: SERUM No comment entered. Ordering Provider: TAHIRA WILLETT Report Released Date/Time: Sep 27, 2023 11:19 AM Reporting Lab: [facility] [place] [facility] [address] [facility] [address] Performing Lab: [facility] [place] [address] [address] [facility] [place] [facility] LIPID PANEL FASTING CHOLESTERO L IN LDL [MASS/VOLU ME] IN SERUM OR PLASMA BY CALCULATIO N 95 mg/dL 0 - 129 10/14 Specimen Type: SERUM No comment entered. Ordering Provider: TAHIRA WILLETT Report Released Date/Time: Sep 27, 2023 11:19 AM Reporting Lab: [facility] [place] [facility] [address] [facility] [address] Performing Lab: [facility] [place] [address] [address] [facility] [place] [facility] LIPID PANEL FASTING CHOLESTERO L.TOTAL/CH OLESTEROL IN HDL [MASS RATIO] IN SERUM OR PLASMA 4.0 10/14 Specimen Type: SERUM No comment entered. Ordering Provider: TAHIRA WILLETT Report Released Date/Time: Sep 27, 2023 11:19 AM Reporting Lab: [facility] [place] [facility] [address] [facility] [address] Performing Lab: [place] [facility] [address] [facility] [address] [facility] [place] [facility] LIPID PANEL FASTING CHOLESTERO L IN HDL [MASS/VOLU ME] IN SERUM OR PLASMA 41 mg/dL 40 - 60 10/14 Specimen Type: SERUM No comment entered. Ordering Provider: TAHIRA WILLETT Report Released Date/Time: Sep 27, 2023 11:19 AM Reporting Lab: [place] [facility] [address] [facility] [address] Performing Lab: [place] [facility] [facility] [address] [facility] [address] [facility] HEMOGLOB IN A1C PANEL HEMOGLOBIN A1C/HEMOGL [...] Sep 27, 2023 11:19 AM Reporting Lab: [facility] [facility] [address] [facility] [address] Performing Lab: [facility] TRN [facility]ENTERUSETS [facility] [address] [facility] [address] [facility] CENTERUSE IRA [facility] CBC AND DIFF (AUTO) LEUKOCYTES [#/VOLUME] IN BLOOD BY AUTOMATED COUNT 9.29 10*3/uL 4.50 - 11.00 10/14 Specimen Type: BLOOD No comment entered. Ordering Provider: TAHIRA WILLETT Report Released Date/Time: Sep 27, 2023 11:19 AM Reporting Lab: [facility]ENTER[facility]IR[facility] [address] [facility] [address] Performing Lab: [facility] [address] [facility] [address] [facility] CBC AND DIFF (AUTO) ERYTHROCYT ES [#/VOLUME] IN BLOOD BY AUTOMATED COUNT 4.75 10*6/uL 4.23 - 5.66 10/14 Specimen Type: BLOOD No comment entered. Ordering Provider: TAHIRA WILLETT Report Released Date/Time: Sep 27, 2023 11:19 AM Reporting Lab: [facility] [address] [facility] [address] Performing Lab: [place] [facility] [place] [facility] [address] [facility] [address] [place] [facility] CBC AND DIFF (AUTO) HEMOGLOBIN [MASS/VOLU ME] IN BLOOD 15.0 g/dL 12.8 - 17 10/14 Specimen Type: BLOOD No comment entered. Ordering Provider: TAHIRA WILLETT Report Released Date/Time: Sep 27, 2023 11:19 AM Reporting Lab: [facility] [place] [facility] [address] [facility] [address] Performing Lab: [facility] [place] [facility] [address] [facility] [address] [facility] CBC AND DIFF (AUTO) HEMATOCRIT [VOLUME FRACTION] OF BLOOD BY AUTOMATED COUNT 44.6 39.2 - 50.4 10/14 Specimen Type: BLOOD No comment entered. Ordering Provider: TAHIRA WILLETT Report Released Date/Time: Sep 27, 2023 11:19 AM Reporting Lab: [facility] [place] [facility] [address] [facility] [address] Performing Lab: [facility] [address] [facility] [address] [facility] CBC AND DIFF (AUTO) MCV [ENTITIC VOLUME] BY AUTOMATED COUNT 93.9 fL 82 - 99 10/14 Specimen Type: BLOOD No comment entered. Ordering Provider: TAHIRA WILLETT Report Released Date/Time: Sep 27, 2023 11:19 AM Reporting Lab: [facility] [address] [facility] [address] Performing Lab: [facility] [address] [facility] [address] [facility] CBC AND DIFF (AUTO) MCHC [MASS/VOLU ME] BY AUTOMATED COUNT 33.6 g/dL 30.8 - 35.1 10/14 Specimen Type: BLOOD No comment entered. Ordering Provider: TAHIRA WILLETT Report Released Date/Time: Sep 27, 2023 11:19 AM Reporting Lab: [facility] [address] [facility] [address] Performing Lab: [facility] [address] [facility] [address] [facility] CBC AND DIFF (AUTO) PLATELETS [#/VOLUME] IN BLOOD BY AUTOMATED COUNT 252 10*3/uL 140 - 360 10/14 Specimen Type: BLOOD No comment entered. Ordering Provider: TAHIRA WILLETT Report Released Date/Time: Sep 27, 2023 11:19 AM Reporting Lab: [facility] [address] [facility] [address] Performing Lab: [facility] [place] [facility] [address] [facility] [address] [facility] CBC AND DIFF (AUTO) ERYTHROCYT E DISTRIBUTI ON WIDTH [RATIO] BY AUTOMATED COUNT 11.9 12.0 - 16.0 10/14 L Specimen Type: BLOOD No comment entered. Ordering Provider: TAHIRA WILLETT Report Released Date/Time: Sep 27, 2023 11:19 AM Reporting Lab: [facility] [address] [facility] [address] Performing Lab: [facility] [address] [facility] [address] [facility] CBC AND DIFF (AUTO) MONOCYTES [#/VOLUME] IN BLOOD BY AUTOMATED COUNT 0.79 10*3/uL 0.30 - 1.10 10/14 Specimen Type: BLOOD No comment entered. Ordering Provider: TAHIRA WILLETT Report Released Date/Time: Sep 27, 2023 11:19 AM Reporting Lab: [facility] [address] [facility] [address] Performing Lab: [facility] [address] [facility] [address] [facility] CBC AND DIFF (AUTO) MCH [ENTITIC MASS] BY AUTOMATED COUNT 31.6 pg 26.2 - 32.6 10/14 Specimen Type: BLOOD No comment entered. Ordering Provider: TAHIRA WILLETT Report Released Date/Time: Sep 27, 2023 11:19 AM Reporting Lab: [facility] [place] [facility] [address] [facility] [address] Performing Lab: [facility] [place] [facility] [address] [facility] [address] [facility] CBC AND DIFF (AUTO) NEUTROPHIL S/100 LEUKOCYTES IN BLOOD BY AUTOMATED COUNT 60.2 43.7 - 75.8 10/14 Specimen Type: BLOOD No comment entered. Ordering Provider: TAHIRA WILLETT Report Released Date/Time: Sep 27, 2023 11:19 AM Reporting Lab: [facility] [place] [facility] [address] [facility] [address] Performing Lab: [facility] [place] [facility] [address] [facility] [address] [facility] CBC AND DIFF (AUTO) LYMPHOCYTE S/100 LEUKOCYTES IN BLOOD BY AUTOMATED COUNT 29.5 14.0 - 42.3 10/14 Specimen Type: BLOOD No comment entered. Ordering Provider: TAHIRA WILLETT Report Released Date/Time: Sep 27, 2023 11:19 AM Reporting Lab: [facility] [place] [facility] [address] [facility] [address] Performing Lab: [facility] [place] [facility] [address] [facility] [address] [facility] CBC AND DIFF (AUTO) MONOCYTES/ 100 LEUKOCYTES IN BLOOD BY AUTOMATED COUNT 8.5 5.1 - 13.7 10/14 Specimen Type: BLOOD No comment entered. Ordering Provider: TAHIRA WILLETT Report Released Date/Time: Sep 27, 2023 11:19 AM Reporting Lab: [facility] [address] [facility] [address] Performing Lab: [facility] [address] [facility] [address] [facility] CBC AND DIFF (AUTO) EOSINOPHIL S/100 LEUKOCYTES IN BLOOD BY AUTOMATED COUNT 0.9 0.4 - 6.8 10/14 Specimen Type: BLOOD No comment entered. Ordering Provider: TAHIRA WILLETT Report Released Date/Time: Sep 27, 2023 11:19 AM Reporting Lab: [facility] [address] [place] [address] Performing Lab: [facility] [address] [address] [facility] CBC AND DIFF (AUTO) BASOPHILS/ 100 LEUKOCYTES IN BLOOD BY AUTOMATED COUNT 0.5 0.1 - 2.0 10/14 Specimen Type: BLOOD No comment entered. Ordering Provider: TAHIRA WILLETT Report Released Date/Time: Sep 27, 2023 11:19 AM Reporting Lab: [facility] [address] [place] [address] Performing Lab: [facility] [address] [facility] [address] [facility] CBC AND DIFF (AUTO) NEUTROPHIL S [#/VOLUME] IN BLOOD BY AUTOMATED COUNT 5.59 10*3/uL 2.20 - 7.60 10/14 Specimen Type: BLOOD No comment entered. Ordering Provider: TAHIRA WILLETT Report Released Date/Time: Sep 27, 2023 11:19 AM Reporting Lab: [facility] [address] [address] Performing Lab: [facility] [address] [facility] [address] [facility] CBC AND DIFF (AUTO) LYMPHOCYTE S [#/VOLUME] IN BLOOD BY AUTOMATED COUNT 2.74 10*3/uL 1.00 - 3.20 10/14 Specimen Type: BLOOD No comment entered. Ordering Provider: TAHIRA WILLETT Report Released Date/Time: Sep 27, 2023 11:19 AM Reporting Lab: [facility] [address] [facility] [address] Performing Lab: [facility] [place] [facility] [address] [facility] [address] [facility] CBC AND DIFF (AUTO) EOSINOPHIL S [#/VOLUME] IN BLOOD BY AUTOMATED COUNT 0.08 10*3/uL 0.03 - 0.44 10/14 Specimen Type: BLOOD No comment entered. Ordering Provider: TAHIRA WILLETT Report Released Date/Time: Sep 27, 2023 11:19 AM Reporting Lab: [facility] [place] [facility] [address] [facility] [address] Performing Lab: [facility] [place] [facility] [address] [facility] [address] [facility] CBC AND DIFF (AUTO) BASOPHILS [#/VOLUME] IN BLOOD BY AUTOMATED COUNT 0.05 10*3/uL 0.01 - 0.13 10/14 Specimen Type: BLOOD No comment entered. Ordering Provider: TAHIRA WILLETT Report Released Date/Time: Sep 27, 2023 11:19 AM Reporting Lab: [facility] [address] [place] [phone] Performing Lab: [facility] [address] [place] [address] [facility] CBC AND DIFF (AUTO) IMMATURE GRANULOCYT ES/100 LEUKOCYTES IN BLOOD BY AUTOMATED COUNT 0.4 0.0 - 0.7 10/14 Specimen Type: BLOOD No comment entered. Ordering Provider: TAHIRA WILLETT Report Released Date/Time: Sep 27, 2023 11:19 AM Reporting Lab: [facility] [address] [facility] [address] Performing Lab: [facility] [address] [facility] [address] [facility] [place] CBC AND DIFF (AUTO) IMMATURE GRANULOCYT ES [#/VOLUME] IN BLOOD 0.04 10*3/uL 0.00 - 0.06 10/14 Specimen Type: BLOOD No comment entered. Ordering Provider: TAHIRA WILLETT Report Released Date/Time: Sep 27, 2023 11:19 AM Reporting Lab: [facility] [place] [facility] [address] [facility] [address] Performing Lab: [facility] [place] [facility] [address] [facility] [address] [facility] Vital Signs Combined list of inpatient and outpatient Vital Signs from Department of Defense and Veterans Affairs, ranging from 12 months to all on record, depending upon the facility. Vital Sign Value Date Comments Source SYSTOLIC BLOOD PRESSURE 137 03/17/20 24 08:00:59 [facility] DIASTOLIC BLOOD PRESSURE 72 024 08:00:59 [facility] [facility] PULSE OXIMETRY 98 03/17/2024 08:00:59 [facility] WEIGHT 188 03/17/2024 08:00:59 [facility] BMI 28 kg/m2 03/17/2024 08:00:59 [facility] PAIN 5 03/17/2024 08:00:59 [facility] HEIGHT 69 03/17/2024 08:00:59 [facility] [...] 14[facility]41:01 [facility] BMI 28 kg/m2 10/15/2023 14:41:01 [facility] PAIN 0 10/15/2023 14:41:01 [facility] TEMPERATURE 97.9 10/15/2023 14:41:01 [facility] PULSE 70 10/15/2023 14:41:01 [facility] RESPIRATION 16 10/15/2023 14:41:01 [facility] Encounters Combined list of: 1) Encounters from Department of Veterans Affairs facilities going backup to the last 18 months, not all VA inpatient encounters are included; 2) Encounters from the Department of Defense facilities going backup to 280 months. Location Location Details Encounter Type Encounter Number Reason For Visit Attending Provider ADM Date DC Date Status Disposition Source [facility] Encounter [id number] 03/29 [facility] Out[facility] Encounter [id number] 04/16 [facility] OFF/OP EST OCTOBER X REQ PHY/QHP [id number] Diagnos is: ICD-10- CM Z23 Encount er for immuniz atMIREYA Browne P 04/19 [facility] OFFICE O/P EST MOD 30-39 MIN [id number] Diagnos is: ICD-10- CM H93.19 Tinnitu s, unspeci fied ear AHMED,MOHA MMED JAWED 05/01 [facility] Out[facility] Encounter [id number] 05/01 [facility] OFFICE O/P NEW MOD 45-59 MIN [id number] Diagnos is: ICD-10- CM 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 TERRELL GRECO D 05/16 [facility] Out[facility] Encounter [id number] 05/27 [facility] Encounter [id number] 06/14 [facility] OFFICE O/P EST LOW 20-29 MIN [id number] Diagnos is: ICD-10- CM S90.822 D Blister (nonthe rmal), left foot, subsequ ent encount er TERRELL GRECO RLANASTASIA D 06/17 [facility] Encounter [id number] 06/29 [facility] Out[facility] Encounter [id number] 07/24 [facility] Out[facility] Encounter [id number] 07/24 [facility] Out[facility] Encounter [id number] 10/03 [facility] Out[facility] Encounter [id number] 10/14 [facility] OFFICE O/P EST MOD 30 MIN [id number] Diagnos is: ICD-10- CM E11.9 Type 2 diabete s mellitu s without complic ations ANA WILLETT MMED JAWED 10/14 [facility] En[facility] [id number] 10/30 [facility] Out[facility] Encounter [id number] 12/30 [facility] Out[facility] Encounter [id number] 03/06 [facility] OFFICE O/P EST MOD 30 MIN [id number] Diagnos is: ICD-10- CM I10 Essenti al (primar y) hyperte nsion FURCOLO,TI NA 03/17 [facility] Out[facility] Encounter [id number] 06/29 [facility] NQHP OL DIG ASSMT&MGMT 5-10 [id number] Diagnos is: ICD-10- CM I10 Essenti al (primar y) hyperte nsion LENNOX,CLAIRE RISTY A 07/13 [facility] Social History Combined list of available smoking, tobacco, and other social history from Department of Defense and Veterans Affairs facilities. Social History Type Response Date Comment Source Tobacco smoking status NHIS VA-TOBACCO NEVER USED 10/15/2023 [facility] [place] [facility] History of tobacco use [place]-TOBACCO NEVER USED 10/25/2022 [facility] [place] [facility] History of tobacco use OK-TOBACCO NEVER USED 10/18/2021 [facility] [place] [facility] History of tobacco use OK-TOBACCO NEVER USED 10/12/2020 [facility] [place] [facility] History of tobacco use OK-TOBACCO NEVER USED 10/14/2018 [facility] [place] [facility] History of tobacco use VA-TOBACCO NEVER USED 04/11/2018 [facility] [place] [facility] History of tobacco use LIFETIME NON-TOBACCO USER 05/01/2017 [facility] [place] [facility] History of tobacco use LIFETIME NON-TOBACCO USER 04/24/2016 [facility] [place] [facility] History of tobacco use QUIT TOBACCO USE > 7 YEARS AGO 01/31/2015 occasional while in [place] [facility] [place] [facility] Plan of Care List of future care activities from Department of Veterans Affairs facilities. Additional future care activities may be listed in the Assessment and Plan section. Date/Time Care Activity Care Activity Detail Facili ty 09/15/2024 AMBULATORY - MEDICINE AMBULATORY - MEDICI [place] [facility] [place] [facility]
== END ==
LOC: HO.CARD 11:13
PROVIDERS: PCP Internal Medicine
DX: R00.2 Palpitations (principal)
CPT/HCPCS: 93242

== ENCOUNTER → 2024-08-25 11:31 | Outpatient (BNV) | payer MEDICARE, SELFPAY | PROVIDERS: PCP Internal Medicine; Visit Provider Internal Medicine Cardiovascular Disease | DX: I49.3 Ventricular premature depolarization (principal) | CPT/HCPCS: 93244 ==

== ENCOUNTER 2024-09-07 08:12 | Outpatient (AMB) | payer MEDICARE, SELFPAY ==
--- OUTSIDE RECORDS SUMMARY | 2024-09-07 08:17 | XMS_ITS ---
Author Name [facility] Organization [facility] Address [address] [place] [address] Care Team Providers Care Line Tester Name Role Phone TIFFANY FREDERICK Primary Care [...] MEDIC ARE SUPPL EMENT Mar 01, 2015 [id number] [phone] LARAMEE,R MAKAYLA PATIENT ANTHEM [employer] MEDICARE SUPPLEMEN [place] MEDIC ARE SUPPL EMENT Mar 01, 2015 [id number] [phone] LARAMEE,R MAKAYLA PATIENT ANTHE[place] MEDICARE SUPPLEMEN [place] MEDIC ARE SUPPL EMENT Mar 01, 2015 [id number] [phone] LARAMEE,R MAKAYLA PATIENT [place] MEDICARE SUPPLEMEN [place] MEDIC ARE SUPPL EMENT Mar 01, 2015 [id number] [phone] LARAMEE,R MAKAYLA PATIENT [place] MEDEX 2 Mar 01, 2015 [id number] LARAMEE,R [place]KAY[place] MED[place] 2 Mar 01, 2015 [id number] Sarah RAE PATIENT [place] MEDEX 2 Mar 01, 2015 [id number] Sarah RAE PATIENT MEDICARE (WNR) MEDICARE (M) PART B Mar 01, 2015 PART B [id number] Sarah RAE PATIENT MEDICARE (WNR) MEDICARE (M) PART B Mar 01, 2015 PART B [id number] Sarah RAE MAKAYLA PATIENT MEDICARE (WNR) MEDICARE (M) PART A Aug 01, 2014 PART A [id number] Sarah RAE PATIENT MEDICARE (WNR) MEDICARE (M) PART A Aug 01, 2014 PART A [id number] Sarah RAE PATIENT Selected Encounter This section includes the information on record at [place] for the Encounter. Date/Time Encounter Type Encounter Description Reason Pro vider Source Sep 04, 2024 01:33 PM Outpatient Encounter PRIMARY CARE/MEDICINE IHE Encounter Template Text not used by [place] Plan of Treatment: Future Appointments (+ 6 months) and Future Tests (+/- 45 days) The Plan of Treatment section includes future care activities for the patient from all [place] treatmentfacilities. This section includes future appointments and future orders which are active, pending or scheduled. Future Appointments This section includes appointments that were scheduled to occur 6 months from the date of the Encounter, up to a maximum of 20 appointments. The data comes from all [place] treatment facilities. Appointment Date/Time Appointment Type Appointme nt Facility Name Sep 15, 2024 09:00 AM AMBULATORY - MEDICINE [facility] Active, Pending, and Scheduled Orders This section includes a listing of several types of active, pending, and scheduled orders, including clinic medications orders, diagnostic test orders, procedure orders and consult orders; where the start date of the order is 45 days before the date of the Encounter or 45 days after the date of theEncounter. The data comes from all [place] treatment facilities. Test Date/Time Test Type Test Details Facility Name Sep 02, 2024 12:00 AM Laboratory - Chemistry Order BASIC METABOLIC PANEL (non-fasting) BLOOD (SST-SERUM) [facility] [place] [facility] Sep 02, 2024 12:00 AM Laboratory - Chemistry Order LIPID PANEL, NON FASTING BLOOD (SST-SERUM) SP [facility] [place] [facility] Sep 02, 2024 12:00 AM Laboratory - Chemistry Order HEMOGLOBIN A1C PANEL BLOOD (LAV-BLOOD) [facility] [place] [facility] Social History: Smoking Status (Most current) [...] took place. Date/Time Current Smoking Status Comment [facility] Oct 15, 2023 02:30 PM VA-TOBACCO NEVER USED [facility] [place] [facility] Tobacco Use History This section includes a history of the smoking, or tobacco-related health factors, that were collected on or before the date of the Encounter. The data comes from the [place] facility where the Encounter took place. Date/Time Smoking Status/Tobac co Use Comment Facility Oct 25, 2022 09:30 AM VA-TOBACCO NEVER USED [facility] [place] [facility] Oct 18, 2021 10:30 AM VA-TOBACCO NEVER USED [facility] [place] [facility] Oct 12, 2020 01:00 PM VA-TOBACCO NEVER USED [facility] [place] [facility] Oct 14, 2018 09:39 AM VA-TOBACCO NEVER USED [facility] [place] [facility] Apr 11, 2018 07:41 AM VA-TOBACCO NEVER USED [facility] [place] [facility] May 01, 2017 09:10 AM LIFETIME NON-TOBACCO USER [facility] [place] [facility] Apr 24, 2016 09:00 AM LIFETIME NON-TOBACCO USER [facility] [place] [facility] Jan 31, 2015 02:42 PM QUIT TOBACCO USE > 7 YEARS AGO occasional [place] [facility] [place] [facility] Encounter Notes: All associated encounter notes This section contains the clinical notes associated to the Encounter. Date/Time Encounter Note(s) Provider Source Sep 04, 2024 01:33 PM ADMINISTRATIVE NOTE: LOCAL TITLE: ADMINISTRATIVE NOTE STANDARD TITLE: ADMINISTRATIVE NOTE DATE OF NOTE: SEP 04, 2024@13:33 ENTRY DATE: SEP 04, 2024@13:33:19 AUTHOR: DES DUGAN EXP COSIGNER: URGENCY: STATUS: COMPLETED AMSA SPOKE TO ON THE TELEPHONE AND INFORMED HIM OF UPCOMING APPT AND THAT LABWORK IS NEEDED. /ilya/ DES DUGAN AMSA Signed: 09/04/2024 13:33 DES DUGAN [place] [facility]
--- OUTSIDE RECORDS SUMMARY | 2024-09-07 08:17 | XMS_ITS | Continuity of Care Document ---
Author Name [facility] Organization [facility] Care Team Providers Care Continuous Improvement Specialist Name Role Phone [facility] Unavailable Unavailable Problems Combined list of problems [...] DAILY ORAL ACTIVE PRASHANT WILLETT JAWED 2018 [facility] CHOLECALCIF VESNA 25MCG (1,000UNIT) TAB TAKE ONE TABLET BY MOUTH EVERY DAY [facility] [place] [facility] 2014 [facility] COENZYME Q10 CAP/TAB TAKE ONE BY MOUTH EVERY DAY [facility] [place] [facility] 2014 [facility] EMPAGLIFLOZ IN 10MG TAB TAKE ONE TABLET BY MOUTH ONCE DAILY FOR DIABETES ORAL DISCONT INUED (EDIT) 10/15/2024 [id number] 4 [facility] [place] [facility] 2023 90 [facility] EMPAGLIFLOZ IN 10MG TAB TAKE ONE TABLET BY MOUTH ONCE DAILY FOR DIABETES ORAL DISCONT INUED 07/24/2024 [id number] 4 [facility] EMPAGLIFLOZ IN 25MG TAB TAKE ONE TABLET BY MOUTH ONCE DAILY FOR DIABETES DOSE INCREASE ORAL ACTIVE 03/18/2025 [id number] FURCOLO,T LISS 2023 90 [facility] EZETIMIBE 10MG TAB TAKE ONE TABLET BY MOUTH ONCE DAILY TO LOWER CHOLESTE ROL ORAL ACTIVE 07/14/2025 [id number] FURCOLO,T LISS 2024 30 [facility] FENOFIBRATE 145MG TAB TAKE ONE TABLET BY MOUTH ONCE DAILY TO LOWER CHOLESTE ROL ORAL ACTIVE 01/02/2025 [id number] 5 FURCOLO,T LISS 2023 90 [facility] FENOFIBRATE 145MG TAB TAKE ONE TABLET BY MOUTH ONCE DAILY TO LOWER CHOLESTE ROL ORAL DISCONT INUED 05/27/2024 [id number] 4 [facility] 2022 90 [facility] FISH OIL 1000MG (500MG DHA/EPA) CAP,ORAL TAKE 1 CAPSULE BY MOUTH TWICE DAILY [facility] [place] [facility] 2014 [facility] GLIPIZIDE 5MG TAB TAKE ONE TABLET BY MOUTH ONCE DAILY FOR TYPE 2 DIABETES MELLITUS ORAL ACTIVE 03/18/2025 [id number] FURCOLO,T LISS 2023 90 [facility] GLIPIZIDE 5MG TAB TAKE ONE-HALF TABLET BY MOUTH TWICE DAILY ORAL DISCONT INUED (EDIT) 10/15/2024 [id number] 4 [facility] 2023 90 [facility] GLIPIZIDE 5MG TAB TAKE ONE-HALF TABLET BY MOUTH TWICE DAILY ORAL DISCONT INUED 02/05/2024 [id number] 4 [facility] 2022 90 [facility] LISINOPRIL 5MG TAB TAKE ONE TABLET BY MOUTH ONCE DAILY TO CONTROL BLOOD PRESSURE ORAL ACTIVE 01/02/2025 [id number] FURCOLO,T LISS 2023 90 [facility] LISINOPRIL 5MG TAB TAKE ONE TABLET BY MOUTH ONCE DAILY TO CONTROL BLOOD PRESSURE ORAL DISCONT INUED 03/29/2024 [id number] 4 [facility] 2022 90 [facility] METOPROLOL SUCCINATE 50MG TAB,SA TAKE ONE TABLET BY MOUTH ONCE DAILY FOR BLOOD PRESSURE /HEART ORAL ACTIVE 07/14/2025 [id number] FURCOLO,T LISS 2024 90 [facility] MULTIVITAMI NS CAP/TAB TAKE ONE TABLET BY MOUTH EVERY DAY ORAL ACTIVE [facility] 2014 [facility] OMEPRAZOLE 20MG CAP,EC TAKE 1 CAPSULE BY MOUTH EVERY MORNING 30 MINUTES BEFORE BREAKFAS T ORAL ACTIVE [facility] ROSUVASTATI N CA 20MG TAB TAKE ONE TABLET BY MOUTH ONCE DAILY FOR HIGH CHOLESTE ROL (NOTE TABLET STRENGTH ) ORAL DISCONT INUED (EDIT) 06/30/2025 [id number] FURCOLO,T LISS 2023 90 [facility] ROSUVASTATI N CA 20MG TAB TAKE ONE TABLET BY MOUTH ONCE DAILY FOR HIGH CHOLESTE ROL (NOTE TABLET STRENGTH ) ORAL DISCONT INUED 07/01/2024 [id number] PRASHANT WILLETT AMDAGOBERTO JAWED 2023 90 [facility] ROSUVASTATI N CA 40MG TAB TAKE ONE TABLET BY MOUTH ONCE DAILY FOR HIGH CHOLESTE ROL (NOTE TABLET STRENGTH ) ORAL ACTIVE 07/14/2025 [id number] FURCOLO,T LISS 2024 90 [facility] TURMERIC CAP/TAB TAKE BY MOUTH ORAL ACTIVE PRASHANT WILLETT JAWED 2014 [facility] Allergies, Adverse Reactions, Alerts Combined list of allergies from Department of Defense and Veterans Affairs facilities. It does not include entries that were removed or entered in error. Substance Category Reaction Severity Reaction type Status Date Reported Comments Source PENICILLIN Propensity to adverse reactions to drug (finding) Eruption active 5 [facility] Immunizations Combined list of available immunizations from the Department of Defense and Veterans Affairs facilities. Immunization Series Date Given Administered By Site Reaction Lot Number CVX Code Drug Ironing Pleater Status Comments Source COVID-19 (MODERNA), MRNA, LNP-S, PF, 50 MCG/0.5 ML (AGES 12+ YEARS) 2023 FRANKO LUBIN SSA H RIGHT DELTO ID [id number] 312 complet ed [facility] INFLUENZA, HIGH-DOSE, TRIVALENT, PF 2023 FRANKO LUBIN H LEFT DELTO ID [id number] 135 complet ed [facility] INFLUENZA, HIGH-DOSE, QUADRIVALENT 2022 EMELY DYER M LEFT DELTO ID [id number] 197 complet ed [facility] COVID-19 (MODERNA), MRNA, LNP-S, PF, 50 MCG/0.5 ML (AGES 12+ YEARS) 1 2022 GIOVANNA FARLEY RIGHT DELTO ID [id number] 312 complet ed [facility] COVID-19 (MODERNA), MRNA, LNP-S, BIVALENT BOOSTER, PF, 50 MCG/0.5 ML OR 25MCG/0.25 ML DOSE 4 2022 MECHE NUNEZ RIGHT DELTO ID [id number] 229 complet ed [facility] INFLUENZA, UNSPECIFIED FORMULATION 2021 88 complet ed [facility] COVID-19 (MODERNA), MRNA, LNP-S, PF, 100 MCG/0.5ML DOSE OR 50 MCG/0.25ML DOSE 2 2021 207 complet ed MOD; [id number]; 2 [facility] COVID-19 (MODERNA), MRNA, LNP-S, PF, 100 MCG OR 50 MCG DOSE 2 2020 207 complet ed MOD; [id number]; 2 [facility] COVID-19 (YRIS), VECTOR-NR, [id number], PF, 0.5 ML 1 2020 212 complet ed JSN; [id number]; 1 [facility] [...] complet ed [facility] PNEUMOCOCCAL CONJUGATE PCV 13 2016 133 complet ed [facility] [facility] Results Combined list of recent chemistry, [...] Feb 26, 2024 08:45 AM Reporting Lab: [facility] [place] [address] [address] Performing Lab: [facility]N [facility]ITALUSE[address] [address] [facility]ITALRMOBI[facility]ITALN [place] [facility] MICROALB UMIN CREATINI NE RATIO PANEL MICROALBUM IN [MASS/VOLU ME] IN URINE 2.4 mg/dL 03/17 Specimen Type: URINE No comment entered. Ordering Provider: MARIAJOSE FREDERICK Report Released Date/Time: Feb 26, 2024 08:45 AM Reporting Lab: [facility] [place] [facility] [address] [facility] [address] Performing Lab: [facility] [place] [address] [address] [facility] [place] [facility] MICROALB UMIN CREATINI NE RATIO PANEL CREATININE [MASS/VOLU ME] IN URINE 92.05 mg/dL 03/17 Specimen Type: URINE No comment entered. Ordering Provider: MARIAJOSE FREDERICK Report Released Date/Time: Feb 26, 2024 08:45 AM Reporting Lab: [facility]ITALRL [facility] [place] [facility] [address] [facility] [address] Performing Lab: [facility] [place] [address] [address] [facility] [place] [facility] LIPID PANEL, NON FASTING CHOLESTERO L [MASS/VOLU ME] IN SERUM OR PLASMA 175 mg/dL 03/17 Specimen Type: SERUM No comment entered. Ordering Provider: MARIAJOSE FREDERICK Report Released Date/Time: Feb 26, 2024 08:45 AM Reporting Lab: [facility] [place] [facility] [address] [facility] [address] Performing Lab: [facility]ITAL[facility] [address] [facility] [address] [facility]ITALRL [facility]OSPITALUSE [facility] LIPID PANEL, NON FASTING TRIGLYCERI DE [MASS/VOLU ME] IN SERUM OR PLASMA 147 mg/dL 0 - 150 03/17 Specimen Type: SERUM No comment entered. Ordering Provider: MARIAJOSE FREDERICK Report Released Date/Time: Feb 26, 2024 08:45 AM Reporting Lab: [facility]ITALRL TRN [facility]ITALUSE[address] [address] Performing Lab: [facility]ITALRL [facility]ITALUSE[address] [address] [facility]ITALRL TRN [facility]OSPITALUSE [facility] LIPID PANEL, NON FASTING CHOLESTERO L IN LDL [MASS/VOLU ME] IN SERUM OR PLASMA BY SHANTE Roe 104 mg/dL 0 - 129 03/17 Specimen Type: SERUM No comment entered. Ordering Provider: MARIAJOSE FREDERICK Report Released Date/Time: Feb 26, 2024 08:45 AM Reporting Lab: [facility] [place] [address] [address] Performing Lab: [facility] [place] [address] [address] [facility]RL [facility] [place] [facility] LIPID PANEL, NON FASTING CHOLESTERO L.TOTAL/CH OLESTEROL IN HDL [MASS RATIO] IN SERUM OR PLASMA 4.2 03/17 Specimen Type: SERUM No comment entered. Ordering Provider: MARIAJOSE FREDERICK Report Released Date/Time: Feb 26, 2024 08:45 AM Reporting Lab: [facility]ITALRL [facility]STRN [place] [address] Performing Lab: [facility] [place] [facility] [address] [facility] [address] [facility] LIPID PANEL, NON FASTING CHOLESTERO L IN HDL [MASS/VOLU ME] IN SERUM OR PLASMA 42 mg/dL 40 - 60 03/17 Specimen Type: SERUM No comment entered. Ordering Provider: MARIAJOSE FREDERICK Report Released Date/Time: Feb 26, 2024 08:45 AM Reporting Lab: [facility] MONTGOMERYN [address] [address] Performing Lab: [facility]OSPITALRMOBILE CITY HOSPITALN [address] [address] [facility] BASIC METABOLI C PANEL (non-fas ting) UREA NITROGEN [MASS/VOLU ME] IN SERUM OR PLASMA 28 mg/dL 7 - 25 03/17 H Specimen Type: SERUM No comment entered. Ordering Provider: MARIAJOSE FREDERICK Report Released Date/Time: Feb 26, 2024 08:45 AM Reporting Lab: [facility]PITALRMOBILE CITY HOSPITALN [address] [address] Performing Lab: [facility] [address] [address] [facility] BASIC METABOLI C PANEL (non-fas ting) GLUCOSE [MASS/VOLU ME] IN SERUM OR PLASMA 100 mg/dL 65 - 100 03/17 Specimen Type: SERUM No comment entered. Ordering Provider: MARIAJOSE FREDERICK Report Released Date/Time: Feb 26, 2024 08:45 AM Reporting Lab: [facility]ITALRCEN[facility]MONTG[facility]ERYTRN [address] [address] Performing Lab: [facility]N [address] [address] [facility] BASIC METABOLI C PANEL (non-fas ting) SODIUM [MOLES/VOL UME] IN SERUM OR PLASMA 139 mmol/L 135 - 145 03/17 Specimen Type: SERUM No comment entered. Ordering Provider: MARIAJOSE FREDERICK Report Released Date/Time: Feb 26, 2024 08:45 AM Reporting Lab: [facility] [place] [facility] [address] [facility] [address] Performing Lab: [facility] [place] [facility] [address] [facility] [address] [facility] [place] [facility] BASIC METABOLI C PANEL (non-fas ting) POTASSIUM [MOLES/VOL UME] IN SERUM OR PLASMA 4.8 mmol/L 3.5 - 5.0 03/17 Specimen Type: SERUM No comment entered. Ordering Provider: MARIAJOSE FREDERICK Report Released Date/Time: Feb 26, 2024 08:45 AM Reporting Lab: [facility] [place] [address] [address] Performing Lab: [facility]PITALUSETS [address] [address] [facility]ITALRL WSTRN [place] [facility] BASIC METABOLI C PANEL (non-fas ting) CHLORIDE [MOLES/VOL UME] IN SERUM OR PLASMA 108 mmol/L 100 - 110 03/17 Specimen Type: SERUM No comment entered. Ordering Provider: MARIAJOSE FREDERICK Report Released Date/Time: Feb 26, 2024 08:45 AM Reporting Lab: [facility] [place] [address] [address] Performing Lab: [facility] [place] [address] [address] [facility]ITALRL WSTRN [place] [facility] BASIC METABOLI C PANEL (non-fas ting) CARBON DIOXIDE, TOTAL [MOLES/VOL UME] IN SERUM OR PLASMA 19 meq/L 20 - 30 03/17 L Specimen Type: SERUM No comment entered. Ordering Provider: MARIAJOSE FREDERICK Report Released Date/Time: Feb 26, 2024 08:45 AM Reporting Lab: [facility] [place] [place] [address] [address] Performing Lab: [facility] [place] [place] [address] [address] [facility] [place] [facility] BASIC METABOLI C PANEL (non-fas ting) CREATININE [MASS/VOLU ME] IN SERUM OR PLASMA 1.56 mg/dL 0.50 - 1.40 03/17 H Specimen Type: SERUM No comment entered. Ordering Provider: MARIAJOSE FREDERICK Report Released Date/Time: Feb 26, 2024 08:45 AM Reporting Lab: [facility] [address] [facility] [address] Performing Lab: [address] [address] [facility] BASIC METABOLI C PANEL (non-fas ting) GLOMERULAR FILTRATION RATE/1.73 SQ M.PREDICTE D [VOLUME RATE/AREA] IN SERUM, PLASMA OR BLOOD BY CREATININE -BASED FORMULA (CKD-EPI 2020) 46 mL/min 60 03/17 L Specimen Type: SERUM No comment entered. Ordering Provider: MARIAJOSE FREDERICK Report Released Date/Time: Feb 26, 2024 08:45 AM Reporting Lab: [address] [address] Performing Lab: [address] [address] [facility] HEMOGLOB IN A1C PANEL HEMOGLOBIN A1C/HEMOGL OBIN.TOTAL [...] Feb 26, 2024 08:45 AM Reporting Lab: [address] [address] Performing Lab: [address] [address] [facility] OCCULT BLOOD FIT X1 SCREEN(I N-HOUSE) HEMOGLOBIN .GASTROINT ESTINAL.LO WER [PRESENCE] IN STOOL BY IMMUNOASSA Y Negative 10/15 Specimen Type: FECES No comment entered. Ordering Provider: TAHIRA WILLETT Report Released Date/Time: Oct 15, 2023 02:39 PM Reporting Lab: [facility]ITALRL [facility]ITAL[facility] [address] [address] Performing Lab: [facility]ITALRL [facility]ITALUSE[address] [address] [facility]ITALRL [facility]STRN [facility]OSPITALUSE [facility] BASIC METABOLI C PANEL (fasting ) UREA NITROGEN [MASS/VOLU ME] IN SERUM OR PLASMA 28 mg/dL 7 - 25 10/14 H Specimen Type: SERUM No comment entered. Ordering Provider: TAHIRA WILLETT Report Released Date/Time: Sep 27, 2023 11:19 AM Reporting Lab: [facility]ITALRCEN[facility]MONTGOMERYTRN [facility]ITALUSE[address] [address] Performing Lab: [facility]ITALRL WSTRN [facility]PITALUSETS [address] [address] [facility]ITALRCENTR[facility]TRN [facility]ITALUSE [facility] BASIC METABOLI C PANEL (fasting ) GLUCOSE [MASS/VOLU ME] IN SERUM OR PLASMA 76 mg/dL 65 - 100 10/14 Specimen Type: SERUM No comment entered. Ordering Provider: TAHIRA WILLETT Report Released Date/Time: Sep 27, 2023 11:19 AM Reporting Lab: [facility]ITALR W[facility]N [facility]ITALUSETS [address] [address] Performing Lab: [facility]ITAL[facility]ETS [address] [address] [facility]ITALRL TRN [place] [facility] BASIC METABOLI C PANEL (fasting ) SODIUM [MOLES/VOL UME] IN SERUM OR PLASMA 137 mmol/L 135 - 145 10/14 Specimen Type: SERUM No comment entered. Ordering Provider: TAHIRA WILLETT Report Released Date/Time: Sep 27, 2023 11:19 AM Reporting Lab: [facility] [place] [address] [address] Performing Lab: [facility]ITALRL [facility] [place] [facility] [address] [facility] [address] [facility] [place] [facility] BASIC METABOLI C PANEL (fasting ) POTASSIUM [MOLES/VOL UME] IN SERUM OR PLASMA 4.2 mmol/L 3.5 - 5.0 10/14 Specimen Type: SERUM No comment entered. Ordering Provider: TAHIRA WILLETT Report Released Date/Time: Sep 27, 2023 11:19 AM Reporting Lab: [facility] [place] [facility] [address] [facility] [address] Performing Lab: [facility] [place] [facility] [address] [facility] [address] [facility] [place] [facility] BASIC METABOLI C PANEL (fasting ) CHLORIDE [MOLES/VOL UME] IN SERUM OR PLASMA 103 mmol/L 100 - 110 10/14 Specimen Type: SERUM No comment entered. Ordering Provider: TAHIRA WILLETT Report Released Date/Time: Sep 27, 2023 11:19 AM Reporting Lab: [facility] [place] [facility] [address] [facility] [address] Performing Lab: [facility] [place] [facility] [address] [facility] [address] [facility] [place] [facility] BASIC METABOLI C PANEL (fasting ) CARBON DIOXIDE, TOTAL [MOLES/VOL UME] IN SERUM OR PLASMA 21 meq/L 20 - 30 10/14 Specimen Type: SERUM No comment entered. Ordering Provider: TAHIRA WILLETT Report Released Date/Time: Sep 27, 2023 11:19 AM Reporting Lab: [facility] [place] [facility] [address] [facility] [address] Performing Lab: [facility] [place] [facility] [address] [facility] [address] [facility] [place] [facility] BASIC METABOLI C PANEL (fasting ) CREATININE [MASS/VOLU ME] IN SERUM OR PLASMA 1.50 mg/dL 0.50 - 1.40 10/14 H Specimen Type: SERUM No comment entered. Ordering Provider: TAHIRA WILLETT Report Released Date/Time: Sep 27, 2023 11:19 AM Reporting Lab: [facility] [place] [facility] [address] [facility] [address] Performing Lab: [facility] [place] [facility] [address] [facility] [address] [facility] [place] [facility] BASIC METABOLI C PANEL (fasting ) GLOMERULAR FILTRATION RATE/1.73 SQ M.PREDICTE D [VOLUME RATE/AREA] IN SERUM, PLASMA OR BLOOD BY CREATININE -BASED FORMULA (CKD-EPI 2020) 49 mL/min 60 10/14 L Specimen Type: SERUM No comment entered. Ordering Provider: TAHIRA WILLETT Report Released Date/Time: Sep 27, 2023 11:19 AM Reporting Lab: [facility] [place] [facility] [address] [facility] [address] Performing Lab: [facility] [place] [facility] [address] [facility] [address] [facility] [place] [facility] LIVER FUNCTION PROTEIN [MASS/VOLU ME] IN SERUM OR PLASMA 7.4 g/dL 6.0 - 8.3 10/14 Specimen Type: SERUM No comment entered. Ordering Provider: TAHIRA WILLETT Report Released Date/Time: Sep 27, 2023 11:19 AM Reporting Lab: [facility] [place] [facility] [address] [facility] [address] Performing Lab: [facility] [place] [facility] [address] [facility] [address] [facility] [place] [facility] LIVER FUNCTION ALBUMIN [MASS/VOLU ME] IN SERUM OR PLASMA 4.2 g/dL 3.5 - 5.0 10/14 Specimen Type: SERUM No comment entered. Ordering Provider: TAHIRA WILLETT Report Released Date/Time: Sep 27, 2023 11:19 AM Reporting Lab: [facility] [place] [facility] [address] [facility] [address] Performing Lab: [facility] [place] [facility] [address] [facility] [address] [facility] [place] [facility] LIVER FUNCTION ALKALINE PHOSPHATAS E [ENZYMATIC ACTIVITY/V OLUME] IN SERUM OR PLASMA 37 U/L 40 - 150 10/14 L Specimen Type: SERUM No comment entered. Ordering Provider: TAHIRA WILLETT Report Released Date/Time: Sep 27, 2023 11:19 AM Reporting Lab: [facility] [place] [facility] [address] [facility] [address] Performing Lab: [facility] [place] [facility] [address] [facility] [address] [facility] [place] [facility] LIVER FUNCTION ASPARTATE AMINOTRANS FERASE [ENZYMATIC ACTIVITY/V OLUME] IN SERUM OR PLASMA 26 U/L 5 - 34 10/14 Specimen Type: SERUM No comment entered. Ordering Provider: TAHIRA WILLETT Report Released Date/Time: Sep 27, 2023 11:19 AM Reporting Lab: [facility] [place] [address] [address] Performing Lab: [facility] [place] [facility] [address] [facility] [address] [facility] [place] [facility] LIVER FUNCTION ALANINE AMINOTRANS FERASE [ENZYMATIC ACTIVITY/V OLUME] IN SERUM OR PLASMA 24 U/L 10/14 Specimen Type: SERUM No comment entered. Ordering Provider: TAHIRA WILLETT Report Released Date/Time: Sep 27, 2023 11:19 AM Reporting Lab: [facility] [place] [address] [address] Performing Lab: [facility] [place] [facility] [address] [facility] [address] [facility] [place] [facility] LIVER FUNCTION BILIRUBIN. TOTAL [MASS/VOLU ME] IN SERUM OR PLASMA 0.4 mg/dL 0.2 - 1.2 10/14 Specimen Type: SERUM No comment entered. Ordering Provider: TAHIRA WILLETT Report Released Date/Time: Sep 27, 2023 11:19 AM Reporting Lab: [facility] [place] [address] [address] Performing Lab: [facility] [place] [facility] [address] [facility] [address] [facility] [place] [facility] LIPID PANEL FASTING CHOLESTERO L [MASS/VOLU ME] IN SERUM OR PLASMA 164 mg/dL 10/14 Specimen Type: SERUM No comment entered. Ordering Provider: TAHIRA WILLETT Report Released Date/Time: Sep 27, 2023 11:19 AM Reporting Lab: [facility] [place] [facility] [address] [facility] [address] Performing Lab: [facility] [place] [facility] [address] [facility] [address] [facility] [place] [facility] LIPID PANEL FASTING TRIGLYCERI DE [MASS/VOLU ME] IN SERUM OR PLASMA 138 mg/dL 0 - 150 10/14 Specimen Type: SERUM No comment entered. Ordering Provider: TAHIRA WILLETT Report Released Date/Time: Sep 27, 2023 11:19 AM Reporting Lab: [facility] [place] [facility] [address] [facility] [address] Performing Lab: [facility] [place] [address] [address] [facility] [place] [facility] LIPID PANEL FASTING CHOLESTERO L IN LDL [MASS/VOLU ME] IN SERUM OR PLASMA BY CALCULATIO N 95 mg/dL 0 - 129 10/14 Specimen Type: SERUM No comment entered. Ordering Provider: TAHIRA WILLETT Report Released Date/Time: Sep 27, 2023 11:19 AM Reporting Lab: [facility] [place] [facility] [address] [facility] [address] Performing Lab: [facility] [place] [address] [address] [facility] [place] [facility] LIPID PANEL FASTING CHOLESTERO L.TOTAL/CH OLESTEROL IN HDL [MASS RATIO] IN SERUM OR PLASMA 4.0 10/14 Specimen Type: SERUM No comment entered. Ordering Provider: TAHIRA WILLETT Report Released Date/Time: Sep 27, 2023 11:19 AM Reporting Lab: [facility] [place] [facility] [address] [facility] [address] Performing Lab: [facility] [address] [facility] [address] [facility] [facility] LIPID PANEL FASTING CHOLESTERO L IN HDL [MASS/VOLU ME] IN SERUM OR PLASMA 41 mg/dL 40 - 60 10/14 Specimen Type: SERUM No comment entered. Ordering Provider: TAHIRA WILLETT Report Released Date/Time: Sep 27, 2023 11:19 AM Reporting Lab: [facility] [place] [place] [facility] [address] [facility] [address] Performing Lab: [facility] [address] [facility] [address] [facility] HEMOGLOB IN A1C PANEL HEMOGLOBIN A1C/HEMOGL [...] Sep 27, 2023 11:19 AM Reporting Lab: [facility] [address] [facility] [address] Performing Lab: [facility] HOSPITALRL [facility]N [facility] [address] [facility] [address] [facility]ITALR[facility]OSPITALN [facility]ITALUSE [facility] CBC AND DIFF (AUTO) LEUKOCYTES [#/VOLUME] IN BLOOD BY AUTOMATED COUNT 9.29 10*3/uL 4.50 - 11.00 10/14 Specimen Type: BLOOD No comment entered. Ordering Provider: TAHIRA WILLETT Report Released Date/Time: Sep 27, 2023 11:19 AM Reporting Lab: [facility]ITALR[facility]OSPITALN [facility] [address] [facility] [address] Performing Lab: [facility] [address] [facility] [address] [facility] CBC AND DIFF (AUTO) ERYTHROCYT ES [#/VOLUME] IN BLOOD BY AUTOMATED COUNT 4.75 10*6/uL 4.23 - 5.66 10/14 Specimen Type: BLOOD No comment entered. Ordering Provider: TAHIRA WILLETT Report Released Date/Time: Sep 27, 2023 11:19 AM Reporting Lab: [facility] [address] [facility] [address] Performing Lab: [facility] [place] [facility] [address] [facility] [address] [facility] CBC AND DIFF (AUTO) HEMOGLOBIN [MASS/VOLU ME] IN BLOOD 15.0 g/dL 12.8 - 17 10/14 Specimen Type: BLOOD No comment entered. Ordering Provider: TAHIRA WILLETT Report Released Date/Time: Sep 27, 2023 11:19 AM Reporting Lab: [facility] [place] [facility] [address] [facility] [address] Performing Lab: [facility] [place] [facility] [address] [facility] [address] [facility] CBC AND DIFF (AUTO) HEMATOCRIT [VOLUME FRACTION] OF BLOOD BY AUTOMATED COUNT 44.6 39.2 - 50.4 10/14 Specimen Type: BLOOD No comment entered. Ordering Provider: TAHIRA WILLETT Report Released Date/Time: Sep 27, 2023 11:19 AM Reporting Lab: [facility] [place] [facility] [address] [facility] [address] Performing Lab: [facility] [address] [facility] [address] [facility] CBC AND DIFF (AUTO) MCV [ENTITIC VOLUME] BY AUTOMATED COUNT 93.9 fL 82 - 99 10/14 Specimen Type: BLOOD No comment entered. Ordering Provider: TAHIRA WILLETT Report Released Date/Time: Sep 27, 2023 11:19 AM Reporting Lab: [facility] [address] [facility] [address] Performing Lab: [facility] [address] [facility] [address] [facility] CBC AND DIFF (AUTO) MCHC [MASS/VOLU ME] BY AUTOMATED COUNT 33.6 g/dL 30.8 - 35.1 10/14 Specimen Type: BLOOD No comment entered. Ordering Provider: TAHIRA WILLETT Report Released Date/Time: Sep 27, 2023 11:19 AM Reporting Lab: [facility] [address] [facility] [address] Performing Lab: [facility] [address] [facility] [address] [facility] CBC AND DIFF (AUTO) PLATELETS [#/VOLUME] IN BLOOD BY AUTOMATED COUNT 252 10*3/uL 140 - 360 10/14 Specimen Type: BLOOD No comment entered. Ordering Provider: TAHIRA WILLETT Report Released Date/Time: Sep 27, 2023 11:19 AM Reporting Lab: [facility] [address] [facility] [address] Performing Lab: [facility] [place] [facility] [address] [facility] [address] [facility] CBC AND DIFF (AUTO) ERYTHROCYT E DISTRIBUTI ON WIDTH [RATIO] BY AUTOMATED COUNT 11.9 12.0 - 16.0 10/14 L Specimen Type: BLOOD No comment entered. Ordering Provider: TAHIRA WILLETT Report Released Date/Time: Sep 27, 2023 11:19 AM Reporting Lab: [facility] [address] [facility] [address] Performing Lab: [facility] [address] [facility] [address] [facility] CBC AND DIFF (AUTO) MONOCYTES [#/VOLUME] IN BLOOD BY AUTOMATED COUNT 0.79 10*3/uL 0.30 - 1.10 10/14 Specimen Type: BLOOD No comment entered. Ordering Provider: TAHIRA WILLETT Report Released Date/Time: Sep 27, 2023 11:19 AM Reporting Lab: [facility] [address] [facility] [address] Performing Lab: [facility] [address] [facility] [address] [facility] CBC AND DIFF (AUTO) MCH [ENTITIC MASS] BY AUTOMATED COUNT 31.6 pg 26.2 - 32.6 10/14 Specimen Type: BLOOD No comment entered. Ordering Provider: TAHIRA WILLETT Report Released Date/Time: Sep 27, 2023 11:19 AM Reporting Lab: [facility] [place] [facility] [address] [facility] [address] Performing Lab: [facility] [place] [facility] [address] [facility] [address] [facility] CBC AND DIFF (AUTO) NEUTROPHIL S/100 LEUKOCYTES IN BLOOD BY AUTOMATED COUNT 60.2 43.7 - 75.8 10/14 Specimen Type: BLOOD No comment entered. Ordering Provider: TAHIRA WILLETT Report Released Date/Time: Sep 27, 2023 11:19 AM Reporting Lab: [facility] [place] [facility] [address] [facility] [address] Performing Lab: [facility] [address] [facility] [address] [facility] CBC AND DIFF (AUTO) LYMPHOCYTE S/100 LEUKOCYTES IN BLOOD BY AUTOMATED COUNT 29.5 14.0 - 42.3 10/14 Specimen Type: BLOOD No comment entered. Ordering Provider: TAHIRA WILLETT Report Released Date/Time: Sep 27, 2023 11:19 AM Reporting Lab: [facility] [place] [facility] [address] [facility] [address] Performing Lab: [facility] [place] [facility] [address] [facility] [address] [facility] CBC AND DIFF (AUTO) MONOCYTES/ 100 LEUKOCYTES IN BLOOD BY AUTOMATED COUNT 8.5 5.1 - 13.7 10/14 Specimen Type: BLOOD No comment entered. Ordering Provider: TAHIRA WILLETT Report Released Date/Time: Sep 27, 2023 11:19 AM Reporting Lab: [facility] [address] [facility] [address] Performing Lab: [facility] [address] [facility] [address] [facility] CBC AND DIFF (AUTO) EOSINOPHIL S/100 LEUKOCYTES IN BLOOD BY AUTOMATED COUNT 0.9 0.4 - 6.8 10/14 Specimen Type: BLOOD No comment entered. Ordering Provider: TAHIRA WILLETT Report Released Date/Time: Sep 27, 2023 11:19 AM Reporting Lab: [facility] [address] [place] [phone] Performing Lab: [facility] [place] [address] [address] [facility] CBC AND DIFF (AUTO) BASOPHILS/ 100 LEUKOCYTES IN BLOOD BY AUTOMATED COUNT 0.5 0.1 - 2.0 10/14 Specimen Type: BLOOD No comment entered. Ordering Provider: TAHIRA WILLETT Report Released Date/Time: Sep 27, 2023 11:19 AM Reporting Lab: [facility] [address] [place] [address] Performing Lab: [facility] [address] [facility] [address] [facility] CBC AND DIFF (AUTO) NEUTROPHIL S [#/VOLUME] IN BLOOD BY AUTOMATED COUNT 5.59 10*3/uL 2.20 - 7.60 10/14 Specimen Type: BLOOD No comment entered. Ordering Provider: TAHIRA WILLETT Report Released Date/Time: Sep 27, 2023 11:19 AM Reporting Lab: [facility] [address] [address] Performing Lab: [facility] [address] [facility] [address] [facility] CBC AND DIFF (AUTO) LYMPHOCYTE S [#/VOLUME] IN BLOOD BY AUTOMATED COUNT 2.74 10*3/uL 1.00 - 3.20 10/14 Specimen Type: BLOOD No comment entered. Ordering Provider: TAHIRA WILLETT Report Released Date/Time: Sep 27, 2023 11:19 AM Reporting Lab: [facility] [address] [facility] [address] Performing Lab: [facility] [place] [facility] [address] [facility] [address] [facility] CBC AND DIFF (AUTO) EOSINOPHIL S [#/VOLUME] IN BLOOD BY AUTOMATED COUNT 0.08 10*3/uL 0.03 - 0.44 10/14 Specimen Type: BLOOD No comment entered. Ordering Provider: TAHIRA WILLETT Report Released Date/Time: Sep 27, 2023 11:19 AM Reporting Lab: [facility] [place] [facility] [address] [facility] [address] Performing Lab: [facility] [place] [facility] [address] [facility] [address] [facility] CBC AND DIFF (AUTO) BASOPHILS [#/VOLUME] IN BLOOD BY AUTOMATED COUNT 0.05 10*3/uL 0.01 - 0.13 10/14 Specimen Type: BLOOD No comment entered. Ordering Provider: TAHIRA WILLETT Report Released Date/Time: Sep 27, 2023 11:19 AM Reporting Lab: [facility] [address] [place] [phone] Performing Lab: [facility] [address] [place] [address] [facility] CBC AND DIFF (AUTO) IMMATURE GRANULOCYT ES/100 LEUKOCYTES IN BLOOD BY AUTOMATED COUNT 0.4 0.0 - 0.7 10/14 Specimen Type: BLOOD No comment entered. Ordering Provider: TAHIRA WILLETT Report Released Date/Time: Sep 27, 2023 11:19 AM Reporting Lab: [facility] [address] [facility] [address] Performing Lab: [facility] [address] [facility] [address] [facility] CBC AND DIFF (AUTO) IMMATURE GRANULOCYT ES [#/VOLUME] IN BLOOD 0.04 10*3/uL 0.00 - 0.06 10/14 Specimen Type: BLOOD No comment entered. Ordering Provider: TAHIRA WILLETT Report Released Date/Time: Sep 27, 2023 11:19 AM Reporting Lab: [facility] [facility] [address] [facility] [address] Performing Lab: [facility] [facility] [address] [facility] [address] [facility] Vital Signs Combined list of inpatient and outpatient Vital Signs from Department of Defense and Veterans Affairs, ranging from 12 months to all on record, depending upon the facility. Vital Sign Value Date Comments Source SYSTOLIC BLOOD PRESSURE 137 03/17/20 24 08:00:59 [facility] DIASTOLIC BLOOD PRESSURE 72 024 08:00:59 [facility] PULSE OXIMETRY 98 03/17/2024 08:00:59 [facility] [id number] 03/29 [facility] En[facility] [id number] 04/16 [facility] OFF/OP EST OCTOBER X REQ PHY/QHP [id number] Diagnos is: ICD-10- CM Z23 Encount er for immuniz atMIREYA Browne P 04/19 [facility] OFFICE O/P EST MOD 30-39 MIN [id number] Diagnos is: ICD-10- CM H93.19 Tinnitu s, unspeci fied ear AHMED,MOHA MMED JAWED 05/01 [facility] En[facility] [id number] 05/01 [facility] OFFICE O/P NEW MOD 45-59 MIN [id number] Diagnos is: ICD-10- CM 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 TERRELL GRECO D 05/16 [facility] En[facility] [id number] 05/27 [facility] En[facility] [id number] 06/14 [facility] OFF[facility] O/P EST LOW 20-29 MIN [id number] Diagnos is: ICD-10- CM S90.822 D Blister (nonthe rmal), left foot, subsequ ent encount er TERRELL GRECO RLANASTASIA D 06/17 [facility] En[facility] [id number] 06/29 [facility] En[facility] [id number] 07/24 [facility] En[facility] [id number] 07/24 [facility] Encounter [id number] 10/03 [facility] Encounter [id number] 10/14 [facility] OFF[facility] O/P EST MOD 30 MIN [id number] Diagnos is: ICD-10- CM E11.9 Type 2 diabete s mellitu s without complic ations ANA WILLETT MMED JAWED 10/14 [facility] En[facility] [id number] 10/30 [facility] En[facility] [id number] 12/30 [facility] Encounter [id number] 03/06 [facility] OFFICE O/P EST MOD 30 MIN [id number] Diagnos is: ICD-10- CM I10 Essenti al (primar y) hyperte nsion FURCOLO,TI NA 03/17 [facility] En[facility] [id number] 06/29 [facility] NQHP OL DIG ASSMT&MGMT 5-10 [id number] Diagnos is: ICD-10- CM I10 Essenti al (primar y) hyperte nsion SOVEROW,CLAIRE RISTY A 07/13 [facility] Outpatient Encounter [id number] 09/04 [facility] Social History Combined list of available smoking, tobacco, and other social history from Department of Defense and Veterans Affairs facilities. Social History Type Response Date Comment Source Tobacco smoking status [email or web address] VA-TOBACCO NEVER USED 10/15/2023 [facility] [place] [facility] History of tobacco use PA-TOBACCO NEVER USED 10/25/2022 [facility] [place] [facility] History of tobacco use PA-TOBACCO NEVER USED 10/18/2021 [facility] [place] [facility] History of tobacco use VA-TOBACCO NEVER USED 10/12/2020 [facility] [place] [facility] History of tobacco use PA-TOBACCO NEVER USED 10/14/2018 [facility] [place] [facility] History of tobacco use VA-TOBACCO NEVER USED 04/11/2018 [facility] [place] [facility] History of tobacco use LIFETIME NON-TOBACCO USER 05/01/2017 [facility] [place] [facility] History of tobacco use LIFETIME NON-TOBACCO USER 04/24/2016 [facility] [place] [facility] History of tobacco use QUIT TOBACCO USE > 7 YEARS AGO 01/31/2015 occasional while in [place] [facility] [place] [facility] Plan of Care List of future care activities from Department of Veterans Affairs facilities. Additional future care activities may be listed in the Assessment and Plan section. Date/Time Care Activity Care Activity Detail Facili ty 09/15/2024 AMBULATORY - MEDICINE AMBULATORY - MEDICI NE [facility] [place] [facility] 09/02/2024 Laboratory - Cumulative Effects Analyst ry Order BASIC METABOLIC PANEL (non-fasting) BLOOD (SST-SERUM) SP [facility] [place] [facility] 09/02/2024 Laboratory - Cumulative Effects Analyst ry Order LIPID PANEL, NON FASTING BLOOD (SST-SERUM) SP [facility] [place] [facility] 09/02/2024 Laboratory - Cumulative Effects Analyst ry Order HEMOGLOBIN A1C PANEL BLOOD (LAV-BLOOD) SP [facility]
--- NOTE | 2024-09-07 08:27 | A.OFFVIS_ITS ---
Vital Signs 09/07/24 08:28 Height 5 ft 10 in Weight 191 lb 12.835 oz BMI 27.5 BP 120/78 Blood Pressure Location Lt brachial Position Sitting Pulse 72 Intake Visit Reasons: f/up after tests needs to be cleared to travel Intake Note: Follow-up after test looking to travel next month c/o waking up with heart racing Premium Representative Required: No Allergies Penicillins Allergy (Verified 05/09/22 08:26) hives Medication List - Last Reconciled 09/07/24 by Danny Fried MD aspirin 81 mg PO BID cholecalciferol (vitamin D3) 25 mcg PO DAILY coenzyme Q10 10 mg PO DAILY empagliflozin 25 mg PO DAILY@1200 ezetimibe 10 mg PO DAILY fenofibrate nanocrystallized 145 mg PO DAILY glipizide 2.5 mg PO BIDAC lisinopril 5 mg PO DAILY metoprolol succinate ER (Toprol XL) 50 mg PO DAILY multivitamin 1 tab PO DAILY rosuvastatin (Crestor) 40 mg PO DAILY HPI Comments Details: Gian comes for follow-up. His echocardiogram shows normal LV ejection fraction with no wall motion abnormality. Holter monitor shows occasional PVCs. Continues to have symptoms of palpitation. Although he continues to have symptoms exertional epigastric discomfort when he walks about 3/4 of a mi. He is currently not walking much. Taking all his medications. He has not undergone a stress test as yet. 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 Review of Systems Const Denies chills, Denies fatigue, Denies fever(s), Denies frequent falls, Denies weakness, Denies weight gain and Denies weight loss ENT Denies dizziness Card Denies chest pain, Denies leg edema, Denies lightheadedness, Denies palpitations, Denies dyspnea, Denies dyspnea on exertion, Denies orthopnea and Denies other (loss of consciousness) Resp Denies cough, Denies dyspnea and Denies dyspnea on exertion GI Denies hematochezia and Denies change in stool character Musc Denies abnormal gait, Denies muscle weakness, Denies numbness, Denies radiating pain into limb and Denies tingling Neuro Denies Abnormal speech present, Denies abnormal gait, Denies dizziness, Denies frequent falls, Denies numbness, Denies tingling and Denies weakness Endo Denies fatigue and Denies palpitations Physical Exam Vital Signs: Last Vital Signs Pulse 72 09/07/24 08:28 BP 120/78 09/07/24 08:28 BMI result Body Mass Index 27.5 Const General: cooperative, comfortable, no acute distress, alert, awake and Physically active Nutritional Appearance: overweight Orientation/consciousness: patient oriented x3 Limitations: no limitations HEENT Head: Yes normocephalic and Yes atraumatic Neck Neck: Yes trachea midline, Yes supple and Yes no JVD Carotids: no bruits Resp Effort & Inspection: normal respiratory effort Auscultation: clear to auscultation bilaterally Cardio Jugular venous distension: no JVD Palpation: normal PMI Rate: regular rate Rhythm: regular rhythm Heart sounds: S1 normal heart sound present, S2 normal heart sound present, no click, no gallops, no murmurs and no rubs GI Auscultation: normal bowel sounds Skin General skin exam: no rashes or lesions noted Neuro General: patient oriented x3 and no focal motor deficits Speech: No Abnormal speech present Extrem General: Yes no clubbing, cyanosis or edema Psych Appearance: grossly normal Affect: Anxious affect present Assessment & Plan Assessment & Plan (1) Angina pectoris: Code(s): I20.9 - Angina pectoris, unspecified Category: Medical Plan: Patient's symptoms highly concerning for coronary artery disease. He was multiple risk factors for the same. Advised to avoid strenuous exertion. Will set up for exercise myocardial perfusion imaging as soon as possible in the near future. Continue aspirin and in his diabetic medications. His blood pressure is currently well optimized. (2) PVCs (premature ventricular contractions): Code(s): I49.3 - Ventricular premature depolarization Category: Medical Plan: Isolated PVCs highly symptomatic. Benign nature PVC in the setting of normal structure of the heart was discussed. Will suggest workup for myocardial ischemia as above for further management. Continue metoprolol therapy. Avoidance of stimulants was discussed. Stress mitigation strategies were discussed. Will follow up in the clinic after stress test depending on her results. Orders: Orders NM cardiolite stress test 2 Weeks I20.9 - Angina pectoris, unspecified, R07.9 - Chest pain, unspecified CA stress test Today I20.9 - Angina pectoris, unspecified Coding Level of Care Code Est Pt Level 4 (78565) Complex EM visit Add On G2211 Diagnoses Angina pectoris I20.9 PVCs (premature ventricular contractions) I49.3
[2024-09-07 08:28] VITALS: BP 120/78; PULSE 72; BMI 27.5
== END 2024-09-07 09:07 | disposition home or self-care (01) ==
PROVIDERS: PCP Internal Medicine; Visit Provider Internal Medicine Cardiovascular Disease
DX: I20.9 Angina pectoris, unspecified (principal); I49.3 Ventricular premature depolarization
CPT/HCPCS: 99214; G2211

== ENCOUNTER → 2024-09-07 08:12 | Outpatient (BNVA) | payer MEDICARE, SELFPAY | PROVIDERS: PCP Internal Medicine; Visit Provider Internal Medicine Cardiovascular Disease | DX: I20.9 Angina pectoris, unspecified (principal); I49.3 Ventricular premature depolarization | CPT/HCPCS: 99212 ==

== ENCOUNTER → 2024-09-08 08:27 | Outpatient (REF) | payer MEDICARE, SELFPAY ==
--- NOTE | 2024-09-08 08:29 | CA_ITS ---
Acquisition Time: 2024-09-08 08:34:45 Total Exercise Time: 00:11:16 Test Indications: CP PVC'S Medications: ASA JARDIANCE EZETIMIBE GLIPIZIDE LISINOPRIL METOPROLOL Protocol: ALONSO Max HR: 139 BPM 95% of Pred: 145 BPM Max BP: 148/60 mmHG Max Work Load: 4.8 METS Exercise Stress Test with exercise 5 mins of Alonso Protocol, modified speed and incline after Stage 2 due to Right hip discomfort, achieving 95% MPHR, with reports of SOB, right hip discomfort, and 1/10 dull ache at the epigastric that prt noted after exercise, with isolated PVCs, with normotensive response to exercise. Without EKG chnages meeting criteria for ischemia. Pt related his ache to hunger and states that it lasts throughout the day sometimes. In recovry, breathing returned to baseline. Nuclear images pending. Test reviewed with Dr. Hardy. Referred By: Danny Fried Electronically Signed By: Mayo Carty
== END ==
LOC: HO.CARD 08:27
PROVIDERS: Visit Provider Internal Medicine Cardiovascular Disease
DX: R07.9 Chest pain, unspecified (principal); I20.9 Angina pectoris, unspecified
CPT/HCPCS: 78452; 93017; A9500

== ENCOUNTER → 2024-09-08 08:29 | Outpatient (BNV) | payer MEDICARE, SELFPAY | DX: R06.02 Shortness of breath (principal); R10.13 Epigastric pain; I49.3 Ventricular premature depolarization | CPT/HCPCS: 78452; 93016; 93018 ==

== ENCOUNTER 2024-09-25 08:13 | Outpatient (AMB) | payer MEDICARE, SELFPAY ==
[2024-09-25 08:34] VITALS: BP 130/52; PULSE 76; BMI 27.5
--- NOTE | 2024-09-25 08:34 | A.OFFVIS_ITS ---
Vital Signs 09/25/24 08:34 Height 5 ft 10 in Weight 191 lb 12.835 oz BMI 27.5 BP 130/52 L Blood Pressure Location Lt brachial Position Sitting Pulse 76 Pulse Source Pulse Oximeter Intake Visit Reasons: f/u abnormal stress test NS Transplant Rn Required: No Accompanied by: self Allergies Penicillins Allergy (Verified 05/09/22 08:26) hives Medication List - Last Reconciled 09/25/24 by Mady Matos NP-C aspirin 81 mg PO BID cholecalciferol (vitamin D3) 25 mcg PO DAILY coenzyme Q10 10 mg PO DAILY empagliflozin 25 mg PO DAILY@1200 ezetimibe 10 mg PO DAILY fenofibrate nanocrystallized 145 mg PO DAILY glipizide 2.5 mg PO ONCE lisinopril 5 mg PO DAILY metoprolol succinate ER (Toprol XL) 50 mg PO DAILY multivitamin 1 tab PO DAILY psyllium husk (Metamucil) 0.4 grams PO DAILY rosuvastatin (Crestor) 40 mg PO DAILY HPI HPI f/u abnormal stress test NS: Details: Gian is a 74 yo male with PMH of HTN, DM, HLD, FH CAD who recently reported chest discomfort with exertion and underwent cardiac testing showing abnormal nuclear stress test. He now presents for follow up. Today he reports that he has had some discomfort in the epigastric area with exertion that he believes to be more GI in nature. He was getting this symptom when walking the dog, but now he stopped and he doesnt get that feeling. He denies sob, PND, orthopnea or edema. No concerning palpitations, no lightheadedness, presyncope, syncope. He has been doing only light activity recently. [place]. He follows with his provider at [place] routinely. 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 Review of Systems Const All systems reviewed & are unremarkable except as noted in HPI and below Denies chills, Denies fatigue, Denies fever(s), Denies weight gain and Denies weight loss ENT Denies dizziness Card Details: chest pressure with exertion Denies chest pain, Denies leg edema, Denies lightheadedness, Denies palpitations, Denies dyspnea on exertion, Denies orthopnea and Denies other Resp Denies cough and Denies dyspnea on exertion GI Denies hematochezia and Denies change in stool character Musc Denies abnormal gait, Denies muscle weakness, Denies numbness, Denies radiating pain into limb and Denies tingling Neuro Denies abnormal gait, Denies dizziness, Denies numbness and Denies tingling Endo Denies fatigue and Denies palpitations Physical Exam Vital Signs: Last Vital Signs Pulse 76 09/25/24 08:34 BP 130/52 L 09/25/24 08:34 BMI result Body Mass Index 27.5 Const General: cooperative, healthy appearing, comfortable and no acute distress Orientation/consciousness: patient oriented x3 Neck Neck: Yes normal visual inspection and Yes no JVD Resp Effort & Inspection: normal respiratory effort Auscultation: clear to auscultation bilaterally, no rales, no rhonchi and no wheezes Cardio Rate: regular rate Rhythm: regular rhythm Heart sounds: S1 normal heart sound present, S2 normal heart sound present, no gallops, no murmurs and no rubs Neuro General: patient oriented x3 Extrem General: Yes normal to inspection Psych Appearance: grossly normal Mental Status: mental status grossly normal Speech and movement: Normal speech and movement present Assessment & Plan Assessment & Plan (1) Angina pectoris: Code(s): I20.9 - Angina pectoris, unspecified Category: Medical Plan: Reports of exertional chest area discomfort. Cardiac risks of HTN, HLD, DM, FH CAD. Cardiac testing: Echocardiogram 07/16/24 with EF 60-65%, normal valve, no regional WMA. EKG shows sinus rhythm, prior inferior infarct, can not exclude anterior infarct. He underwent nuclear stress test on 09/08/2024 with exercise 5 minutes, no EKG changes, nuclear scan showing inferior and inferior lateral infarct with megan-infarct ischemia. Test results reviewed with him. Recommendation for cardiac catheterization for further evaluation. Spent time going over catheterization procedure, risks including MD, CVA, JAYDE, bleeding, infection. He tells me he is agreeable to proceed. Will order left heart catheterization and preprocedure labs. He does not have contrast dye allergy. -at the checkout desk he opted to not schedule cardiac catheterization at this time. He was concerned over not having a ride available. Will plan to recall him next week regarding this decision. Continue aspirin indefinitely. Continue Crestor and Zetia. Continue metoprolol and lisinopril. Signs and symptoms of angina were reviewed. Cardiology follow-up 2 weeks post cardiac catheterization. (2) Palpitations: Code(s): R00.2 - Palpitations Category: Medical Plan: Occasional intermittent heart palpitations. Holter monitor done 08/25/2024 for 3 days shows sinus rhythm with average heart rate 68, occasional PVCs. He is likely feeling these extrasystoles. Continue metoprolol. (3) Abnormal nuclear stress test: Code(s): R94.39 - Abnormal result of other cardiovascular function study Category: Medical Plan: As above (4) Diabetes mellitus: Code(s): E11.9 - Type 2 diabetes mellitus without complications Category: Medical Plan: Hemoglobin A1c goal less than 7. Labs done 07/06/2024 showed hemoglobin A1c 7.8. Informed him that diabetes can increase his risk for heart disease. (5) HTN (hypertension): Code(s): I10 - Essential (primary) hypertension Category: Medical Plan: Adequately controlled at present. [place] goal less than 130/80. Continue lisinopril and metoprolol. (6) PVCs (premature ventricular contractions): Code(s): I49.3 - Ventricular premature depolarization Category: Medical Plan: Occasional. Plan Time spent on chart review, documentation, interviewing assessment Orders: Orders Cardiac Cath LT Diagnostic Today I20.9 - Angina pectoris, unspecified, R94.39 - Abnormal result of other cardiovascular function study Complete Blood Count Auto Diff Today R94.39 - Abnormal result of other cardiovascular function study Basic Metabolic Panel Today R94.39 - Abnormal result of other cardiovascular function study Prothrombin Time INR Today R94.39 - Abnormal result of other cardiovascular function study Coding Level of Care Code Est Pt Level 4 (64111) Complex EM visit Add On G2211 Diagnoses Angina pectoris I20.9 Palpitations R00.2 Abnormal nuclear stress test R94.39 Diabetes mellitus E11.9 HTN (hypertension) I10 PVCs (premature ventricular contractions) I49.3 Time Spent (min) 36
== END 2024-09-25 09:28 | disposition home or self-care (01) ==
LOC: HO.HCS 08:13
PROVIDERS: Visit Provider Nurse Practitioner Family
DX: I20.9 Angina pectoris, unspecified (principal); R00.2 Palpitations; R94.39 Abnormal result of other cardiovascular function study; E11.9 Type 2 diabetes mellitus without complications; I10 Essential (primary) hypertension; I49.3 Ventricular premature depolarization
CPT/HCPCS: 99214; G2211

== ENCOUNTER → 2024-09-25 08:13 | Outpatient (BNVA) | payer MEDICARE, SELFPAY | PROVIDERS: Visit Provider Nurse Practitioner Family | DX: R94.39 Abnormal result of other cardiovascular function study (principal); R00.2 Palpitations; I20.9 Angina pectoris, unspecified; I10 Essential (primary) hypertension; I49.3 Ventricular premature depolarization; E11.9 Type 2 diabetes mellitus without complications | CPT/HCPCS: 99212 ==

== ENCOUNTER 2024-10-07 14:38 | Outpatient (REF) | payer MEDICARE, SELFPAY ==
[2024-10-07 15:01] LABS: MANUAL DIFF FLAG NO
[2024-10-07 15:39] LABS: Basophils Absolute Auto 0.1 X10*3/uL (0.0-0.2); Basophils Percent Auto 0.7 % (0-2); Eosinophils Absolute Auto 0.2 X10*3/uL (0.0-0.4); Eosinophils Percent Auto 1.7 % (0-4); Hematocrit 44.2 % (42.0-52.0); Hemoglobin 14.8 g/dl (14.0-18.0); Imm Gran Abs Auto 0.02 X10*3/uL (0.00-0.03); Imm Gran Pct Auto 0.2 % (0.0-0.4); Lymphocytes Absolute Auto 2.7 X10*3/uL (1.2-4.9); Lymphocytes Percent Auto 27.7 % (20-40); Mean Corpuscular HGB Conc 33.5 g/dl (31.0-36.0); Mean Corpuscular Hemoglobin 31.6 pg (27.0-33.0); Mean Corpuscular Volume 94.2 fL (80.0-98.0); Monocytes Absolute Auto 0.9 X10*3/uL (0.1-1.2); Monocytes Percent Auto 9.4 % (2-11); Neutrophils Absolute Auto 5.9 x10*3/uL (2.0-8.3); Neutrophils Percent Auto 60.3 % (45-73); Platelet Count 217 X10*3/uL (160-400); Red Blood Count 4.69 X10*6/uL (4.60-5.80); White Blood Count 9.8 X10*3/uL (4.8-10.8)
[2024-10-07 15:50] LABS: INTERNATIONAL NORM RATIO 0.9 (0.9-1.1); Prothrombin Time 10.7 SEC (10.9-12.4)
[2024-10-07 16:28] LABS: Anion Gap 15 (12-20); Blood Urea Nitrogen 39 mg/dL (9-16); Calcium 9.6 mg/dL (8.4-10.2); Carbon Dioxide 23 mmol/L (22-29); Chloride 108 mmol/L (96-108); Estimated Glomerular Filt Rate 37; Glucose Random 173 mg/dL (60-115); Potassium 4.6 mmol/L (3.3-5.1); Sodium 141 mmol/L (135-145)
--- OUTSIDE RECORDS SUMMARY | 2024-10-07 16:53 | XMS_ITS | Continuity of Care Document ---
Author Name [facility] Organization [facility] Care Team Providers Care Floor Grinder Name Role Phone [facility] Unavailable Unavailable Problems Combined list of problems from Department of Defense and Veterans Affairs facilities. It does not include entries that were removed or entered in error. 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 Diagnosis [facility] [...] ICD-10-CM Z23 Encounter for immunization [facility] [place] [facility] Medications Combined list of outpatient medications from [...] DAILY ORAL ACTIVE PRASHANT WILLETT [facility]AWED 2018 [facility] CHOLECALCIF VESNA 25MCG (1,000UNIT) TAB TAKE ONE TABLET BY MOUTH EVERY DAY [facility]IVE [facility] COENZYME Q10 CAP/TAB TAKE ONE BY MOUTH EVERY DAY ORAL ACTIVE PRASHANT WILLETT [facility]AWED 2014 [facility] EMPAGLIFLOZ IN 10MG TAB TAKE ONE TABLET BY MOUTH ONCE DAILY FOR DIABETES ORAL DISCONT INUED (EDIT) 10/15/2024 [id number] 4 [facility] 2023 90 [facility] EMPAGLIFLOZ IN 10MG TAB TAKE ONE TABLET BY MOUTH ONCE DAILY FOR DIABETES ORAL DISCONT INUED 07/24/2024 [id number] 4 [facility] AMDAGOBERTO JAWED 2023 90 [facility] EMPAGLIFLOZ IN 25MG TAB TAKE ONE TABLET BY MOUTH ONCE DAILY FOR DIABETES DOSE INCREASE ORAL ACTIVE 03/18/2025 [id number] FURCOLO,T LISS 2023 90 [facility] [place] EZETIMIBE 10MG TAB TAKE ONE TABLET BY MOUTH ONCE DAILY TO LOWER CHOLESTE ROL ORAL ACTIVE 09/16/2025 [id number] 5 FURCOLO,T LISS 2024 90 [facility] EZETIMIBE 10MG TAB TAKE ONE TABLET BY MOUTH ONCE DAILY TO LOWER CHOLESTE ROL ORAL DISCONT INUED 07/14/2025 [id number] FURCOLO,T LISS 2024 30 [facility] FENOFIBRATE 145MG TAB TAKE ONE TABLET BY MOUTH ONCE DAILY TO LOWER CHOLESTE ROL ORAL ACTIVE 01/02/2025 [id number] 5 FURCOLO,T LISS 2023 90 [facility] FENOFIBRATE 145MG TAB TAKE ONE TABLET BY MOUTH ONCE DAILY TO LOWER CHOLESTE ROL ORAL DISCONT INUED 05/27/2024 [id number] [facility] JAWED 2022 90 [facility] FISH OIL 1000MG (500MG DHA/EPA) CAP,ORAL TAKE 1 CAPSULE BY MOUTH TWICE DAILY [facility] GLIPIZIDE 5MG TAB TAKE ONE TABLET BY MOUTH TWICE DAILY BEFORE A MEAL ORAL ACTIVE 09/29/2025 [id number] ALEXX [place] 2024 180 [facility] GLIPIZIDE 5MG TAB TAKE ONE TABLET BY MOUTH ONCE DAILY FOR TYPE 2 DIABETES MELLITUS ORAL DISCONT INUED BY PROVIDE R 03/18/2025 [id number] FURCOLO,T LISS 2023 90 [facility] [place] GLIPIZIDE 5MG TAB TAKE ONE-HALF TABLET BY MOUTH TWICE DAILY ORAL DISCONT INUED (EDIT) 10/15/2024 [id number] 4 [facility] JAWED 2023 90 [facility] GLIPIZIDE 5MG TAB TAKE ONE-HALF TABLET BY MOUTH TWICE DAILY ORAL DISCONT INUED 02/05/2024 [id number] [facility] AMMED JAWED 2022 90 [facility] LISINOPRIL 5MG TAB TAKE ONE TABLET BY MOUTH ONCE DAILY TO CONTROL BLOOD PRESSURE ORAL ACTIVE 01/02/2025 [id number] FURCOLO,T LISS 2023 90 [facility] [place] LISINOPRIL 5MG TAB TAKE ONE TABLET BY MOUTH ONCE DAILY TO CONTROL BLOOD PRESSURE ORAL DISCONT INUED 03/29/2024 [id number] PRASHANT WILLETT JAWED 2022 90 [facility] METOPROLOL SUCCINATE 50MG TAB,SA TAKE ONE TABLET BY MOUTH ONCE DAILY FOR BLOOD PRESSURE /HEART ORAL ACTIVE 07/14/2025 [id number] FURCOLO,T LISS 2024 [facility] MULTIVITAMI NS CAP/TAB TAKE ONE TABLET BY MOUTH EVERY DAY ORAL ACTIVE [facility] OMEPRAZOLE 20MG CAP,EC TAKE 1 CAPSULE BY MOUTH EVERY MORNING 30 MINUTES BEFORE BREAKFAS T ORAL ACTIVE [facility] ROSUVASTATI N CA 20MG TAB TAKE ONE TABLET BY MOUTH ONCE DAILY FOR HIGH CHOLESTE ROL (NOTE TABLET STRENGTH ) ORAL DISCONT INUED (EDIT) 06/30/2025 [id number] FURCOLO,T LISS 2023 90 [facility] ROSUVASTATI N CA 20MG TAB TAKE ONE TABLET BY MOUTH ONCE DAILY FOR HIGH CHOLESTE ROL (NOTE TABLET STRENGTH ) ORAL DISCONT INUED 07/01/2024 [id number] 4 [facility] [place]ONICA [facility]AWED 2023 [facility] ROSUVASTATI N CA 40MG TAB TAKE ONE TABLET BY MOUTH ONCE DAILY FOR HIGH CHOLESTE ROL (NOTE TABLET STRENGTH ) ORAL ACTIVE 07/14/2025 [id number] FURCOLO,T LISS 2024 90 [facility] TURMERIC CAP/TAB TAKE BY MOUTH ORAL ACTIVE [facility] Allergies, Adverse Reactions, Alerts Combined list of allergies from Department of Defense and Veterans Affairs facilities. It does not include entries that were removed or entered in error. Substance Category Reaction Severity Reaction type Status Date Reported Comments Source PENICILLIN Propensity to adverse reactions to drug (finding) Eruption active 5 [facility] Immunizations Combined list of available immunizations from the Department of Defense and Veterans Affairs facilities. Immunization Series Date Given Administered By Site Reaction Lot Number CVX Code Drug Fiction And Nonfiction Author Status Comments Source COVID-19 (MODERNA), MRNA, LNP-S, PF, 50 MCG/0.5 ML (AGES 12+ YEARS) 2023 FRANKO LUBIN SSA H RIGHT DELTO ID [id number] 312 complet ed [facility] INFLUENZA, HIGH-DOSE, TRIVALENT, PF 2023 FRANKO LUBIN SSA H LEFT DELTO ID [id number] 135 complet ed [facility] INFLUENZA, HIGH-DOSE, QUADRIVALENT 2022 EMELY DYER LEFT DELTO ID [id number] 197 complet ed [facility] COVID-19 (MODERNA), MRNA, LNP-S, PF, 50 MCG/0.5 ML (AGES 12+ YEARS) 1 2022 GIOVANNA FARLEY RIGHT DELTO ID [id number] 312 complet ed [facility] COVID-19 (MODERNA), MRNA, LNP-S, BIVALENT BOOSTER, PF, 50 MCG/0.5 ML OR 25MCG/0.25 ML DOSE 4 2022 MECHE NUNEZ RIGHT DELTO ID [id number] 229 complet ed [facility] INFLUENZA, UNSPECIFIED FORMULATION 2021 88 complet ed [facility] COVID-19 (MODERNA), MRNA, LNP-S, PF, 100 MCG/0.5ML DOSE OR 50 MCG/0.25ML DOSE 2 2021 207 complet ed MOD; [id number]; 2 [facility] COVID-19 (MODERNA), MRNA, LNP-S, PF, 100 MCG OR 50 MCG DOSE 2 2020 207 complet ed MOD; [id number]; 2 [place] COVID-19 (YRIS), VECTOR-NR, [id number], PF, 0.5 ML 1 2020 212 complet ed JSN; [id number]; 1 [facility] [...] Reference Range Date Interpretation Specimen Comments Source OCCULT BLOOD FIT X1 SCREEN(I N-HOUSE) HEMOGLOBIN .GASTROINT ESTINAL.LO WER [PRESENCE] IN STOOL BY IMMUNOASSA Y NEGATIVE 09/16 Specimen Type: FECES No comment entered. Ordering Provider: MARIAJOSE FREDERICK Report Released Date/Time: Sep 15, 2024 09:07 AM Reporting Lab: [facility] [place] [address] [address] Performing Lab: [facility] [place] [address] [address] [address] [facility] [place] [facility] LIPID PANEL, NON FASTING CHOLESTERO L [MASS/VOLU ME] IN SERUM OR PLASMA 133 mg/dL 09/15 Specimen Type: SERUM No comment entered. Ordering Provider: MARIAJOSE FREDERICK Report Released Date/Time: Sep 02, 2024 02:54 PM Reporting Lab: [facility] [place] [address] [address] Performing Lab: [facility] [place] [address] [address] [facility] LIPID PANEL, NON FASTING TRIGLYCERI DE [MASS/VOLU ME] IN SERUM OR PLASMA 165 mg/dL 0 - 150 09/15 H Specimen Type: SERUM No comment entered. Ordering Provider: MARIAJOSE FREDERICK Report Released Date/Time: Sep 02, 2024 02:54 PM Reporting Lab: [facility] [place] [address] [address] Performing Lab: [facility] [place] [address] [address] [address] [facility]ITALRL TRN [facility] LIPID PANEL, NON FASTING CHOLESTERO L IN LDL [MASS/VOLU ME] IN SERUM OR PLASMA BY CALCULATIMOHTY N 65 mg/dL 0 - 129 09/15 Specimen Type: SERUM No comment entered. Ordering Provider: MARIJAOSE FREDERICK Report Released Date/Time: Sep 02, 2024 02:54 PM Reporting Lab: [facility] [place] [address] [address] Performing Lab: [facility] [place] [address] [address] [facility]ITALRL TRN [facility] LIPID PANEL, NON FASTING CHOLESTERO L.TOTAL/CH OLESTEROL IN HDL [MASS RATIO] IN SERUM OR PLASMA 3.8 09/15 Specimen Type: SERUM No comment entered. Ordering Provider: MARIAJOSE FREDERICK Report Released Date/Time: Sep 02, 2024 02:54 PM Reporting Lab: [facility] [place] [address] [address] Performing Lab: [facility] [place] [address] [address] [address] [facility]ITALRL TRN [facility] LIPID PANEL, NON FASTING CHOLESTERO L IN HDL [MASS/VOLU ME] IN SERUM OR PLASMA 35 mg/dL 40 - 60 09/15 L Specimen Type: SERUM No comment entered. Ordering Provider: MARIAJOSE FREDERICK Report Released Date/Time: Sep 02, 2024 02:54 PM Reporting Lab: [address] [address] Performing Lab: [address] [address] [facility] HEMOGLOB IN A1C PANEL HEMOGLOBIN A1C/HEMOGL OBIN.TOTAL IN BLOOD BY HPLC 8.6 4.0 - 5.6 09/15 H Specimen Type: BLOOD Comment: Values obtained from A1C measurement s can vary. For atypical A1C assays, a reported value of 7.0 could actually be between 6.72 and 7.28 if measured by a reference method. A reported value of 9.0 could actually be between 8.73 and 9.27. Ref: http://www. ngsp.org/[place] Pdata.asp Ordering Provider: MARIAJOSE FREDERICK Report Released Date/Time: Sep 02, 2024 02:54 PM Reporting Lab: [address] [address] Performing Lab: [address] [address] [facility] BASIC METABOLI C PANEL (non-fas ting) UREA NITROGEN [MASS/VOLU ME] IN SERUM OR PLASMA 34 mg/dL 7 - 25 09/15 H Specimen Type: SERUM No comment entered. Ordering Provider: MARIAJOSE FREDERICK Report Released Date/Time: Sep 02, 2024 02:54 PM Reporting Lab: [address] [address] Performing Lab: [address] [address] [facility] BASIC METABOLI C PANEL (non-fas ting) GLUCOSE [MASS/VOLU ME] IN SERUM OR PLASMA 173 mg/dL 65 - 100 09/15 H Specimen Type: SERUM No comment entered. Ordering Provider: MARIAJOSE FREDERICK Report Released Date/Time: Sep 02, 2024 02:54 PM Reporting Lab: [facility] [place] [address] [address] Performing Lab: [facility] [place] [address] [address] [facility] BASIC METABOLI C PANEL (non-fas ting) SODIUM [MOLES/VOL UME] IN SERUM OR PLASMA 139 mmol/L 135 - 145 09/15 Specimen Type: SERUM No comment entered. Ordering Provider: MARIAJOSE FREDERICK Report Released Date/Time: Sep 02, 2024 02:54 PM Reporting Lab: [facility] [place] [address] [address] Performing Lab: [facility] [address] [address] [facility]ITALUSE [facility] BASIC METABOLI C PANEL (non-fas ting) POTASSIUM [MOLES/VOL UME] IN SERUM OR PLASMA 4.6 mmol/L 3.5 - 5.0 09/15 Specimen Type: SERUM No comment entered. Ordering Provider: MARIAJOSE FREDERICK Report Released Date/Time: Sep 02, 2024 02:54 PM Reporting Lab: [facility] [address] Performing Lab: [facility]ITAL[facility] [address] [address] [facility]N [place] [facility] BASIC METABOLI C PANEL (non-fas ting) CHLORIDE [MOLES/VOL UME] IN SERUM OR PLASMA 107 mmol/L 100 - 110 09/15 Specimen Type: SERUM No comment entered. Ordering Provider: MARIAJOSE FREDERICK Report Released Date/Time: Sep 02, 2024 02:54 PM Reporting Lab: [facility] [place] [address] [address] Performing Lab: [facility] [address] [address] [facility] [place] [facility] BASIC METABOLI C PANEL (non-fas ting) CARBON DIOXIDE, TOTAL [MOLES/VOL UME] IN SERUM OR PLASMA 22 meq/L 20 - 30 09/15 Specimen Type: SERUM No comment entered. Ordering Provider: MARIAJOSE FREDERICK Report Released Date/Time: Sep 02, 2024 02:54 PM Reporting Lab: [address] [address] Performing Lab: [address] [address] [facility] BASIC METABOLI C PANEL (non-fas ting) CALCIUM [MASS/VOLU ME] IN SERUM OR PLASMA 9.8 mg/dL 8.5 - 10.2 09/15 Specimen Type: SERUM No comment entered. Ordering Provider: MARIAJOSE FREDERICK Report Released Date/Time: Sep 02, 2024 02:54 PM Reporting Lab: [address] [address] Performing Lab: [address] [address] [facility] BASIC METABOLI C PANEL (non-fas ting) CREATININE [MASS/VOLU ME] IN SERUM OR PLASMA 1.69 mg/dL 0.50 - 1.40 09/15 H Specimen Type: SERUM No comment entered. Ordering Provider: MARIAJOSE FREDERICK Report Released Date/Time: Sep 02, 2024 02:54 PM Reporting Lab: [address] [address] Performing Lab: [address] [address] [facility] BASIC METABOLI C PANEL (non-fas ting) GLOMERULAR FILTRATION RATE/1.73 SQ M.PREDICTE D [VOLUME RATE/AREA] IN SERUM, PLASMA OR BLOOD BY CREATININE -BASED FORMULA (CKD-EPI 2020) 42 mL/min 60 09/15 L Specimen Type: SERUM No comment entered. Ordering Provider: MARIAJOSE FREDERICK Report Released Date/Time: Sep 02, 2024 02:54 PM Reporting Lab: [address] [place] [address] Performing Lab: [facility] [place] [address] [facility] [address] [facility] [place] [facility] [place] MICROALB UMIN CREATINI NE RATIO PANEL MICROALBUM IN/CREATIN INE [MASS RATIO] IN URINE 26.1 mg/g 0 - 29.9 03/17 Specimen Type: URINE No comment entered. Ordering Provider: MARIAJOSE FREDERICK Report Released Date/Time: Feb 26, 2024 08:45 AM Reporting Lab: [facility] [place] [address] [address] Performing Lab: [facility] [place] [address] [facility] [address] [facility] [place] [facility] [place] MICROALB UMIN CREATINI NE RATIO PANEL MICROALBUM IN [MASS/VOLU ME] IN URINE 2.4 mg/dL 03/17 Specimen Type: URINE No comment entered. Ordering Provider: MARIAJOSE FREDERICK Report Released Date/Time: Feb 26, 2024 08:45 AM Reporting Lab: [facility] [place] [address] [address] Performing Lab: [facility] [place] [address] [address] [facility] [place] MICROALB UMIN CREATINI NE RATIO PANEL CREATININE [MASS/VOLU ME] IN URINE 92.05 mg/dL 03/17 Specimen Type: URINE No comment entered. Ordering Provider: MARIAJOSE FREDERICK Report Released Date/Time: Feb 26, 2024 08:45 AM Reporting Lab: [facility] [place] [address] [facility] [address] Performing Lab: [facility] [place] [address] [address] [facility] [place] LIPID PANEL, NON FASTING CHOLESTERO L [MASS/VOLU ME] IN SERUM OR PLASMA 175 mg/dL 03/17 Specimen Type: SERUM No comment entered. Ordering Provider: MARIAJOSE FREDERICK Report Released Date/Time: Feb 26, 2024 08:45 AM Reporting Lab: [facility] [place] [address] [facility] [address] Performing Lab: [facility] [place] [address] [facility] [address] [facility] [place] LIPID PANEL, NON FASTING TRIGLYCERI DE [MASS/VOLU ME] IN SERUM OR PLASMA 147 mg/dL 0 - 150 03/17 Specimen Type: SERUM No comment entered. Ordering Provider: MARIAJOSE FREDERICK Report Released Date/Time: Feb 26, 2024 08:45 AM Reporting Lab: [facility] [place] [address] [facility] [address] Performing Lab: [facility] [place] [address] [address] [facility] [place] [facility] LIPID PANEL, NON FASTING CHOLESTERO L IN LDL [MASS/VOLU ME] IN SERUM OR PLASMA BY CALCYOSEF N 104 mg/dL 0 - 129 03/17 Specimen Type: SERUM No comment entered. Ordering Provider: MARIAJOSE FREDERCIK Report Released Date/Time: Feb 26, 2024 08:45 AM Reporting Lab: [facility] [place] [address] [facility] [address] Performing Lab: [facility] [place] [address] [address] [facility] [place] LIPID PANEL, NON FASTING CHOLESTERO L.TOTAL/CH OLESTEROL IN HDL [MASS RATIO] IN SERUM OR PLASMA 4.2 03/17 Specimen Type: SERUM No comment entered. Ordering Provider: MARIAJOSE FREDERICK Report Released Date/Time: Feb 26, 2024 08:45 AM Reporting Lab: [facility] [place] [address] [facility] [address] Performing Lab: [facility] [place] [address] [facility] [address] [facility] [place] LIPID PANEL, NON FASTING CHOLESTERO L IN HDL [MASS/VOLU ME] IN SERUM OR PLASMA 42 mg/dL 40 - 60 03/17 Specimen Type: SERUM No comment entered. Ordering Provider: MARIAJOSE FREDERICK Report Released Date/Time: Feb 26, 2024 08:45 AM Reporting Lab: [facility] TRN [facility]ITAL[facility] [place] [address] [facility] [address] Performing Lab: [facility]ITALRBAYPOINTE HOSPITALTRN [address] [address] [facility]ITALRBAYPOINTE HOSPITALTRN [facility]USE [facility] BASIC METABOLI C PANEL (non-fas ting) UREA NITROGEN [MASS/VOLU ME] IN SERUM OR PLASMA 28 mg/dL 7 - 25 03/17 H Specimen Type: SERUM No comment entered. Ordering Provider: MARIAJOSE FREDERICK Report Released Date/Time: Feb 26, 2024 08:45 AM Reporting Lab: [facility] [address] [address] Performing Lab: [facility]PITALRBAYPOINTE HOSPITALTRN [facility]ITALUSE[address] [address] [facility]ITALRBAYPOINTE HOSPITALTRN [facility] BASIC METABOLI C PANEL (non-fas ting) GLUCOSE [MASS/VOLU ME] IN SERUM OR PLASMA 100 mg/dL 65 - 100 03/17 Specimen Type: SERUM No comment entered. Ordering Provider: MARIAJOSE FREDERICK Report Released Date/Time: Feb 26, 2024 08:45 AM Reporting Lab: [facility] [address] [address] Performing Lab: [facility]ITALRL TRN [facility] [address] [facility]ITALRBAYPOINTE HOSPITALTRN [facility]ITALUSE [facility] BASIC METABOLI C PANEL (non-fas ting) SODIUM [MOLES/VOL UME] IN SERUM OR PLASMA 139 mmol/L 135 - 145 03/17 Specimen Type: SERUM No comment entered. Ordering Provider: MARIAJOSE FREDERICK Report Released Date/Time: Feb 26, 2024 08:45 AM Reporting Lab: [facility]ITALRBAYPOINTE HOSPITALTRN [address] [address] Performing Lab: [facility]ITALRBAYPOINTE HOSPITALTRN [address] [address] [facility] BASIC METABOLI C PANEL (non-fas ting) POTASSIUM [MOLES/VOL UME] IN SERUM OR PLASMA 4.8 mmol/L 3.5 - 5.0 03/17 Specimen Type: SERUM No comment entered. Ordering Provider: MARIAJOSE FREDERICK Report Released Date/Time: Feb 26, 2024 08:45 AM Reporting Lab: [facility]ITALRHILL [facility]YN [facility]USE[address] [address] Performing Lab: [facility] [address] [address] [facility] BASIC METABOLI C PANEL (non-fas ting) CHLORIDE [MOLES/VOL UME] IN SERUM OR PLASMA 108 mmol/L 100 - 110 03/17 Specimen Type: SERUM No comment entered. Ordering Provider: MARIAJOSE FREDERICK Report Released Date/Time: Feb 26, 2024 08:45 AM Reporting Lab: [facility] [address] [address] Performing Lab: [address] [address] [facility] BASIC METABOLI C PANEL (non-fas ting) CARBON DIOXIDE, TOTAL [MOLES/VOL UME] IN SERUM OR PLASMA 19 meq/L 20 - 30 03/17 L Specimen Type: SERUM No comment entered. Ordering Provider: MARIAJOSE FREDERICK Report Released Date/Time: Feb 26, 2024 08:45 AM Reporting Lab: [facility] [address] Performing Lab: [facility] [address] [facility] BASIC METABOLI C PANEL (non-fas ting) CREATININE [MASS/VOLU ME] IN SERUM OR PLASMA 1.56 mg/dL 0.50 - 1.40 03/17 H Specimen Type: SERUM No comment entered. Ordering Provider: MARIAJOSE FREDERICK Report Released Date/Time: Feb 26, 2024 08:45 AM Reporting Lab: [address] [address] Performing Lab: [address] [address] [facility] BASIC METABOLI C PANEL (non-fas ting) GLOMERULAR FILTRATION RATE/1.73 SQ M.PREDICTE D [VOLUME RATE/AREA] IN SERUM, PLASMA OR BLOOD BY CREATININE -BASED FORMULA (CKD-EPI 2020) 46 mL/min 60 03/17 L Specimen Type: SERUM No comment entered. Ordering Provider: MARIAJOSE FREDERICK Report Released Date/Time: Feb 26, 2024 08:45 AM Reporting Lab: [address] [address] Performing Lab: [address] [address] [facility] HEMOGLOB IN A1C PANEL HEMOGLOBIN A1C/HEMOGL [...] Feb 26, 2024 08:45 AM Reporting Lab: [address] [address] Performing Lab: [address] [address] [facility] OCCULT BLOOD FIT X1 SCREEN(I N-HOUSE) HEMOGLOBIN .GASTROINT ESTINAL.LO WER [PRESENCE] IN STOOL BY IMMUNOASSA Y Negative 10/15 Specimen Type: FECES No comment entered. Ordering Provider: TAHIRA WILLETT Report Released Date/Time: Oct 15, 2023 02:39 PM Reporting Lab: [facility] [address] [facility] [address] Performing Lab: [facility] [address] [facility] [address] [facility] LIVER FUNCTION PROTEIN [MASS/VOLU ME] IN SERUM OR PLASMA 7.4 g/dL 6.0 - 8.3 10/14 Specimen Type: SERUM No comment entered. Ordering Provider: TAHIRA WILLETT Report Released Date/Time: Sep 27, 2023 11:19 AM Reporting Lab: [facility] [address] [facility] [address] Performing Lab: [facility] [address] [facility] [address] [facility] LIVER FUNCTION ALBUMIN [MASS/VOLU ME] IN SERUM OR PLASMA 4.2 g/dL 3.5 - 5.0 10/14 Specimen Type: SERUM No comment entered. Ordering Provider: TAHIRA WILLETT Report Released Date/Time: Sep 27, 2023 11:19 AM Reporting Lab: [facility] [address] [facility] [address] Performing Lab: [facility] [address] [address] [facility] LIVER FUNCTION ALKALINE PHOSPHATAS E [ENZYMATIC ACTIVITY/V OLUME] IN SERUM OR PLASMA 37 U/L 40 - 150 10/14 L Specimen Type: SERUM No comment entered. Ordering Provider: TAHIRA WILLETT Report Released Date/Time: Sep 27, 2023 11:19 AM Reporting Lab: [facility] [address] [facility] [address] Performing Lab: [facility] [address] [address] [facility] LIVER FUNCTION ASPARTATE AMINOTRANS FERASE [ENZYMATIC ACTIVITY/V OLUME] IN SERUM OR PLASMA 26 U/L 5 - 34 10/14 Specimen Type: SERUM No comment entered. Ordering Provider: TAHIRA WILLETT Report Released Date/Time: Sep 27, 2023 11:19 AM Reporting Lab: [facility] [place] [facility] [address] [facility] [address] Performing Lab: [facility] [place] [facility] [address] [facility] [address] [facility] LIVER FUNCTION ALANINE AMINOTRANS FERASE [ENZYMATIC ACTIVITY/V OLUME] IN SERUM OR PLASMA 24 U/L 10/14 Specimen Type: SERUM No comment entered. Ordering Provider: TAHIRA WILLETT Report Released Date/Time: Sep 27, 2023 11:19 AM Reporting Lab: [facility] [facility] [address] [facility] [address] Performing Lab: [facility] [facility] [address] [facility] [address] [facility] LIVER FUNCTION BILIRUBIN. TOTAL [MASS/VOLU ME] IN SERUM OR PLASMA 0.4 mg/dL 0.2 - 1.2 10/14 Specimen Type: SERUM No comment entered. Ordering Provider: TAHIRA WILLETT Report Released Date/Time: Sep 27, 2023 11:19 AM Reporting Lab: [facility] [facility] [address] [address] Performing Lab: [facility] [place] [address] [address] [facility] Vital Signs Combined list of inpatient and outpatient Vital Signs from Department of Defense and Veterans Affairs, ranging from 12 months to all on record, depending upon the facility. Vital Sign Value Date Comments Source SYSTOLIC BLOOD PRESSURE 135 09/16/19 25 09:04:15 [facility] DIASTOLIC BLOOD PRESSURE 67 025 09:04:15 [facility] [place] [facility] PULSE OXIMETRY 99 09/15/2024 09:04:15 [facility] WEIGHT 192 09/15/2024 09:04:15 [facility] BMI 28 kg/m2 09/15/2024 09:04:15 [facility] PAIN 0 09/15/2024 09:04:15 [facility] TEMPERATURE 98.2 09/15/2024 09:04:15 [facility] PULSE 64 09/15/2024 09:04:15 [facility] RESPIRATION 16 09/15/2024 09:04:15 [facility] SYSTOLIC BLOOD PRESSURE 137 03/17/20 24 08:00:59 [facility] DIASTOLIC BLOOD PRESSURE 72 024 08:00:59 [facility] PULSE OXIMETRY 98 03/17/2024 08:00:59 [facility] [...] to the last 18 months, not all [place] inpatient encounters are included; 2) Encounters from the Department of Defense facilities going backup to 280 months. Location Location Details Encounter Type Encounter Number Reason For Visit Attending Provider ADM Date DC Date Status Disposition Source [facility] Outpatient Encounter [id number] 04/16 [facility] OFF/OP EST OCTOBER X REQ PHY/QHP [id number] Diagnos is: ICD-10- CM Z23 Encount er for immuniz ation MIREYA FARLEY NON P 04/19 [facility] OFFICE O/P EST MOD 30-39 MIN [id number] Diagnos is: ICD-10- CM H93.19 Tinnitu s, unspeci fied ear AHMED,MOHA MMED JAWED 05/01 [facility] Outpatient Encounter [id number] 05/01 [facility] OFFICE O/P NEW MOD 45-59 MIN [id number] Diagnos is: ICD-10- CM 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 FANNIETERRELL RLES D 05/16 [facility] [id number] 05/27 [facility] En[facility] [id number] 06/14 [facility] OFFICE O/P EST LOW 20-29 MIN [id number] Diagnos is: ICD-10- CM S90.822 D Blister (nonthe rmal), left foot, subsequ ent encount er FANNIETERRELL RLES D 06/17 [facility] En[facility] [id number] 06/29 [facility] [id number] 07/24 [facility] [id number] 07/24 [facility] En[facility] [id number] 10/03 [facility] En[facility] [id number] 10/14 [facility] OFFICE O/P EST MOD 30 MIN [id number] Diagnos is: ICD-10- CM E11.9 Type 2 diabete s mellitu s without complic ations ANA WILLETT MMED JAWED 10/14 [facility] En[facility] [id number] 10/30 [facility] En[facility] [id number] 12/30 [facility] En[facility] [id number] 03/06 [facility] OFFICE O/P EST MOD 30 MIN [id number] Diagnos is: ICD-10- CM I10 Essenti al (primar y) hyperte nsion FURCOLO,TI NA 03/17 [facility] En[facility] [id number] 06/29 [facility] En[facility] [id number] 07/10 [facility] NQHP OL DIG ASSMT&MGMT 5-10 [id number] Diagnos is: ICD-10- CM I10 Essenti al (primar y) hyperte nsion SOVEROW,CH RISTY A 07/13 [facility] En[facility] [id number] 09/04 [facility] En[facility] [id number] 09/15 [facility] Outpatient Encounter [id number] 09/15 [facility] OFFICE O/P EST MOD 30 MIN [id number] Diagnos is: ICD-10- CM 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 FURCOLO,TI NA 09/15 [facility] Outpatient Encounter [id number] 09/15 [facility] MTMS BY PHARM ADDL 15 MIN [id number] Diagnos is: ICD-10- CM E11.9 Type 2 diabete s mellitu s without complic ations [facility] [place] MARTINE 09/28 [facility] Outpatient Encounter [id number] 09/28 [facility] Social History Combined list of available smoking, tobacco, and other social history from Department of Defense and Veterans Affairs facilities. Social History Type Response Date Comment Source Tobacco smoking status [facility] VA-TOBACCO NEVER USED 10/15/2023 [facility] History of tobacco use VA-TOBACCO NEVER USED 10/25/2022 [facility] History of tobacco use VA-TOBACCO NEVER USED 10/18/2021 [facility] History of tobacco use VA-TOBACCO NEVER USED 10/12/2020 [facility] History of tobacco use VA-TOBACCO NEVER USED 10/14/2018 [facility] History of tobacco use VA-TOBACCO NEVER USED 04/11/2018 [facility] History of tobacco use LIFETIME NON-TOBACCO USER 05/01/2017 [facility] History of tobacco use LIFETIME NON-TOBACCO USER 04/24/2016 [facility] History of tobacco use QUIT TOBACCO USE > 7 YEARS AGO 01/31/2015 occasional while in [place] [facility] Plan of Care List of future care activities from Department of [facility] Affairs facilities. Additional future care activities may be listed in the Assessment and Plan section. Date/Time Care Activity Care Activity Detail Facili ty 10/26/2024 AMBULATORY - MEDICINE AMBULATORY - [facility]
--- OUTSIDE RECORDS SUMMARY | 2024-10-07 16:53 | XMS_ITS | Encounter Summary ---
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 Name Role Phone TIFFANY FREDERICK Primary Care [...] MEDIC ARE SUPPL EMENT Mar 01, 2015 [id number] [phone] LARAMEE,R MAKAYLA PATIENT ANTHEM [employer]BS [place] MEDICARE SUPPLEMEN COLTEN MEDIC ARE SUPPL EMENT Mar 01, 2015 [id number] [phone] LARAMEE,R MAKAYLA PATIENT ANTHEM BCBS [place] MEDICARE SUPPLEMEN COLTEN MEDIC ARE SUPPL EMENT Mar 01, 2015 [id number] [phone] LARAMEE,R MAKAYLA PATIENT [place]BS [place] MEDICARE SUPPLEMEN COLTEN MEDIC ARE SUPPL EMENT Mar 01, 2015 [id number] [phone] LARAMEE,R MAKAYLA PATIENT BCBS [place] MEDICARE SUPPLEMEN COLTEN MEDEX 2 Mar 01, 2015 [id number] [phone] LARAMEE,R MAKAYLA PATIENT [facility] MEDICARE SUPPLEMEN COLTEN MEDEX 2 Mar 01, 2015 [id number] Sarah RAE PATIENT [facility] MEDICARE SUPPLEMEN [place] MEDEX 2 Mar 01, 2015 [id number] Sarah RAE MAKAYLA PATIENT MEDICARE (WNR) MEDICARE (M) PART B Mar 01, 2015 PART B [id number] Sarah RAE MAKAYLA PATIENT MEDICARE (WNR) MEDICARE (M) PART B Mar 01, 2015 PART B [id number] [phone] Sarah RAE MAKAYLA PATIENT MEDICARE (WNR) MEDICARE (M) PART A Aug 01, 2014 PART A [id number] Sarah RAE MAKAYLA PATIENT MEDICARE (WNR) MEDICARE (M) PART A Aug 01, 2014 PART A [id number] Sarah RAE PATIENT Selected Encounter This section includes the information on record at [place] for the Encounter. Date/Time Encounter Type Encounter Description Reason Provider Source Sep 28, 2024 10:30 AM MTMS BY PHARM ADDL 15 MIN CLINICAL PHARMACY ICD-10-CM E11.9 Type 2 diabetes mellitus without complications DAMIAN FOUNTAIN Rod Encounter Template Text not used by [place] Assessments - Encounter Diagnoses This section includes the primary and secondary diagnoses documented for the Encounter. Date/Time Primary/Secondary Diagnosis Diagnosis Name Provider Source Sep 28, 2024 02:28 PM PRIMARY Type 2 diabetes mellitus without complications DAMIAN FOUNTAIN [facility] Plan of Treatment: Future Appointments (+ 6 months) and Future Tests (+/- 45 days) The Plan of Treatment section includes future care activities for the patient from all [place] treatmentfacilities. This section includes future appointments and future orders which are active, pending or scheduled. Future Appointments This section includes appointments that were scheduled to occur 6 months from the date of the Encounter, up to a maximum of 20 appointments. The data comes from all [place] treatment facilities. Appointment Date/Time Appointment Type Appointme nt Facility Name Oct 26, 2024 01:00 PM AMBULATORY - MEDICINE [facility] Mar 18, 2025 10:00 AM AMBULATORY - MEDICINE [facility] Active, Pending, and Scheduled Orders This section includes a listing of several types of active, pending, and scheduled orders, including clinic medications orders, diagnostic test orders, procedure orders and consult orders; where the start date of the order is 45 days before the date of the Encounter or 45 days after the date of theEncounter. The data comes from all [place] treatment facilities. Test Date/Time Test Type Test Details Facility Name Sep 07, 2024 12:00 AM Laboratory - Chemi stry Order OCCULT BLOOD FIT X1 SCREEN (MFP ONLY) STOOL FECES SP [facility] Sep 28, 2024 12:54 PM Consult Order ACUPUNCTUR E/[facility] OUTPT Cons Sustainability Manager's Choice [facility] Lab Results: +/- 30 days of the encounter This section includes the Chemistry and Hematology Lab Results on record with [place] for the patient. Radiology Reports and Pathology Reports are provided separately, in subsequent sections. Lab Results This section contains the Chemistry/Hematology Results that were resulted 30 days before or 30 daysafter the date of the Encounter. Date/Time Source Result Type Result - Unit Interpretation Reference Range Comment Sep 16, 2024 12:00 AM [facility] OCCULT BLOOD FIT X1 SCREEN(IN-HOUSE) Specimen Type: FECES No comment entered. Ordering Provider: TIFFANY FREDERICK Report Released Date/Time: Sep 15, 2024 09:07 AM Reporting Lab: [facility] [address] [facility] [address] Performing Lab: [facility] [address] [facility] [address] OCCULT BLOOD (FIT)#1 OF 1 NEGATIVE NEG Sep 15, 2024 07:45 AM [facility] HEMOGLOBIN A1C PANEL Specimen Type: BLOOD Comment: Values obtained from A1C measurements can vary. For atypical A1C assays, a reported value of 7.0 could actually be between 6.72 and 7.28 if measured by a reference method. A reported value of 9.0 could actually be between 8.73 and 9.27. Ref: http://www.ngs p.org/CAPdata. asp Ordering Provider: TIFFANY FREDERICK Report Released Date/Time: Sep 02, 2024 02:54 PM Reporting Lab: [facility] [address] [facility] [address] Performing Lab: [address] [address] HEMOGLOBIN A1C 8.6 H 4.0-5.6 Sep 15, 2024 07:45 AM [facility] BASIC METABOLIC PANEL (non-fasting) Specimen Type: SERUM No comment entered. Ordering Provider: TIFFANY FREDERICK Report Released Date/Time: Sep 02, 2024 02:54 PM Reporting Lab: [address] [address] Performing Lab: [address] [address] UREA NITROGEN 34 mg/dL H 7-25 GLUCOSE 173 mg/dL H 65-100 SODIUM 139 mmol/L 135-145 POTASSIUM 4.6 mmol/L 3.5-5.0 CHLORIDE 107 mmol/L 100-110 CO2 22 meq/L 20-30 CALCIUM 9.8 mg/dL 8.5-10.2 CREATININE, Serum 1.69 mg/dL H 0.50-1.40 eGFR(CKD-EPI 2020) 42 mL/min L >60 Sep 15, 2024 07:45 AM [facility] LIPID PANEL, NON FASTING Specimen Type: SERUM No comment entered. Ordering Provider: TIFFANY FREDERICK Report Released Date/Time: Sep 02, 2024 02:54 PM Reporting Lab: [address] [address] Performing Lab: [address] [address] CHOLESTEROL 133 mg/dL TRIGLYCERIDE 165 mg/dL H 0-150 LDL calculated 65 mg/dL 0-129 CHOL/HDL 3.8 HDL CHOLESTEROL 35 mg/dL L 40-60 Social History: Smoking Status (Most current) and Tobacco Use (All prior to encounter date) This section includes the most current, and the historical, smoking and tobacco- related health factors from the [place] facility where the Encounter took place. Current Smoking Status This section includes the most current smoking, or tobacco-related health factor, from the [place] facility where the Encounter took place. Date/Time Current Smoking Status Comment [facility] Oct 15, 2023 02:30 PM VA-TOBACCO NEVER USED [place] [facility] [place] [facility] Tobacco Use History This section includes a history of the smoking, or tobacco-related health factors, that were collected on or before the date of the Encounter. The data comes from the [place] facility where the Encounter took place. Date/Time Smoking Status/Tobac co Use Comment Facility Oct 25, 2022 09:30 AM VA-TOBACCO NEVER USED [place] [facility] [place] [facility] Oct 18, 2021 10:30 AM VA-TOBACCO NEVER USED [facility] [place] [facility] Oct 12, 2020 01:00 PM VA-TOBACCO NEVER USED [facility] [place] [facility] Oct 14, 2018 09:39 AM VA-TOBACCO NEVER USED [facility] [place] [facility] Apr 11, 2018 07:41 AM VA-TOBACCO NEVER USED [facility] [place] [facility] May 01, 2017 09:10 AM LIFETIME NON-TOBACCO USER [facility] [place] [facility] Apr 24, 2016 09:00 AM LIFETIME NON-TOBACCO USER [facility] [place] [facility] Jan 31, 2015 02:42 PM QUIT TOBACCO USE > 7 YEARS AGO occasional while in [place] [facility] [place] [facility] Encounter Notes: All associated encounter notes This section contains the clinical notes associated to the Encounter. Date/Time Encounter Note(s) Provider Source Sep 28, 2024 02:28 PM ADDENDUM: LOCAL TITLE: Addendum STANDARD TITLE: ADDENDUM DATE OF NOTE: SEP 28, 2024@14:28:20 ENTRY DATE: SEP 28, 2024@14:28:21 AUTHOR: DAMIAN FOUNTAIN EXP COSIGNER: URGENCY: STATUS: COMPLETED AMSA, please schedule appointment for: - [facility] PHARM PACT 2 Please schedule for 10/26/24 @1300 Thank you! /ilya/ DAMIAN FOUNTAIN PHARMD, BCPS CLINICAL PHARMACIST PRACTITIONER Signed: 09/28/2024 14:28 Receipt Acknowledged By: 09/28/2024 15:56 /es/ DES Bravo KAILEE AMSA --- Original Document --- 09/28/24 CONSULT REPORT/PHARMACY: THOM RAE, 74 yo WHITE MALE, presents for [id number] INITIAL VISIT for diabetes management. SEP 28, 2024 Known Allergies: PENICILLIN Subjective: referred to pharmacy clinic by PCP for CGM evaluation and T2DM management. reports he was diagnosed with T2DM >20 years ago. Most of his care is in the community with [facility] and [facility]. His non VA PCP Dr Gao retired, but he is scheduled to see a replacement soon. He also reports cardiac cath with stent placement possibly on 10/13/24. Pt notes since March 2024 he has had chest pressure upon exertion. He was being worked up in the community and states they found a problem area in my heart and they want to look at it closely . He reports the surgery will be either through his groin or armpit and if needed, they will deploy a stent. When asked about other history, notes he had a stroke in 2019 and then another one in 2021. He was followed by neurology who stated he likely had many mini strokes . This is not on his problem list and no documentation in [facility] available. Regarding his diabetes, was never on insulin and does not plan to . He refuses all injections. He also reports metformin use in the past but stopped it due to reading something on the internet. He states that his A1C being elevated was lack of physical activity from March to present. He used to walk 2 miles per day but now watches TV. Denies changes to his diet. He does endorse polydipsia and polyuria. He tests his blood sugar almostt daily using a non-VA issues glucometer. He did not bring that in. He follows with non VA optometry but reports he was told by one provider that he has retinopathy and another provider he does not. Target Goals: A1C <7.5%; FB-130 mg/dl Personal goals: - Get A1C in goal range Objective: Diabetes Medication Regimen: Current diabetes medications: - empagliflozin 25 mg once daily - glipizide 5mg once daily (with breakfast) Previous diabetes medications: - metformin (discontinued by pcp) Medication Adherence: denies adherence issues Diet Patterns: patient eats on avg. 3x/day: B: omelette with vegetables; sandwich with cheese and meat L: anything goes; salad, sandwich, left overs D: apple; seafood with stir ferreira, if he eats potatos its sweet potatos Drinks: water, 1-2 cups of green tea a day Alcohol: last october; only on vacation Tobacco: denies Exercise: used to walk; not much earlier Occupation: retired Other: - Denies personal or fhx thyroid cancer or MENS - Denies hx pancreatitis - Denies hx MH/depression/denies SI - Denies hx of UTI SMBG: tests once daily SMBG assessment: N/A meter unavailable HYPOGLYCEMIC Events: 0 in last 2 weeks - Hypoglycemia recognition & treatment reviewed: Yes (Rule of 15) Allergies/ADR: PENICILLIN Active and Recently Outpatient Medications (including Supplies): Active Outpatient Medications Status 1) EMPAGLIFLOZIN 25MG TAB TAKE ONE TABLET BY MOUTH ONCE DAILY ACTIVE FOR DIABETES DOSE INCREASE Indication: FOR TYPE 2 DIABETES MELLITUS 2) EZETIMIBE 10MG TAB TAKE ONE TABLET BY MOUTH ONCE DAILY TO ACTIVE LOWER CHOLESTEROL Indication: FOR HIGH CHOLESTEROL 3) FENOFIBRATE 145MG TAB TAKE ONE TABLET BY MOUTH ONCE DAILY TO ACTIVE LOWER CHOLESTEROL 4) GLIPIZIDE 5MG TAB TAKE ONE TABLET BY MOUTH ONCE DAILY ACTIVE Indication: FOR TYPE 2 DIABETES MELLITUS 5) LISINOPRIL 5MG TAB TAKE ONE TABLET BY MOUTH ONCE DAILY TO ACTIVE CONTROL BLOOD PRESSURE 6) METOPROLOL SUCCINATE 50MG SA TAB TAKE ONE TABLET BY MOUTH ACTIVE ONCE DAILY FOR BLOOD PRESSURE/HEART Indication: FOR HIGH BLOOD PRESSURE 7) ROSUVASTATIN CA 40MG TAB TAKE ONE TABLET BY MOUTH ONCE DAILY ACTIVE (NOTE TABLET STRENGTH) Indication: FOR HIGH CHOLESTEROL Inactive Outpatient Medications Status 1) EMPAGLIFLOZIN 10MG TAB TAKE ONE TABLET BY MOUTH ONCE DAILY DISCONTINUED FOR DIABETES (EDIT) 2) EZETIMIBE 10MG TAB TAKE ONE TABLET BY MOUTH ONCE DAILY TO DISCONTINUED LOWER CHOLESTEROL Indication: FOR HIGH CHOLESTEROL 3) GLIPIZIDE 5MG TAB TAKE ONE-HALF TABLET BY MOUTH TWICE DAILY DISCONTINUED (EDIT) 4) ROSUVASTATIN CA 20MG TAB TAKE ONE TABLET BY MOUTH ONCE DAILY DISCONTINUED (NOTE TABLET STRENGTH) (EDIT) Indication: FOR HIGH CHOLESTEROL Active Non-VA Medications Status 1) Non-VA ASPIRIN 81MG EC TAB 162MG BY MOUTH ONCE DAILY ACTIVE 2) Non-VA CHOLECALCIF 25MCG (D3-1,000UNIT) TAB 1000UNIT BY ACTIVE MOUTH EVERY DAY 3) Non-VA COENZYME Q10 CAP/TAB ONE BY MOUTH EVERY DAY ACTIVE 4) Non-VA FISH OIL 1000MG (500MG DHA/EPA) CAP 1000MG BY MOUTH ACTIVE TWICE DAILY 5) Non-VA MULTIVITAMIN CAP/TAB 1 TABLET BY MOUTH EVERY DAY ACTIVE 6) Non-VA OMEPRAZOLE 20MG EC CAP 20MG BY MOUTH EVERY MORNING 30 ACTIVE MINUTES BEFORE BREAKFAST 7) Non-VA TURMERIC CAP/TAB BY MOUTH ACTIVE 18 Total Medications Labs: CHEM 7 TREND LAB CUMULATIVE SELECTED Collection DT Spec GLUCOSE BUN CREATIN Sodium K+/Pot CL CO2 09/15/2024 07:45 SERUM 173 H 34 H 1.69 H 139 4.6 107 22 03/17/2024 09:01 SERUM 100 28 H 1.56 H 139 4.8 108 19 L 10/15/2023 12:38 SERUM 76 28 H 1.50 H 137 4.2 103 21 10/25/2022 09:21 SERUM 115 H 35 H 1.46 H 138 5.0 108 19 L 04/19/2022 09:14 SERUM 136 H 31 H 1.43 H 137 4.8 106 20 CHEM 7 Results Collection DT Spec Sodium K+/Pot CL CO2 GLUCOSE BUN 09/15/2024 07:45 SERUM 139 4.6 107 22 173 H 34 H 03/17/2024 09:01 SERUM 139 4.8 108 19 L 100 28 H 10/15/2023 12:38 SERUM 137 4.2 103 21 76 28 H 10/25/2022 09:21 SERUM 138 5.0 108 19 L 115 H 35 H 04/19/2022 09:14 SERUM 137 4.8 106 20 136 H 31 H 10/18/2021 09:51 SERUM 135 4.7 103 22 197 H 32 H 10/11/2020 09:51 SERUM 137 4.4 103 23 223 H 20 04/15/2019 08:31 SERUM 139 4.7 100 27 167 H 12 10/14/2018 08:10 SERUM 141 5.0 103 27 177 H 13 04/17/2018 11:27 SERUM 138 4.6 101 25 196 H 15 05/01/2017 08:50 SERUM 139 4.9 104 26 186 H 16 10/23/2016 09:38 SERUM 138 4.7 102 26 159 H 21 02/03/2015 08:23 SERUM 138 4.7 104 26 171 H 19 01/28/2004 10:04 SERUM 139 4.7 105 27 112 H 14 eGFR CKD-EPI 202009/15/24 07:45 42 L SERUM LIVER PANEL TREND Collection DT Spec AST ALT T BILI ALK DEENA T. PROT ALBUMIN 10/15/2023 12:38 SERUM 26 24 0.4 37 L 7.4 4.2 05/01/2023 09:31 SERUM 30 25 0.5 39 L 7.7 4.4 10/25/2022 09:21 SERUM 23 23 0.3 41 7.7 4.3 04/19/2022 09:14 SERUM 22 21 0.5 40 8.0 4.3 10/18/2021 09:51 SERUM 22 32 0.5 36 L 7.9 4.4 HEMOGLOBIN A1C TREND Collection DT Spec HGBA1c 09/15/2024 07:45 BLOOD 8.6 H 03/17/2024 09:01 BLOOD 7.2 H 10/15/2023 12:38 BLOOD 7.6 H 05/01/2023 09:31 BLOOD 7.1 H 10/25/2022 09:21 BLOOD 7.1 H LIPID PANEL TREND Collection DT Spec CHOL HDL CHO/HDL LDL-d LDL-c TRIG 09/15/2024 07:45 SERUM 133 35 L 3.8 65 165 H 03/17/2024 09:01 SERUM 175 42 4.2 104 147 10/15/2023 12:38 SERUM 164 41 4.0 95 138 10/25/2022 09:21 SERUM 208 H 40 5.2 143 H 124 04/19/2022 09:14 SERUM 216 H 36 L 6.0 148 H 162 H Vitals: Ht: 69 in [175.3 cm] (03/17/2024 08:00) Wt: 192 lb [87.09 kg] (09/15/2024 09:04) BMI: BMI: 28.4 BP: 135/67 (09/15/2024 09:04) HR: 64 (09/15/2024 09:04) Assessment: DIABETES: Goal: A1c goal is <7.5% with a goal fasting BG average of 80-130mg/dL and a goal post-prandial BG average of <180mg/dL per ADA guideline. Goal adjusted based on age, history of CAD (Stroke? and possible stent in two weeks), CKD, and possible retinopathy (will need to determine). Educated pt on A1c and BG targets, long-term complications of uncontrolled diabetes (i.e. damage to heart, eyes, kidneys, nerves, etc), components of healthy diabetic diet (i.e. consume 3 meals/day, do not skip or delay meals, basics of CHO counting, healthy snack choices, etc). Discussed pharmacologic options. We reviewed GLP-1RA, semaglutide which could provide CAD and renal protection in addition to T2DM mangement. declines; adamanet to not take an injection. We reviewed insulin which pt also declines due to above reasons. Recent renal function precludes use of metformin; however pt reports he would not restart anyway. Anthony is requesting to defer medication changes until three months after stent placement. I explained that this would negatively effect veterans health. In the end, anthony reluctantly agrees to increase glipizide to 5mg BID. I asked anthony to continue to SMBG. He is requesting a CGM dut does not qualify based on current CFU. He understands this. He questions finger scanner or watch for blood glucose testing and it was explained to him that those are also not validated. We briefly reviewed LSMs. Anthony states his biggest issue is cheese and he is unwilling to negotiate lowering it. He tends to avoid CHO at baseline. Evening Shade feels when he starts walking again after surgery his A1C will drop. I requested anthony to discuss semaglutide with non-va pcp and dishroom attendant which he agrees to do. He thinks maybe in the future if his A1C is still elevated he would consider. CARDIOVASCULAR: For patients 60 years and over with Diabetes, recommend a goal of <140/90, with added benefit of reducing SBP closer to 130. Current BP is 135/67 (09/15/2024 09:04) ASCVD: Above goal; on statin plus ezetimbe plus fenofibrate ASA: on 91 mg aspirin from non-VA cardiology Microalb:v26.1 mg/g (03/2024) History of Preventive Care: Most recent visit to dial painter: does not see regularly; denies issues with feet Most recent visit to sales expert home theater/opthalmologist: Dr Diego in [place] - Unknown history, will call Plan: Medication management: - INCREASE glipizide 5mg twice daily prior to breakfast and dinner - Medications reconciled - Otherwise continue current medications Lifestyle modicfications: - Continue to SMBG 1x/day - Monitor for s/sx hypoglycemia and contact clinic if BG consistently <70mg/dL - Healthy dietary and lifestyle modifications encouraged - Repeat A1c: 11/2024 MISC: EDUCATION -A shared decision-making approach was used in the development of this plan, involving the Evening Shade, clinician, and any caregivers present. The was provided the opportunity express questions or concerns, and the plan was adjusted as needed to address these concerns. -Reviewed with Evening Shade any new medications, changes to the medication list, education, and plan from today's visit. Patient (and/or caregiver) verbalized understanding of the plan, including possible known risks and benefits, and had no additional questions. RTC: 10/26/24 @1300 Time Spent: 35 minutes PBM PharmD Pharmacotherapy Rem V12: PHARMACIST INTERVENTIONS: TYPE 2 DIABETES MELLITUS Medication Intervention(s) Medication reconciliation (changes to active VA and non-VA medication lists to reconcile differences) No changes to medication lists made (medication review completed, no discrepancies identified) /ilya/ DAMIAN FOUNTAIN PHARMD, BCPS CLINICAL PHARMACIST PRACTITIONER Signed: 09/28/2024 14:28 DAMIAN FOUNTAIN [place] [facility] [place] [facility] Sep 28, 2024 10:00 AM PHARMACY CONSULT: LOCAL TITLE: CONSULT REPORT/PHARMACY STANDARD TITLE: PHARMACY CONSULT DATE OF NOTE: SEP 28, 2024@10:00 ENTRY DATE: SEP 28, 2024@10:00:58 AUTHOR: DAMIAN FOUNTAIN EXP COSIGNER: URGENCY: STATUS: COMPLETED CONSULT REPORT/PHARMACY Has ADDENDA THOM RAE, 74 yo WHITE MALE, presents for [id number] INITIAL VISIT for diabetes management. SEP 28, 2024 Known Allergies: PENICILLIN Subjective: Evening Shade referred to pharmacy clinic by PCP for CGM evaluation and T2DM management. Evening Shade reports he was diagnosed with T2DM >20 years ago. Most of his care is in the community with [facility] and [facility]. His non [facility] PCP Dr Gao retired, but he is scheduled to see a replacement soon. He also reports cardiac cath with stent placement possibly on 10/13/24. Pt notes since March 2024 he has had chest pressure upon exertion. He was being worked up in the community and states they found a problem area in my heart and they want to look at it closely . He reports the surgery will be either through his groin or armpit and if needed, they will deploy a stent. When asked about other history, notes he had a stroke in 2018 and then another one in 2021. He was followed by neurology who stated he likely had many mini strokes . This is not on his problem list and no documentation in [facility] available. Regarding his diabetes, was never on insulin and does not plan to . He refuses all injections. He also reports metformin use in the past but stopped it due to reading something on the internet. He states that his A1C being elevated was lack of physical activity from March to present. He used to walk 2 miles per day but now watches TV. Denies changes to his diet. He does endorse polydipsia and polyuria. He tests his blood sugar almostt daily using a non-VA issues glucometer. He did not bring that in. He follows with non VA optometry but reports he was told by one provider that he has retinopathy and another provider he does not. Target Goals: A1C <7.5%; FB-130 mg/dl Personal goals: - Get A1C in goal range Objective: Diabetes Medication Regimen: Current diabetes medications: - empagliflozin 25 mg once daily - glipizide 5mg once daily (with breakfast) Previous diabetes medications: - metformin (discontinued by pcp) Medication Adherence: denies adherence issues Diet Patterns: patient eats on avg. 3x/day: B: omelette with vegetables; sandwich with cheese and meat L: anything goes; salad, sandwich, left overs D: apple; seafood with stir ferreira, if he eats potatos its sweet potatos Drinks: water, 1-2 cups of green tea a day Alcohol: last october; only on vacation Tobacco: denies Exercise: used to walk; not much earlier Occupation: retired Other: - Denies personal or fhx thyroid cancer or MENS - Denies hx pancreatitis - Denies hx MH/depression/denies SI - Denies hx of UTI SMBG: tests once daily SMBG assessment: N/A meter unavailable HYPOGLYCEMIC Events: 0 in last 2 weeks - Hypoglycemia recognition & treatment reviewed: Yes (Rule of 15) Allergies/ADR: PENICILLIN Active and Recently Outpatient Medications (including Supplies): Active Outpatient Medications Status 1) EMPAGLIFLOZIN 25MG TAB TAKE ONE TABLET BY MOUTH ONCE DAILY ACTIVE FOR DIABETES DOSE INCREASE Indication: FOR TYPE 2 DIABETES MELLITUS 2) EZETIMIBE 10MG TAB TAKE ONE TABLET BY MOUTH ONCE DAILY TO ACTIVE LOWER CHOLESTEROL Indication: FOR HIGH CHOLESTEROL 3) FENOFIBRATE 145MG TAB TAKE ONE TABLET BY MOUTH ONCE DAILY TO ACTIVE LOWER CHOLESTEROL 4) GLIPIZIDE 5MG TAB TAKE ONE TABLET BY MOUTH ONCE DAILY ACTIVE Indication: FOR TYPE 2 DIABETES MELLITUS 5) LISINOPRIL 5MG TAB TAKE ONE TABLET BY MOUTH ONCE DAILY TO ACTIVE CONTROL BLOOD PRESSURE 6) METOPROLOL SUCCINATE 50MG SA TAB TAKE ONE TABLET BY MOUTH ACTIVE ONCE DAILY FOR BLOOD PRESSURE/HEART Indication: FOR HIGH BLOOD PRESSURE 7) ROSUVASTATIN CA 40MG TAB TAKE ONE TABLET BY MOUTH ONCE DAILY ACTIVE (NOTE TABLET STRENGTH) Indication: FOR HIGH CHOLESTEROL Inactive Outpatient Medications Status 1) EMPAGLIFLOZIN 10MG TAB TAKE ONE TABLET BY MOUTH ONCE DAILY DISCONTINUED FOR DIABETES (EDIT) 2) EZETIMIBE 10MG TAB TAKE ONE TABLET BY MOUTH ONCE DAILY TO DISCONTINUED LOWER CHOLESTEROL Indication: FOR HIGH CHOLESTEROL 3) GLIPIZIDE 5MG TAB TAKE ONE-HALF TABLET BY MOUTH TWICE DAILY DISCONTINUED (EDIT) 4) ROSUVASTATIN CA 20MG TAB TAKE ONE TABLET BY MOUTH ONCE DAILY DISCONTINUED (NOTE TABLET STRENGTH) (EDIT) Indication: FOR HIGH CHOLESTEROL Active Non-VA Medications Status 1) Non-VA ASPIRIN 81MG EC TAB 162MG BY MOUTH ONCE DAILY ACTIVE 2) Non-VA CHOLECALCIF 25MCG (D3-1,000UNIT) TAB 1000UNIT BY ACTIVE MOUTH EVERY DAY 3) Non-VA COENZYME Q10 CAP/TAB ONE BY MOUTH EVERY DAY ACTIVE 4) Non-VA FISH OIL 1000MG (500MG DHA/EPA) CAP 1000MG BY MOUTH ACTIVE TWICE DAILY 5) Non-VA MULTIVITAMIN CAP/TAB 1 TABLET BY MOUTH EVERY DAY ACTIVE 6) Non-VA OMEPRAZOLE 20MG EC CAP 20MG BY MOUTH EVERY MORNING 30 ACTIVE MINUTES BEFORE BREAKFAST 7) Non-VA TURMERIC CAP/TAB BY MOUTH ACTIVE 18 Total Medications Labs: CHEM 7 TREND LAB CUMULATIVE SELECTED Collection DT Spec GLUCOSE BUN CREATIN Sodium K+/Pot CL CO2 09/15/2024 07:45 SERUM 173 H 34 H 1.69 H 139 4.6 107 22 03/17/2024 09:01 SERUM 100 28 H 1.56 H 139 4.8 108 19 L 10/15/2023 12:38 SERUM 76 28 H 1.50 H 137 4.2 103 21 10/25/2022 09:21 SERUM 115 H 35 H 1.46 H 138 5.0 108 19 L 04/19/2022 09:14 SERUM 136 H 31 H 1.43 H 137 4.8 106 20 CHEM 7 Results Collection DT Spec Sodium K+/Pot CL CO2 GLUCOSE BUN 09/15/2024 07:45 SERUM 139 4.6 107 22 173 H 34 H 03/17/2024 09:01 SERUM 139 4.8 108 19 L 100 28 H 10/15/2023 12:38 SERUM 137 4.2 103 21 76 28 H 10/25/2022 09:21 SERUM 138 5.0 108 19 L 115 H 35 H 04/19/2022 09:14 SERUM 137 4.8 106 20 136 H 31 H 10/18/2021 09:51 SERUM 135 4.7 103 22 197 H 32 H 10/11/2020 09:51 SERUM 137 4.4 103 23 223 H 20 04/15/2019 08:31 SERUM 139 4.7 100 27 167 H 12 10/14/2018 08:10 SERUM 141 5.0 103 27 177 H 13 04/17/2018 11:27 SERUM 138 4.6 101 25 196 H 15 05/01/2017 08:50 SERUM 139 4.9 104 26 186 H 16 10/23/2016 09:38 SERUM 138 4.7 102 26 159 H 21 02/03/2015 08:23 SERUM 138 4.7 104 26 171 H 19 01/28/2004 10:04 SERUM 139 4.7 105 27 112 H 14 eGFR CKD-EPI 202009/15/24 07:45 42 L SERUM LIVER PANEL TREND Collection DT Spec AST ALT T BILI ALK DENEA T. PROT ALBUMIN 10/15/2023 12:38 SERUM 26 24 0.4 37 L 7.4 4.2 05/01/2023 09:31 SERUM 30 25 0.5 39 L 7.7 4.4 10/25/2022 09:21 SERUM 23 23 0.3 41 7.7 4.3 04/19/2022 09:14 SERUM 22 21 0.5 40 8.0 4.3 10/18/2021 09:51 SERUM 22 32 0.5 36 L 7.9 4.4 HEMOGLOBIN A1C TREND Collection DT Spec HGBA1c 09/15/2024 07:45 BLOOD 8.6 H 03/17/2024 09:01 BLOOD 7.2 H 10/15/2023 12:38 BLOOD 7.6 H 05/01/2023 09:31 BLOOD 7.1 H 10/25/2022 09:21 BLOOD 7.1 H LIPID PANEL TREND Collection DT Spec CHOL HDL CHO/HDL LDL-d LDL-c TRIG 09/15/2024 07:45 SERUM 133 35 L 3.8 65 165 H 03/17/2024 09:01 SERUM 175 42 4.2 104 147 10/15/2023 12:38 SERUM 164 41 4.0 95 138 10/25/2022 09:21 SERUM 208 H 40 5.2 143 H 124 04/19/2022 09:14 SERUM 216 H 36 L 6.0 148 H 162 H Vitals: Ht: 69 in [175.3 cm] (03/17/2024 08:00) Wt: 192 lb [87.09 kg] (09/15/2024 09:04) BMI: BMI: 28.4 BP: 135/67 (09/15/2024 09:04) HR: 64 (09/15/2024 09:04) Assessment: DIABETES: Goal: A1c goal is <7.5% with a goal fasting BG average of 80-130mg/dL and a goal post-prandial BG average of <180mg/dL per ADA guideline. Goal adjusted based on age, history of CAD (Stroke? and possible stent in two weeks), CKD, and possible retinopathy (will need to determine). Educated pt on A1c and BG targets, long-term complications of uncontrolled diabetes (i.e. damage to heart, eyes, kidneys, nerves, etc), components of healthy diabetic diet (i.e. consume 3 meals/day, do not skip or delay meals, basics of CHO counting, healthy snack choices, etc). Discussed pharmacologic options. We reviewed GLP-1RA, semaglutide which could provide CAD and renal protection in addition to T2DM mangement. declines; adamanet to not take an injection. We reviewed insulin which pt also declines due to above reasons. Recent renal function precludes use of metformin; however pt reports he would not restart anyway. is requesting to defer medication changes until three months after stent placement. I explained that this would negatively effect [facility] health. In the end, reluctantly agrees to increase glipizide to 5mg BID. I asked to continue to SMBG. He is requesting a CGM dut does not qualify based on current CFU. He understands this. He questions finger scanner or watch for blood glucose testing and it was explained to him that those are also not validated. We briefly reviewed LSMs. states his biggest issue is cheese and he is unwilling to negotiate lowering it. He tends to avoid CHO at baseline. feels when he starts walking again after surgery his A1C will drop. I requested to discuss semaglutide with non-va pcp and dishroom attendant which he agrees to do. He thinks maybe in the future if his A1C is still elevated he would consider. CARDIOVASCULAR: For patients 60 years and over with Diabetes, recommend a goal of <140/90, with added benefit of reducing SBP closer to 130. Current BP is 135/67 (09/15/2024 09:04) ASCVD: Above goal; on statin plus ezetimbe plus fenofibrate ASA: on 91 mg aspirin from non-VA cardiology Microalb:v26.1 mg/g (03/2024) History of Preventive Care: Most recent visit to dial painter: does not see regularly; denies issues with feet Most recent visit to sales expert home theater/opthalmologist: Dr Diego in [place] - Unknown history, will call Plan: Medication management: - INCREASE glipizide 5mg twice daily prior to breakfast and dinner - Medications reconciled - Otherwise continue current medications Lifestyle modicfications: - Continue to SMBG 1x/day - Monitor for s/sx hypoglycemia and contact clinic if BG consistently <70mg/dL - Healthy dietary and lifestyle modifications encouraged - Repeat A1c: 11/2024 MISC: EDUCATION -A shared decision-making approach was used in the development of this plan, involving the [facility], clinician, and any caregivers present. The [facility] [place] was provided the opportunity express questions or concerns, and the plan was adjusted as needed to address these concerns. -Reviewed with [facility] any new medications, changes to the medication list, education, and plan from today's visit. Patient (and/or caregiver) verbalized understanding of the plan, including possible known risks and benefits, and had no additional questions. RTC: 10/26/24 @1300 Time Spent: 35 minutes PBM PharmD Pharmacotherapy Rem V12: PHARMACIST INTERVENTIONS: TYPE 2 DIABETES MELLITUS Medication Intervention(s) Medication reconciliation (changes to active VA and non-VA medication lists to reconcile differences) No changes to medication lists made (medication review completed, no discrepancies identified) /ilya/ DAMIAN FOUNTAIN PHARMD, BCPS CLINICAL PHARMACIST PRACTITIONER Signed: 09/28/2024 14:28 09/28/2024 ADDENDUM STATUS: COMPLETED AMSA, please schedule appointment for: - [facility] 2 Please schedule for 10/26/24 @1300 Thank you! /ilya/ DAMIAN FOUNTAIN PHARMD, [facility] CLINICAL PHARMACIST PRACTITIONER Signed: 09/28/2024 14:28 Receipt Acknowledged By: * AWAITING SIGNATURE * [facility]
== END 2024-10-07 14:39 | disposition home or self-care (01) ==
LOC: HO.LAB 14:38
PROVIDERS: Visit Provider Nurse Practitioner Family
DX: R94.39 Abnormal result of other cardiovascular function study (principal); Z79.01 Long term (current) use of anticoagulants
CPT/HCPCS: 36415; 80048; 85025; 85610

== ENCOUNTER → 2024-10-13 23:59 | Outpatient (BNV) | payer MEDICARE, SELFPAY | PROVIDERS: Visit Provider Internal Medicine Cardiovascular Disease | DX: I20.89 Other forms of angina pectoris (principal); R07.9 Chest pain, unspecified; R93.1 Abnormal findings on diagnostic imaging of heart and coronary circulation | CPT/HCPCS: 93458; 93571; 99152 ==

== ENCOUNTER 2024-12-14 14:58 | Outpatient (AMB) | payer MEDICARE, SELFPAY ==
--- NOTE | 2024-12-14 15:01 | A.OFFVIS_ITS ---
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 He underwent 4 vessel coronary artery bypass grafting with SOLOMON to LAD, SVG to OM branch, diagonal branch, RPDA. Patient's postoperative course was complicated by significant hemorrhage that require re- exploration sternotomy with evacuation of hemorrhage. Patient had a long ICU course with renal insufficiency fluid overload as well as atrial fibrillation. Patient was treated and symptoms gradually improved. He comes for follow-up and says that he is feeling much better. Does not have any symptoms of angina. Denies any heart failure symptoms. Denies any prolonged palpitation irregular h eartbeat. Takes all his medications. No neurologic symptoms. He still has issues with the wound in the epigastrium have a draining postoperatively but now they are getting better with local treatment. He denies any lightheadedness, syncope. Takes all his medications. 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 Review of Systems Const Denies chills, Denies fatigue, Denies fever(s), Denies frequent falls, Denies we akness, Denies weight gain and Denies weight loss ENT Denies dizziness Card Denies chest pain, Denies leg edema, Denies lightheadedness, Denies palpit ations, Denies dyspnea, Denies dyspnea on exertion, Denies orthopnea and Denies other (loss of consciousness) Resp Denies cough, Denies dyspnea and Denies dyspnea on exertion GI Denies hematochezia and Denies change in stool character Musc Denies abnormal gait, Denies muscle weakness, Denies numbness, Denies radiating pain into limb and Denies tingling Neuro Denies Abnormal speech present, Denies abnormal gait, Denies dizziness, Denies frequent falls, Denies numbness, Denies tingling and Denies weakness Endo Denies fatigue and Denies palpitations Physical Exam Vital Signs: Last Vital Signs Pulse 74 12/14/24 15:02 BP 120/70 12/14/24 15:02 BMI result Body Mass Index 25.3 Const General: cooperative, comfortable, no acute distress, alert, awake and Physi bradley active Nutritional Appearance: overweight Orientation/consciousness: patient oriented x3 Limitations: no limitations HEENT Head: Yes normocephalic and Yes atraumatic Neck Neck: Yes trachea midline, Yes supple and Yes no JVD Carotids: no bruits Resp Effort & Inspection: normal respiratory effort Auscultation: clear to auscultation bilaterally Cardio Jugular venous distension: no JVD Palpation: normal PMI Rate: regular rate Rhythm: regular rhythm Heart sounds: S1 normal heart sound present, S2 normal heart sound present, no click, no gallops, no murmurs and no rubs GI Auscultation: normal bowel sounds Skin General skin exam: no rashes or lesions noted Neuro General: patient oriented x3 and no focal motor deficits Speech: No Abnormal speech present Extrem General: Yes no clubbing, cyanosis or edema Psych Appearance: grossly normal Affect: Anxious affect present Assessment & Plan Assessment & Plan (1) S/P CABG x 4: Comment: SOLOMON to LAD, SVG x3 to RPDA, OM and diagonal. September 2024 Code(s): Z95.1 - Presence of aortocoronary bypass graft Category: Surgical Plan: Status post coronary artery bypass grafting x4 for severe three-vessel coronary artery disease with exertional angina. Patient had a very prolonged postoperative course but he is doing better now. No signs or symptoms of heart failure. Currently on good medical therapy. We discussed management of coronary artery disease. Will obtain an echocardiogram to assess LV function postoperatively given his complicated course. Continue lifelong aspirin therapy. Continue metoprolol as well as spironolactone therapy. Blood pressure is well optimized advised to monitor blood pressure at home maintain a log. Continue with phase 2 cardiac rehabilitation. Continue current lipid therapy with rosuvastatin, ezetimibe as well as fenofibrate therapy. Advised lipid panel in near future. Target goal LDL less than 55 mg/dL. Continue aggressive control of glucose with target goal hemoglobin A1c less than 7%. Will follow up in the clinic in 6 months time, sooner p.r.n.. Advised to call me with any new symptoms. Thank you for allowing me to partake in his care Coding Level of Care Code Est Pt Level 4 (96773) Complex EM visit Add On G2211 Diagnoses S/P CABG x 4 Z95.1
[2024-12-14 15:02] VITALS: BP 120/70; PULSE 74; BMI 25.3
== END 2024-12-14 15:29 | disposition home or self-care (01) ==
LOC: HO.HCS 14:59
PROVIDERS: Visit Provider Internal Medicine Cardiovascular Disease
DX: Z95.1 Presence of aortocoronary bypass graft (principal)
CPT/HCPCS: 99214; G2211

== ENCOUNTER → 2024-12-14 14:58 | Outpatient (BNVA) | payer MEDICARE, SELFPAY | PROVIDERS: Visit Provider Internal Medicine Cardiovascular Disease | DX: Z95.1 Presence of aortocoronary bypass graft (principal) | CPT/HCPCS: 99212 ==

== ENCOUNTER 2024-12-25 13:38 | Outpatient (AMB) | payer MEDICARE, SELFPAY ==
--- OUTSIDE RECORDS SUMMARY | 2024-12-07 09:30 | XMS_ITS | Encounter Summary ---
Author Name [facility] Organization [facility] [place] Address [address] [place] [address] Care Team Providers Care [employer] Wildlife Scientific Aid Name Role Phone TIFFANY FREDERICK Primary Care [...] MEDIC ARE SUPPL EMENT Mar 01, 2015 [id number] [phone] LARAMEE,R MAKAYLA PATIENT ANTHEM [place] MEDICARE SUPPLEMEN COLT[place] MEDIC ARE SUPPL EMENT Mar 01, 2015 [id number] [phone] LARAMEE,R MAKAYLA PATIENT ANTHEM [place] MEDICARE SUPPLEMEN COLT[place] MEDIC ARE SUPPL EMENT Mar 01, 2015 [id number] [phone] LARAMEE,R MAKAYLA PATIENT [place] MEDICARE SUPPLEMEN [place] MEDIC ARE SUPPL EMENT Mar 01, 2015 [id number] [phone] LARAMEE,R MAKAYLA PATIENT [place]BS [place] MEDICARE SUPPLEMEN COLT[place] MEDEX 2 Mar 01, 2015 [id number] [phone] LARAMEE,R MAKAYLA PATIENT [facility] MEDICARE SUPPLEMEN [place] MEDEX 2 Mar 01, 2015 [id number] Sarah RAE PATIENT [facility] MEDICARE SUPPLEMEN [place] MEDEX 2 Mar 01, 2015 [id number] Sarah RAE PATIENT MEDICARE (WNR) MEDICARE (M) PART B Mar 01, 2015 PART B [id number] Sarah RAE MAKAYLA PATIENT MEDICARE (WNR) MEDICARE (M) PART B Mar 01, 2015 PART B [id number] Sarah RAE MAKAYLA PATIENT MEDICARE (WNR) MEDICARE (M) PART A Aug 01, 2014 PART A [id number] [phone] Sarah RAE MAKAYLA PATIENT MEDICARE (WNR) MEDICARE (M) PART A Aug 01, 2014 PART A [id number] Sarah RAE PATIENT Selected Encounter This section includes the information on record at [place] for the Encounter. Date/Time Encounter Type Encounter Description Reason Provider Source Dec 07, 2024 01:30 PM MTMS BY PHARM ADDL 15 MIN CLINICAL PHARMACY ICD-10-CM E11.9 Type 2 diabetes mellitus without complications DAMIAN FOUNTAIN Rod Encounter Template Text not used by [place] Assessments - Encounter Diagnoses This section includes the primary and secondary diagnoses documented for the Encounter. Date/Time Primary/Secondary Diagnosis Diagnosis Name Provider Source Dec 08, 2024 07:30 PM PRIMARY Type 2 diabetes mellitus without complications DAMIAN FOUNTAIN [facility] Plan of Treatment: Future Appointments (+ 6 [...] Appointment Type Appointme nt Facility Name Mar 18, 2025 10:00 AM AMBULATORY - MEDICINE [facility] Lab Results: +/- 30 days of the encounter This section includes the Chemistry and Hematology Lab Results on record with [place] for the patient. Radiology Reports and Pathology Reports are provided separately, in subsequent sections. Lab Results This section contains the Chemistry/Hematology Results that were resulted 30 days before or 30 daysafter the date of the Encounter. Date/Time Source Result Type Result - Unit Interpretation Reference Range Specimen Type Comment Dec 07, 2024 03:07 PM [facility] BASIC METABOLIC PANEL (non-fasting) SERUM Spe cimen Type: SERUM No comment entered. Ordering Provider: DAMIAN FOUNTAIN Report Released Date/Time: Dec 07, 2024 01:57 PM Reporting Lab: [address] [address] Performing Lab: [address] [address] UREA NITROGEN 38 mg/dL H 8-26 GLUCOSE 234 mg/dL H 65-100 SODIUM 137 mmol/L 136-145 POTASSIUM 5.0 mmol/L 3.5-5.1 CHLORIDE 106 mmol/L 98-107 CO2 22 meq/L L 23-31 CALCIUM 9.4 mg/dL 8.8-10 CREATININE, Serum 1.71 mg/dL H 0.72-1.25 eGFR(CKD-EPI 2020) 41 mL/min L >60 Dec 07, 2024 03:07 PM [facility] HEMOGLOBIN A1C PANEL BLOOD Specimen Type: BLO OD Comment: Values obtained from A1C measurements can vary. For atypical A1C assays, a reported value of 7.0 could actually be between 6.72 and 7.28 if measured by a reference method. A reported value of 9.0 could actually be between 8.73 and 9.27. Ref: http://www.ngsp.org/CAPdata.asp Ordering Provider: DAMIAN FOUNTAIN Report Released Date/Time: Dec 07, 2024 01:57 PM Reporting Lab: [address] [address] Performing Lab: [address] [address] HEMOGLOBIN A1C 7.1 H 4.0-5.6 Dec 07, 2024 03:07 PM [facility] FRUCTOSAMINE ([facility]) SERUM Specimen Type: SER UM Comment: Test Performed by Nidia Caldwell, [facility], [address] [place] [address] Ryan Bacon M.D., Ph.D., Director of Laboratories , CLIA [id number] TEST PERFORMED AT: , Ordering Provider: DAMIAN FOUNTAIN Report Released Date/Time: Dec 08, 2024 02:52 PM Reporting Lab: [address] [address] Performing Lab: [place] [id number] [address] FRUCTOSAMINE ([facility]) 336 umol/L H 205-285 Dec 07, 2024 03:07 PM [facility] LIVER FUNCTION SERUM Specimen Type: SERUM No comment entered. Ordering Provider: DAMIAN FOUNTAIN Report Released Date/Time: Dec 08, 2024 02:52 PM Reporting Lab: [facility] [address] [facility] [address] Performing Lab: [address] [address] PROTEIN,TOTAL 7.3 g/dL 6.4-8.3 ALBUMIN 4.1 g/dL 3.2-4.6 ALKALINE PHOSPHATASE 44 U/L 40-150 AST 28 U/L 5-34 ALT 18 U/L 0-55 BILIRUBIN, TOTAL 0.1 mg/dL L 0.2-1.2 Dec 07, 2024 03:07 PM [facility] CBC BLOOD Specimen Type: BLOOD No comment entered. Ordering Provider: DAMIAN FOUNTAIN Report Released Date/Time: Dec 08, 2024 08:15 AM Reporting Lab: [facility] [address] [facility] [address] Performing Lab: [address] [address] WBC 9.30 10*3/uL 4.50-11.00 RBC 4.31 10*6/uL 4.23-5.66 HGB 12.7 g/dL L 12.8-17 HCT 40.4 39.2-50.4 MCV 93.7 fL 82-99 MCHC 31.4 g/dL 30.8-35.1 PLT 334 10*3/uL 140-360 MPV 11.8 fL 9.2-12.4 RDW-CV 13.6 12.0-16.0 MCH 29.5 pg 26.2-32.6 Social History: Smoking Status (Most current) and Tobacco Use (All prior to encounter date) This section includes the most current, and the historical, smoking and tobacco- related health factors from the [place] facility where the Encounter took place. Current Smoking Status This section includes the most current smoking, or tobacco-related health factor, from the [place] facility where the Encounter took place. Date/Time Current Smoking Status Comment [facility] Oct 15, 2023 02:30 PM VA-TOBACCO NEVER USED [facility] [place] [facility] Tobacco Use History This section includes a history of the smoking, or tobacco-related health factors, that were collected on or before the date of the Encounter. The data comes from the [place] facility where the Encounter took place. Date/Time Smoking Status/Tobac co Use Comment Facility Oct 25, 2022 09:30 AM VA-TOBACCO NEVER USED [facility] [place] [facility] Oct 18, 2021 10:30 AM VA-TOBACCO NEVER USED [facility] [place] [facility] Oct 12, 2020 01:00 PM VA-TOBACCO NEVER USED [facility] [place] [facility] Oct 14, 2018 09:39 AM VA-TOBACCO NEVER USED [facility] [place] [facility] Apr 11, 2018 07:41 AM VA-TOBACCO NEVER USED [facility] [place] [facility] May 01, 2017 09:10 AM LIFETIME NON-TOBACCO USER [facility] [place] [facility] Apr 24, 2016 09:00 AM LIFETIME NON-TOBACCO USER [facility] [place] [facility] Jan 31, 2015 02:42 PM QUIT TOBACCO USE > 7 YEARS AGO occasional while in [place] [facility] [place] [facility] Encounter Notes: All associated encounter notes This section contains the clinical notes associated to the Encounter. Date/Time Encounter Note(s) Provider Source Dec 07, 2024 01:15 PM PHARMACY OUTPATIEN T NOTE: LOCAL TITLE: PHARMACY CLINIC NOTE STANDARD TITLE: PHARMACY OUTPATIENT NOTE DATE OF NOTE: DEC 07, 2024@13:15 ENTRY DATE: DEC 07, 2024@13:15:58 AUTHOR: DAMIAN FOUNTAIN COSIGNER: URGENCY: STATUS: COMPLETED PHARMACY CLINIC NOTE Has ADDENDA THOM RAE, 74 yo WHITE MALE, presents for [id number] follow-up for diabetes management. DECEMBER 08, 2024 Known Allergies: PENICILLIN Subjective: Raymond referred to pharmacy clinic by PCP for CGM evaluation and T2DM management. At time of last visit (09/28/24), glipizide was increased to twice daily. All other medications were continued. Anthony declined any additional changes until after cardiac cath, scheduled for 10/13/24. Today reports he is doing well. States he was hospitalized and then in rehab for ~1 month. Results of cardiac cath indicated CABG x3, but states after initial surgery he had a bleed and was changed to CABG X4. Throughout appointment, anthony is fixated on almost dying and seeing the light . States while he was in the hospital is blood sugars were elevated and even higher in insulin. This continued at rehab ([facility]) and reports he was discharged with recommendation to start insulin but declined. Today he endorses now more than ever will I not be on insulin. I almost , this does not scare me. It does not work for me . Since d/c anthony has seen endocrinology through [facility]. Describes issues with an old glucometer and states they were irate with him due to date and time being off. He stopped glipizide; was told by [facility] it was not a good drug but states he takes it PRN prior to dinner when he feels he will cheat. He did not bring glucometer but states AM blood glucose was 86 mg/dl. He feels jardiance is working now . Like previous appointment, states A1C being elevated was due to lack of physical activity from March to present. He used to walk 2 miles per day but now watches TV . is working on walking and plans to work his way back to one mile/day. [employer] Goals: A1C <7.5%; FB-130 mg/dl Personal goals: - Get A1C in goal range Objective: Diabetes Medication Regimen: Current diabetes medications: - empagliflozin 25 mg once daily - glipizide 5mg once daily as needed? Previous diabetes medications: - metformin (discontinued by [...] TAKE ONE TABLET BY MOUTH TWICE DAILY ACTIVE BEFORE A MEAL Indication: FOR TYPE 2 DIABETES MELLITUS 5) LANCET,SOFTCLIX USE 1 LANCET DIRECTED TWO TIMES A WEEK TO ACTIVE TEST BLOOD SUGAR 6) METOPROLOL TARTRATE 25MG TAB TAKE ONE TABLET BY MOUTH TWICE ACTIVE DAILY FOR BLOOD PRESSURE/HEART Indication: FOR HIGH BLOOD PRESSURE 7) ROSUVASTATIN CA 40MG TAB TAKE ONE TABLET BY MOUTH ONCE DAILY ACTIVE (NOTE TABLET STRENGTH) Indication: FOR HIGH CHOLESTEROL 8) SPIRONOLACTONE 25MG TAB TAKE ONE TABLET BY MOUTH ONCE DAILY ACTIVE Indication: FOR HEART FAILURE Pending Outpatient Medications Status 1) ACCU-CHEK GUIDE (GLUCOSE) TEST STRIP USE 1 STRIP TO TEST PENDING BLOOD SUGARS TWO TIMES A WEEK 2) ACCU-CHEK GUIDE ME (GLUCOSE) METER USE METER TO TEST BLOOD PENDING SUGARS TWO TIMES A WEEK Inactive Outpatient Medications Status 1) EMPAGLIFLOZIN 10MG TAB TAKE ONE TABLET BY MOUTH ONCE DAILY DISCONTINUED FOR DIABETES (EDIT) 2) EZETIMIBE 10MG TAB TAKE ONE TABLET BY MOUTH ONCE DAILY TO DISCONTINUED LOWER CHOLESTEROL Indication: FOR HIGH CHOLESTEROL 3) GLIPIZIDE 5MG TAB TAKE ONE TABLET BY MOUTH ONCE DAILY DISCONTINUED Indication: FOR TYPE 2 DIABETES MELLITUS 4) GLIPIZIDE 5MG TAB TAKE ONE-HALF TABLET BY MOUTH TWICE DAILY DISCONTINUED (EDIT) 5) GLUCOSE SENSOR DEXCOM G6 USE 1 SENSOR TO TEST BLOOD SUGARS DISCONTINUED EVERY 10 DAYS 6) LISINOPRIL 5MG TAB TAKE ONE TABLET BY MOUTH ONCE DAILY TO DISCONTINUED CONTROL BLOOD PRESSURE 7) METOPROLOL SUCCINATE 50MG SA TAB TAKE ONE TABLET BY MOUTH DISCONTINUED ONCE DAILY FOR BLOOD PRESSURE/HEART Indication: FOR HIGH BLOOD PRESSURE 8) ROSUVASTATIN CA 20MG TAB TAKE ONE TABLET [...] 7) Non-VA TURMERIC CAP/TAB BY MOUTH ACTIVE 25 Total Medications Labs: CHEM 7 TREND LAB CUMULATIVE SELECTED Collection DT Spec GLUCOSE BUN CREATIN Sodium K+/Pot CL CO2 12/07/2024 15:07 SERUM 234 H 38 H 1.71 H 137 5.0 106 22 L 09/15/2024 07:45 SERUM 173 H 34 H 1.69 H 139 4.6 107 22 03/17/2024 09:01 SERUM 100 28 H 1.56 H 139 4.8 108 19 L 10/15/2023 12:38 SERUM 76 28 H 1.50 H 137 4.2 103 21 10/25/2022 09:21 SERUM 115 H 35 H 1.46 H 138 5.0 108 19 L CHEM 7 Results Collection DT Spec Sodium K+/Pot CL CO2 GLUCOSE BUN 12/07/2024 15:07 SERUM 137 5.0 106 22 L 234 H 38 H 09/15/2024 07:45 SERUM 139 4.6 107 22 [...] 139 4.9 104 26 186 H 16 eGFR CKD-EPI 202012/07/2024@1507 41 L LIVER PANEL TREND Collection DT Spec AST [...] HEMOGLOBIN A1C TREND Collection DT Spec HGBA1c 12/07/2024 15:07 BLOOD 7.1 H 09/15/2024 07:45 BLOOD 8.6 H 03/17/2024 09:01 BLOOD 7.2 H 10/15/2023 12:38 BLOOD 7.6 H 05/01/2023 09:31 BLOOD 7.1 H LIPID PANEL TREND Collection DT Spec CHOL HDL CHO/HDL LDL-d LDL-c TRIG 09/15/2024 07:45 SERUM 133 35 L 3.8 65 165 H 03/17/2024 09:01 SERUM 175 42 4.2 104 147 10/15/2023 12:38 SERUM 164 41 4.0 95 138 10/25/2022 09:21 SERUM 208 H 40 5.2 143 H 124 04/19/2022 09:14 SERUM 216 H 36 L 6.0 148 H 162 H Hemoglobin A1C (Monitoring) 9.6 % (High) 10/14/2024 00:57 ([facility]) Vitals: Ht: 69 in [175.3 cm] (03/17/2024 08:00) Wt: 180 lb [81.65 kg] (11/18/2024 14:41) BMI: BMI: 26.6 BP: 120/63 (11/18/2024 14:41) HR: 65 (11/18/2024 14:41) Assessment: DIABETES: Goal: A1c goal is <7.5% with a goal fasting BG average of 80-130mg/dL and a goal post-prandial BG average of <180mg/dL per ADA guideline. Goal adjusted based on age, history of CAD, CKD, and possible retinopathy (will need to determine). Anthony's A1C at time of surgery was 9.6% 10/14/24, grossly above goal. Repeat A1C and BMP to be done today but A1C may be falsely lower after surgery and bloodloss. Will also order CBC, LFTs (for albumin), and fructosamine. We reviewed some discharge paperwork from [facility] and [facility]. Anthony has not initiated insulin against medical advice. Today we discussed the sequelae of uncontrolled T2DM including increased risk of stroke, additional CAD events, dialysis and even . I proposed adding basal insulin and CGM to help reduce blood glucose but anthony declines. We reviewed misconceptions with insulin and goal to get A1C closer to goal and then may be able to introduce other agents with the hope to reduce insulin burden. Anthony is against insulin at this point in time. Reviewed other pharmacologic options. Glipizide was discontinued in hospital due to basal/bolus initiation. He was told by providers at [facility] to not resume glipizide (likely as he was directed to take insulin). Prior to his surgery he did NOT increase glipizide to BID. He now describes taking it as needed when he Feels his meal needs it . I have asked him to resume glipizide 15-30 minutes prior to his largest meals. Anthony unable to take metformin due to renal function. Other oral medications would not provide enough A1C lowering. We reviewed semaglutide nicole has a CAD/CKD compelling indication (anthony has both). He is against this as well. He has given me permission to clarify ? diagnosis of retinopathy with non-VA provider. After much discussion (>40 minutes) he states he MAY give semaglutide a try. We reviewed that other options would result in polypharmacy without CAD/CKD benefit. He understands this. Lifestyle discussed. Anthony is certain that if he can return to walking 1-2 miles per day, he could drop his A1C to in the 7s . Note that anthony said this during first visit as well and is now above goal for >6 months. We reviewed CFU for CGM. Anthony does not qualify at this time. We discussed SMBG via fingerstick which anthony reports he has trouble with. According to anthony reports, he is using a meter that is 20 years old with wrong date and time. Unsure if the meter is working or test strips are in date. I will order a [place] issued glucometer with supplies. I have asked anthony to test his blood glucose twice a week. Anthony has two f/u appointments with [facility]ocrine. He will inform this magazine writer of any medication changes. For now, anthony to work on diet, physical activity, and resume glipizide prior to largest meal. This magazine writer will obtain information from optometry (non-VA) and then discuss findings with anthony. He will decide at that time if he would like to pursue semaglutide. If not, will need to increase glipizide and likely add additional agent (DPP4 inhibitor possibly). CARDIOVASCULAR: For patients 60 years and over with Diabetes, recommend a goal of <140/90, with added benefit of reducing SBP closer to 130. Current BP is 135/67 (09/15/2024 09:04) ASCVD: Above goal; on statin plus ezetimbe plus fenofibrate ASA: on 91 mg aspirin from non-VA cardiology Microalb:v26.1 mg/g (03/2024) History of Preventive Care: Most recent visit to director building: does not see regularly; denies issues with feet Most recent visit to java technical architect/opthalmologist: Dr Diego in [place] - Unknown history, will call Plan: Medication management: - REINITIATE glipizide 5mg ONCE daily prior to dinner - Medications reconciled - Otherwise continue current medications Lifestyle modicfications: - Continue to SMBG 1x/day - Monitor for s/sx hypoglycemia and contact clinic if BG consistently <70mg/dL - Healthy dietary and lifestyle modifications encouraged - Repeat A1c: 03/2025 MISC: EDUCATION -A shared decision-making approach was used in the development of this plan, involving the , clinician, and any caregivers present. The Raymond was provided the opportunity express questions or concerns, and the plan was adjusted as needed to address these concerns. -Reviewed with Raymond any new medications, changes to the medication list, education, and plan from today's visit. Patient (and/or caregiver) verbalized understanding of the plan, including possible known risks and benefits, and had no additional questions. RTC: TBD after results of bloodwork Time Spent: 30 minutes PBM PharmD Pharmacotherapy Rem V12: PHARMACIST INTERVENTIONS: TYPE 2 DIABETES MELLITUS Medication Intervention(s) Medication reconciliation (changes to active VA and non-VA medication lists to reconcile differences) No changes to medication lists made (medication review completed, no discrepancies identified) /susan FOUNTAIN PHARMD, BCPS CLINICAL PHARMACIST PRACTITIONER Signed: 12/08/2024 19:30 12/08/2024 ADDENDUM STATUS: COMPLETED Called [facility] ([phone]). Per notes, retinopathy in left eye. I have requested office visit notes to be faxed. I have also asked optometry to comment on GLP-1RA initiation in this given current eye health. /susan FOUNTAIN PHARMD, BCPS CLINICAL PHARMACIST PRACTITIONER Signed: 12/09/2024 13:27 DAMIAN FOUNTAIN [facility]
--- NOTE | 2024-12-25 13:43 | MHC.PC.OV ---
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 He also follows with [facility], Dr. Susan Rea twice yearly as well as the head pharmacist at the [facility]. Type 2 diabetes-has upcoming appointment with endocrinology. Last hemoglobin A1c 6.8% here and 7.1% at the [facility]. Reports fasting glucose this morning at 118. He has been taking Jardiance 25 mg daily and will occasionally take a glipizide if he eats a lot of carbohydrates at night. No hypoglycemia. Diabetes is complicated by retinopathy and CKD stage 3. Hypertension-blood pressure in the office today 134/52. Compliant with metoprolol, spironolactone GERD-stable Hypercholesterolemia-on Crestor 40 mg daily Coronary artery disease-s/p CABG x4 09/2024 with postprocedural hematoma with 1 L of blood evacuated, required 2 unit transfusion. Following with [facility]. Compliant with baby aspirin, metoprolol, Crestor 40 mg daily. Spironolactone, Jardiance continued on discharge. Continues with cardiac rehab twice weekly. [facility] discharge summary reviewed Concerns: None ROS: General: No fevers, malaise, unintentional weight loss HEENT: No blurred vision, diplopia. No sore throat, nasal congestion, rhinorrhea, sinus pain, ear pain Cardiovascular: No chest pain, palpitations, or leg edema. see hpi Respiratory: No shortness of breath, wheezing, cough MSK: No myalgia, back pain Neuro: No headaches, weakness, paresthesias Skin: No rashes or lesions EXAM: Constitutional - Awake and Alert, No apparent distress Eyes - PERRL Cardiovascular - S1S2, RRR, No edema Respiratory - Normal lung expansion, Normal respiratory effort, No respiratory distress, CTA bilaterally Extremities - no calf tenderness bilaterally, no swelling Skin - Warm/Dry Neurological - Alert & oriented x3 Psychological - Appropriate affect PFSH Medical History (Updated 12/25/24 @ 17:23 by NETTA Ames) CKD stage 3 due to type 2 diabetes mellitus Diabetic retinopathy CAD (coronary artery disease) TIA (transient ischemic attack) 23-polyvalent pneumococcal polysaccharide vaccine indication of diabetes in patient 6 to 64 years of age HTN (hypertension) Surgical History (Updated 12/25/24 @ 17:23 by NETTA Ames) S/P CABG x 4 Family History Mother DM2 (diabetes mellitus, type 2) Father Cancer Social History Alcohol intake: current Alcohol intake frequency: holidays/special occasions only Patient Tobacco Use Status: Never used Tobacco Current occupational status: 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 1. Little interest or pleasure in doing things: not at all 2. Feeling down, depressed, or hopeless: not at all 3. Trouble falling or staying asleep, or sleeping too much: not at all 4. Feeling tired or having little energy: several days 5. Poor appetite or overeating: several days 6. Feeling bad about yourself - or that you are a failure or have let yourself or your family down: not at all 7. Trouble concentrating on things, such as reading the newspaper or watching television: not at all 8. Moving or speaking so slowly that other people could have noticed. Or the opposite - being so fidgety or restless that you have been moving around a lot more than usual: not at all 9. Thoughts that you would be better off or of hurting yourself in some way: not at all Total score: 2 Source: Developed by Drs. Gian Richardson, Brisa Romero, Andrea York and colleagues, with an educational bailey from [employer]. Thrive Questionnaire Date Thrive assessed: 12/25/24 I am a: Patient What is your living situation today?: I have a steady place to live Within the past 12 months, did the food you bought not last and you didn't have the money to get more?: Never true Within the past 12 months, did you worry whether your food would run out before you got money to buy more?: Never true Do you have trouble paying for medicines?: No Do you have trouble getting transportation to medical appointments?: No Do you have trouble paying your heating and electricity bill?: No Do you have trouble taking care of your child, family member or friend?: No Do you have trouble with day-to-day activities such as bathing, preparing meals, shopping, managing finances, etc.?: No Are you currently unemployed and looking for a job?: No Are you interested in more education?: No Please select the resources that you would like help with: None THRIVE Score: 0 AMBER-7 AMB Questionnaire AMBER-7 Date AMBER - 7 assessed: 12/25/24 Feeling nervous, anxious, or on edge: 0 = Not at all Not being able to stop or control worryin = Not at all Worrying too much about different things: 0 = Not at all Trouble relaxin = Not at all Being so restless that it is hard to sit still: 0 = Not at all Becoming easily annoyed or irritable: 0 = Not at all Feeling afraid as if something awful might happen: 0 = Not at all Total AMBER-7 score (0-4 normal; 5-9 mild; 10-14 moderate; 15-21 severe): 0 Source: Developed by Drs. Gian Richardson, Brisa Romero, Andrea York and colleagues, with an educational bailey from [employer]. Physical exam (Primary Care) Vital Signs: Last Vital Signs Temp 96.4 F L 12/25/24 13:50 Pulse 73 12/25/24 13:50 Resp 16 12/25/24 13:50 BP 134/52 L 12/25/24 13:50 Pulse Ox 97 12/25/24 13:50 Oxygen Delivery Method Room Air 12/25/24 13:50 BMI result Body Mass Index 25.8 Tobacco/Smoking Status: Tobacco use Status Patient Tobacco Use Status Never used Tobacco 12/25/24 13:47 PHQ-9: PHQ-9 Score PHQ-9: Total score 2 12/25/24 14:10 Thrive Assessment: Date of Thrive Assessment Date Thrive assessed 12/25/24 12/25/24 13:54 Coding Level of Care Code New Pt Level 4 (58020) Complex EM visit Add On G2211 Diagnoses HTN (hypertension) I10 CAD (coronary artery disease) I25.10 Diabetes mellitus E11.9 Diabetic retinopathy E11.319 CKD stage 3 due to type 2 diabetes mellitus E11.22; N18.30 Assessment & Plan Assessment & Plan (1) HTN (hypertension): Code(s): I10 - Essential (primary) hypertension Category: Medical Plan: Controlled. Continue metoprolol (2) CAD (coronary artery disease): Code(s): I25.10 - Atherosclerotic heart disease of [place] coronary artery without angina pectoris Category: Medical Plan: Stable. Continue baby aspirin, metoprolol, Crestor. Follow-up with cardiology as scheduled. Check lipid panel (3) Diabetes mellitus: Code(s): E11.9 - Type 2 diabetes mellitus without complications Category: Medical Plan: Controlled. Continue checking fasting glucose daily. Continue Jardiance 25 mg daily. Recommend against taking glipizide as needed. Recommend diabetic diet. Continue with eye annual eye exams and foot exams (4) Diabetic retinopathy: Code(s): E11.319 - Type 2 diabetes mellitus with unspecified diabetic retinopathy without macular edema Category: Medical Plan: Stable. Continue annual eye exams (5) CKD stage 3 due to type 2 diabetes mellitus: Code(s): E11.22 - Type 2 diabetes mellitus with diabetic chronic kidney disease; N18.30 - Chronic kidney disease, stage 3 unspecified Category: Medical Plan: Will assess renal function electrolyte levels today. Overall stable Plan Follow-up in the office in 4 months with labs to be completed prior to visit. [facility] Orders Basic Metabolic Panel 4 Months E11.22 - Type 2 diabetes mellitus with diabetic chronic kidney disease, E11.9 - Type 2 diabetes mellitus without complications, I10 - Essential (primary) hypertension, I25.10 - Atherosclerotic heart disease of [place] coronary artery without angina pectoris, N18.30 - Chronic kidney disease, stage 3 unspecified Lipid Panel 4 Months E11.22 - Type 2 diabetes mellitus with diabetic chronic kidney disease, E11.9 - Type 2 diabetes mellitus without complications, I10 - Essential (primary) hypertension, I25.10 - Atherosclerotic heart disease of [place] coronary artery without angina pectoris, N18.30 - Chronic kidney disease, stage 3 unspecified Complete Blood Count Auto Diff 4 Months E11.22 - Type 2 diabetes mellitus with diabetic chronic kidney disease, E11.9 - Type 2 diabetes mellitus without complications, I10 - Essential (primary) hypertension, I25.10 - Atherosclerotic heart disease of [place] coronary artery without angina pectoris, N18.30 - Chronic kidney disease, stage 3 unspecified Hemoglobin A1c 4 Months E11.22 - Type 2 diabetes mellitus with diabetic chronic kidney disease, E11.9 - Type 2 diabetes mellitus without complications, I10 - Essential (primary) hypertension, I25.10 - Atherosclerotic heart disease of [place] coronary artery without angina pectoris, N18.30 - Chronic kidney disease, stage 3 unspecified
[2024-12-25 13:50] VITALS: BP 134/52; PULSE 73; RESP 16; TEMP 35.8; O2SAT 97; BMI 25.8
== END 2024-12-25 14:41 | disposition home or self-care (01) ==
LOC: HO.HMCHD 13:38
PROVIDERS: Visit Provider Physician Assistant
DX: I10 Essential (primary) hypertension (principal); I25.10 Atherosclerotic heart disease of native coronary artery without angina pectoris; E11.319 Type 2 diabetes mellitus with unspecified diabetic retinopathy without macular edema; E11.22 Type 2 diabetes mellitus with diabetic chronic kidney disease; N18.30 Chronic kidney disease, stage 3 unspecified

== ENCOUNTER → 2024-12-25 13:38 | Outpatient (BNVA) | payer MEDICARE, SELFPAY | PROVIDERS: Visit Provider Physician Assistant | DX: E11.22 Type 2 diabetes mellitus with diabetic chronic kidney disease (principal); I12.9 Hypertensive chronic kidney disease with stage 1 through stage 4 chronic kidney disease, or unspecified chronic kidney disease; N18.30 Chronic kidney disease, stage 3 unspecified; I25.10 Atherosclerotic heart disease of native coronary artery without angina pectoris; E11.319 Type 2 diabetes mellitus with unspecified diabetic retinopathy without macular edema; Z79.82 Long term (current) use of aspirin; Z79.84 Long term (current) use of oral hypoglycemic drugs; Z79.899 Other long term (current) drug therapy; Z13.30 Encounter for screening examination for mental health and behavioral disorders, unspecified | CPT/HCPCS: 96127; 99202 ==

== ENCOUNTER 2025-04-16 08:40 | Outpatient (AMB) | payer MEDICARE, SELFPAY ==
--- NOTE | 2025-04-16 08:36 | A.OFFPC_ITS ---
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: No Accompanied by: Self / Same As Patient Allergies Penicillins Allergy (Verified 04/16/25 08:36) hives Medication List - Last Reconciled 04/16/25 by Norman Huddleston MD aspirin 81 mg PO ONCE blood sugar diagnostic (Jamalon Ultra Test strips) test three times a day cholecalciferol (vitamin D3) 25 mcg PO DAILY coenzyme Q10 10 mg PO DAILY empagliflozin 25 mg PO DAILY@1200 ezetimibe 10 mg PO DAILY fenofibrate nanocrystallized 145 mg PO DAILY lancets ([employer]-Band Communicationsuch Delica Plus Lancet) As directed magnesium 250 mg PO DAILY metoprolol tartrate 25 mg PO BID multivitamin 1 tab PO DAILY psyllium husk (Metamucil) 0.4 grams PO DAILY rosuvastatin (Crestor) 40 mg PO DAILY spironolactone (Aldactone) 25 mg PO DAILY Tobacco use date assessed: 04/16/25 Fall risk assessment: No Falls in past year Last assessed Fall Risk: 04/16/25 Dental Screening Dental Screen Date: 04/16/25 Did you have a dental visit in the last 12 months?: Yes Did you have a dental problem in the last 6 months where you did not have access to dental care?: No Was dental information given to patient?: Patient has dentist HPI HPI Comments History of Present Illness Details The patient is a 74-year-old male presenting with concerns related to diabetes management. He reports that his recent blood work indicated elevated A1c levels, which have been fluctuating over time. The last recorded A1c was 8.6, significantly higher than his previous value of 6.5. The patient has been utilizing Glipizide as needed, primarily after consuming large meals, to manage his blood glucose levels, generally achieving readings in the 90s. However, rece nt self-monitoring indicated a fasting blood sugar of 132 mg/dL, even in the absence of consuming unhealthy foods. Additionally, he notes that his findings post-shower tend to be inaccurately high. The patient reports a history of Coronary Artery Disease, having undergone coronary artery bypass graft surgery (CABG) in September. Following the surgery, he experienced a period of inactivity due to recovery, although he has been resuming physical activity by walking one mile every night. He acknowledges the difficulty in maintaining consistent physical activity as a contributing factor to his glycemic control challenges. The patient describes experiences of abdominal discomfort, particularly during and after meals, which he associates with previous gastric issues related to ulcers. This discomfort has been noted to return since his last hospitalization, and he has been using Omeprazole as treatment. He also details an experience with spinal stenosis, leading to sciatic-like symptoms and muscular cramps, primarily affecting one leg since his hospital discharge, which he attributes to possible nerve damage or muscle deconditioning. Medical History: - Type 2 Diabetes Mellitus - Coronary Artery Disease - Hypertension - Chronic Kidney Disease Stage 3 - Hyperlipidemia - History of Stroke - Gastroesophageal Reflux Disease Surgical History: - Coronary Artery Bypass Graft Surgery Medications: - Aspirin 81 mg daily for coronary arter y disease - Jardiance 25 mg daily for Type 2 diabe eric mellitus - Ezetimibe for hyperlipidemia - Fenofibrate for hypertriglyceridemia - Metoprolol Tartrate for hypertension - Spironolactone 25 mg for hypertension - Rosuvastatin 40 mg for hyperlipidemia - Glipizide as needed for glycemic contr ol - Omeprazole for gastroesophageal reflux disease Diagnostic Results: - Labs: A1c is 8.6 Social History: - The patient engages in nutritional man agement, consciously avoiding unhealthy foods. - He attempts regular physical activity by walking one mile nightly, though his ability is sometimes limited by weather conditions. - Post-surgery, he was primarily inactiv e for a couple of months but has resumed some exercise. - The patient experiences physical disco mfort, impacting his ability to exercise aggressively, including muscle cramps and pain from potential sciatica and spinal stenosis. [facility] Medical History (Updated 04/16/25 @ 09:25 by Norman Huddleston MD) BPH (benign prostatic hyperplasia) GERD (gastroesophageal reflux disease) Hypertriglyceridemia Hyperlipidemia CKD stage 3 due to type 2 diabetes mellitus Diabetic retinopathy CAD (coronary artery disease) TIA (transient ischemic attack) 23-polyvalent pneumococcal polysaccharide vaccine indication of diabetes in patient 6 to 64 years of age HTN (hypertension) Surgical History (Updated 12/25/24 @ 17:23 by NETTA Ames) S/P CABG x 4 Family History Mother DM2 (diabetes mellitus, type 2) Father Cancer Social History Housing: House Alcohol intake: current Alcohol intake frequency: holidays/special occasions only Patient Tobacco Use Status: Never used Tobacco e-Cigarette/Vaping Use: Never Used service: Yes 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 How often do you have a drink containing alcohol?: Never 3. How often do you have six or more drinks on one occasion?: Never Total Score: 0 AMBER-7 AMB Questionnaire AMBER-7 Date AMBER - 7 assessed: 12/25/24 Source: Developed by Drs. Gian Richardson, Brisa Romero, Andrea York and colleagues, with an educational bailey from [employer] [place]. Review of Systems Const Details: - Cardiovascular: Denies current swelling; reports previously high blood pressure post-operation. - Musculoskeletal: Reports leg cramps and sciatic-like pain post- hospitalization; denies recent swelling. - Gastrointestinal: Reports abdominopelvic discomfort during and after meals; history of ulcers. - Endocrine: Reports fluctuating blood sugar levels, with a focus on controlling diabetes. - Neurological: History of stroke, reports sciatic pain. All systems reviewed & are unremarkable except as reviewed in HPI and above Physical exam (Primary Care) Vital Signs: Last Vital Signs Temp 97.7 F 04/16/25 08:44 Pulse 87 04/16/25 08:44 Resp 18 04/16/25 08:44 BP 132/64 04/16/25 08:44 Pulse Ox 95 04/16/25 08:44 Oxygen Delivery Method Room Air 04/16/25 08:44 BMI result Body Mass Index 27.4 Tobacco/Smoking Status: Tobacco use Status Tobacco use date assessed 04/16/25 04/16/25 08:37 Patient Tobacco Use Status Never used Tobacco 04/16/25 08:37 e-Cigarette/Vaping Use Never Used 04/16/25 08:50 Thrive Assessment: Date of Thrive Assessment Date Thrive assessed 12/25/24 04/16/25 08:37 Const Other: General: Alert and oriented, Well nourished, No acute distress. Eye: Pupils are equal, round and reactive to light, Intact accommodation, Extraocular movements are intact, Normal conjunctiva, Vision unchanged. HENT: Normocephalic, Atraumatic, Tympanic membranes are clear, Normal hearing, Oral mucosa is moist, No pharyngeal erythema, Ear canals patent. Respiratory: Lungs CTA bilaterally, No wheeze, Respirations are non-labored, Coughing up mucus. Cardiovascular: Regular rate, Regular rhythm, S1 auscultated, S2 auscultated, No murmur, Good pulses equal in all extremities, Normal peripheral perfusion, No edema. Gastrointestinal: Soft, Non-tender, Non-distended, Normal bowel sounds, No organomegaly, Reports discomfort during and after eating. Musculoskeletal: Normal range of motion, Normal strength, No tenderness, No swelling, No deformity, Normal gait, Reports leg cramps and discomfort. Integumentary: Warm, Dry, Anza, Intact. Neurologic: Alert, Oriented, Normal sensory, Normal motor function, No focal defects, Cranial Nerves II-XII are grossly intact, Normal deep tendon reflexes. Psychiatric: Cooperative, Appropriate mood & affect, Normal judgment. Coding Level of Care Code Est Pt Level 4 (16046) Complex EM visit Add On G2211 Diagnoses Primary hypertension I10 Hypertension type: primary hypertension Coronary artery disease involving [place] coronary artery of [place] heart without angina pectoris I25.10 Associated angina: without angina Coronary Disease-Associated Artery/Lesion type: [place] artery [place] vs. 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 Code(s): I10 - Essential (primary) hypertension Category: Medical Qualifiers: Hypertension type: primary hypertension Qualified Code(s): I10 - Essential (primary) hypertension (2) CAD (coronary artery disease): Comment: - Continue current medication regimen including Aspirin and Rosuvastatin. Code(s): I25.10 - Atherosclerotic heart disease of [place] coronary artery without angina pectoris Category: Medical Qualifiers: Associated angina: without angina Coronary Disease-Associated Artery/Lesion type: [place] artery [place] vs. transplanted heart: [place] heart Qualified Code(s): I25.10 - Atherosclerotic heart disease of [place] coronary artery without angina pectoris (3) S/P CABG x 4: Comment: SOLOMON to LAD, SVG x3 to RPDA, OM and diagonal. September 2024 Code(s): Z95.1 - Presence of aortocoronary bypass graft Category: Surgical (4) Diabetes mellitus: Comment: - Encourage continued monitoring of glucose levels and adherence to prescribed medications. - Has had elevation in A1c to 8.1 and is due to follow up with [facility] next week, advised if he is unable to follow with them to get intouch with clinic and we can initate new medications - Discuss possible adjustment to Glipizide regimen and add Metformin if not contraindicated. Code(s): E11.9 - Type 2 diabetes mellitus without complications Category: Medical Qualifiers: Chronic kidney disease stage: stage 3 (moderate) Chronic kidney disease stage 3 subtype: stage 3b (GFR 30-44) Diabetes mellitus complication detail: with chronic kidney disease Diabetes mellitus complication status: with kidney complications Diabetes mellitus longterm insulin use: without longterm use Diabetes mellitus type: type 2 Qualified Code(s): E11.22 - Type 2 diabetes mellitus with diabetic chronic kidney disease; N18.32 - Chronic kidney disease, stage 3b (5) CKD stage 3 due to type 2 diabetes mellitus: Comment: - Emphasize strict blood pressure and diabetes management to slow progression. Code(s): E11.22 - Type 2 diabetes mellitus with diabetic chronic kidney disease; N18.30 - Chronic kidney disease, stage 3 unspecified Category: Medical (6) Hyperlipidemia: Comment: - Continue statin therapy and lifestyle modifications to manage lipid levels. Code(s): E78.5 - Hyperlipidemia, unspecified Category: Medical Qualifiers: Hyperlipidemia type: other hyperlipidemia Qualified Code(s): E78.49 - Other hyperlipidemia (7) Hypertriglyceridemia: Comment: - Continue fenofibrate Code(s): E78.1 - Pure hyperglyceridemia Category: Medical (8) GERD (gastroesophageal reflux disease): Comment: - Continue omeprazole Code(s): K21.9 - Gastro-esophageal reflux disease without esophagitis Category: Medical Qualifiers: Esophagitis presence: without esophagitis Qualified Code(s): K21.9 - Gastro-esophageal reflux disease without esophagitis (9) BPH (benign prostatic hyperplasia): Comment: - No symptoms as of this time Code(s): N40.0 - Benign prostatic hyperplasia without lower urinary tract symptoms Category: Medical Qualifiers: Lower urinary tract symptom presence: symptoms absent Qualified Code(s): N40.0 - Benign prostatic hyperplasia without lower urinary tract symptoms Plan: Health Maintenance: - Monitor blood glucose for tight diabetes control. - Encourage physical activity appropriate for the patient's health status. - Reinforce dietary management to avoid hyperglycemia. - Ensure cardiovascular risk factor management including lipid control. Patient was informed and verbally consented to the use of an ambient scribe for clinic note documentation during this visit. Plan I discussed with the patient the management for his Type 2 Diabetes Mellitus, emphasizing the significance of maintaining blood glucose within target levels t o prevent complications. Given the patient's A1c of 8.6, we explored the options for medication adjustments, including potential regular use of Glipizide or Metformin addition, with close bindery cutter operator follow-up if needed. For coronary artery disease, hypertension, and hyperlipidemia, we agreed to continue the current medication regimen. I addressed his spinal stenosis and sciatic complaints, recommending physical therapy. The patient acknowledged understanding and agreed to continue medications for GERD, chronic kidney disease, and well-controlled hypertension. I emphasized the importance of maintaining a healthy lifestyle and regular medical follow-ups. Patient Instructions: - Continue monitoring blood sugar levels regularly. - Take your medications as prescribed. - Follow up with the bindery cutter operator as scheduled. If not seen, schedule an appointment here. - Engage in daily physical activity like evening walks. - Maintain a healthy diet; avoid junk food. - Continue taking your current medications for your heart, blood pressure, and cholesterol. - Contact us if you notice any new symptoms or changes in your health condition.
[2025-04-16 08:44] VITALS: BP 132/64; PULSE 87; RESP 18; TEMP 36.5; O2SAT 95; BMI 27.4
--- OUTSIDE RECORDS SUMMARY | 2025-04-16 09:04 | XMS_ITS | Clinical Summary ---
Author Organization [facility] Address [address] [place] [phone] Phone Care Team Providers Care Electrical Engineering Technician Name Role Phone Batsheva Salmon MD Primary Care Provider [phone] Allergies Active Allergy Reactions Criticality Noted Date Comments Penicillin 11/05/2024 Medications amiodarone (PACERONE) 200 MG tablet Take 200 mg by mouth 2 (two) times a day. heart failure UNTIL 5.20 5 Active aspirin 81 MG EC tablet Take 81 mg by mouth daily. 5 Active ezetimibe (ZETIA) 10 mg tablet Take 10 mg by mouth daily. diabetes 5 Active fenofibrate (TRICOR) 145 MG tablet Take 145 mg by mouth daily. cholesterol 5 Active empagliflozin (JARDIANCE) 25 mg tablet Take 25 mg by mouth daily. diabetes 5 Active metoprolol tartrate (LOPRESSOR) 25 MG tablet Take 25 mg by mouth 2 (two) times a day. hypertension 5 Active rosuvastatin (CRESTOR) 40 MG tablet Take 40 mg by mouth daily. 5 Active spironolactone (ALDACTONE) 25 MG tablet Take 25 mg by mouth daily. heart failure 5 Active sodium chloride-hypoch lorous acid (VASHE) 0.033 % topical solution Apply 1 Application topically 2 (two) times a day. wound care 5 Active Social History Tobacco Use Types Packs/Day Years Used Date Smoking Tobacco: Never Assessed Home Health Assessment: Transportation Answer Date Recorded Lack of Transportation (Medical) No 12/17/2024 Lack of Transportation (Non-Medical) No 12/17/2024 Patient Unable or Declines to Respond No 12/17/2024 Education Answer Date Recorded Are you interested in more education? Not on js e 11/03/2024 Are you concerned about learning? Not on file 11/03/2024 No 11/03/2024 No 11/03/2024 Digital Access Answer Date Recorded No 11/03/2024 No 11/03/2024 Reliable internet access at home? Not on file 11/03/2024 Device with a working camera? Not on file Sex and Gender Information Value Date Recorded Sex Assigned at Not on file Legal Sex Male 3:20 PM EDT Gender Identity Not on file Sexual Orientation Not on file Last Filed Vital Signs Vital Sign Reading Time Taken Comments Blood Pressure 126/60 11/19/2024 9:16 AM EDT Pulse 68 11/19/2024 9:16 AM EDT Temperature 36.2 C (97.2 F) 11/19/2024 9:16 AM EDT Respiratory Rate 20 11/19/2024 9:16 AM EDT Oxygen Saturation 98% 11/19/2024 9:16 AM EDT Inhaled Oxygen Concentration - - Weight - - Height - - Body Mass Index - - Plan of Treatment Not on file Medical Devices Not on file Insurance [place] [id number] MEDICARE PART A & B MEDICARE PART A & B MEDICARE PART A & B MEDICARE PART A & B MEDICARE PART A & B Care Teams Electrical Engineering Technician Relationship Specialty Start Date End Date Batsheva Salmon MD [address] [place] [address] [place] [id number] PCP - General Internal Medicine 11/03/24 Additional Source Comments The information contained in this document represents components of the legal health record. It is not the complete legal health record.[facility]
== END 2025-04-16 09:26 | disposition home or self-care (01) ==
PROVIDERS: PCP Student in an Organized Health Care Education/Training Program; Visit Provider Student in an Organized Health Care Education/Training Program
DX: I10 Essential (primary) hypertension (principal); I25.10 Atherosclerotic heart disease of native coronary artery without angina pectoris; Z95.1 Presence of aortocoronary bypass graft; E11.22 Type 2 diabetes mellitus with diabetic chronic kidney disease; N18.32 Chronic kidney disease, stage 3b; N18.30 Chronic kidney disease, stage 3 unspecified; E78.49 Other hyperlipidemia; E78.1 Pure hyperglyceridemia; K21.9 Gastro-esophageal reflux disease without esophagitis; N40.0 Benign prostatic hyperplasia without lower urinary tract symptoms

== ENCOUNTER → 2025-04-16 08:40 | Outpatient (BNVA) | payer MEDICARE, SELFPAY | PROVIDERS: Visit Provider Student in an Organized Health Care Education/Training Program | DX: I25.10 Atherosclerotic heart disease of native coronary artery without angina pectoris (principal); E11.22 Type 2 diabetes mellitus with diabetic chronic kidney disease; I12.9 Hypertensive chronic kidney disease with stage 1 through stage 4 chronic kidney disease, or unspecified chronic kidney disease; N18.32 Chronic kidney disease, stage 3b; E78.49 Other hyperlipidemia; E78.1 Pure hyperglyceridemia; K21.9 Gastro-esophageal reflux disease without esophagitis; N40.0 Benign prostatic hyperplasia without lower urinary tract symptoms; Z79.899 Other long term (current) drug therapy; Z95.1 Presence of aortocoronary bypass graft | CPT/HCPCS: 99212 ==

== ENCOUNTER 2025-06-14 10:47 | Outpatient (AMB) | payer MEDICARE, SELFPAY ==
--- NOTE | 2025-06-14 10:53 | A.OFFVIS_ITS ---
Vital Signs 06/14/25 11:00 Height 5 ft 7.83 in Weight 180 lb 12.465 oz BMI 27.6 BP 122/74 Blood Pressure Location Lt brachial Position Sitting Pulse 72 Intake Visit Reasons: 6m follow up echo prior Intake Note: 6 month follow-up with ekg c/o leg pain when walking feel like pins and needles and swollen Ventilating Engineer Required: No Allergies Penicillins Allergy (Verified 04/16/25 08:36) hives Medication List - Last Reconciled 06/14/25 by Danny Fried MD aspirin 81 mg PO ONCE blood sugar diagnostic ([employer]irio Ultra Test strips) test three times a day cholecalciferol (vitamin D3) 25 mcg PO DAILY coenzyme Q10 10 mg PO DAILY empagliflozin 25 mg PO DAILY@1200 ezetimibe 10 mg PO DAILY fenofibrate nanocrystallized 145 mg PO DAILY glipizide 5 mg PO BID lancets ([employer] Delica Plus Lancet) As directed magnesium 250 mg PO DAILY metoprolol tartrate 25 mg PO BID multivitamin 1 tab PO DAILY psyllium husk (Metamucil) 0.4 grams PO DAILY rosuvastatin (Crestor) 40 mg PO DAILY spironolactone (Aldactone) 25 mg PO DAILY HPI Comments Details: Gian comes for follow-up. He complains of pain in his right lower extremity not always with activity but happens with at rest in the morning time. He does get some discomfort with walking. He is worried about peripheral vascular disease. He is still healing from his open heart surgery has numbness in his precordial area. Denies any exertional chest pain. No orthopnea, PND, leg edema. No lightheadedness, syncope. No recent blood work and echocardiogram done. [facility] Medical History BPH (benign prostatic hyperplasia) GERD (gastroesophageal reflux disease) Hypertriglyceridemia Hyperlipidemia CKD stage 3 due to type 2 diabetes mellitus Diabetic retinopathy CAD (coronary artery disease) TIA (transient ischemic attack) 23-polyvalent pneumococcal polysaccharide vaccine indication of diabetes in patient 6 to 64 years of age HTN (hypertension) Surgical History S/P CABG x 4 Family History Mother DM2 (diabetes mellitus, type 2) Father Cancer Social History Housing: House Alcohol intake: current Alcohol intake frequency: holidays/special occasions only Patient Tobacco Use Status: Never used Tobacco e-Cigarette/Vaping Use: Never Used service: Yes Current occupational status: 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 Review of Systems Const Denies chills, Denies fatigue, Denies fever(s), Denies frequent falls, Denies weakness, Denies weight gain and Denies weight loss ENT Denies dizziness Card Denies chest pain, Denies leg edema, Denies lightheadedness, Denies palpitations, Denies dyspnea, Denies dyspnea on exertion, Denies orthopnea and Denies other (loss of consciousness) Resp Denies cough, Denies dyspnea and Denies dyspnea on exertion GI Denies hematochezia and Denies change in stool character Musc Denies abnormal gait, Denies muscle weakness, Denies numbness, Denies radiating pain into limb and Denies tingling Neuro Denies Abnormal speech present, Denies abnormal gait, Denies dizziness, Denies frequent falls, Denies numbness, Denies tingling and Denies weakness Endo Denies fatigue and Denies palpitations Physical Exam Vital Signs: Last Vital Signs Pulse 72 06/14/25 11:00 BP 122/74 06/14/25 11:00 BMI result Body Mass Index 27.6 Const General: cooperative, comfortable, no acute distress, alert, awake and Physically active Nutritional Appearance: overweight Orientation/consciousness: patient oriented x3 Limitations: no limitations HEENT Head: Yes normocephalic and Yes atraumatic Neck Neck: Yes trachea midline, Yes supple and Yes no JVD Carotids: no bruits Resp Effort & Inspection: normal respiratory effort Auscultation: clear to auscultation bilaterally Cardio Jugular venous distension: no JVD Palpation: normal PMI Rate: regular rate Rhythm: regular rhythm Heart sounds: S1 normal heart sound present, S2 normal heart sound present, no click, no gallops, no murmurs and no rubs GI Auscultation: normal bowel sounds Skin General skin exam: no rashes or lesions noted Neuro General: patient oriented x3 and no focal motor deficits Speech: No Abnormal speech present Extrem General: Yes no clubbing, cyanosis or edema Psych Appearance: grossly normal Affect: Anxious affect present Assessment & Plan Assessment & Plan (1) CAD (coronary artery disease): Comment: - Continue current medication regimen including Aspirin and Rosuvastatin. Code(s): I25.10 - Atherosclerotic heart disease of [place] coronary artery without angina pectoris Category: Medical Qualifiers: Coronary Disease-Associated Artery/Lesion type: [place] artery [place] vs. transplanted heart: [place] heart Associated angina: without angina Qualified Code(s): I25.10 - Atherosclerotic heart disease of [place] coronary artery without angina pectoris Plan: CAD status post 4 vessel coronary artery bypass grafting with residual symptoms related to his SOLOMON grafting. Otherwise he has no significant cardiac symptoms. Continue aggressive medical therapy. Importance of aggressive risk factor modification was discussed. Continue low-dose aspirin therapy for life. Continue ezetimibe therapy along with rosuvastatin 40 mg with target goal LDL less than 60 mg/dL. Continue aggressive blood pressure control on current medications. Management of diabetes through office with goal hemoglobin A1c less than 7%. He is having symptoms of bilateral lower extremity tiredness will suggest lower extremity duplex to assess for any significant peripheral vascular disease. (2) PVCs (premature ventricular contractions): Code(s): I49.3 - Ventricular premature depolarization Category: Medical Plan: PVCs which are controlled on metoprolol therapy. No significant symptoms related to it. Continue the same. Advised stress mitigation strategies. Avoidance of stimulants was discussed. Will follow up in the clinic in 6 months time, sooner PRN. Thank you for allowing me to partake in his care Orders: Orders Lipid Panel 06/16/25 I25.10 - Atherosclerotic heart disease of [place] coronary artery without angina pectoris Complete Blood Count no Diff 06/16/25 I25.10 - Atherosclerotic heart disease of [place] coronary artery without angina pectoris US arterial duplex LE BI 06/14/25 M79.604 - Pain in right leg, M79.605 - Pain in left leg CA echo transthoracic complete 06/14/25 Z95.1 - Presence of aortocoronary bypass graft Basic Metabolic Panel 06/16/25 I25.10 - Atherosclerotic heart disease of [place] coronary artery without angina pectoris Coding Level of Care Code Est Pt Level 4 (25916) Diagnoses Coronary artery disease involving [place] coronary artery of [place] heart without angina pectoris I25.10 Coronary Disease-Associated Artery/Lesion type: [place] artery [place] vs. transplanted heart: [place] heart Associated angina: without angina PVCs (premature ventricular contractions) I49.3
[2025-06-14 11:00] VITALS: BP 122/74; PULSE 72; BMI 27.6
== END 2025-06-14 11:25 | disposition home or self-care (01) ==
LOC: HO.HCS 10:48
PROVIDERS: Visit Provider Internal Medicine Cardiovascular Disease
DX: I25.10 Atherosclerotic heart disease of native coronary artery without angina pectoris (principal); I49.3 Ventricular premature depolarization
CPT/HCPCS: 99214

== ENCOUNTER → 2025-06-14 10:47 | Outpatient (BNVA) | payer MEDICARE, SELFPAY | PROVIDERS: Visit Provider Internal Medicine Cardiovascular Disease | DX: I25.10 Atherosclerotic heart disease of native coronary artery without angina pectoris (principal); I49.3 Ventricular premature depolarization; Z95.1 Presence of aortocoronary bypass graft | CPT/HCPCS: 99212 ==

== ENCOUNTER 2025-06-16 09:15 | Outpatient (REF) | payer MEDICARE, SELFPAY ==
--- OUTSIDE RECORDS SUMMARY | 2025-06-16 10:36 | XMS_ITS | Clinical Summary ---
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 It is not the complete legal health record.[facility]
[2025-06-16 11:02] LABS: Hematocrit 47.2 % (42.0-52.0); Hemoglobin 15.3 g/dl (14.0-18.0); Mean Corpuscular HGB Conc 32.4 g/dl (31.0-36.0); Mean Corpuscular Hemoglobin 30.8 pg (27.0-33.0); Mean Corpuscular Volume 95.0 fL (80.0-98.0); NRBC Abs Auto 0.000 X10*3/uL (0.0-0.012); NRBC Pct Auto 0.0 /100WBC (0.0-0.2); Platelet Count 224 X10*3/uL (160-400); Red Blood Count 4.97 X10*6/uL (4.60-5.80); White Blood Count 6.8 X10*3/uL (4.8-10.8)
[2025-06-16 11:38] LABS: Anion Gap 15 (12-20); Blood Urea Nitrogen 31 mg/dL (9-16); Calcium 9.2 mg/dL (8.4-10.2); Carbon Dioxide 21 mmol/L (22-29); Chloride 108 mmol/L (96-108); Cholesterol 99 mg/dL (<200); Estimated Glomerular Filt Rate 44; HDL Cholesterol 35 mg/dL (>40); Potassium 4.4 mmol/L (3.3-5.1); Sodium 140 mmol/L (135-145); Triglycerides 110 mg/dL (<150)
== END 2025-06-16 09:16 | disposition home or self-care (01) ==
LOC: HO.LAB 09:15
PROVIDERS: PCP Student in an Organized Health Care Education/Training Program; Visit Provider Internal Medicine Cardiovascular Disease
DX: I25.10 Atherosclerotic heart disease of native coronary artery without angina pectoris (principal)
CPT/HCPCS: 36415; 80048; 80061; 85027